=== PATIENT | male | born 1945 | race Caucasian/White ===

== ENCOUNTER 2017-02-16 09:10 | Emergency (ER) | payer MEDICARE, BC ==
--- NOTE | 2017-02-16 09:40 | ER Document Report ---
ED General - General Chief Complaint: General Weakness Stated Complaint: DIZZINESS Time Seen by Provider: 02/16/17 09:19 Mode of Arrival: Ambulatory Information source: Patient Notes: 71 yr old male who has had 6 weeks of syncopal episodes that has had extensive workup , they note he has a holter monitor currently , has had carotid workup, mri mra, tilt table test. Pt had a syncopal epsiode of 30 seconds today. pt denies any symptoms currently, was in a wheel chair when this happened. pt notes he feels fine and wants to go home. TRAVEL OUTSIDE OF THE [place] IN LAST 30 DAYS: No - HPI Onset: Just prior to arrival Onset/Duration: Sudden Quality of pain: No pain Severity: Mild Pain Level: Denies Associated symptoms: Weakness Exacerbated by: Denies Relieved by: Denies Similar symptoms previously: Yes Recently seen / treated by doctor: Yes - Related Data Allergies/Adverse Reactions: No Known Allergies Allergy (Unverified 01/01/13 13:56) Past Medical History - Social History Smoking Status: Never Smoker Cigarette use (# per day): No Chew tobacco use (# tins/day): No Smoking Education Provided: No Frequency of alcohol use: Occasional Drug Abuse: None Family History: Reviewed & Not Pertinent - Past Medical History Cardiac Medical History: Reports: Hx Hypertension - CONTROLLED Denies: Hx Coronary Artery Disease, Hx Heart Attack Pulmonary Medical History: Denies: Hx Asthma, Hx Bronchitis, Hx COPD, Hx Pneumonia Neurological Medical History: Denies: Hx Cerebrovascular Accident, Hx Seizures GI Medical History: Denies: Hx Hepatitis, Hx Hiatal Hernia, Hx Ulcer Musculoskeltal Medical History: Denies Hx Arthritis Psychiatric Medical History: Reports: Hx Depression Infectious Medical History: Denies: Hx Hepatitis Past Surgical History: Reports: Hx Abdominal Surgery - g-tube placement. Denies : Hx Open Heart Surgery, Hx Pacemaker - Immunizations Hx Diphtheria, Pertussis, Tetanus Vaccination: Yes Hx Pneumococcal Vaccination: 07/31/12 Review of Systems - Review of Systems Notes: REVIEW OF SYSTEMS: CONSTITUTIONAL : Denies fever, chills, or sweats. Denies recent illness. EENT: Denies eye, ear, throat, or mouth pain or symptoms. Denies nasal or sinus congestion or discharge. Denies throat, tongue, or mouth swelling or difficulty swallowing. CARDIOVASCULAR: Denies chest pain. Denies palpitations or racing or irregular heart beat. Denies ankle edema. RESPIRATORY: Denies cough, cold, or chest congestion. Denies shortness of breath, difficulty breathing, or wheezing. GASTROINTESTINAL: Denies abdominal pain or distention. Denies nausea, vomiting , or diarrhea. Denies blood in vomitus, stools, or per rectum. Denies black, tarry stools. Denies constipation. GENITOURINARY: Denies difficulty urinating, painful urination, burning, frequency, blood in urine, or discharge. MUSCULOSKELETAL: Denies back or neck pain or stiffness. Denies joint pain or swelling. SKIN: Denies rash, lesions or sores. HEMATOLOGIC : Denies easy bruising or bleeding. LYMPHATIC: Denies swollen, enlarged glands. NEUROLOGICAL: admits to dizziness and syncope PSYCHIATRIC: Denies anxiety or stress. Denies depression, suicidal ideation, or homicidal ideation. ALL OTHER SYSTEMS REVIEWED AND NEGATIVE. Dictation was performed using [employer] voice recognition software PHYSICAL EXAMINATION: GENERAL: Well-appearing, well-nourished and in no acute distress. HEAD: Atraumatic, normocephalic. EYES: Pupils equal round and reactive to light, extraocular movements intact, sclera anicteric, conjunctiva are normal. ENT: Nares patent, oropharynx clear without exudates. Moist mucous membranes. NECK: Normal range of motion, supple without lymphadenopathy LUNGS: Breath sounds clear to auscultation bilaterally and equal. No wheezes rales or rhonchi. HEART: Regular rate and rhythm without murmurs ABDOMEN: Soft, nontender, nondistended abdomen. No guarding, no rebound. No masses appreciated. Musculoskeletal: Normal range of motion, no pitting or edema. No cyanosis. NEUROLOGICAL: Cranial nerves grossly intact. Normal speech, normal gait. Normal sensory, motor exams PSYCH: Normal mood, normal affect. SKIN: Warm, Dry, normal turgor, no rashes or lesions noted. Physical Exam - Vital signs Vitals: BP 115/78 02/16/17 09:15 Course - Re-evaluation Re-evalutation: 02/16/17 09:36 patient and defer on any labs imaging or any intervention i offered to at least call their physician, they are happy with this plan 02/16/17 09:40 02/16/17 09:[address] Nguyen, he notes the patient did have a positive tilt table test, he stresses continuation of compression stockings hydration and otherwise discharge home with follow-up After performing a Medical Screening Examination, I estimate there is LOW risk for INTRACRANIAL HEMORRHAGE, ISCHEMIC CVA, MALIGNANT DYSRHYTHMIA, ACUTE CORONARY SYNDROME, MENINGITIS, PULMONARY EMBOLISM, or SEPSIS thus I consider the discharge disposition reasonable. I have reevaluated this patient multiple times and no significant life threatening changes are noted. The patient and I have discussed the diagnosis and risks, and we agree with discharging home with close follow-up with the understanding that symptoms and presentations can change. We also discussed returning to the Emergency Department immediately if new or worsening symptoms occur. We have discussed the symptoms which are most concerning (e.g., changing or worsening pain, weakness, vomiting, fever) that necessitate immediate return. - Vital Signs Vital signs: Temp Pulse Resp BP Pulse Ox 15 115/78 95 02/16/17 09:40 02/16/17 09:15 02/16/17 09:40 Discharge - Discharge Clinical Impression: Syncope and collapse Hypotension Qualifiers: Hypotension type: unspecified hypotension type Qualified Code(s): I95.9 - Hypotension, unspecified Condition: Stable Disposition: HOME, SELF-CARE Instructions: Syncopal Episode ([facility]) Additional Instructions: Follow up with your physician tomorrow for further care or return to the ED IMMEDIATELY if symptoms worsen or new concerns occur. If you cannot afford to follow up with your primary care physician a list of low cost clinics have been provided at the end of your discharge papers as well.
[2017-02-16 10:05] VITALS: BP 129/79
== END 2017-02-16 10:03 | disposition home or self-care (01) ==
LOC: ER 09:10
DX: I95.9 Hypotension, unspecified (principal); R55 Syncope and collapse; I10 Essential (primary) hypertension
CPT/HCPCS: 82962; 99284

== ENCOUNTER 2017-02-21 16:59 | Observation (INO) | payer MEDICARE, BC ==
[2017-02-21 17:17] LABS: ABSOLUTE BASOPHILS # (AUTO) 0.1 10^3/uL (0.0-0.2); ABSOLUTE EOSINOPHILS # (AUTO) 0.1 10^3/uL (0.0-0.6); ABSOLUTE LYMPHOCYTES (AUTO) 1.8 10^3/uL (0.5-4.7); ABSOLUTE NEUT (AUTO) 6.3 10^3/uL (1.7-8.2); BASOPHILS % (AUTO) 0.7 % (0-2); EOSINOPHILS % (AUTO) 0.9 % (0-6); HEMATOCRIT 41.5 % (37.9-51.0); HGB HCT DIFFERENCE 0.5; LYMPHOCYTES % (AUTO) 19.2 % (13-45); MEAN CORPUSCULAR HEMOGLOBIN 31.8 pg (27.0-33.4); MEAN CORPUSCULAR HGB CONC 33.6 g/dL (32.0-36.0); MEAN CORPUSCULAR VOLUME 95 fl (80-97); MONOCYTES % (AUTO) 10.8 % (3-13); RED BLOOD COUNT 4.38 10^6/uL (4.35-5.55); SEGMENTED NEUTROPHILS % (AUTO) 68.4 % (42-78); WHITE BLOOD COUNT 9.2 10^3/uL (4.0-10.5)
[2017-02-21 17:28] LABS: ALANINE AMINOTRANSFERASE 23 U/L (21-72); ALBUMIN 3.9 g/dL (3.5-5.0); ALKALINE PHOSPHATASE 94 U/L (38-126); ANION GAP 13 (5-19); ASPARTATE AMINO TRANSFERASE 20 U/L (17-59); BILIRUBIN,DIRECT 0.4 mg/dL (0.0-0.4); BILIRUBIN,TOTAL 0.6 mg/dL (0.2-1.3); BLOOD UREA NITROGEN 19 mg/dL (7-20); CALCIUM 9.4 mg/dL (8.4-10.2); CARBON DIOXIDE 24 mmol/L (22-30); CHLORIDE 101 mmol/L (98-107); CREATINE KINASE 48 U/L (55-170); CREATININE RESULT 1.11 mg/dL (0.52-1.25); GLUCOSE 78 mg/dL (75-110); SODIUM 137.9 mmol/L (137-145); TOTAL PROTEIN 6.8 g/dL (6.3-8.2)
[2017-02-21 17:40] LABS: CREATINE KINASE MB 1.05 ng/mL (<4.55)
[2017-02-21 17:41] LABS: TROPONIN I < 0.012 ng/mL
--- NOTE | 2017-02-21 17:44 | RADIOLOGY REPORT (SQ) ---
EXAM DESCRIPTION: CHEST SINGLE VIEW COMPLETED DATE/TIME: 02/21/2017 5:35 pm REASON FOR STUDY: Syncope, portable AP chest COMPARISON: 02/26/2014. EXAM PARAMETERS: NUMBER OF VIEWS: One view. TECHNIQUE: Single frontal radiographic view of the chest acquired. RADIATION DOSE: NA LIMITATIONS: None. FINDINGS: LUNGS AND PLEURA: Irregular density in the left lung base concerning for lung mass. No in filtrates. No pleural effusion or pneumothorax. MEDIASTINUM AND HILAR STRUCTURES: No masses. Contour normal. HEART AND VASCULAR STRUCTURES: Heart normal in size. Normal vasculature. BONES: No acute findings. HARDWARE: None in the chest. OTHER: No other significant finding. IMPRESSION: IRREGULAR DENSITY IN THE LEFT LUNG BASE CONCERNING FOR A LUNG MASS. OTHERWISE NO ACUTE FINDINGS. FOLLOW-UP CHEST CT SHOULD BE CONSIDERED. TECHNICAL DOCUMENTATION: JOB ID: [id number]
--- NOTE | 2017-02-21 18:10 | ER Document Report ---
ED Syncope and Near Syncope - General Chief Complaint: Syncope Stated Complaint: UNRESPONSIVE Time Seen by Provider: 02/21/17 17:24 Notes: This 71-year-old male has been having increasing episodes of passing out or nearly passing out over the last couple of months. He has been seeing a local truck body repairer, Dr. Nguyen, and, in fact, just finished these episodes the patient has are associated with low blood pressure and slow heart rate and either near syncope or syncope. He had been having about 1 a week over the last couple months but now he is having them more frequently. Today, EMS got a call that the patient had passed out. They found him sitting, extremely diaphoretic, and lethargic. His blood pressure was in the 50s systolic. They did a 12-lead EKG which showed a normal sinus rhythm. Patient denies any symptoms such as chest pain, shortness of breath, nausea or vomiting , abdominal pain. On the way here, EMS says that his blood pressure dropped down into the 60s and 70s 3 or 4 times, but spontaneously came back up. They only administered IV saline. TRAVEL OUTSIDE OF THE [place] IN LAST 30 DAYS: No - Related Data Allergies/Adverse Reactions: No Known Allergies Allergy (Unverified 01/01/13 13:56) Home Medications: Current Home Medications Alprazolam [Xanax 0.5 mg Tablet] 0.5 mg PO Q12HP PRN 02/21/17 [History] Benazepril HCl [Lotensin 20 mg Tablet] 20 mg PO DAILY 02/21/17 [History] Doxycycline Hyclate 20 mg PO Q12 02/21/17 [History] Gabapentin [Neurontin] 1,600 mg PO QHS 02/21/17 [History] Loratadine [Claritin] 10 mg PO DAILY 02/21/17 [History] Naproxen 500 mg PO BIDPCBS 02/21/17 [History] Pantoprazole Sodium [Protonix] 40 mg PO Q12 02/21/17 [History] Sertraline HCl [Zoloft] 100 mg PO DAILY 02/21/17 [History] Venlafaxine HCl [Effexor Xr] 150 mg PO DAILY 02/21/17 [History] Past Medical History - Social History Smoking Status: Former Smoker - Stopped about 12 years ago. Family History: Reviewed & Not Pertinent - Past Medical History Cardiac Medical History: Reports: Hx Hypertension - CONTROLLED Psychiatric Medical History: Reports: Hx Depression Past Surgical History: Reports: Hx Abdominal Surgery - g-tube placement - Immunizations Hx Diphtheria, Pertussis, Tetanus Vaccination: Yes Hx Pneumococcal Vaccination: 07/31/12 Review of Systems - Review of Systems Notes: REVIEW OF SYSTEMS: CONSTITUTIONAL : Denies fever. EENT: Denies eye, ear, nose or mouth or throat pain or other symptoms. CARDIOVASCULAR: Denies chest pain. RESPIRATORY: Denies cough, chest congestion, or shortness of breath. GASTROINTESTINAL: Denies abdominal pain or nausea, vomiting, or diarrhea. GENITOURINARY: Denies difficulty or painful urinating, urinary frequency, blood in urine. MUSCULOSKELETAL: Denies back or neck pain. Denies joint pain or swelling. SKIN: Denies rash or skin lesions. NEUROLOGICAL: Denies LOC, but nearly so, and somewhat confused at times when these episodes are occurring. Denies headache. Denies sensory loss or motor deficits. ALL OTHER SYSTEMS REVIEWED AND NEGATIVE. Physical Exam - Notes Notes: PHYSICAL EXAMINATION: GENERAL: Well-appearing, in no acute distress. Somewhat diaphoretic. HEAD: Atraumatic, normocephalic. EYES: Pupils equal round and reactive to light, extraocular movements intact. NECK: Normal range of motion, supple. LUNGS: Breath sounds clear and equal bilaterally. HEART: Regular rate and rhythm without murmurs. ABDOMEN: Soft, nontender. No guarding or rebound. BACK: No tenderness throughout entire back. EXTREMITIES: Normal range of motion without pain. NEUROLOGICAL: Normal speech. Gait not tested because of patient's vital signs and clinical presentation. Normal sensory, motor, and reflex exams. Awake, alert, and oriented x3. SKIN: Warm, dry, no rashes. Course - Re-evaluation Re-evalutation: 02/21/17 18:27 Shortly after his arrival, patient's heart rate went down into the mid 50s and his blood pressure dropped to 75. He was given a bolus of 250 mL of saline and put in a supine position and his blood pressure returned to normal and his heart rate increased into the 70s. Spoke with Dr. Solomon, 1 of our hospitalist, and he will admit the patient for observation to [facility]. - Laboratory Result Diagrams: 02/21/17 17:10 02/21/17 17:10 Laboratory results interpreted by me: 02/21/17 17:10 Creatine Kinase 48 L - Diagnostic Test Radiology results interpreted by me: 02/21/17 18:39 Chest x-ray shows a small mass in the left lower lung. I made the patient and his are aware of this finding and recommended they follow-up with their primary care physician to get a CT scan of this patient's chest as an outpatient at some point in the relatively near future. - EKG Interpretation by Me EKG shows normal: Sinus rhythm Rate: Normal Rhythm: NSR Additional EKG results interpreted by me: 02/21/17 18:40 Twelve-lead EKG is normal. Critical Care Note - Critical Care Note Total time excluding time spent on procedures (mins): 40 Discharge - Discharge Clinical Impression: Near syncope Hypotension Qualifiers: Hypotension type: unspecified hypotension type Qualified Code(s): I95.9 - Hypotension, unspecified Condition: Serious Disposition: ADMITTED OBSERVATION Admitting Provider: Hospitalist Unit Admitted: [facility]
[2017-02-21] MEDS ORDERED: ACETAMINOPHEN 325 MG TABLET PO PRN (18:44)
[2017-02-21] MEDS ORDERED: ONDANSETRON HCL INJ/PF 4 MG/2 ML SDV IV PRN (18:44)
--- NOTE | 2017-02-21 19:01 | PDOC H&P ---
History of Present Illness Admission Date/PCP: CLAUDIO FU MD Patient complains of: Syncope History of Present Illness: OLIMPIA [address] is a 71 year old male, with a history of recurrent syncope for the last 3-4 months where he already had multiple workups including carotid Doppler, EEG, tilt table testing, stress test, as well as event recorder. The patient completed recording yesterday and this was submitted to his hospice music therapist. Patient reportedly during the episodes will develop some neck discomfort and eventually some dizziness. No significant injury will be sustained. No reported seizure episode. No tongue biting or urinary incontinence. The patient had another episode today. She was brought to the hospital for evaluation. Reportedly the ambulance noted blood pressure in the 70s and the heart rate were slow in the 50s. The patient according to the family had a blood pressure of 59 systolic prior as well. He is on Norvasc and benazepril and he has not been taking the 5 mg of Norvasc for 2 weeks but still takes the benazepril. In the emergency room however no bradycardia nor hypotension was noted. Past Medical History Past Medical History: Medication reconciliation pending verification from the patient's pharmacist. Cardiac Medical History: Reports: Hypertension - CONTROLLED Denies: Coronary Artery Disease, Myocardial Infarction Pulmonary Medical History: Denies: Asthma, Bronchitis, Chronic Obstructive Pulmonary Disease (COPD), Pneumonia Neurological Medical History: Denies: Seizures GI Medical History: Reports: Other - Esophageal stricture Denies: Hepatitis, Hiatal Hernia Musculoskeltal Medical History: Denies: Arthritis Psychiatric Medical History: Reports: Depression Hematology: Denies: Anemia, Sickle Cell Disease Past Surgical History Past Surgical History: Reports: Other - Abdominal surgery Denies: Pacemaker Social History Information Source: Patient Smoking Status: Former Smoker - Stopped about 12 years ago. Frequency of Alcohol Use: Occasional Hx Recreational Drug Use: No Drugs: None Hx Prescription Drug Abuse: No Family History Family History: Hypertension Parental Family History Reviewed: Yes Children Family History Reviewed: Yes Sibling(s) Family History Reviewed.: Yes Medication/Allergy Home Medications: Alprazolam [Xanax 0.5 mg Tablet] 0.5 mg PO Q12HP PRN 02/21/17 Benazepril HCl [Lotensin 20 mg Tablet] 20 mg PO DAILY 02/21/17 Doxycycline Hyclate 20 mg PO Q12 02/21/17 Gabapentin [Neurontin] 1,600 mg PO QHS 02/21/17 Loratadine [Claritin] 10 mg PO DAILY 02/21/17 Naproxen 500 mg PO BIDPCBS 02/21/17 Pantoprazole Sodium [Protonix] 40 mg PO Q12 02/21/17 Sertraline HCl [Zoloft] 100 mg PO DAILY 02/21/17 Venlafaxine HCl [Effexor Xr] 150 mg PO DAILY 02/21/17 Allergies/Adverse Reactions: No Known Allergies Allergy (Unverified 01/01/13 13:56) Review of Systems Constitutional: ABSENT: chills, fever(s), headache(s), night sweats, weakness, weight gain, weight loss Eyes: ABSENT: visual disturbances Ears: ABSENT: hearing changes Nose, Mouth, and Throat: PRESENT: mouth pain - Chronically dry mouth, sore throat - Chronic secondary to dryness Cardiovascular: ABSENT: chest pain, dyspnea on exertion, edema, orthropnea, palpitations Respiratory: PRESENT: cough - Occasional. ABSENT: dyspnea, hemoptysis, sputum Gastrointestinal: PRESENT: dysphagia - Chronic problem esophageal stricture. ABSENT: abdominal pain, constipation, diarrhea, hematemesis, hematochezia, nausea, vomiting Genitourinary: ABSENT: dysuria, hematuria Musculoskeletal: ABSENT: joint swelling Integumentary: ABSENT: rash, wounds Neurological: ABSENT: abnormal gait, abnormal speech, confusion, dizziness, focal weakness, syncope Psychiatric: ABSENT: anxiety, depression, homidical ideation, suicidal ideation Endocrine: ABSENT: cold intolerance, heat intolerance, polydipsia, polyuria Hematologic/Lymphatic: ABSENT: easy bleeding, easy bruising Physical Exam General appearance: PRESENT: no acute distress, cooperative Head exam: PRESENT: atraumatic, normocephalic Eye exam: PRESENT: conjunctiva pink, EOMI, PERRLA. ABSENT: scleral icterus Ear exam: PRESENT: normal external ear exam Mouth exam: PRESENT: dry mucosa - Chronic, neck supple - Limited range of motion however due to prior radiation, tongue midline Throat exam: ABSENT: post pharyngeal erythema, tonsillar erythema Neck exam: ABSENT: carotid bruit, JVD, lymphadenopathy, thyromegaly Respiratory exam: PRESENT: clear to auscultation alana. ABSENT: rales, rhonchi, wheezes Cardiovascular exam: PRESENT: RRR. ABSENT: diastolic murmur, rubs, systolic murmur Pulses: PRESENT: normal dorsalis pedis pul Vascular exam: PRESENT: normal capillary refill GI/Abdominal exam: PRESENT: normal bowel sounds, soft. ABSENT: distended, guarding, mass, organolmegaly, rebound, tenderness Rectal exam: PRESENT: deferred Extremities exam: PRESENT: full ROM. ABSENT: calf tenderness, clubbing, pedal edema Neurological exam: PRESENT: alert, awake, oriented to person, oriented to place , oriented to time, oriented to situation Psychiatric exam: PRESENT: appropriate affect, normal mood. ABSENT: homicidal ideation, suicidal ideation Skin exam: PRESENT: dry, intact, warm. ABSENT: cyanosis, rash Results Laboratory Results: 02/21/17 17:10 02/21/17 17:10 02/21/17 02/21/17 17:10 17:10 WBC 9.2 RBC 4.38 Hgb 14.0 Hct 41.5 MCV 95 MCH 31.8 MCHC 33.6 RDW 13.0 Plt Count 263 Seg Neutrophils % 68.4 Lymphocytes % 19.2 Monocytes % 10.8 Eosinophils % 0.9 Basophils % 0.7 Absolute Neutrophils 6.3 Absolute Lymphocytes 1.8 Absolute Monocytes 1.0 Absolute Eosinophils 0.1 Absolute Basophils 0.1 Sodium 137.9 Potassium 4.0 Chloride 101 Carbon Dioxide 24 Anion Gap 13 BUN 19 Creatinine 1.11 Est GFR ( Amer) > 60 Est GFR (Non-Af Amer) > 60 Glucose 78 Calcium 9.4 Total Bilirubin 0.6 AST 20 ALT 23 Alkaline Phosphatase 94 Total Protein 6.8 Albumin 3.9 02/21/17 02/21/17 17:10 17:10 Creatine Kinase 48 L CK-MB (CK-2) 1.05 Troponin I < 0.012 Impressions: Chest X-Ray 02/21/17 17:24 IMPRESSION: IRREGULAR DENSITY IN THE LEFT LUNG BASE CONCERNING FOR A LUNG MASS. OTHERWISE NO ACUTE FINDINGS. FOLLOW-UP CHEST CT SHOULD BE CONSIDERED. Assessment & Plan - Diagnosis (1) Hypotension Qualifiers: Hypotension type: unspecified hypotension type Qualified Code(s): I95.9 - Hypotension, unspecified Is this a current diagnosis for this admission?: Yes (2) Syncope and collapse Is this a current diagnosis for this admission?: Yes (3) Bradycardia Is this a current diagnosis for this admission?: Yes (4) Essential hypertension Is this a current diagnosis for this admission?: Yes (5) Depression Qualifiers: Depression Type: unspecified Qualified Code(s): F32.9 - Major depressive disorder, single episode, unspecified Is this a current diagnosis for this admission?: Yes (6) History of laryngeal cancer Is this a current diagnosis for this admission?: Yes - Time Time Spent: 30 to 50 Minutes - Plan Summary Plan Summary: The patient will be admitted to observation. The patient already had multiple workups done and family reports it as being negative. Likely cause of syncope is hypotension I would therefore discontinue his antihypertensive medication and monitor blood pressure. I will hydrate the patient and if improved and stable in the morning patient can be discharged home. Patient will be on DVT prophylaxis with Lovenox. Further testing depends on initial evaluation as outlined above. I will add TSH.
[2017-02-21] MEDS ORDERED: ENOXAPARIN SODIUM INJ 40 MG/0.4 ML DISP.SYRIN SUBCUT ONE (20:00)
[2017-02-21] MEDS: NORMAL SALINE 1000 ML 1,000 ML IV PRN (21:24)
[2017-02-21] MEDS ORDERED: GABAPENTIN 400 MG CAPSULE PO SCH (22:00)
[2017-02-21] MEDS: ALPRAZOLAM 0.5 MG TABLET PO SCH (23:16)
[2017-02-21] MEDS: LANSOPRAZOLE 30 MG TAB.RAP.DR PO SCH (23:17)
[2017-02-22 00:08] LABS: APPEARANCE,URINE CLEAR; BILIRUBIN,URINE NEGATIVE (NEGATIVE); GLUCOSE, URINE NEGATIVE (NEGATIVE); KETONES,URINE TRACE mg/dL (NEGATIVE); LEUKOCYTE ESTERASE,URINE NEGATIVE (NEGATIVE); NITRITE,URINE NEGATIVE (NEGATIVE); PROTEIN,URINE NEGATIVE (NEGATIVE); URINE SPECIFIC GRAVITY 1.012; UROBILINOGEN,URINE NEGATIVE mg/dL (<2.0)
[2017-02-22] MEDS: NORMAL SALINE 1000 ML 1,000 ML IV PRN (05:22)
[2017-02-22] MEDS ORDERED: LANSOPRAZOLE 30 MG TAB.RAP.DR PO SCH (06:00)
[2017-02-22] MEDS ORDERED: GABAPENTIN 1600 MG PO SCH (08:00)
[2017-02-22] MEDS: ALPRAZOLAM 0.5 MG TABLET PO SCH (09:19)
[2017-02-22] MEDS: LANSOPRAZOLE 30 MG TAB.RAP.DR PO SCH (09:19)
[2017-02-22] MEDS ORDERED: BENAZEPRIL HCL 10 MG TABLET PO ONE (09:30)
[2017-02-22] MEDS ORDERED: ENOXAPARIN SODIUM INJ 40 MG/0.4 ML DISP.SYRIN SUBCUT SCH (10:00)
[2017-02-22] MEDS ORDERED: VENLAFAXINE HCL 75 MG CAP.SR.24H PO SCH (10:00)
[2017-02-22] MEDS ORDERED: LORATADINE 10 MG TABLET PO SCH (10:00)
[2017-02-22] MEDS ORDERED: DOCUSATE SODIUM 100 MG CAPSULE PO SCH (10:00)
[2017-02-22] MEDS ORDERED: SERTRALINE HCL 50 MG TABLET PO SCH (10:00)
--- NOTE | 2017-02-22 10:20 | RADIOLOGY REPORT (SQ) ---
EXAM DESCRIPTION: CT CHEST WITH COMPLETED DATE/TIME: 02/22/2017 10:05 am REASON FOR STUDY: abnormal chest x-ray. R05 COUGH COMPARISON: Chest x-ray dated 02/21/2017. PET-CT dated 09/14/2014. TECHNIQUE: CT scan of the chest performed using helical scanning technique with dynamic intravenous contrast injection. Images reviewed with lung, soft tissue and bone windows. Reconstructed coronal and sagittal MPR images reviewed. All images stored on PACS. All CT scanners at this facility use dose modulation, iterative reconstruction, and/or weight based d osing when appropriate to reduce radiation dose to as low as reasonably achievable (ALARA). [facility]: Dose Right [facility]: CareDose [facility]: Dose Right [facility]: Teradose 4D [facility]: KeepTrax CONTRAST TYPE AND DOSE: contrast/concentration: Isovue 370.00 mg/ml; Total Contrast Delivered: 81.1 ml; Total Saline Delivered: 56.0 ml RENAL FUNCTION: BUN 19 creatinine 1.11. RADIATION DOSE: Up-to-date CT equipment and radiation dose reduction techniques were employed. CTDIv ol: 11.0 mGy. DLP: 441 mGy-cm. . LIMITATIONS: None. FINDINGS: LUNGS AND PLEURA: There are innumerable small pulmonary nodules throughout both lungs, ofelia suring less than 1 cm. There is a spiculated mass in the superior left lower lobe measuring 2.6 cm. This abuts the major fissure. No pleural effusion or pleural thickening. No pneumothorax. HILAR AND MEDIASTINAL STRUCTURES: Ill-defined soft tissue in the upper mediastinum, superior to the a ortic arch. This deviates the trachea to the right. Margins are indistinct but overall transverse d imensions are roughly 2.5 x 5 cm. HEART AND VASCULAR STRUCTURES: No aneurysm or dissection. No central pulmonary emboli. No pericardi al effusion. HARDWARE: None in the chest. UPPER ABDOMEN: No significant findings. Limited exam. THYROID AND OTHER SOFT TISSUES: No masses. No adenopathy. BONES: No significant finding. Old rib fractures. OTHER: No other significant finding. IMPRESSION: 1. MULTIPLE SMALL SUBCENTIMETER PULMONARY NODULES THROUGHOUT BOTH LUNGS WITH A 2.6 CM SPICULATED MASS IN THE LEFT LOWER LOBE. GIVEN THE HISTORY OF VOCAL CORD CANCER, THESE COULD REPRESENT METASTASES AL THOUGH ANOTHER POSSIBILITY IS PRIMARY LUNG MALIGNANCY WITH METASTASIS. 2. ILL-DEFINED SOFT TISSUE MASS IN THE UPPER MEDIASTINUM, MOST LIKELY METASTATIC IN NATURE. TECHNICAL DOCUMENTATION: JOB ID: [id number] Quality ID # [id number]: Final reports with documentation of one or more dose reduction techniques (e.g., Au tomated exposure control, adjustment of the mA and/or kV according to patient size, use of iterative reconstruction technique) 2010 [employer]- All Rights Reserved
--- NOTE | 2017-02-22 14:52 | PDOC PROGRESS REPORT ---
Subjective Progress Note for:: 02/22/17 Subjective:: Patient and family reluctant to go home. No hypotension or bradycardia noted while in the [place]. Patient's blood pressure actually was elevated eventually. Intravenous fluid was discontinued. No chest pain, nausea or vomiting, chills or fever. Patient denies any dizziness. Physical Exam Vital Signs: Temp Pulse Resp BP Pulse Ox 98.0 F 82 20 169/85 H 100 02/22/17 11:11 02/22/17 11:11 02/22/17 11:11 02/22/17 11:11 02/22/17 11:11 Intake & Output 02/21/17 02/22/17 02/23/17 06:59 06:59 06:59 Intake Total 1129 Output Total 400 Balance 729 Weight 87.7 kg General appearance: PRESENT: no acute distress, cooperative Head exam: PRESENT: normocephalic Eye exam: PRESENT: EOMI Mouth exam: PRESENT: moist, neck supple Neck exam: ABSENT: JVD Respiratory exam: PRESENT: clear to auscultation alana Cardiovascular exam: PRESENT: RRR. ABSENT: gallop GI/Abdominal exam: PRESENT: soft. ABSENT: distended, tenderness Extremities exam: ABSENT: pedal edema Neurological exam: PRESENT: alert, awake, oriented to situation Skin exam: PRESENT: dry, warm. ABSENT: cyanosis Results Laboratory Results: 02/21/17 02/22/17 22:55 05:58 TSH 1.89 Urine Color YELLOW Urine Appearance CLEAR Urine pH 5.0 Ur Specific [place] 1.012 Urine Protein NEGATIVE Urine Glucose (UA) NEGATIVE Urine Ketones TRACE H Urine Blood NEGATIVE Urine Nitrite NEGATIVE Ur Leukocyte Esterase NEGATIVE Urine WBC (Auto) 2 Urine RBC (Auto) 1 Impressions: Chest X-Ray 02/21/17 17:24 IMPRESSION: IRREGULAR DENSITY IN THE LEFT LUNG BASE CONCERNING FOR A LUNG MASS. OTHERWISE NO ACUTE FINDINGS. FOLLOW-UP CHEST CT SHOULD BE CONSIDERED. Chest CT 02/22/17 00:00 IMPRESSION: 1. MULTIPLE SMALL SUBCENTIMETER PULMONARY NODULES THROUGHOUT BOTH LUNGS WITH A 2.6 CM SPICULATED MASS IN THE LEFT LOWER LOBE. GIVEN THE HISTORY OF VOCAL CORD CANCER, THESE COULD REPRESENT METASTASES ALTHOUGH ANOTHER POSSIBILITY IS PRIMARY LUNG MALIGNANCY WITH METASTASIS. 2. ILL-DEFINED SOFT TISSUE MASS IN THE UPPER MEDIASTINUM, MOST LIKELY METASTATIC IN NATURE. Assessment & Plan - Diagnosis (1) Hypotension Qualifiers: Hypotension type: unspecified hypotension type Qualified Code(s): I95.9 - Hypotension, unspecified Is this a current diagnosis for this admission?: Yes (2) Syncope and collapse Is this a current diagnosis for this admission?: Yes (3) Bradycardia Is this a current diagnosis for this admission?: Yes (4) Essential hypertension Is this a current diagnosis for this admission?: Yes (5) Depression Qualifiers: Depression Type: unspecified Qualified Code(s): F32.9 - Major depressive disorder, single episode, unspecified Is this a current diagnosis for this admission?: Yes (6) History of laryngeal cancer Is this a current diagnosis for this admission?: Yes - Time Time Spent with patient: 15-24 minutes - Plan Summary Plan Summary: We will discuss it is etl architect Dr. Nguyen regarding care plan in terms of the patient's recurrent syncope and results of event recorder.
--- NOTE | 2017-02-22 15:20 | Physician Advisory Note ---
Physician Advisor ProgressNote .: Pursuant to the plan for [facility], I have reviewed the medical record for this patient. Physician Advisor Statement: Please consider documentin. "Bilateral lung masses, suspect cancer" 2. likely cause of syncope - dehyd, 'lyte abnormalities, med SEs, generalized arteriosclerotic cerebrovascular dz, ... 3. Medical necessity - please make explicit the clinical reason(s) pt unable to safely go home 7/26 PM (if none are documented, payer will likely assume pt should have gone home 7/26) Thanks! CK
--- NOTE | 2017-02-22 16:22 | EKG REPORT ---
SEVERITY:- BORDERLINE ECG - SINUS RHYTHM PROBABLE LEFT ATRIAL ABNORMALITY : Confirmed by: Carolyn Farias MD 22-Feb-2017 16:21:40
--- NOTE | 2017-02-22 17:13 | PDOC DISCHARGE SUMMARY ---
General - Admit/Disc Date/PCP Admission Date/Primary Care Provider: 02/21/17 18:44 CLAUDIO FU MD Discharge Date: 02/22/17 - Discharge Diagnosis (1) Hypotension Is this a current diagnosis for this admission?: Yes (2) Syncope and collapse Is this a current diagnosis for this admission?: YesSummary: Likely vasovagal (3) Bradycardia Is this a current diagnosis for this admission?: Yes (4) Essential hypertension Is this a current diagnosis for this admission?: Yes (5) Depression Is this a current diagnosis for this admission?: Yes (6) History of laryngeal cancer Is this a current diagnosis for this admission?: Yes - Additional Information Discharge Diet: Cardiac Discharge Activity: Activity As Tolerated, Balance Activity w/Rest Home Medications: Alprazolam [Xanax 0.5 mg Tablet] 0.5 mg PO Q12HP PRN 02/21/17 Benazepril HCl [Lotensin 20 mg Tablet] 20 mg PO DAILY 02/21/17 Doxycycline Hyclate 20 mg PO Q12 02/21/17 Gabapentin [Neurontin] 1,600 mg PO QHS 02/21/17 Loratadine [Claritin] 10 mg PO DAILY 02/21/17 Naproxen 500 mg PO BIDPCBS 02/21/17 Pantoprazole Sodium [Protonix] 40 mg PO Q12 02/21/17 Sertraline HCl [Zoloft] 100 mg PO DAILY 02/21/17 Venlafaxine HCl [Effexor Xr] 150 mg PO DAILY 02/21/17 Additional Information: Where compression stockings, increase salt intake, stop alcoholic beverage drink History of Present Illness Patient complains of: Recheck recurrent syncope History of Present Illness: OLIMPIA [facility] is a 71 year old male, with a history of recurrent syncope for the last 3-4 months where he already had multiple workups including carotid Doppler, EEG, tilt table testing, stress test, as well as event recorder. The patient completed recording yesterday and this was submitted to his tmd teacher assistant. Patient reportedly during the episodes will develop some neck discomfort and eventually some dizziness. No significant injury will be sustained. No reported seizure episode. No tongue biting or urinary incontinence. The patient had another episode today. She was brought to the hospital for evaluation. Reportedly the ambulance noted blood pressure in the 70s and the heart rate were slow in the 50s. The patient according to the family had a blood pressure of 59 systolic prior as well. He is on Norvasc and benazepril and he has not been taking the 5 mg of Norvasc for 2 weeks but still takes the benazepril. In the emergency room however no bradycardia nor hypotension was noted. Hospital Course Hospital Course: the patient was admitted to [facility]. He was given intravenous fluids. Antihypertensive medications were held temporarily. His blood pressure normalized and the patient's heart rate normalized. His blood pressure the following morning started to increase and he was given 10 mg of benazepril which he takes as needed at home when his blood pressure goes up above 140 systolic. This was his instructions from his tmd teacher assistant and he wants to keep it that way. Subsequently his blood pressure improved. No syncopal episode or sensation was noted while in the [place]. No bradycardia was likewise noted on the monitor. His case was discussed with his tmd teacher assistant Dr. Nguyen who stated that he had an extensive workup in [place] and he has pending event recorder reading which was completed 2 days ago. He is still table test was positive and has vasovagal syncope. He has advised the patient to wear compression stockings, increase salt intake , and stop alcohol. He made the same recommendations upon discussion with him for the patient. He was cleared to be discharged and to be seen by him on June 01, 2017 at 3:45 in the afternoon. His course was noted for abnormal chest x-ray order a CT of the chest showed lung nodules and spiculated mass suspicious for malignancy mainly metastatic from prior primary site which is laryngeal cancer as reported. His case was then discussed with his oncologist Dr. Hanson who will see him on an outpatient. Patient and family was informed of the findings. The rest of the hospital stay was unremarkable. Physical Exam Vital Signs: Temp Pulse Resp BP Pulse Ox 98.0 F 89 20 169/85 H 100 02/22/17 11:11 02/22/17 14:00 02/22/17 11:11 02/22/17 11:11 02/22/17 16:40 Intake & Output 02/21/17 02/22/17 02/23/17 06:59 06:59 06:59 Intake Total 1129 Output Total 400 Balance 729 Weight 87.7 kg General appearance: PRESENT: no acute distress, cooperative Head exam: PRESENT: normocephalic Eye exam: PRESENT: EOMI Mouth exam: PRESENT: moist, neck supple Neck exam: ABSENT: JVD Respiratory exam: PRESENT: clear to auscultation alana Cardiovascular exam: PRESENT: RRR. ABSENT: gallop GI/Abdominal exam: PRESENT: soft. ABSENT: distended, tenderness Extremities exam: ABSENT: pedal edema Neurological exam: PRESENT: alert, awake, oriented to situation Skin exam: PRESENT: dry, warm. ABSENT: cyanosis Results Laboratory Results: 02/21/17 02/22/17 22:55 05:58 TSH 1.89 Urine Color YELLOW Urine Appearance CLEAR Urine pH 5.0 Ur Specific [place] 1.012 Urine Protein NEGATIVE Urine Glucose (UA) NEGATIVE Urine Ketones TRACE H Urine Blood NEGATIVE Urine Nitrite NEGATIVE Ur Leukocyte Esterase NEGATIVE Urine WBC (Auto) 2 Urine RBC (Auto) 1 Impressions: Chest X-Ray 02/21/17 17:24 IMPRESSION: IRREGULAR DENSITY IN THE LEFT LUNG BASE CONCERNING FOR A LUNG MASS. OTHERWISE NO ACUTE FINDINGS. FOLLOW-UP CHEST CT SHOULD BE CONSIDERED. Chest CT 02/22/17 00:00 IMPRESSION: 1. MULTIPLE SMALL SUBCENTIMETER PULMONARY NODULES THROUGHOUT BOTH LUNGS WITH A 2.6 CM SPICULATED MASS IN THE LEFT LOWER LOBE. GIVEN THE HISTORY OF VOCAL CORD CANCER, THESE COULD REPRESENT METASTASES ALTHOUGH ANOTHER POSSIBILITY IS PRIMARY LUNG MALIGNANCY WITH METASTASIS. 2. ILL-DEFINED SOFT TISSUE MASS IN THE UPPER MEDIASTINUM, MOST LIKELY METASTATIC IN NATURE. Qualifiers PATEINT BEING DISCHARGED WITH ANY OF THE FOLLOWING DIAGNOSIS?: No Plan Discharge Plan: Follow-up with primary care physician in 1 week. Follow-up with tmd teacher assistant Dr. Nguyen in 1 week. Time Spent: Less than 30 Minutes
[2017-02-22 17:43] VITALS: BP 136/67
== END 2017-02-22 18:02 | disposition home or self-care (01) ==
LOC: ER 16:59 → EH 18:44 → UNDOADMOB 18:52 → EH 18:52 → INTOOBSV 18:52 → 3W 21:40
DX: I95.9 Hypotension, unspecified (principal); R55 Syncope and collapse; R00.1 Bradycardia, unspecified; I10 Essential (primary) hypertension; F32.9 Major depressive disorder, single episode, unspecified; R91.8 Other nonspecific abnormal finding of lung field; K22.2 Esophageal obstruction; R68.2 Dry mouth, unspecified; K13.79 Other lesions of oral mucosa; Z85.21 Personal history of malignant neoplasm of larynx; Z79.899 Other long term (current) drug therapy; Z91.14 Patient's other noncompliance with medication regimen; Z87.891 Personal history of nicotine dependence; Z82.49 Family history of ischemic heart disease and other diseases of the circulatory system
CPT/HCPCS: 93005; 99291; 96372; 36415 ×2; 82553; 82550; 84443; 85025; 80053; 81001; 84484; 71010; 71260; 93010; G0378 ×3; A9270 ×10; J1650 ×2; J3490 ×2; J7030 ×2

== ENCOUNTER 2017-02-23 17:25 | Emergency (ER) | payer MEDICARE, BC ==
[2017-02-23] MEDS ORDERED: NORMAL SALINE 1000 ML 1,000 ML IV PRN (18:35)
--- NOTE | 2017-02-23 19:31 | ER Document Report ---
ED General - General Chief Complaint: Syncope Stated Complaint: POSSIBLE SYNCOPAL EPISODE Time Seen by Provider: 02/23/17 18:34 Notes: Patient is a 71-year-old male with past medical history of hypertension, peripheral neuropathy, and recurrent syncope who presents today after a syncopal episode. Patient did syncopized and trying to walk into a friend's house. He did not sustain any injuries during that fall. He has been extensively evaluated for these recurrent episodes of syncope by his railway track worker. He is scheduled to start on a medication such as Midodrine in the coming weeks to help prevent recurrent episodes of syncope. He apparently had a strongly positive tilt table test last week. At time of my assessment patient denies any ongoing symptoms. Denies any chest pain, shortness of breath , weakness or numbness. Nothing seems to provoke his symptoms or episodes. They do resolve spontaneously. TRAVEL OUTSIDE OF THE [place] IN LAST 30 DAYS: No - Related Data Allergies/Adverse Reactions: No Known Allergies Allergy (Unverified 01/01/13 13:56) Past Medical History - General Information source: Patient - Social History Smoking Status: Former Smoker Chew tobacco use (# tins/day): No Frequency of alcohol use: None Drug Abuse: None Lives with: Spouse/Significant other Family History: Reviewed & Not Pertinent - Past Medical History Cardiac Medical History: Reports: Hx Hypertension - CONTROLLED Denies: Hx Coronary Artery Disease, Hx Heart Attack Pulmonary Medical History: Denies: Hx Asthma, Hx Bronchitis, Hx COPD, Hx Pneumonia Neurological Medical History: Denies: Hx Cerebrovascular Accident, Hx Seizures GI Medical History: Denies: Hx Hepatitis, Hx Hiatal Hernia, Hx Ulcer Musculoskeltal Medical History: Denies Hx Arthritis Psychiatric Medical History: Reports: Hx Depression Infectious Medical History: Denies: Hx Hepatitis Past Surgical History: Reports: Hx Abdominal Surgery - g-tube placement, Other - Abdominal surgery. Denies: Hx Open Heart Surgery, Hx Pacemaker - Immunizations Hx Diphtheria, Pertussis, Tetanus Vaccination: Yes Hx Pneumococcal Vaccination: 07/31/12 Review of Systems - Review of Systems Notes: Constitutional: Negative for fever. HENT: Negative for sore throat. Eyes: Negative for visual changes. Cardiovascular: Negative for chest pain. Respiratory: Negative for shortness of breath. Gastrointestinal: Negative for abdominal pain, vomiting or diarrhea. Genitourinary: Negative for dysuria. Musculoskeletal: Negative for back pain. Skin: Negative for rash. Neurological: Negative for headaches, weakness or numbness. 10 point ROS negative except as marked above and in HPI. Physical Exam - Vital signs Vitals: Temp Resp BP 97.8 F 16 96/62 L 02/23/17 17:32 02/23/17 17:32 02/23/17 17:32 Interpretation: Hypotensive Notes: PHYSICAL EXAMINATION: GENERAL: Well-appearing, well-nourished and in no acute distress. HEAD: Atraumatic, normocephalic. EYES: Pupils equal round and reactive to light, extraocular movements intact, sclera anicteric, conjunctiva are normal. ENT: nares patent, oropharynx clear without exudates. Moist mucous membranes. NECK: Normal range of motion, supple without lymphadenopathy LUNGS: Breath sounds clear to auscultation bilaterally and equal. No wheezes rales or rhonchi. HEART: Regular rate and rhythm without murmurs ABDOMEN: Soft, nontender, normoactive bowel sounds. No guarding, no rebound. No masses appreciated. EXTREMITIES: Normal range of motion, no pitting or edema. No cyanosis. NEUROLOGICAL: No focal neurological deficits. Moves all extremities spontaneously and on command. PSYCH: Normal mood, normal affect. SKIN: Warm, Dry, normal turgor, no rashes or lesions noted. Course - Re-evaluation Re-evalutation: 02/23/17 19:28 Patient presents with a recurrent episode of syncope. He has been having near daily syncopal episodes for the past several weeks and is actively following with cardiology regarding his concerns. He had a strongly positive tilt table test and I spoke with his railway track worker Dr. Nguyen today who reports that he is planning on turning the patient on Mididrin or similar agent due to the positive tilt table test and has requested the patient follow-up in the office as scheduled. At time of my assessment patient denies any complaints or concerns. He did not sustain any injuries during today's episode of syncope. Physical examination is otherwise unremarkable. Lab and EKG here are reassuring. Patient is ready had an extensive workup for today's presentation including an echocardiogram, carotid Dopplers, MRI of the head and neck, a Holter monitor for a week, and a tilt table test. These have not revealed any malignant cause of the patient's presentation. At this time will discharge with return precautions and follow-up recommendations. Verbal discharge instructions given a the bedside and opportunity for questions given. Medication warnings reviewed. Patient is in agreement with this plan and has verbalized understanding of return precautions and the need for primary care follow-up in the next 24-72 hours. - Vital Signs Vital signs: Temp Pulse Resp BP Pulse Ox 97.8 F 80 16 173/109 H 96 02/23/17 17:32 02/23/17 18:31 02/23/17 20:01 02/23/17 20:00 02/23/17 20:01 - Laboratory Result Diagrams: 02/23/17 17:50 02/23/17 17:50 Laboratory results interpreted by me: 02/23/17 02/23/17 17:50 17:50 RBC 4.21 L Creatine Kinase 32 L - EKG Interpretation by Me Additional EKG results interpreted by me: 02/23/17 19:30 Normal sinus rhythm. Rate 80. No ST elevations or depressions. QTC is 480. Discharge - Discharge Clinical Impression: Syncope and collapse Condition: Good Disposition: HOME, SELF-CARE Additional Instructions: You were seen today after an episode of passing out. Your EKG here is normal. At this time, we do not feel that your episode of passing out was from any life- threatening cause. As we discussed, please avoid any activity that would be dangerous if you were to have a recurrent episode of syncope. Please follow-up with your railway track worker as scheduled. Referrals: CLAUDIO FU MD [Primary Care Provider] - Follow up as needed
[2017-02-23 19:39] LABS: ABSOLUTE BASOPHILS # (AUTO) 0.1 10^3/uL (0.0-0.2); ABSOLUTE EOSINOPHILS # (AUTO) 0.1 10^3/uL (0.0-0.6); ABSOLUTE MONOCYTES (AUTO) 0.7 10^3/uL (0.1-1.4); ABSOLUTE NEUT (AUTO) 5.5 10^3/uL (1.7-8.2); BASOPHILS % (AUTO) 0.7 % (0-2); EOSINOPHILS % (AUTO) 1.6 % (0-6); HEMATOCRIT 39.5 % (37.9-51.0); HEMOGLOBIN 13.5 g/dL (13.5-17.0); LYMPHOCYTES % (AUTO) 13.9 % (13-45); MEAN CORPUSCULAR HGB CONC 34.1 g/dL (32.0-36.0); MEAN CORPUSCULAR VOLUME 94 fl (80-97); RED BLOOD COUNT 4.21 10^6/uL (4.35-5.55); RED CELL DISTRIBUTION WIDTH 13.4 % (11.5-14.0); SEGMENTED NEUTROPHILS % (AUTO) 73.8 % (42-78); WHITE BLOOD COUNT 7.4 10^3/uL (4.0-10.5)
[2017-02-23 19:45] LABS: ALANINE AMINOTRANSFERASE 29 U/L (21-72); ALBUMIN 3.7 g/dL (3.5-5.0); ALKALINE PHOSPHATASE 92 U/L (38-126); ANION GAP 12 (5-19); ASPARTATE AMINO TRANSFERASE 19 U/L (17-59); BILIRUBIN,DIRECT 0.4 mg/dL (0.0-0.4); BILIRUBIN,TOTAL 0.5 mg/dL (0.2-1.3); BLOOD UREA NITROGEN 16 mg/dL (7-20); CALCIUM 9.1 mg/dL (8.4-10.2); CARBON DIOXIDE 27 mmol/L (22-30); CHLORIDE 99 mmol/L (98-107); CREATINE KINASE 32 U/L (55-170); CREATININE RESULT 0.99 mg/dL (0.52-1.25); GLUCOSE 87 mg/dL (75-110); POTASSIUM 3.8 mmol/L (3.6-5.0); SODIUM 137.9 mmol/L (137-145); TOTAL PROTEIN 6.7 g/dL (6.3-8.2)
[2017-02-23 19:57] LABS: CREATINE KINASE MB 0.78 ng/mL (<4.55)
[2017-02-23 19:58] LABS: TROPONIN I < 0.012 ng/mL
[2017-02-23 20:34] VITALS: BP 173/109
--- NOTE | 2017-02-24 12:15 | EKG REPORT ---
SEVERITY:- BORDERLINE ECG - SINUS RHYTHM BORDERLINE PROLONGED QT INTERVAL : Confirmed by: Carolyn Farias MD 24-Feb-2017 12:14:29
== END 2017-02-23 20:37 | disposition home or self-care (01) ==
LOC: ER 17:25
DX: R55 Syncope and collapse (principal); I10 Essential (primary) hypertension; Z87.891 Personal history of nicotine dependence
CPT/HCPCS: 99284; 96360; 36415; 82553; 82550; 85025; 80053; 84484; 93005; 93010; J7030

== ENCOUNTER → 2017-03-19 | Outpatient (CLI) | payer MEDICARE, BC ==
--- NOTE | 2017-03-20 10:27 | RADIOLOGY REPORT (SQ) ---
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 TECHNIQUE: Blood glucose level was verified. Above dose of FDG was injected intravenously. 2-D seg mented attenuation correction images were obtained from the base of the skull to the midthighs. Nonc ontrast CT images were obtained for attenuation correction and fusion with emission images. CT image s were performed without oral or intravenous contrast and are not sensitive for parenchymal lesions. A series of overlapping emission PET images were obtained. Images reviewed and manipulated at [facility] work station by the radiologist. Images stored on PACS. LIMITATIONS: None. FINDINGS: HEAD AND NECK: No left vocal cord uptake worrisome for tumor. However, a subcentimeter hy permetabolic nodule is present along the rightward paralaryngeal soft tissues between the larynx and right internal jugular vein on image 45 with SUV 3.7. Also on the right side, a 1 x 0.8 cm nodule is present along the posterior aspect of the right mylohy oid muscle on axial image 48 with SUV 3.9. There is abnormal soft tissue in the anterior mediastinum at the thoracic inlet, worrisome for soft t issue local recurrence. Soft tissue measures 3.2 x 2.9 cm in size on axial image 60, with SUV of 12. 5. CHEST: There is abnormal mediastinal lymphadenopathy as follows: 6 x 4 mm right paratracheal lymph node axial image 73, SUV 2.6 1 x 0.5 cm node left prevascular space axial image 76, SUV 5 There are multiple pulmonary nodules which are hypermetabolic as follows: 3.3 x 2.2 cm left lower lobe adjacent to the major fissure, now cavitary, best shown on image 105 wit h SUV of 12.5 Posterior left upper lobe 1.2 x 1.2 cm nodule axial image 78, SUV 5.4 (was 1 x 1 cm in size on 017) There are multiple small pulmonary nodules throughout the bilateral lung apices and superior segment lower lobes new compared to 09/14/2014, similar compared to CT chest 02/22/2017. SUV is difficult to m easure because of small size. ABDOMEN AND PELVIS: No areas of abnormal metabolic activity in the abdomen or pelvis. Expected physi ologic activity is present in the genitourinary system and bowel. PROXIMAL LOWER EXTREMITIES: No areas of abnormal metabolic activity in the soft tissues of the lower extremities. BONES: No abnormal metabolic activity in the visualized skeleton. 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 TECHNICAL DOCUMENTATION: JOB ID: [id number] All Rights Reserved
== END ==
LOC: RAD 18:46
PROVIDERS: ATTEND Internal Medicine
DX: C32.0 Malignant neoplasm of glottis (principal)
CPT/HCPCS: 78815; A9552

== ENCOUNTER 2017-03-20 08:58 | Day surgery (SDC) | payer MEDICARE, BC ==
[2017-03-20 09:45] LABS: HEMATOCRIT 44.2 % (37.9-51.0); HEMOGLOBIN 14.9 g/dL (13.5-17.0); HGB HCT DIFFERENCE 0.5; MEAN CORPUSCULAR HEMOGLOBIN 31.1 pg (27.0-33.4); MEAN CORPUSCULAR HGB CONC 33.6 g/dL (32.0-36.0); MEAN CORPUSCULAR VOLUME 93 fl (80-97); RED BLOOD COUNT 4.77 10^6/uL (4.35-5.55); RED CELL DISTRIBUTION WIDTH 12.7 % (11.5-14.0); WHITE BLOOD COUNT 6.8 10^3/uL (4.0-10.5)
[2017-03-20 09:52] LABS: BLOOD UREA NITROGEN 17 mg/dL (7-20); CREATININE RESULT 0.99 mg/dL (0.52-1.25)
[2017-03-20 09:58] LABS: PROTHROMBIN TIME 13.3 SEC (11.4-15.4)
[2017-03-20 09:59] LABS: PARTIAL THROMBOPLASTIN TIME 33.3 SEC (23.5-35.8)
[2017-03-20] MEDS ORDERED: FENTANYL CITRATE INJ/PF 100 MCG/2 ML AMPUL ONE (11:20)
[2017-03-20] MEDS ORDERED: MIDAZOLAM 2 MG/2 ML INJ ONE (11:20)
--- NOTE | 2017-03-20 13:00 | RADIOLOGY REPORT (SQ) ---
EXAM DESCRIPTION: CHEST SINGLE VIEW COMPLETED DATE/TIME: 03/20/2017 12:24 pm REASON FOR STUDY: POST LEFT LUNG BIOPSY COMPARISON: Chest CT scan dated January 2017 EXAM PARAMETERS: NUMBER OF VIEWS: One view. TECHNIQUE: Single frontal radiographic view of the chest acquired. RADIATION DOSE: NA LIMITATIONS: None. FINDINGS: LUNGS AND PLEURA: The previously described mass in the left lower lobe is again identified . The previously described small pulmonary nodules are not definitely identified on the basis of the chest x-ray. No consolidations or pleural effusions are identified. MEDIASTINUM AND HILAR STRUCTURES: There is some widening of the superior mediastinum presumably relat ed to the mass identified on the CT scan. HEART AND VASCULAR STRUCTURES: Heart normal in size. Normal vasculature. BONES: No acute findings. HARDWARE: None in the chest. OTHER: No other significant finding. IMPRESSION: The previously described mass in the left lower lobe is again identified. There is some widening of the superior mediastinum presumably related to the mass identified on the CT scan. Othe r findings as noted above. TECHNICAL DOCUMENTATION: JOB ID: [id number]
--- NOTE | 2017-03-20 13:35 | RADIOLOGY REPORT (SQ) ---
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 CT Fluoroscopy Time: 3.[address] fluoro time All CT scanners at this facility use dose modulation, iterative reconstruction, and/or weight based d osing when appropriate to reduce radiation dose to as low as reasonably achievable (ALARA). [facility]: Dose Right [facility]: CareDose [facility]: Dose Right [facility]: Teradose 4D [facility]: [employer] RADIATION DOSE: 48mGy. FINDINGS: The procedure was discussed with the patient and the patient agreed to the procedure. Prio r to the procedure, a time out was performed to verify the patient's identity and planned procedure. IV sedation was administered and physician direction by the registered nurse using 1 milligrams of Ve rsed and 50 micrograms of fentanyl. Physiologic monitoring was provided before, during, and after sed ation. The total sedation time was 30 minutes. Documentation face to face time, the performing proceduralist, spent monitoring the patient: [address] scanning was performed to localize the percutaneous site for the biopsy approach. After sterile skin prep and local lidocaine for skin and deep tissue anesthesia, a coaxial biopsy nee dle was used to obtain multiple cores of tissue. The biopsy tract was embolized with a [employer] clos ure device The biopsy tissue was submitted to the lab in formalin. There were no immediate complicati ons. Pathology is pending at the time of dictation. IMPRESSION: CT GUIDED BIOPSY OF THE LEFT LOWER LOBE MASS PERFORMED WITHOUT IMMEDIATE COMPLICATION. PATHOLOGY PENDING. COMMENT: Quality ID [id number]: Final reports for procedures using fluoroscopy that document radiation exp osure indices, or exposure time and number of fluorographic images (if radiation exposure indices are not available) Patient medication list reviewed: Yes- Quality ID# [id number]:Eligible professional attests to documenting i n the medical record they obtained, updated, or reviewed the patient's current medications.. TECHNICAL DOCUMENTATION: JOB ID: [id number] Quality ID# [id number]: Final reports with documentation of one or more dose reduction techniques (e.g., Aut omated exposure control, adjustment of the mA and/or kV according to patient size, use of iterative r econstruction technique) 2010 [employer]- All Rights Reserved
--- NOTE | 2017-03-20 13:35 | RADIOLOGY REPORT (SQ) ---
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 CT Fluoroscopy Time: 3.[address] fluoro time All CT scanners at this facility use dose modulation, iterative reconstruction, and/or weight based d osing when appropriate to reduce radiation dose to as low as reasonably achievable (ALARA). [facility]: Dose Right [facility]: CareDose [facility]: Dose Right [facility]: Teradose 4D [facility]: [employer] RADIATION DOSE: 48mGy. FINDINGS: The procedure was discussed with the patient and the patient agreed to the procedure. Prio r to the procedure, a time out was performed to verify the patient's identity and planned procedure. IV sedation was administered and physician direction by the registered nurse using 1 milligrams of Ve rsed and 50 micrograms of fentanyl. Physiologic monitoring was provided before, during, and after sed ation. The total sedation time was 30 minutes. Documentation face to face time, the performing proceduralist, spent monitoring the patient: [address] scanning was performed to localize the percutaneous site for the biopsy approach. After sterile skin prep and local lidocaine for skin and deep tissue anesthesia, a coaxial biopsy nee dle was used to obtain multiple cores of tissue. The biopsy tract was embolized with a [employer] clos ure device The biopsy tissue was submitted to the lab in formalin. There were no immediate complicati ons. Pathology is pending at the time of dictation. IMPRESSION: CT GUIDED BIOPSY OF THE LEFT LOWER LOBE MASS PERFORMED WITHOUT IMMEDIATE COMPLICATION. PATHOLOGY PENDING. COMMENT: Quality ID 145: Final reports for procedures using fluoroscopy that document radiation exp osure indices, or exposure time and number of fluorographic images (if radiation exposure indices are not available) Patient medication list reviewed: Yes- Quality ID# [id number]:Eligible professional attests to documenting i n the medical record they obtained, updated, or reviewed the patient's current medications.. TECHNICAL DOCUMENTATION: JOB ID: [id number] Quality ID# [id number]: Final reports with documentation of one or more dose reduction techniques (e.g., Aut omated exposure control, adjustment of the mA and/or kV according to patient size, use of iterative r econstruction technique) 2010 [employer]- All Rights Reserved
[2017-03-20 15:12] VITALS: BP 124/80
--- NOTE | 2017-03-20 16:36 | RADIOLOGY REPORT (SQ) ---
EXAM DESCRIPTION: CHEST SINGLE VIEW COMPLETED DATE/TIME: 03/20/2017 2:39 pm REASON FOR STUDY: POST LEFT LUNG BIOPSY--- 2 HR COMPARISON: PET-CT 03/19/2017 Lung biopsy 03/20/2017 AP chest film 03/20/2017 1220 hours EXAM PARAMETERS: NUMBER OF VIEWS: One view. TECHNIQUE: Single frontal radiographic view of the chest acquired. RADIATION DOSE: NA LIMITATIONS: None. FINDINGS: LUNGS AND PLEURA: 2 hours post left lower lobe nodule biopsy. No pneumothorax. No pleur al effusion. No acute infiltrates. MEDIASTINUM AND HILAR STRUCTURES: No masses. Contour normal. HEART AND VASCULAR STRUCTURES: Heart normal in size. Normal vasculature. BONES: No acute findings. HARDWARE: None in the chest. OTHER: No other significant finding. IMPRESSION: No pneumothorax 2 hours post left lower lobe CT-guided lung nodule biopsy TECHNICAL DOCUMENTATION: JOB ID: [id number]
== END 2017-03-20 15:10 | disposition home or self-care (01) ==
LOC: RAD 08:58
PROVIDERS: ATTEND Internal Medicine
PROC: 0BBJ3ZX Excision of Left Lower Lung Lobe, Percutaneous Approach, Diagnostic (ICD-10-PCS; principal; 2017-03-20)
DX: C34.32 Malignant neoplasm of lower lobe, left bronchus or lung (principal); C32.0 Malignant neoplasm of glottis; I10 Essential (primary) hypertension; Z79.01 Long term (current) use of anticoagulants
CPT/HCPCS: 36415; 84520; 82565; 85027; 85610; 85730; 88342 ×2; 88341 ×2; 88305 ×2; 71010; 77012; 32405; J2250; J3010

== ENCOUNTER → 2017-03-23 | Outpatient (CLI) | payer MEDICARE, BC ==
--- NOTE | 2017-03-23 15:11 | RADIOLOGY REPORT (SQ) ---
EXAM DESCRIPTION: BARIUM SWALLOW PHARYNX ONLY COMPLETED DATE/TIME: 03/23/2017 10:21 am REASON FOR STUDY: DYSPHAGIA (R13.12) R13.12 DYSPHAGIA, OROPHARYNGEAL PHASE COMPARISON: PET-CT 03/19/2017 TECHNIQUE: Under fluoroscopic guidance, patient ingested effervescent granules followed by thick and thin barium. Fluoroscopic spot images and routine radiographic images acquired and stored on PACS. 12 MM BARIUM TABLET GIVEN: Yes The barium tablet paused in the upper esophagus, just above the clavicular heads for about 3 minutes before dropping through to the remainder of the esophagus and stomach. The area of hang up of the ba rium tablet is a at about the same level as the amorphous left paratracheal soft tissue at the thorac ic inlet seen on PET-CT 03/19/2017. LIMITATIONS: None. FLUOROSCOPY TIME: FLUORO TIME: 1.8 minutes 19 series of images saved to PACS. FINDINGS: NEUROMUSCULAR COORDINATION OF SWALLOW: Patient swallowed thin liquid barium. There was in termittent laryngeal penetration and subglottic aspiration throughout the study. ESOPHAGEAL MOTILITY: Normal peristalsis. No esophageal spasm. There is mild leftward deviation of th e upper esophagus at the level of thoracic inlet. This is where the barium tablet paused. Patient h ad abnormal hypermetabolic soft tissue on PET-CT in this area at the level of the thoracic inlet to t he left of midline. ESOPHAGEAL MUCOSA: Normal mucosa without masses or ulceration. GASTRO-ESOPHAGEAL JUNCTION: No hiatal hernia or reflux. NON-GI TRACT STRUCTURES: Multilevel cervical degenerative disc changes OTHER: Limited views of the stomach unremarkable. IMPRESSION: Intermittent subglottic aspiration 12 mm barium tablet paused in the upper esophagus at the level of the thoracic inlet. Please above d iscussion. Remainder of the esophagus GE junction, and limited views of the stomach are unremarkable. COMMENT: Quality ID 145: Final reports for procedures using fluoroscopy that document radiation exp osure indices, or exposure time and number of fluorographic images (if radiation exposure indices are not available) TECHNICAL DOCUMENTATION: JOB ID: [id number] [employer]- All Rights Reserved
== END ==
LOC: RAD 09:19
PROVIDERS: ATTEND Internal Medicine Gastroenterology
DX: R13.12 Dysphagia, oropharyngeal phase (principal)
CPT/HCPCS: 74210

== ENCOUNTER 2017-03-31 08:24 | Day surgery (SDC) | payer MEDICARE, BC ==
[~2017-03-31 08:24] MED LIST: ACETAMINOPHEN 325 MG TABLET PO PRN; CEFAZOLIN 1 GM/D5W RTU 1 GM/50 ML RTUPB IV PRN; LACTATED RINGERS 1000 ML IV PRN; LIDOCAINE 0.5% INJ-PF (5 MG/ML) 50 ML SDV SUBCUT PRN
[2017-03-31] MEDS ORDERED: LIDOCAINE 1% INJ-PF (10 MG/ML) 30 ML SDV ONE (08:41)
[2017-03-31] MEDS ORDERED: MIDAZOLAM 2 MG/2 ML INJ ONE (09:56)
[2017-03-31] MEDS ORDERED: PROPOFOL INJ 200 MG/20 ML VIAL IV ONE (09:56)
[2017-03-31] MEDS ORDERED: LIDOCAINE 2% INJ-PF (20 MG/ML) 10 ML AMPUL ONE (09:56)
[2017-03-31] MEDS ORDERED: FENTANYL CITRATE INJ/PF 100 MCG/2 ML AMPUL ONE (09:56)
[2017-03-31] MEDS ORDERED: CEFAZOLIN INJ 1 GM VIAL ONE (10:12)
[2017-03-31] MEDS ORDERED: OXYCODONE-ACETAMINOPHEN 5-325 MG TABLET PO PRN (10:31)
[2017-03-31] MEDS ORDERED: PROMETHAZINE HCL INJ 25 MG/1 ML VIAL IV PRN (10:31)
[2017-03-31] MEDS ORDERED: FENTANYL CITRATE INJ/PF 100 MCG/2 ML AMPUL IV PRN ×3 (10:31)
[2017-03-31] MEDS ORDERED: MEPERIDINE HCL/PF INJ 25 MG/1 ML DISP.SYRIN IV PRN (10:31)
[2017-03-31] MEDS ORDERED: DIPHENHYDRAMINE HCL 50 MG/ML VIAL IV PRN (10:31)
[2017-03-31] MEDS ORDERED: RINGERS SOLUTION,LACTATED 1,000 ML IV PRN (10:57)
--- NOTE | 2017-03-31 10:57 | PDOC DISCHARGE SUMMARY ---
Discharge Summary (SDC) - Discharge Final Diagnosis: Metastatic Squamous carcinoma Date of Surgery: 03/31/17 Discharge Date: 03/31/17 Condition: Good Treatment or Instructions: [facility] [address] [place] [id number] Discharge Instructions: Neck Surgery 1. General Information: a. Do not drive a car or operate machinery for 1-2 weeks or as long as taking narcotics for pain. b. Do not consume alcohol, tranquilizers, sleeping medications or any non- prescribed medications for 24 hours unless approved by your doctor or as long as taking pain medication. c. Do not make important decisions or sign any important papers for the first 24 hours after surgery. d. When discharged home the same day of surgery have a responsible person with you for the first night. 2. Activity Restrictions: 2 weeks. a. Avoid heavy lifting > 10 lbs, straining, sports, mowing lawn, shoveling snow, vacuum cleaning and bending over a lot. Limit bending to taking a shower and getting dressed. Sleep with head elevated (2 pillows). b. Walking is important to avoid blood clots in the legs and deep breathing can prevent pneumonia. c. It is fine to go up and down steps, ride in a car, and use a stationary bike with low resistance. 3. Treatment: a. The dressing can be removed the day after surgery and to shower then daily is fine, but you should not bathe in the tub or go swimming for 2 weeks. The paper strips (steri-strips) on the skin will fall off and can get wet with a shower, just pat them dry. The sutures dissolve and the strips will be removed in the office on your follow up visit if they have not fallen off by then. May shower 24 hours after surgery; if your incision was glued you may wash your neck and expect glue to fall off in about 2 weeks. b. Do not use oils, powders or lotion on your incision until after the first postoperative visit. Then you may begin to apply daily to the incision a cream of your choice (Vitamin E, cocoa butter, scar creams) to help soften the scar. c. If you are fair skinned it would be griffin to use sunscreen on the scar for the first 6 months or keep it covered to avoid tanning pigment deposits being trapped in the scar creating a dark line instead of a pink scar. 4. Medications: a. You may take narcotic prescription tablets for pain if needed, one or two every 4 hours b. Stop the narcotic when able since you cannot take and drive and they may cause constipation. You may switch to plain Tylenol, Advil or Aleve as you transition from the narcotic. Many adults find good pain relief with Ibuprofen 600-800 mg three times a day with meals to work well to avoid narcotic use. High doses of Ibuprofen should only be used for short courses since it can cause indigestion, ulcer bleeding in the stomach and harm kidney function. c. You should resume all normal medications unless a change is specified by your doctors. d. a. If going home same day of surgery you should begin with clear liquids and if do well then advance to a normal diet with foods low in fat and protein. Small portion sizes may be griffin the first night to lessen risk of vomiting. b. When discharged after a hospital stay you may resume a normal diet. 6. Notify Physician If: a. Worsening of pain or swelling in neck, persistent bleeding at the operative site, nausea and vomiting, fever above 101, unable to urinate and bladder pressure after 8-12 hours, increased redness, drainage, or foul smelling discharge from the incision. b. If you have difficulty breathing or chest pain, call an ambulance and/or go to the Emergency Room. 7. Follow Up Care: a. Schedule a follow up appointment with your doctor for 2 weeks. In the event of any postoperative problems or questions or you may call the office during business hours or the On-Call physician evenings and weekends at [facility]. [facility] 8. I understand the instructions for my postoperative care as described above and a copy has been given to me. Patient/Significant Other Witness Date Referrals: CLAUDIO FU MD [Primary Care Provider] - Discharge Diet: As Tolerated Discharge Activity: Activity As Tolerated Home Care Assistance: None Needed Report the Following to Your Physician Immediately: Shortness of Breath, Increase in Pain, Fever over 101 Degrees
--- NOTE | 2017-03-31 11:05 | Operative Report ---
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 Focused ultrasound of the neck. 2. Left subclavian single- chamber Iejobs-a-Kyau catheter placement. 3. Interpretation of intraoperative fluoroscopy SURGEON: DUSTIN WARD ANESTHESIA: LMAC TISSUE REMOVED OR ALTERED: None COMPLICATIONS: None ESTIMATED BLOOD LOSS: Scant INTRAOPERATIVE FINDINGS: See below PROCEDURE: Patient was seen in the preop holding area where the left neck was marked. Patient taken the operating room where LMAC anesthesia was induced. Arms were tucked, both sides of the neck and chest were prepped and draped in sterile fashion. Surgical plan and surgical timeout were conducted. The left neck was scanned with a variable frequency linear transducer. The left internal jugular vein was diminutive. Therefore we chose to place the catheter in the left subclavian vein Skin was anesthetized with 1% lidocaine plain in the subclavicular area at the site of the previous port scar. Knife wound was made with 11 blade, patient placed in Trendelenburg, and using the needle and wire, left subclavian vein was accessed successfully. The previous scar was opened with a #15 blade, and a new pocket developed in the subclavian position large enough to accommodate a single chamber Infuse-a- Port catheter. The catheter was then trimmed to appropriate length, attached to the port with the plastic ring and the port tucked into the subclavian pocket. Under fluoroscopic guidance, dilator introducer sheath was threaded over the left subclavian wire, dilator wire removed, single lumen catheter threaded into the strip away sheath strip away sheath removed and catheter left in good position. There was excellent aspiration and flush through the catheter. Fluoroscopically the tip of the catheter is in the superior vena cava and no evidence of kinking at any site along its path. Patient tolerated this portion procedure well. Wound closed with 3-0 Vicryl benzoin Steri-Strips and gentle pressure applied. The patient tolerated the procedure well, and was taken to the recovery room in stable condition. Chest x-ray pending at time of dictation.
--- NOTE | 2017-03-31 11:46 | RADIOLOGY REPORT (SQ) ---
EXAM DESCRIPTION: CHEST SINGLE VIEW COMPLETED DATE/TIME: 03/31/2017 11:15 am REASON FOR STUDY: s/p port COMPARISON: PET-CT 03/19/2017 Chest x-ray 03/20/2017 EXAM PARAMETERS: NUMBER OF VIEWS: One view. TECHNIQUE: Single frontal radiographic view of the chest acquired. RADIATION DOSE: NA LIMITATIONS: None. FINDINGS: LUNGS AND PLEURA: Lungs are hyperinflated and hyperlucent from obstructive disease. Unchanged previously biopsied left lower lobe mass. Lungs are otherwise hyperinflated and hyperlucent. No acute infiltrates. No pleural effusion. No p neumothorax. MEDIASTINUM AND HILAR STRUCTURES: No masses. Contour normal. HEART AND VASCULAR STRUCTURES: Heart normal in size. Normal vasculature. BONES: No acute findings. HARDWARE: Left-sided subclavian permanent central line tip superior vena cava. OTHER: No other significant finding. IMPRESSION: No pneumothorax post left-sided permanent central line placement, line tip in the superi or vena cava TECHNICAL DOCUMENTATION: JOB ID: [id number]
--- NOTE | 2017-03-31 11:47 | RADIOLOGY REPORT (SQ) ---
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 TECHNIQUE: Intra-operative images acquired during surgical procedure to evaluate progress. NUMBER OF IMAGES: Cine fluoroscopic images. LIMITATIONS: None. FINDINGS: Intra procedural imaging and fluoro during left-sided permanent central line placement in the OR IMPRESSION: Intra procedural imaging and fluoro COMMENT: Quality ID 145: Final reports for procedures using fluoroscopy that document radiation exp osure indices, or exposure time and number of fluorographic images (if radiation exposure indices are not available) Please consult full operative report of the attending physician for description of the procedure. TECHNICAL DOCUMENTATION: JOB ID: [id number] [employer]- All Rights Reserved
[2017-03-31 12:50] VITALS: BP 138/92
== END 2017-03-31 12:40 | disposition home or self-care (01) ==
LOC: OROUT 08:24
PROVIDERS: ATTEND Surgery
PROC: 05H633Z Insertion of Infusion Device into Left Subclavian Vein, Percutaneous Approach (ICD-10-PCS; principal; 2017-03-31 10:30)
DX: C34.90 Malignant neoplasm of unspecified part of unspecified bronchus or lung (principal); C32.9 Malignant neoplasm of larynx, unspecified; I10 Essential (primary) hypertension; F32.9 Major depressive disorder, single episode, unspecified; Z87.891 Personal history of nicotine dependence; Z79.899 Other long term (current) drug therapy; Z79.1 Long term (current) use of non-steroidal anti-inflammatories (NSAID)
CPT/HCPCS: 36561; 71010; 77001; C1752; C1788; J2250; J0690; J3490 ×2; J2704; J1642; 532; J3010

== ENCOUNTER 2017-05-23 14:33 | Outpatient (CLI) | payer MEDICARE, BC ==
[2017-05-23] MEDS ORDERED: NORMAL SALINE 1000 ML 1,000 ML IV PRN (15:11)
[2017-05-23 15:24] VITALS: BP 141/81
== END 2017-05-23 16:23 | disposition home or self-care (01) ==
LOC: II 14:33 → 5TH 14:50 → II 16:23
PROVIDERS: ATTEND Internal Medicine
PROC: 3E0437Z Introduction of Electrolytic and Water Balance Substance into Central Vein, Percutaneous Approach (ICD-10-PCS; principal; 2017-05-23)
DX: E86.0 Dehydration (principal); C32.0 Malignant neoplasm of glottis
CPT/HCPCS: 96360; 96375

== ENCOUNTER 2017-05-31 10:06 | Outpatient (CLI) | payer MEDICARE, BC ==
[2017-05-31] MEDS ORDERED: NORMAL SALINE 1000 ML 1,000 ML IV PRN (10:27)
[2017-05-31 10:29] VITALS: BP 138/77
[2017-06-06] MEDS ORDERED: NORMAL SALINE 1000 ML 1,000 ML IV PRN (10:42)
== END 2017-05-31 12:11 | disposition home or self-care (01) ==
LOC: II 10:06 → 5TH 10:11 → II 12:11
PROVIDERS: ATTEND Internal Medicine
PROC: 3E0437Z Introduction of Electrolytic and Water Balance Substance into Central Vein, Percutaneous Approach (ICD-10-PCS; principal; 2017-05-31)
DX: E86.0 Dehydration (principal); C32.0 Malignant neoplasm of glottis
CPT/HCPCS: 96360; 96375

== ENCOUNTER 2017-06-14 11:07 | Outpatient (CLI) | payer MEDICARE, BC ==
[2017-06-14] MEDS ORDERED: NORMAL SALINE 1000 ML 1,000 ML IV PRN (11:32)
[2017-06-14 12:31] VITALS: BP 103/72
== END 2017-06-14 12:55 | disposition home or self-care (01) ==
LOC: II 11:07
PROVIDERS: ATTEND Internal Medicine
PROC: 3E0437Z Introduction of Electrolytic and Water Balance Substance into Central Vein, Percutaneous Approach (ICD-10-PCS; principal; 2017-06-14)
DX: E86.0 Dehydration (principal); C32.0 Malignant neoplasm of glottis
CPT/HCPCS: 96360; 96375

== ENCOUNTER 2017-06-20 11:14 | Outpatient (CLI) | payer MEDICARE, BC ==
[~2017-06-20 11:14] MED LIST changes: -ACETAMINOPHEN 325 MG TABLET PO PRN; -CEFAZOLIN 1 GM/D5W RTU 1 GM/50 ML RTUPB IV PRN; -LACTATED RINGERS 1000 ML IV PRN; -LIDOCAINE 0.5% INJ-PF (5 MG/ML) 50 ML SDV SUBCUT PRN; +NORMAL SALINE 1000 ML 1,000 ML IV PRN
[2017-06-20] MEDS ORDERED: NORMAL SALINE 1000 ML 1,000 ML IV PRN (12:05)
[2017-06-20 12:23] VITALS: BP 126/91
== END 2017-06-20 13:02 | disposition home or self-care (01) ==
LOC: II 11:14 → 5TH 11:15 → II 13:02
PROVIDERS: ATTEND Internal Medicine
PROC: 3E0437Z Introduction of Electrolytic and Water Balance Substance into Central Vein, Percutaneous Approach (ICD-10-PCS; principal; 2017-06-20)
DX: E86.0 Dehydration (principal); C32.0 Malignant neoplasm of glottis
CPT/HCPCS: 96360; 96523

== ENCOUNTER → 2017-06-28 | Outpatient (CLI) | payer MEDICARE, BC ==
--- NOTE | 2017-06-28 13:48 | RADIOLOGY REPORT (SQ) ---
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 Reconstructed coronal and sagittal MPR images reviewed. All images stored on PACS. All CT scanners at this facility use dose modulation, iterative reconstruction, and/or weight based d osing when appropriate to reduce radiation dose to as low as reasonably achievable (ALARA). [facility]: Dose Right [facility]: CareDose [facility]: Dose Right [facility]: Teradose 4D [facility]: [employer] CONTRAST TYPE AND DOSE: 85 mL Isovue 370- low osmolar. RENAL FUNCTION: Creatinine 0.7 RADIATION DOSE: 15 mGy . LIMITATIONS: None. FINDINGS: SKULL BASE: Intact. MAJOR SALIVARY GLANDS: No solid or cystic masses. No inflammatory changes. LYMPHADENOPATHY: No adenopathy. MUCOSAL MASSES OR ASYMMETRY: No mucosal masses or asymmetry. LARYNX/CORDS: No definite recurrent laryngeal mass. VASCULAR STRUCTURES: The major vessels are patent. Heavy atherosclerotic carotid bifurcation calcifi cation with about 50% diameter narrowing proximal left ICA. LUNG APICES: Clear. BONES: Intact. THYROID: Normal size. No masses. PARANASAL SINUSES: Clear. OTHER: The thoracic inlet 3 x 3 cm mass along the left lateral aspect of the trachea seen on PET-CT is unchanged. 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
--- NOTE | 2017-06-28 14:43 | RADIOLOGY REPORT (SQ) ---
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 Images reviewed with lung, soft tissue and bone windows. Reconstructed coronal and sagittal MPR images reviewed. All images stored on PACS. All CT scanners at this facility use dose modulation, iterative reconstruction, and/or weight based d osing when appropriate to reduce radiation dose to as low as reasonably achievable (ALARA). [facility]: Dose Right [facility]: CareDose [facility]: Dose Right [facility]: Teradose 4D [facility]: [employer] CONTRAST TYPE AND DOSE: 85 cc Isovue 370- low osmolar. RENAL FUNCTION: Creatinine 0.7 BUN 7 RADIATION DOSE: . LIMITATIONS: None. FINDINGS: LUNGS AND PLEURA: A densely calcified granuloma is present in the right costophrenic angle . There is residual scarring in the anterior aspect of the left lower lobe. The mass present on Jan is no longer present. Other smaller pulmonary nodules are no longer seen. HILAR AND MEDIASTINAL STRUCTURES: Once again there is seen is an ill-defined mass in the upper medias tinum on the left that deviates the trachea to the right. This measures about 18 x 33 mm on image 12 . The margins are indistinct. HEART AND VASCULAR STRUCTURES: No aneurysm or dissection. No central pulmonary emboli. No pericardi al effusion. HARDWARE: An injection port is present on the left. UPPER ABDOMEN: See separate report of the CT of the abdomen. THYROID AND OTHER SOFT TISSUES: No masses. No adenopathy. BONES: Degenerative disc changes and spondylosis is seen in the lower lumbar spine. No osseous lesio ns are seen. OTHER: No other significant finding. IMPRESSION: The appearances chest is improved. Pulmonary nodules are no longer seen. Ill-defined l eft upper mediastinal mass is once again noted. This likely represents metastatic disease. TECHNICAL DOCUMENTATION: JOB ID: [id number] Quality ID # [id number]: Final reports with documentation of one or more dose reduction techniques (e.g., Au tomated exposure control, adjustment of the mA and/or kV according to patient size, use of iterative reconstruction technique) 2010 [employer]- All Rights Reserved
--- NOTE | 2017-06-28 14:52 | RADIOLOGY REPORT (SQ) ---
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 TECHNIQUE: CT scan of the abdomen and pelvis performed using helical scanning technique with dynamic intravenous contrast injection. No oral contrast. Images reviewed with lung, soft tissue, and bone windows. Reconstructed coronal and sagittal MPR images reviewed. Delayed images for evaluation of the urinary system also acquired. All images stored on PACS. All CT scanners at this facility use dose modulation, iterative reconstruction, and/or weight based d osing when appropriate to reduce radiation dose to as low as reasonably achievable (ALARA). [facility]: Dose Right [facility]: CareDose [facility]: Dose Right [facility]: Teradose 4D [facility]: [employer] CONTRAST TYPE AND DOSE: contrast/concentration: Isovue 370.00 mg/ml; Total Contrast Delivered: 85.0 ml; Total Saline Delivered: 69.0 ml RENAL FUNCTION: Creatinine 0.7 BUN 7 RADIATION DOSE: . LIMITATIONS: None. FINDINGS: LOWER CHEST: No significant findings. No nodules or infiltrates. LIVER: Normal size. No masses. No dilated ducts. SPLEEN: Normal size. No focal lesions. PANCREAS: No masses. No significant calcifications. No adjacent inflammation or peripancreatic fluid collections. Pancreatic duct not dilated. GALLBLADDER: No identified stones by CT criteria. No inflammatory changes to suggest cholecystitis. ADRENAL GLANDS: No significant masses or asymmetry. RIGHT KIDNEY AND URETER: No solid masses. No significant calcifications. No hydronephrosis or hyd roureter. LEFT KIDNEY AND URETER: No solid masses. No significant calcifications. No hydronephrosis or hydr oureter. AORTA AND VESSELS: No aneurysm. Atherosclerosis. RETROPERITONEUM: No retroperitoneal adenopathy, hemorrhage or masses. BOWEL AND PERITONEAL CAVITY: No masses or inflammatory changes. No free fluid or peritoneal masses. APPENDIX: Normal. PELVIS: No mass. No free fluid. Normal bladder. ABDOMINAL WALL: No masses. No hernias. BONES: Lower lumbar degenerative changes. No definite osseous metastases are seen, although some of the vertebrae have a slightly heterogeneous appearance. OTHER: No other significant finding. IMPRESSION: No evidence of metastases in the abdomen or pelvis. There is a heterogeneous appearance of some of the vertebrae. Consider bone scan for further evaluation if clinically indicated. TECHNICAL DOCUMENTATION: JOB ID: [id number] Quality ID # [id number]: Final reports with documentation of one or more dose reduction techniques (e.g., Au tomated exposure control, adjustment of the mA and/or kV according to patient size, use of iterative reconstruction technique) 2010 [employer]- All Rights Reserved
== END ==
LOC: RAD 10:09
PROVIDERS: ATTEND Internal Medicine
DX: C32.0 Malignant neoplasm of glottis (principal); R10.9 Unspecified abdominal pain
CPT/HCPCS: 70491; 71260; 74177

== ENCOUNTER 2017-06-29 14:01 | Outpatient (CLI) | payer MEDICARE, BC ==
[2017-06-29] MEDS ORDERED: NORMAL SALINE 1000 ML 1,000 ML IV PRN (14:03)
[2017-06-29 14:48] VITALS: BP 154/87
== END 2017-06-29 16:02 | disposition home or self-care (01) ==
LOC: II 14:01
PROVIDERS: ATTEND Internal Medicine
PROC: 3E0437Z Introduction of Electrolytic and Water Balance Substance into Central Vein, Percutaneous Approach (ICD-10-PCS; principal; 2017-06-29)
DX: E86.0 Dehydration (principal); C32.0 Malignant neoplasm of glottis
CPT/HCPCS: 96360; 96523

== ENCOUNTER 2017-07-06 11:53 | Outpatient (CLI) | payer MEDICARE, BC ==
[2017-07-06] MEDS ORDERED: NORMAL SALINE 1000 ML 1,000 ML IV PRN (12:30)
== END 2017-07-06 13:45 | disposition home or self-care (01) ==
LOC: II 11:53 → 5TH 11:58 → II 13:45
PROVIDERS: ATTEND Internal Medicine
PROC: 3E0437Z Introduction of Electrolytic and Water Balance Substance into Central Vein, Percutaneous Approach (ICD-10-PCS; principal; 2017-07-06)
DX: E86.0 Dehydration (principal); C32.0 Malignant neoplasm of glottis
CPT/HCPCS: 96360; 96523

== ENCOUNTER 2017-07-13 10:55 | Outpatient (CLI) | payer MEDICARE, BC ==
[2017-07-13 11:19] VITALS: BP 126/74
== END 2017-07-13 12:31 | disposition home or self-care (01) ==
LOC: II 10:55
PROVIDERS: ATTEND Internal Medicine
PROC: 3E0437Z Introduction of Electrolytic and Water Balance Substance into Central Vein, Percutaneous Approach (ICD-10-PCS; principal; 2017-07-13)
DX: E86.0 Dehydration (principal)
CPT/HCPCS: 96360

== ENCOUNTER 2017-07-20 10:56 | Outpatient (CLI) | payer MEDICARE, BC ==
[2017-07-20] MEDS ORDERED: NORMAL SALINE 1000 ML 1,000 ML IV PRN (11:40)
[2017-07-20 11:41] VITALS: BP 145/83
== END 2017-07-20 12:10 | disposition home or self-care (01) ==
LOC: II 10:56 → 5TH 10:57 → II 12:10
PROVIDERS: ATTEND Internal Medicine Hematology & Oncology
PROC: 3E0337Z Introduction of Electrolytic and Water Balance Substance into Peripheral Vein, Percutaneous Approach (ICD-10-PCS; principal; 2017-07-20)
DX: E86.0 Dehydration (principal); C32.0 Malignant neoplasm of glottis; D50.8 Other iron deficiency anemias; K51.018 Ulcerative (chronic) pancolitis with other complication
CPT/HCPCS: 96360; 96523

== ENCOUNTER 2017-07-28 13:01 | Outpatient (CLI) | payer MEDICARE, BC ==
[2017-07-28 14:26] VITALS: BP 131/56
== END 2017-07-28 14:45 | disposition home or self-care (01) ==
LOC: II 13:01 → 5TH 13:02 → II 14:45
PROVIDERS: ATTEND Internal Medicine
DX: C32.0 Malignant neoplasm of glottis (principal); E86.0 Dehydration
CPT/HCPCS: 96360; 96375

== ENCOUNTER 2017-08-02 10:02 | Outpatient (CLI) | payer MEDICARE, BC ==
[~2017-08-02 10:02] MED LIST changes: +ACETAMINOPHEN 325 MG TABLET PO PRN; +CARBOPLATIN 250 MG in NORMAL SALINE 250 ML IV PRN; +CETUXIMAB IV PRN; +CONTAINER EMPTY IV PRN; +DEXAMETHASONE 4 MG TABLET PO PRN; +DIPHENHYDRAMINE HCL 50 MG/ML VIAL IV PRN; +FAMOTIDINE INJ/PF 20 MG/2 ML SDV IV PRN; +FOSAPREPITANT DIMEGLUMINE 150 MG in NORMAL SALINE 150 ML IV PRN; -NORMAL SALINE 1000 ML 1,000 ML IV PRN; +NORMAL SALINE 250 ML IV PRN; +NORMAL SALINE IV PRN; +ONDANSETRON HCL/PF 16 MG in NORMAL SALINE 50 ML IV PRN; +PACLITAXEL SEMI SYNTHETIC IV PRN
[2017-08-02 10:33] VITALS: BP 140/70
== END 2017-08-02 16:31 | disposition home or self-care (01) ==
LOC: 5TH 10:02 → II 10:02
PROVIDERS: ATTEND Internal Medicine
PROC: 3E0330M Introduction of Antineoplastic, Monoclonal Antibody, into Peripheral Vein, Percutaneous Approach (ICD-10-PCS; principal; 2017-08-02)
PROC: 3E033GC Introduction of Other Therapeutic Substance into Peripheral Vein, Percutaneous Approach (ICD-10-PCS; 2017-08-02)
PROC: 3E03305 Introduction of Other Antineoplastic into Peripheral Vein, Percutaneous Approach (ICD-10-PCS; 2017-08-02)
DX: Z51.11 Encounter for antineoplastic chemotherapy (principal); C32.0 Malignant neoplasm of glottis
CPT/HCPCS: 96413; 96415; 96367; 96375; A9270 ×3; J1200; J9045; J2405; J7050; J9267; S0028; J1453; J9055; 96417; J3490

== ENCOUNTER 2017-08-10 09:09 | Outpatient (CLI) | payer MEDICARE, BC ==
[~2017-08-10 09:09] MED LIST changes: -DEXAMETHASONE 4 MG TABLET PO PRN; -FAMOTIDINE INJ/PF 20 MG/2 ML SDV IV PRN; +FAMOTIDINE/PF 20 MG in NORMAL SALINE 50 ML IV PRN; +NORMAL SALINE 1000 ML 1,000 ML IV PRN; -ONDANSETRON HCL/PF 16 MG in NORMAL SALINE 50 ML IV PRN; +ONDANSETRON HCL/PF 16 MG, DEXAMETHASONE SOD PHOSPHATE 10 MG in NORMAL SALINE 50 ML IV PRN
[2017-08-10 09:38] VITALS: BP 107/87
[2017-08-10 09:38] LABS: ABSOLUTE EOSINOPHILS # (AUTO) 0.1 10^3/uL (0.0-0.6); ABSOLUTE LYMPHOCYTES (AUTO) 0.9 10^3/uL (0.5-4.7); ABSOLUTE MONOCYTES (AUTO) 0.4 10^3/uL (0.1-1.4); ABSOLUTE NEUT (AUTO) 2.7 10^3/uL (1.7-8.2); BASOPHILS % (AUTO) 0.8 % (0-2); EOSINOPHILS % (AUTO) 1.6 % (0-6); HEMATOCRIT 33.1 % (37.9-51.0); HEMOGLOBIN 11.3 g/dL (13.5-17.0); LYMPHOCYTES % (AUTO) 20.8 % (13-45); MEAN CORPUSCULAR HEMOGLOBIN 32.2 pg (27.0-33.4); MEAN CORPUSCULAR VOLUME 94 fl (80-97); MONOCYTES % (AUTO) 10.3 % (3-13); PLATELET COUNT 186 10^3/uL (150-450); RED CELL DISTRIBUTION WIDTH 15.8 % (11.5-14.0); SEGMENTED NEUTROPHILS % (AUTO) 66.5 % (42-78); TOTAL CELLS COUNTED % (AUTO) 100 %; WHITE BLOOD COUNT 4.1 10^3/uL (4.0-10.5)
[2017-08-10 10:04] LABS: ALANINE AMINOTRANSFERASE 17 U/L (21-72); ALBUMIN 3.7 g/dL (3.5-5.0); ALKALINE PHOSPHATASE 121 U/L (38-126); ANION GAP 13 (5-19); ASPARTATE AMINO TRANSFERASE 21 U/L (17-59); BILIRUBIN,DIRECT 0.3 mg/dL (0.0-0.4); BILIRUBIN,TOTAL 0.3 mg/dL (0.2-1.3); BLOOD UREA NITROGEN 9 mg/dL (7-20); CALCIUM 9.7 mg/dL (8.4-10.2); CARBON DIOXIDE 29 mmol/L (22-30); CHLORIDE 101 mmol/L (98-107); GLUCOSE 96 mg/dL (75-110); POTASSIUM 3.8 mmol/L (3.6-5.0); SODIUM 142.8 mmol/L (137-145); TOTAL PROTEIN 6.4 g/dL (6.3-8.2)
== END 2017-08-10 16:15 | disposition home or self-care (01) ==
LOC: II 09:09 → 5TH 09:12 → II 16:15
PROVIDERS: ATTEND Internal Medicine
PROC: 3E0430M Introduction of Antineoplastic, Monoclonal Antibody, into Central Vein, Percutaneous Approach (ICD-10-PCS; principal; 2017-08-10)
PROC: 3E04305 Introduction of Other Antineoplastic into Central Vein, Percutaneous Approach (ICD-10-PCS; 2017-08-10)
PROC: 3E043GC Introduction of Other Therapeutic Substance into Central Vein, Percutaneous Approach (ICD-10-PCS; 2017-08-10)
DX: Z51.11 Encounter for antineoplastic chemotherapy (principal); C20 Malignant neoplasm of rectum; E86.0 Dehydration
CPT/HCPCS: 36415; 85025; 80053; 96413; 96367; 96375; 96361; 96417; A9270 ×2; J1200; J9045; J2405; J7050; J9267; S0028; J1100; J1453; J9055; 96360; 96365; 96374; 96415; 96523; J3490

== ENCOUNTER 2017-08-17 09:39 | Outpatient (CLI) | payer MEDICARE, BC ==
[~2017-08-17 09:39] MED LIST changes: +FAMOTIDINE IV PRN; -FAMOTIDINE/PF 20 MG in NORMAL SALINE 50 ML IV PRN
[2017-08-17 10:11] LABS: ABSOLUTE LYMPHOCYTES (AUTO) 0.6 10^3/uL (0.5-4.7); ABSOLUTE MONOCYTES (AUTO) 0.5 10^3/uL (0.1-1.4); ABSOLUTE NEUT (AUTO) 7.1 10^3/uL (1.7-8.2); BASOPHILS % (AUTO) 0.3 % (0-2); EOSINOPHILS % (AUTO) 0.3 % (0-6); HEMOGLOBIN 10.9 g/dL (13.5-17.0); LYMPHOCYTES % (AUTO) 7.9 % (13-45); MEAN CORPUSCULAR HEMOGLOBIN 31.5 pg (27.0-33.4); MEAN CORPUSCULAR VOLUME 96 fl (80-97); MONOCYTES % (AUTO) 5.5 % (3-13); PLATELET COUNT 193 10^3/uL (150-450); RED BLOOD COUNT 3.45 10^6/uL (4.35-5.55); RED CELL DISTRIBUTION WIDTH 16.7 % (11.5-14.0); TOTAL CELLS COUNTED % (AUTO) 100 %; WHITE BLOOD COUNT 8.2 10^3/uL (4.0-10.5)
[2017-08-17 10:26] LABS: ALANINE AMINOTRANSFERASE 21 U/L (21-72); ALBUMIN 3.6 g/dL (3.5-5.0); ALKALINE PHOSPHATASE 93 U/L (38-126); ANION GAP 9 (5-19); ASPARTATE AMINO TRANSFERASE 19 U/L (17-59); BILIRUBIN,DIRECT 0.3 mg/dL (0.0-0.4); BILIRUBIN,TOTAL 0.4 mg/dL (0.2-1.3); BLOOD UREA NITROGEN 9 mg/dL (7-20); CALCIUM 9.4 mg/dL (8.4-10.2); CARBON DIOXIDE 32 mmol/L (22-30); CHLORIDE 100 mmol/L (98-107); GLUCOSE 127 mg/dL (75-110); POTASSIUM 3.4 mmol/L (3.6-5.0); SODIUM 140.7 mmol/L (137-145); TOTAL PROTEIN 6.3 g/dL (6.3-8.2)
[2017-08-17 14:22] VITALS: BP 118/61
== END 2017-08-17 16:00 | disposition home or self-care (01) ==
LOC: II 09:39 → 5TH 09:41 → II 16:00
PROVIDERS: ATTEND Internal Medicine
PROC: 3E0430M Introduction of Antineoplastic, Monoclonal Antibody, into Central Vein, Percutaneous Approach (ICD-10-PCS; principal; 2017-08-17)
PROC: 3E04305 Introduction of Other Antineoplastic into Central Vein, Percutaneous Approach (ICD-10-PCS; 2017-08-17)
PROC: 3E043GC Introduction of Other Therapeutic Substance into Central Vein, Percutaneous Approach (ICD-10-PCS; 2017-08-17)
DX: Z51.11 Encounter for antineoplastic chemotherapy (principal); C32.0 Malignant neoplasm of glottis; E86.0 Dehydration
CPT/HCPCS: 36415; 85025; 80053; 96413; 96367; 96375; 96361; 96417; A9270 ×2; J1200; J9045; J2405; J7050; J9267; S0028; J1100; J1453; J9055; 96360; 96365; 96366; 96374; 96415; J3490

== ENCOUNTER 2017-08-24 12:18 | Outpatient (CLI) | payer MEDICARE, BC ==
[~2017-08-24 12:18] MED LIST changes: -ACETAMINOPHEN 325 MG TABLET PO PRN; +ACETAMINOPHEN SOLN 325 MG/10.15 ML UDCUP PO PRN; +ACETAMINOPHEN SUSP 160 MG/5 ML ORAL SYRING PO PRN; -CARBOPLATIN 250 MG in NORMAL SALINE 250 ML IV PRN; -FAMOTIDINE IV PRN; -FOSAPREPITANT DIMEGLUMINE 150 MG in NORMAL SALINE 150 ML IV PRN; -NORMAL SALINE 250 ML IV PRN; -NORMAL SALINE IV PRN; -ONDANSETRON HCL/PF 16 MG, DEXAMETHASONE SOD PHOSPHATE 10 MG in NORMAL SALINE 50 ML IV PRN; -PACLITAXEL SEMI SYNTHETIC IV PRN
[2017-08-24 12:51] VITALS: BP 107/70
[2017-08-24 13:04] LABS: ABSOLUTE LYMPHOCYTES (AUTO) 0.7 10^3/uL (0.5-4.7); ABSOLUTE MONOCYTES (AUTO) 0.4 10^3/uL (0.1-1.4); ABSOLUTE NEUT (AUTO) 4.4 10^3/uL (1.7-8.2); BASOPHILS % (AUTO) 0.3 % (0-2); EOSINOPHILS % (AUTO) 0.2 % (0-6); HEMATOCRIT 32.6 % (37.9-51.0); HEMOGLOBIN 11.2 g/dL (13.5-17.0); LYMPHOCYTES % (AUTO) 12.7 % (13-45); MEAN CORPUSCULAR HEMOGLOBIN 32.3 pg (27.0-33.4); MEAN CORPUSCULAR HGB CONC 34.3 g/dL (32.0-36.0); MEAN CORPUSCULAR VOLUME 94 fl (80-97); MONOCYTES % (AUTO) 6.8 % (3-13); PLATELET COUNT 201 10^3/uL (150-450); RED BLOOD COUNT 3.46 10^6/uL (4.35-5.55); RED CELL DISTRIBUTION WIDTH 16.9 % (11.5-14.0); TOTAL CELLS COUNTED % (AUTO) 100 %; WHITE BLOOD COUNT 5.5 10^3/uL (4.0-10.5)
[2017-08-24 13:18] LABS: ALANINE AMINOTRANSFERASE 25 U/L (21-72); ALBUMIN 3.7 g/dL (3.5-5.0); ALKALINE PHOSPHATASE 106 U/L (38-126); ANION GAP 10 (5-19); ASPARTATE AMINO TRANSFERASE 19 U/L (17-59); BILIRUBIN,DIRECT 0.3 mg/dL (0.0-0.4); BILIRUBIN,TOTAL 0.6 mg/dL (0.2-1.3); BLOOD UREA NITROGEN 8 mg/dL (7-20); CALCIUM 9.3 mg/dL (8.4-10.2); CARBON DIOXIDE 30 mmol/L (22-30); CHLORIDE 100 mmol/L (98-107); GLUCOSE 120 mg/dL (75-110); POTASSIUM 3.3 mmol/L (3.6-5.0); SODIUM 139.7 mmol/L (137-145); TOTAL PROTEIN 6.4 g/dL (6.3-8.2)
== END 2017-08-24 16:07 | disposition home or self-care (01) ==
LOC: II 12:18 → 5TH 12:20 → II 16:07
PROVIDERS: ATTEND Internal Medicine
PROC: 3E0430M Introduction of Antineoplastic, Monoclonal Antibody, into Central Vein, Percutaneous Approach (ICD-10-PCS; principal; 2017-08-24)
PROC: 3E043GC Introduction of Other Therapeutic Substance into Central Vein, Percutaneous Approach (ICD-10-PCS; 2017-08-24)
PROC: 3E0437Z Introduction of Electrolytic and Water Balance Substance into Central Vein, Percutaneous Approach (ICD-10-PCS; 2017-08-24)
DX: Z51.11 Encounter for antineoplastic chemotherapy (principal); C32.0 Malignant neoplasm of glottis; E86.0 Dehydration
CPT/HCPCS: 36415; 85025; 80053; 96413; 96375; 96360; J1200; A9270; J3490; J9055; 96361

== ENCOUNTER 2017-08-31 10:12 | Outpatient (CLI) | payer MEDICARE, BC ==
[~2017-08-31 10:12] MED LIST changes: -ACETAMINOPHEN SOLN 325 MG/10.15 ML UDCUP PO PRN; -ACETAMINOPHEN SUSP 160 MG/5 ML ORAL SYRING PO PRN; +CARBOPLATIN IV PRN; -DIPHENHYDRAMINE HCL 50 MG/ML VIAL IV PRN; +FAMOTIDINE/PF 20 MG in NORMAL SALINE 50 ML IV PRN; +FOSAPREPITANT DIMEGLUMINE 150 MG in NORMAL SALINE 150 ML IV PRN; +NORMAL SALINE IV PRN; +ONDANSETRON HCL/PF 16 MG, DEXAMETHASONE SOD PHOSPHATE 10 MG in NORMAL SALINE 50 ML IV PRN; +PACLITAXEL SEMI SYNTHETIC IV PRN
[2017-08-31 10:33] VITALS: BP 161/103
[2017-08-31] MEDS: ACETAMINOPHEN 325 MG TABLET PO PRN ×2 (11:08→11:17)
[2017-08-31] MEDS: DIPHENHYDRAMINE HCL 50 MG/ML VIAL IV PRN ×2 (11:09→11:17)
== END 2017-08-31 17:26 | disposition home or self-care (01) ==
LOC: II 10:12 → 5TH 10:47 → II 17:26
PROVIDERS: ATTEND Internal Medicine
PROC: 3E0430M Introduction of Antineoplastic, Monoclonal Antibody, into Central Vein, Percutaneous Approach (ICD-10-PCS; principal; 2017-08-31)
PROC: 3E04305 Introduction of Other Antineoplastic into Central Vein, Percutaneous Approach (ICD-10-PCS; 2017-08-31)
PROC: 3E043GC Introduction of Other Therapeutic Substance into Central Vein, Percutaneous Approach (ICD-10-PCS; 2017-08-31)
DX: C32.0 Malignant neoplasm of glottis (principal); E86.0 Dehydration; Z79.899 Other long term (current) drug therapy
CPT/HCPCS: 96413; 96367; 96375; 96361; 96417; A9270 ×2; J1200; J9045; J2405; J7050; J9267; S0028; J1100; J1453; J9055 ×2; 96360; 96415; J3490

== ENCOUNTER 2017-09-07 09:16 | Outpatient (CLI) | payer MEDICARE, BC ==
[~2017-09-07 09:16] MED LIST changes: +ACETAMINOPHEN 325 MG TABLET PO PRN; +CARBOPLATIN 250 MG in NORMAL SALINE 250 ML IV PRN; -CARBOPLATIN IV PRN; +DIPHENHYDRAMINE HCL 50 MG/ML VIAL IV PRN; -NORMAL SALINE 1000 ML 1,000 ML IV PRN; +NORMAL SALINE 250 ML IV PRN; -NORMAL SALINE IV PRN; -PACLITAXEL SEMI SYNTHETIC IV PRN
[2017-09-07] MEDS ORDERED: NORMAL SALINE 1000 ML 1,000 ML IV PRN (09:39)
[2017-09-07 09:53] LABS: ABSOLUTE LYMPHOCYTES (AUTO) 0.9 10^3/uL (0.5-4.7); ABSOLUTE MONOCYTES (AUTO) 0.5 10^3/uL (0.1-1.4); ABSOLUTE NEUT (AUTO) 2.7 10^3/uL (1.7-8.2); BASOPHILS % (AUTO) 0.8 % (0-2); EOSINOPHILS % (AUTO) 0.1 % (0-6); HEMOGLOBIN 11.3 g/dL (13.5-17.0); LYMPHOCYTES % (AUTO) 21.3 % (13-45); MEAN CORPUSCULAR HEMOGLOBIN 31.3 pg (27.0-33.4); MEAN CORPUSCULAR HGB CONC 33.1 g/dL (32.0-36.0); MEAN CORPUSCULAR VOLUME 94 fl (80-97); MONOCYTES % (AUTO) 11.8 % (3-13); PLATELET COUNT 269 10^3/uL (150-450); RED CELL DISTRIBUTION WIDTH 17.1 % (11.5-14.0); TOTAL CELLS COUNTED % (AUTO) 100 %
[2017-09-07 11:00] VITALS: BP 101/59
[2017-09-07] MEDS: MAGNESIUM SULFATE 1 GM/D5W 100 ML IV SCH ×2 (11:38→12:41)
[2017-09-07] MEDS: NORMAL SALINE IV PRN ×2 (14:23→15:12)
[2017-09-07] MEDS: PACLITAXEL SEMI SYNTHETIC IV PRN ×2 (14:23→15:12)
== END 2017-09-07 17:24 | disposition home or self-care (01) ==
LOC: II 09:16 → 5TH 09:22 → II 17:24
PROVIDERS: ATTEND Internal Medicine
PROC: 3E0430M Introduction of Antineoplastic, Monoclonal Antibody, into Central Vein, Percutaneous Approach (ICD-10-PCS; principal; 2017-09-07)
PROC: 3E043GC Introduction of Other Therapeutic Substance into Central Vein, Percutaneous Approach (ICD-10-PCS; 2017-09-07)
DX: Z51.11 Encounter for antineoplastic chemotherapy (principal); C20 Malignant neoplasm of rectum; E86.0 Dehydration
CPT/HCPCS: 36415; 83735; 85025; 96413; 96415; 96365; 96366; 96367; 96374; 96375; 96360; 96361; 96417; A9270 ×2; J1200; J3475; J9045; J2405; J7050; J9267; S0028; J1100; J1453; J9055 ×2; J3490

== ENCOUNTER 2017-09-12 14:01 | Outpatient (CLI) | payer MEDICARE, BC ==
[2017-09-12] MEDS ORDERED: NORMAL SALINE 1000 ML 1,000 ML IV PRN (14:23)
[2017-09-12 15:44] VITALS: BP 142/96
== END 2017-09-12 15:50 | disposition home or self-care (01) ==
LOC: II 14:01 → 5TH 14:10 → II 15:50
PROVIDERS: ATTEND Internal Medicine
PROC: 3E0437Z Introduction of Electrolytic and Water Balance Substance into Central Vein, Percutaneous Approach (ICD-10-PCS; principal; 2017-09-12)
DX: E86.0 Dehydration (principal); C32.0 Malignant neoplasm of glottis
CPT/HCPCS: 96360; 96374

== ENCOUNTER 2017-09-14 10:04 | Outpatient (CLI) | payer MEDICARE, BC ==
[2017-09-14 10:33] VITALS: BP 144/90
[2017-09-14] MEDS ORDERED: NORMAL SALINE 1000 ML 1,000 ML IV PRN (10:42)
== END 2017-09-14 12:53 | disposition home or self-care (01) ==
LOC: II 10:04 → 5TH 10:08 → II 12:53
PROVIDERS: ATTEND Internal Medicine
PROC: 3E0337Z Introduction of Electrolytic and Water Balance Substance into Peripheral Vein, Percutaneous Approach (ICD-10-PCS; principal; 2017-09-14)
DX: E86.0 Dehydration (principal); C32.0 Malignant neoplasm of glottis
CPT/HCPCS: 96360; 96361

== ENCOUNTER 2017-09-15 12:13 | Outpatient (CLI) | payer MEDICARE, BC ==
[2017-09-15 12:47] VITALS: BP 120/82
[2017-09-15] MEDS ORDERED: NORMAL SALINE 1000 ML 1,000 ML IV PRN (13:30)
== END 2017-09-15 13:50 | disposition home or self-care (01) ==
LOC: II 12:13 → 5TH 12:49 → II 13:50
PROVIDERS: ATTEND Internal Medicine
PROC: 3E0437Z Introduction of Electrolytic and Water Balance Substance into Central Vein, Percutaneous Approach (ICD-10-PCS; principal; 2017-09-15)
DX: E86.0 Dehydration (principal); C32.0 Malignant neoplasm of glottis
CPT/HCPCS: 96365; 96374; J1642; 96360

== ENCOUNTER → 2017-09-17 | Outpatient (CLI) | payer MEDICARE, BC ==
--- NOTE | 2017-09-18 07:56 | RADIOLOGY REPORT (SQ) ---
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 TECHNIQUE: Blood glucose level was verified. Above dose of FDG was injected intravenously. 2-D seg mented attenuation correction images were obtained from the base of the skull to the midthighs. Nonc ontrast CT images were obtained for attenuation correction and fusion with emission images. CT image s were performed without oral or intravenous contrast and are not sensitive for parenchymal lesions. A series of overlapping emission PET images were obtained. Images reviewed and manipulated at [facility] work station by the radiologist. Images stored on PACS. LIMITATIONS: None. FINDINGS: HEAD AND NECK: Since the prior PET-CT 03/19/2017, patient has developed diffuse increased u ptake throughout the posterior wall of the hypopharynx and upper esophagus, just above the thoracic i nlet. This is new compared to prior exams, no definite corresponding soft tissue mass by CT. This a melissa has SUV 7.4. A 7 mm lymph node is present between the larynx and right internal jugular vein on image 51, with SUV of 3.3 (was stable in size with SUV 3.7 PET-CT 03/19/2017). All an 8 mm right paratracheal lymph node is present on axial image 59 with SUV 2.3 (was 6 mm in size with SUV 2.6 on 03/19/2017. CHEST: Enlargement of the soft tissue nodule at the leftward thoracic inlet as compared to prior stud ies. Currently this measures 4 x 3 cm in size with SUV 13.3 (was 3.2 x 3 cm on 03/19/2017, SUV 12.5, was 3 x [address] soft tissue neck 06/28/2017). There is a new 1.5 x 1.5 cm left prevascular lymph node ventral to the left central line on axial lety ge 66 with SUV of 8.0. In the left lower lobe adjacent to the major fissure, a cavitary lesion is present with a 7 mm mural nodule with SUV 2.6 (was a 3.3 x 2.2 cm solid mass with SUV 12.5 on PET-CT 03/19/2017, was a thin wall ed cystic cavity without mural nodule on 06/28/2017). There is minimal patchy airspace disease at both lower lobes as well as the right posterior upper lob e. These are new compared to prior exams and could reflect changes of aspiration pneumonia. Patient has a left-sided vocal cord paralysis. ABDOMEN AND PELVIS: No areas of abnormal metabolic activity in the abdomen or pelvis. Expected physi ologic activity is present in the genitourinary system and bowel. PROXIMAL LOWER EXTREMITIES: No areas of abnormal metabolic activity in the soft tissues of the lower extremities. BONES: A new right 7th rib lytic lesion is present with SUV 8.5. A new lytic area in the anterior T7 vertebral body is present with SUV of [address] FINDINGS: Left-sided permanent central line tip superior vena cava. Left vocal cord pa ralysis. Very heavily calcified coronary arteries and carotid bifurcations OTHER: Liver background activity 2.1 SUV. Blood pool background activity 1.5 SUV. IMPRESSION: Progression of disease as above TECHNICAL DOCUMENTATION: JOB ID: [id number] [employer]- All Rights Reserved
== END ==
LOC: RAD 14:32
PROVIDERS: ATTEND Internal Medicine
DX: C32.0 Malignant neoplasm of glottis (principal)
CPT/HCPCS: 78815; A9552

== ENCOUNTER 2017-09-18 09:45 | Day surgery (SDC) | payer MEDICARE, BC ==
[~2017-09-18 09:45] MED LIST changes: -ACETAMINOPHEN 325 MG TABLET PO PRN; -CARBOPLATIN 250 MG in NORMAL SALINE 250 ML IV PRN; -CETUXIMAB IV PRN; -CONTAINER EMPTY IV PRN; +DEXTROSE 5%-LACTATED RINGERS 1,000 ML IV PRN; -DIPHENHYDRAMINE HCL 50 MG/ML VIAL IV PRN; -FAMOTIDINE/PF 20 MG in NORMAL SALINE 50 ML IV PRN; -FOSAPREPITANT DIMEGLUMINE 150 MG in NORMAL SALINE 150 ML IV PRN; -NORMAL SALINE 250 ML IV PRN; -ONDANSETRON HCL/PF 16 MG, DEXAMETHASONE SOD PHOSPHATE 10 MG in NORMAL SALINE 50 ML IV PRN
[2017-09-18] MEDS ORDERED: KETAMINE HCL INJ 500 MG/10 ML VIAL ONE (11:10)
[2017-09-18] MEDS ORDERED: PROPOFOL INJ 200 MG/20 ML VIAL IV ONE (11:10)
--- NOTE | 2017-09-18 14:20 | PDOC DISCHARGE SUMMARY ---
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 Date of Surgery: 09/18/17 Discharge Date: 09/18/17 Condition: Fair Forms: ASU Anesthesia D/C Instruction, Discharge POC-Surgical Service Referrals: TASHA BAILEY MD [ACTIVE STAFF] - 09/19/17 11:15 am ABBI PACHECO DO [ASSOCIATE] - 09/19/17 2:45 pm Respiratory Treatments at Home: Deep Breathing/Coughing Discharge Activity: Activity As Tolerated, Slowly Increase Activity Home Care Assistance: Provided by Family Activities Provided by Home Health Agency: ADL's Report the Following to Your Physician Immediately: Shortness of Breath, Nausea , Vomiting, Increase in Pain, Fever over 101 Degrees, Unusual Bleeding, Redness , Swelling, Warmth, Increased Soreness, IV Site Infection Signs
--- NOTE | 2017-09-18 14:27 | Operative Report ---
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 Of note the patient had inspiratory and expiratory stridor and very noisy hoarse respirations; he also had excessive oral secretions. Surgical plan surgical timeout conducted We inserted a oral mouthpiece. The patient had good saturations and good hemodynamic parameters. The flexible adult upper endoscope was used to instrument the oropharynx and a good look at the hypopharynx was achieved. The epiglottis, laryngeal vestibule, and surrounding soft tissues were all very edematous, and chronically inflamed. The anatomic detail of the larynx including the arytenoid folds local cords etc. were all very obscured by the chronic edema and parotic response likely from previous radiation therapy. The patient's vocal cord movement was impaired, and the caliber of the upper trachea reduced. We did not instrument the larynx. With regards to the hypopharynx posteriorly, I was not able to get the esophagus to open and I was unable insinuate the upper endoscope through the upper esophageal sphincter. Tumor appeared to be dating from the left side but because of the inability to the beyond the immediate tissues, without forcing the instrument, I was not able to delineate further anatomy beyond the immediate hypopharynx. Therefore it was felt the procedure should be aborted. Of note this was discussed with the anesthesiologist as well as multiple residents. Because of the compromised airway, likely chronic, did not feel it would be appropriate to perform an open G-tube under LMAC anesthesia without discussion with the patient and family about the possibility of the patient requiring an operative tracheostomy. Therefore we brought the patient out of the operating room having performed only limited upper endoscopy as described above. Patient tolerated procedure well. Follow-up: I did speak with Dr. BAILEY, the patient's oncologist, as well as Dr. Madsen, ENT surgeon. Dr. Sherman agreed to see the patient in consultation tomorrow, September 19. Further endoscopic evaluation, possible biopsies, and thorough discussion of treatment options will ensue. I discussed the above with the patient and the majority of the above earlier this afternoon with the patient's .
[2017-09-18 14:44] VITALS: BP 129/85
== END 2017-09-18 14:50 | disposition home or self-care (01) ==
LOC: OROUT 09:45
PROVIDERS: ATTEND Surgery
PROC: 0DH63UZ Insertion of Feeding Device into Stomach, Percutaneous Approach (ICD-10-PCS; principal; 2017-09-18 11:30)
DX: C32.9 Malignant neoplasm of larynx, unspecified (principal); F32.9 Major depressive disorder, single episode, unspecified; I10 Essential (primary) hypertension; C34.90 Malignant neoplasm of unspecified part of unspecified bronchus or lung; Z87.891 Personal history of nicotine dependence; Z95.828 Presence of other vascular implants and grafts; Z79.899 Other long term (current) drug therapy; Z79.1 Long term (current) use of non-steroidal anti-inflammatories (NSAID)
CPT/HCPCS: 43246; J3490; J2704; 731

== ENCOUNTER 2017-09-22 05:30 | Inpatient (IN) | payer MEDICARE, BC ==
[2017-09-22] MEDS ORDERED: CEFAZOLIN 1 GM/D5W RTU 1 GM/50 ML RTUPB IV ONE (05:33)
[2017-09-22] MEDS ORDERED: LIDOCAINE 0.5% INJ-PF (5 MG/ML) 50 ML SDV ONE (06:30)
[2017-09-22] MEDS ORDERED: LIDOCAINE 1%/EPINEPHRINE INJ 20 ML VIAL ONE (06:30)
[2017-09-22] MEDS ORDERED: BUPIVACAINE HCL 0.25 % INJ/PF (2.5 MG/1 ML) 30 ML VIAL ONE (06:30)
[2017-09-22] MEDS ORDERED: KETAMINE HCL INJ 500 MG/10 ML VIAL ONE (07:00)
[2017-09-22] MEDS ORDERED: LIDOCAINE 2% INJ-PF (20 MG/ML) 10 ML AMPUL ONE (07:00)
[2017-09-22] MEDS ORDERED: FENTANYL CITRATE INJ/PF 100 MCG/2 ML AMPUL ONE (07:00)
[2017-09-22] MEDS ORDERED: PROPOFOL INJ 200 MG/20 ML VIAL IV ONE (07:01)
[2017-09-22] MEDS ORDERED: DEXAMETHASONE SOD PHOSPHATE INJ 4 MG/1 ML VIAL ONE (07:01)
[2017-09-22] MEDS ORDERED: ONDANSETRON HCL INJ/PF 4 MG/2 ML SDV ONE (07:01)
[2017-09-22] MEDS ORDERED: MIDAZOLAM 2 MG/2 ML INJ ONE (07:01)
[2017-09-22] MEDS ORDERED: BUPIVACAINE HCL 0.5%-EPI 1:200000 INJ/PF 30 ML VIAL ONE (07:29)
[2017-09-22] MEDS ORDERED: DEXMEDETOMIDINE INJ 80 MCG/20 ML VIAL IV ONE (07:54)
[2017-09-22] MEDS ORDERED: LIDOCAINE 4% TOPICAL SOLN 50 ML ONE (08:03)
--- NOTE | 2017-09-22 08:04 | EKG REPORT ---
SEVERITY:- ABNORMAL ECG - SINUS TACHYCARDIA WITH PACS. CONSIDER ANTEROSEPTAL INFARCT BORDERLINE PROLONGED QT INTERVAL : Confirmed by: Dionisio Avila MD 22-Sep-2017 08:03:17
[2017-09-22] MEDS ORDERED: PROMETHAZINE HCL INJ 25 MG/1 ML VIAL IV PRN (08:40)
[2017-09-22] MEDS ORDERED: ONDANSETRON HCL INJ/PF 4 MG/2 ML SDV IV PRN ×2 (08:40→18:18)
[2017-09-22] MEDS ORDERED: DIPHENHYDRAMINE HCL 50 MG/ML VIAL IV PRN (08:40)
[2017-09-22] MEDS ORDERED: FENTANYL CITRATE INJ/PF 100 MCG/2 ML AMPUL IV PRN ×3 (08:40)
[2017-09-22] MEDS ORDERED: EPHEDRINE SULFATE INJ 50 MG/1 ML AMPULE ONE (11:02)
--- NOTE | 2017-09-22 12:03 | Operative Report ---
Operative Report DATE OF SURGERY: 09/22/17 PREOPERATIVE DIAGNOSIS: 1. Metastatic laryngeal carcinoma. 2. Obstructing airway with aspiration. 3. Dysphagia with obstructed upper esophagus POSTOPERATIVE DIAGNOSIS: Same OPERATION: Open, operative gastrostomy using 24 Kosovan Malecot tube SURGEON: DUSTIN WARD ANESTHESIA: GA TISSUE REMOVED OR ALTERED: None COMPLICATIONS: None ESTIMATED BLOOD LOSS: Scant INTRAOPERATIVE FINDINGS: See below PROCEDURE: The patient had been previously taken to the operating room by Dr. Severino where he underwent operative tracheostomy, including flexible laryngoscopy. Portion of the operation was dictated by the ENT surgeon, Dr. Severino. The abdomen was exposed, prepped and draped in a sterile fashion. A second timeout conducted. Skin was anesthetized with quarter percent Marcaine. Approximately 8 cm long midline incision was made midway between the fourth process and the umbilicus. Subcutaneous tissue and midline fascia opened with electrocautery. Visualization of the peritoneal cavity revealed no obvious pathology although this was not a formal exploratory laparotomy. The body of the stomach was brought into the working area of the open incision. We proceeded to perform a standard operative gastrostomy. 2 concentric pursestrings using 3-0 PDS were placed in the mid body of the stomach. Electrocautery was used to open the anterior abdominal wall and enter the lumen of the stomach. A 24 Kosovan Malecot tube was trimmed of the ears and the tube was inserted into the lumen of the stomach. The concentric pursestrings were secured successfully creating a limited invagination of the G-tube into the repair stomach wall. We now made a hole in the left upper quadrant with knife blade, passed the open-ended the G-tube through the intra-abdominal wall. Using 3, 3-0 PDS sutures, the gastrostomy was brought up to the anterior abdominal wall pexing the peritoneum to the process of the stomach. A 2-0 Prolene suture was used to secure the G-tube to the skin above and below the exit site of the tube. There was no bleeding. We did aspirate and flush G-tube and was felt to be in satisfactory position. There was no kinking of the stomach and we are satisfied with the approximation of the body of the stomach to the intra- abdominal wall. We felt the operation was complete. Sponge and needle counts are correct. Midline fascia closed with 2 #1 PDS sutures and skin approximated with luis. Appropriate dressings and appliance is applied. Patient tolerated the procedure well, taken to passive care unit, on the ventilator with tracheostomy tube successfully in place.
[2017-09-22] MEDS: MORPHINE SULFATE 10 MG/ML INJ IV PRN ×2 (12:26→16:58)
[2017-09-22] MEDS ORDERED: MORPHINE SULFATE 10 MG/ML INJ IV PRN (12:30)
[2017-09-22] MEDS ORDERED: DEXTROSE 40% GEL 15 GM TUBE PO PRN ×2 (13:01)
[2017-09-22] MEDS ORDERED: DEXTROSE 50%-WATER 25 GM/50 ML DISP.SYRIN IV PRN ×2 (13:01)
[2017-09-22] MEDS ORDERED: GLUCAGON,HUMAN RECOMB 1 MG INJ SUBCUT PRN (13:01)
[2017-09-22] MEDS ORDERED: INFLUENZA ADLT QUAD (36MOS+) 2017-18 VAC 0.5 ML SYR IM PRN (13:41)
--- NOTE | 2017-09-22 13:47 | RADIOLOGY REPORT (SQ) ---
EXAM DESCRIPTION: CHEST SINGLE VIEW COMPLETED DATE/TIME: 09/22/2017 1:33 pm REASON FOR STUDY: [place]. [place] [facility] [place]: CT chest 06/28/2017 PET-CT 09/17/2017 EXAM PARAMETERS: NUMBER OF VIEWS: One view. TECHNIQUE: Single frontal radiographic view of the chest acquired. RADIATION DOSE: NA LIMITATIONS: None. FINDINGS: LUNGS AND PLEURA: No opacities, masses or pneumothorax. No pleural effusion. MEDIASTINUM AND HILAR STRUCTURES: No masses. Contour normal. HEART AND VASCULAR STRUCTURES: Heart normal in size. Normal vasculature. BONES: No acute findings. HARDWARE: Patient is post tracheostomy tube placement with the tip in the mid trachea. Minimal right supraclavicular air. No pneumothorax. Patient has a left-sided permanent central line with the tip in the superior vena cava. OTHER: There is postoperative subdiaphragmatic free air related to gastrostomy tube placement. IMPRESSION: No pneumothorax post tracheostomy tube placement. Tracheostomy tip is in the mid trache a. No acute infiltrates. Subdiaphragmatic free air from gastrostomy tube which was just placed. Results called to Dr. Almendarez TECHNICAL DOCUMENTATION: JOB ID: [id number] [employer]- All Rights Reserved Reading location - IP/workstation name: [email or web address]
--- NOTE | 2017-09-22 13:49 | RADIOLOGY REPORT (SQ) ---
EXAM DESCRIPTION: INJECT EXISTING/TUBE PLACEMENT; KUB/ABDOMEN (SINGLE VIEW) COMPLETED DATE/TIME: 09/22/2017 1:35 pm; 09/22/2017 1:34 pm REASON FOR STUDY: CONFIRM PLACEMENT AND EMPTYING OF G-TUBE; confirm placement and emptying T17.908A UNSP FB IN RESP TRACT, PART UNSP CAUSING OTH INJURY COMPARISON: AP chest 09/22/2017 FLUOROSCOPY TIME: No fluoro was used 2 portable KUB images saved to PACS. TECHNIQUE: Injection of contrast through existing catheter. 2 portable KUB images saved to PACS dem onstrating final catheter position. LIMITATIONS: None. FINDINGS: The patient's recently placed gastrostomy tube was injected with 50 mL of Isovue-300. Tub e tip is in the antrum of the stomach. There is pooling of contrast in the stomach fundus and 2nd po rtion of the duodenum. There are paraumbilical midline anterior abdominal wall luis. There is a small amount of postoper ative free intraperitoneal air. Results discussed with Dr. Almendarez IMPRESSION: THE GASTROSTOMY TUBE APPEARS TO BE IN SATISFACTORY POSITION. COMMENT: Quality ID 145: Final reports for procedures using fluoroscopy that document radiation exp osure indices, or exposure time and number of fluorographic images (if radiation exposure indices are not available) TECHNICAL DOCUMENTATION: JOB ID: [id number] [employer]- All Rights Reserved Reading location - IP/workstation name: [email or web address]
--- NOTE | 2017-09-22 13:49 | RADIOLOGY REPORT (SQ) ---
EXAM DESCRIPTION: INJECT EXISTING/TUBE PLACEMENT; KUB/ABDOMEN (SINGLE VIEW) COMPLETED DATE/TIME: 09/22/2017 1:35 pm; 09/22/2017 1:34 pm REASON FOR STUDY: CONFIRM PLACEMENT AND EMPTYING OF G-TUBE; confirm placement and emptying T17.908A UNSP FB IN RESP TRACT, PART UNSP CAUSING OTH INJURY COMPARISON: AP chest 09/22/2017 FLUOROSCOPY TIME: No fluoro was used 2 portable KUB images saved to PACS. TECHNIQUE: Injection of contrast through existing catheter. 2 portable KUB images saved to PACS dem onstrating final catheter position. LIMITATIONS: None. FINDINGS: The patient's recently placed gastrostomy tube was injected with 50 mL of Isovue-300. Tub e tip is in the antrum of the stomach. There is pooling of contrast in the stomach fundus and 2nd po rtion of the duodenum. There are paraumbilical midline anterior abdominal wall luis. There is a small amount of postoper ative free intraperitoneal air. Results discussed with Dr. Almendarez IMPRESSION: THE GASTROSTOMY TUBE APPEARS TO BE IN SATISFACTORY POSITION. COMMENT: Quality ID 145: Final reports for procedures using fluoroscopy that document radiation exp osure indices, or exposure time and number of fluorographic images (if radiation exposure indices are not available) TECHNICAL DOCUMENTATION: JOB ID: [id number] [employer]- All Rights Reserved Reading location - IP/workstation name: [email or web address]
[2017-09-22] MEDS ORDERED: GLYCOPYRROLATE INJ 0.4 MG/2 ML VIAL ONE (14:07)
[2017-09-22] MEDS: RINGERS SOLUTION,LACTATED 1,000 ML IV PRN (17:01)
[2017-09-22] MEDS ORDERED: HYDRALAZINE HCL INJ/PF 20 MG/1 ML SDV IV PRN (18:26)
[2017-09-22] MEDS: ACETAMINOPHEN 100 ML IV SCH (18:43)
[2017-09-22] MEDS: KETOROLAC TROMETHAMINE INJ/PF 30 MG/1 ML SDV IV SCH ×2 (18:44→23:01)
--- NOTE | 2017-09-22 18:44 | PDOC CONSULTATION ---
Consultation Consult Date: 09/22/17 Attending physician:: ABBI PACHECO Consult reason:: Medical management of high blood pressure History of Present Illness Admission Date/PCP: CLAUDIO FU MD Patient complains of: Newly trached History of Present Illness: OLIMPIA ST is a 71 year old male presents for trach by ENT due to head and neck cancer. Patient also had a PEG tube placed for nutrition. Patient communicated with me via written communication. Patient states he only has pain in his abdomen where PEG was placed. Patient denied difficulty breathing, nausea, or vomiting. Past Medical History Cardiac Medical History: Denies: Coronary Artery Disease, Myocardial Infarction, Hypertension Pulmonary Medical History: Denies: Asthma, Bronchitis, Chronic Obstructive Pulmonary Disease (COPD), Pneumonia Neurological Medical History: Denies: Seizures GI Medical History: Denies: Hepatitis, Hiatal Hernia Musculoskeltal Medical History: Denies: Arthritis Psychiatric Medical History: Reports: Depression Hematology: Denies: Anemia, Sickle Cell Disease Past Surgical History Past Surgical History: Reports: Other - Abdominal surgery Denies: Pacemaker Social History Smoking Status: Former Smoker Frequency of Alcohol Use: Occasional Hx Recreational Drug Use: No Drugs: None Hx Prescription Drug Abuse: Yes - Advance Directive Resuscitation Status: Full Code Family History Family History: Reviewed & Not Pertinent Parental Family History Reviewed: Yes Children Family History Reviewed: Yes Sibling(s) Family History Reviewed.: Yes Medication/Allergy Home Medications: Alprazolam [Xanax 0.5 mg Tablet] 0.5 mg PO Q12HP PRN 02/21/17 Gabapentin [Neurontin] 1,600 mg PO QHS 02/21/17 Pantoprazole Sodium [Protonix] 40 mg PO Q12 02/21/17 Sertraline HCl [Zoloft] 150 mg PO DAILY 02/21/17 Venlafaxine HCl [Effexor Xr] 150 mg PO DAILY 02/21/17 Acetaminophen [Tylenol Extra Strength 500 mg Tablet] 1 - 2 tab PO Q8 PRN Benzonatate 200 mg PO Q6 PRN 03/30/17 Diphenhydramine HCl 25 mg PO DAILY PRN 03/30/17 Docusate Sodium 100 mg PO DAILY PRN 03/30/17 Amoxicillin 250 mg PO ASDIR PRN 09/18/17 Polyethylene Glycol 3350 [Miralax] 119 gm PO ASDIR PRN 09/18/17 Promethazine HCl [Phenergan 25 mg Tablet] 25 mg PO ASDIR PRN 09/18/17 Ondansetron HCl [Zofran 8 mg Tablet] PO DAILY PRN 09/21/17 Allergies/Adverse Reactions: No Known Allergies Allergy (Verified 09/21/17 15:41) Review of Systems ROS unobtainable: Other - Written communication Constitutional: PRESENT: weakness Eyes: ABSENT: visual disturbances Ears: ABSENT: hearing changes Cardiovascular: ABSENT: chest pain, dyspnea on exertion, edema, orthropnea, palpitations Gastrointestinal: PRESENT: abdominal pain Genitourinary: ABSENT: dysuria, hematuria Musculoskeletal: ABSENT: joint swelling Integumentary: ABSENT: rash, wounds Physical Exam Vital Signs: Temp Pulse Resp BP Pulse Ox 97.1 F 71 16 163/90 H 97 09/22/17 06:19 09/22/17 12:04 09/22/17 18:00 09/22/17 17:50 09/22/17 18:00 Pulse Oximeter Continuous Start: 09/22/17 11: 07 Freq: RTQ4 Status: Complete Document 09/22/17 12:00 [facility] (Rec: 09/22/17 12:06 LDA [email or web address]) Pulse Oximetry Assessment Oxygen Saturation (92-100) 99 Oxygen Flow Rate (L/min) 8 Oxygen Delivery Method Trach Collar Fraction of Inspired Oxygen (FIO2) 30 Equipment Usage Equipment Standby Continuous SpO2 Machine # [id number]. on monitor Intake & Output 09/21/17 09/22/17 09/23/17 06:59 06:59 06:59 Intake Total 0 60 Output Total 260 Balance 0 -200 Weight 70.31 kg 67.2 kg General appearance: PRESENT: no acute distress, thin, other - Trach in place Head exam: PRESENT: atraumatic, normocephalic Eye exam: PRESENT: conjunctiva pink, EOMI. ABSENT: scleral icterus Ear exam: PRESENT: normal external ear exam Mouth exam: PRESENT: moist, tongue midline Neck exam: PRESENT: tracheostomy. ABSENT: carotid bruit, JVD, lymphadenopathy, thyromegaly Respiratory exam: PRESENT: clear to auscultation alana. ABSENT: rales, rhonchi, wheezes Cardiovascular exam: PRESENT: RRR. ABSENT: diastolic murmur, rubs, systolic murmur Pulses: PRESENT: normal dorsalis pedis pul Vascular exam: PRESENT: normal capillary refill GI/Abdominal exam: PRESENT: tenderness, other - dressing in place Rectal exam: PRESENT: deferred Extremities exam: PRESENT: full ROM. ABSENT: calf tenderness, clubbing, pedal edema Musculoskeletal exam: PRESENT: full ROM Neurological exam: PRESENT: alert, awake, oriented to person, oriented to place , oriented to time, oriented to situation, CN II-XII grossly intact. ABSENT: motor sensory deficit Psychiatric exam: PRESENT: appropriate affect, normal mood Skin exam: PRESENT: dry, intact, warm. ABSENT: cyanosis, rash Results Impressions: Chest X-Ray 09/22/17 00:00 IMPRESSION: No pneumothorax post tracheostomy tube placement. Tracheostomy tip is in the mid trachea. No acute infiltrates. Subdiaphragmatic free air from gastrostomy tube which was just placed. Results called to Dr. Almendarez Tube Placement 09/22/17 00:00 IMPRESSION: THE GASTROSTOMY TUBE APPEARS TO BE IN SATISFACTORY POSITION. KUB X-Ray 09/22/17 12:30 IMPRESSION: THE GASTROSTOMY TUBE APPEARS TO BE IN SATISFACTORY POSITION. Assessment & Plan - Diagnosis (1) Moderate protein-calorie malnutrition Is this a current diagnosis for this admission?: Yes Plan: We will check phosphorus and magnesium due to patient's malnutrition. Patient had PEG placed today. (2) Depression Qualifiers: Is this a current diagnosis for this admission?: Yes Plan: We will need to restart patient's depression medication once approval has been given for use of PEG (3) Essential hypertension Is this a current diagnosis for this admission?: Yes Plan: We will write for hydralazine 5 mg IV every 4 hours as needed for SBP greater than 160 mm per mercury (4) History of laryngeal cancer Is this a current diagnosis for this admission?: Yes Plan: Status post trach :per oncology. Will consult Oncology (5) PEG (percutaneous endoscopic gastrostomy) status Is this a current diagnosis for this admission?: Yes Plan: Patient has PEG in place (6) Trach Is this a current diagnosis for this admission?: Yes Plan: Due to head and neck CA: Dr. Carrillo has been consulted to follow patient. - Time Time Spent: 30 to 50 Minutes
[2017-09-23] MEDS: KETOROLAC TROMETHAMINE INJ/PF 30 MG/1 ML SDV IV SCH ×6 (03:06→22:29)
[2017-09-23] MEDS: ACETAMINOPHEN 100 ML IV SCH ×2 (03:07→10:39)
[2017-09-23 04:25] LABS: ABSOLUTE LYMPHOCYTES (AUTO) 1.2 10^3/uL (0.5-4.7); ABSOLUTE MONOCYTES (AUTO) 0.7 10^3/uL (0.1-1.4); ABSOLUTE NEUT (AUTO) 8.2 10^3/uL (1.7-8.2); BASOPHILS % (AUTO) 0.3 % (0-2); EOSINOPHILS % (AUTO) 0.1 % (0-6); HEMATOCRIT 30.3 % (37.9-51.0); HEMOGLOBIN 10.1 g/dL (13.5-17.0); LYMPHOCYTES % (AUTO) 11.4 % (13-45); MEAN CORPUSCULAR HEMOGLOBIN 30.5 pg (27.0-33.4); MEAN CORPUSCULAR HGB CONC 33.2 g/dL (32.0-36.0); MEAN CORPUSCULAR VOLUME 92 fl (80-97); MONOCYTES % (AUTO) 6.7 % (3-13); PLATELET COUNT 237 10^3/uL (150-450); RED BLOOD COUNT 3.31 10^6/uL (4.35-5.55); RED CELL DISTRIBUTION WIDTH 17.1 % (11.5-14.0); SEGMENTED NEUTROPHILS % (AUTO) 81.5 % (42-78); TOTAL CELLS COUNTED % (AUTO) 100 %; WHITE BLOOD COUNT 10.1 10^3/uL (4.0-10.5)
[2017-09-23 04:37] LABS: ALANINE AMINOTRANSFERASE 23 U/L (21-72); ALBUMIN 2.7 g/dL (3.5-5.0); ALKALINE PHOSPHATASE 95 U/L (38-126); ANION GAP 9 (5-19); ASPARTATE AMINO TRANSFERASE 19 U/L (17-59); BILIRUBIN,DIRECT 0.4 mg/dL (0.0-0.4); BILIRUBIN,TOTAL 0.4 mg/dL (0.2-1.3); BLOOD UREA NITROGEN 10 mg/dL (7-20); CARBON DIOXIDE 29 mmol/L (22-30); CHLORIDE 102 mmol/L (98-107); GLUCOSE 89 mg/dL (75-110); PHOSPHORUS 3.2 mg/dL (2.5-4.5); SODIUM 139.9 mmol/L (137-145); TOTAL PROTEIN 5.8 g/dL (6.3-8.2)
[2017-09-23 04:55] LABS: POTASSIUM 2.9 mmol/L (3.6-5.0)
[2017-09-23] MEDS ORDERED: POTASSI CL 20 MEQ/50 ML RIDER 20 MEQ/50 ML RTUPB IV SCH (08:11)
[2017-09-23] MEDS ORDERED: MAGNESIUM SULFATE/D5W 1 GM/100 ML RTUPB IV SCH (08:15)
[2017-09-23] MEDS: MAGNESIUM SULFATE 1 GM/D5W 100 ML IV SCH ×2 (08:17→10:40)
[2017-09-23] MEDS: POTASSIUM CHLORIDE 20 MEQ/50 ML RTU IV SCH ×4 (08:19→15:32)
--- NOTE | 2017-09-23 09:40 | PDOC PROGRESS REPORT ---
Subjective Progress Note for:: 09/23/17 Subjective:: No new issues. Reason For Visit: METASTATIC DZ WITH CHRONIC WORSENING LARYNGEAL/ Physical Exam Vital Signs: Temp Pulse Resp BP Pulse Ox 97.7 F 76 9 L 149/90 H 100 09/23/17 08:30 09/23/17 08:00 09/23/17 06:21 09/23/17 06:21 09/23/17 06:21 Pulse Oximeter Continuous Start: 09/22/17 11: 07 Freq: RTQ4 Status: Complete Document 09/22/17 12:00 L[facility] (Rec: 09/22/17 12:06 LDA [email or web address]) Pulse Oximetry Assessment Oxygen Saturation (92-100) 99 Oxygen Flow Rate (L/min) 8 Oxygen Delivery Method Trach Collar Fraction of Inspired Oxygen (FIO2) 30 Equipment Usage Equipment Standby Continuous SpO2 Machine # xx-pt. on monitor Intake & Output 09/22/17 09/23/17 09/24/17 06:59 06:59 06:59 Intake Total 0 60 Output Total 1090 250 Balance 0 -1030 -250 Weight 70.31 kg 67.2 kg General appearance: PRESENT: no acute distress, thin, other - trach in place Head exam: PRESENT: atraumatic, normocephalic Eye exam: PRESENT: conjunctiva pink, EOMI. ABSENT: scleral icterus Ear exam: PRESENT: normal external ear exam Mouth exam: PRESENT: moist, tongue midline Neck exam: PRESENT: tracheostomy Respiratory exam: PRESENT: clear to auscultation alana. ABSENT: rales, rhonchi, wheezes Cardiovascular exam: PRESENT: RRR. ABSENT: diastolic murmur, rubs, systolic murmur Pulses: PRESENT: normal dorsalis pedis pul Vascular exam: PRESENT: normal capillary refill GI/Abdominal exam: PRESENT: normal bowel sounds, soft, other - PEG. ABSENT: distended, guarding, mass, organolmegaly, rebound, tenderness Rectal exam: PRESENT: deferred Extremities exam: PRESENT: full ROM. ABSENT: calf tenderness, clubbing, pedal edema Musculoskeletal exam: PRESENT: full ROM Neurological exam: PRESENT: alert, awake, oriented to person, oriented to place , oriented to time, oriented to situation, CN II-XII grossly intact. ABSENT: motor sensory deficit Psychiatric exam: PRESENT: appropriate affect, normal mood. ABSENT: homicidal ideation, suicidal ideation Skin exam: PRESENT: dry, intact, warm. ABSENT: cyanosis, rash Results Laboratory Results: 09/23/17 03:55 09/23/17 03:55 09/23/17 09/23/17 03:55 03:55 WBC 10.1 RBC 3.31 L Hgb 10.1 L Hct 30.3 L MCV 92 MCH 30.5 MCHC 33.2 RDW 17.1 H Plt Count 237 Seg Neutrophils % 81.5 H Lymphocytes % 11.4 L Monocytes % 6.7 Eosinophils % 0.1 Basophils % 0.3 Absolute Neutrophils 8.2 Absolute Lymphocytes 1.2 Absolute Monocytes 0.7 Absolute Eosinophils 0.0 Absolute Basophils 0.0 Sodium 139.9 Potassium 2.9 L* Chloride 102 Carbon Dioxide 29 Anion Gap 9 BUN 10 Creatinine 0.53 Est GFR ( Amer) > 60 Est GFR (Non-Af Amer) > 60 Glucose 89 Calcium 9.0 Phosphorus 3.2 Magnesium 1.2 L* Total Bilirubin 0.4 AST 19 ALT 23 Alkaline Phosphatase 95 Total Protein 5.8 L Albumin 2.7 L Impressions: Chest X-Ray 09/22/17 00:00 IMPRESSION: No pneumothorax post tracheostomy tube placement. Tracheostomy tip is in the mid trachea. No acute infiltrates. Subdiaphragmatic free air from gastrostomy tube which was just placed. Results called to Dr. Almendarez Tube Placement 09/22/17 00:00 IMPRESSION: THE GASTROSTOMY TUBE APPEARS TO BE IN SATISFACTORY POSITION. KUB X-Ray 09/22/17 12:30 IMPRESSION: THE GASTROSTOMY TUBE APPEARS TO BE IN SATISFACTORY POSITION. Assessment & Plan - Diagnosis (1) Moderate protein-calorie malnutrition Is this a current diagnosis for this admission?: Yes Plan: Will place on tubefeeds. (2) Depression Qualifiers: Is this a current diagnosis for this admission?: Yes Plan: Will restart home medication. (3) Essential hypertension Is this a current diagnosis for this admission?: Yes Plan: Will place pt on norvasc. (4) History of laryngeal cancer Is this a current diagnosis for this admission?: Yes Plan: Status post trach :per oncology. Will consult Oncology (5) PEG (percutaneous endoscopic gastrostomy) status Is this a current diagnosis for this admission?: Yes Plan: Patient has PEG in place (6) Trach Is this a current diagnosis for this admission?: Yes Plan: Due to head and neck CA: Dr. Carrillo has been consulted to follow patient. (7) Hypokalemia Is this a current diagnosis for this admission?: Yes Plan: Pt given Potassium replacement. (8) Hypomagnesemia Is this a current diagnosis for this admission?: Yes Plan: Will give magnesium replacement. (9) DVT prophylaxis Is this a current diagnosis for this admission?: Yes Plan: SCDs - Time Time Spent with patient: 25-34 minutes
[2017-09-23] MEDS ORDERED: MAGNESIUM SULFATE/D5W 1 GM/100 ML RTUPB IV ONE (10:00)
[2017-09-23] MEDS ORDERED: AMLODIPINE BESYLATE 10 MG TABLET PO SCH (10:00)
[2017-09-23] MEDS: RINGERS SOLUTION,LACTATED 1,000 ML IV PRN (10:40)
[2017-09-23] MEDS ORDERED: SERTRALINE HCL 50 MG TABLET PO ONE (11:00)
[2017-09-23] MEDS ORDERED: AMLODIPINE BESYLATE 10 MG TABLET PO ONE (11:00)
[2017-09-23] MEDS ORDERED: VENLAFAXINE HCL 75 MG CAP.SR.24H PO ONE (11:00)
--- NOTE | 2017-09-23 11:01 | PDOC PROGRESS REPORT ---
Subjective Progress Note for:: 09/23/17 Reason For Visit: METASTATIC DZ WITH CHRONIC WORSENING LARYNGEAL/ Patient is postoperative day 1 status post gastrostomy tube placement by Dr. Almendarez, and operative tracheostomy by Dr. Madsen. Patient is doing well in the intensive care unit, breathing through his trach without difficulty. Tube feeds have not been initiated yet. Physical Exam Vital Signs: Temp Pulse Resp BP Pulse Ox 97.7 F 76 9 L 149/90 H 100 09/23/17 08:30 09/23/17 08:00 09/23/17 06:21 09/23/17 06:21 09/23/17 06:21 Pulse Oximeter Continuous Start: 09/22/17 11: 07 Freq: RTQ4 Status: Complete Document 09/22/17 12:00 LDA (Rec: 09/22/17 12:06 LDA [email or web address]) Pulse Oximetry Assessment Oxygen Saturation (92-100) 99 Oxygen Flow Rate (L/min) 8 Oxygen Delivery Method Trach Collar Fraction of Inspired Oxygen (FIO2) 30 Equipment Usage Equipment Standby Continuous SpO2 Machine # xx-pt. on monitor Intake & Output 09/22/17 09/23/17 09/24/17 06:59 06:59 06:59 Intake Total 0 60 Output Total 1090 250 Balance 0 -1030 -250 Weight 70.31 kg 67.2 kg General appearance: PRESENT: no acute distress Neck exam: PRESENT: tracheostomy - In place, no significant bleeding. No subcu air. Trach secured, other GI/Abdominal exam: PRESENT: other - G-tube midline incision intact my: No abdominal tenderness: No distention Results Laboratory Results: 09/23/17 03:55 09/23/17 03:55 09/23/17 09/23/17 03:55 03:55 WBC 10.1 RBC 3.31 L Hgb 10.1 L Hct 30.3 L MCV 92 MCH 30.5 MCHC 33.2 RDW 17.1 H Plt Count 237 Seg Neutrophils % 81.5 H Lymphocytes % 11.4 L Monocytes % 6.7 Eosinophils % 0.1 Basophils % 0.3 Absolute Neutrophils 8.2 Absolute Lymphocytes 1.2 Absolute Monocytes 0.7 Absolute Eosinophils 0.0 Absolute Basophils 0.0 Sodium 139.9 Potassium 2.9 L* Chloride 102 Carbon Dioxide 29 Anion Gap 9 BUN 10 Creatinine 0.53 Est GFR ( Amer) > 60 Est GFR (Non-Af Amer) > 60 Glucose 89 Calcium 9.0 Phosphorus 3.2 Magnesium 1.2 L* Total Bilirubin 0.4 AST 19 ALT 23 Alkaline Phosphatase 95 Total Protein 5.8 L Albumin 2.7 L Impressions: Chest X-Ray 09/22/17 00:00 IMPRESSION: No pneumothorax post tracheostomy tube placement. Tracheostomy tip is in the mid trachea. No acute infiltrates. Subdiaphragmatic free air from gastrostomy tube which was just placed. Results called to Dr. Almendarez Tube Placement 09/22/17 00:00 IMPRESSION: THE GASTROSTOMY TUBE APPEARS TO BE IN SATISFACTORY POSITION. KUB X-Ray 09/22/17 12:30 IMPRESSION: THE GASTROSTOMY TUBE APPEARS TO BE IN SATISFACTORY POSITION. Assessment & Plan - Diagnosis (1) Cancer of larynx Plan: With esophageal occlusion, chronic aspiration now 1 day status post operative G- tube Dr. Almendarez, doing well [place]: Post tube insertion contrast study shows good gastric emptying. Recommendations: 1. We will start tube feedings at 10 cc an hour; reviewed treatment plan with nursing staff 2. Patient may be transferred to the floor if okay with Dr. Madsen
--- NOTE | 2017-09-23 11:21 | PDOC CONSULTATION ---
Consultation Consult Date: 09/23/17 Consult reason:: Hematology/Oncology consultation was requested for patient with head and neck cancer. 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 Most recently, he has been undergoing chemotherapy with agdaagux, taxol, erbitux. His most recent dose was 08/31/2017 for cycle #6. He presented for trach by ENT due to head and neck cancer and progressive difficulty protecting his airway. Patient also had a PEG tube placed for nutrition. This morning, he is sitting up in the ICU. He asks when he will be able to eat and talk. He denies pain. He denies hunger. He feels like his breathing is constricted, but otherwise, is doing OK. He communicates with written notes. Past Medical History Cardiac Medical History: Denies: Coronary Artery Disease, Myocardial Infarction, Hypertension Pulmonary Medical History: Denies: Asthma, Bronchitis, Chronic Obstructive Pulmonary Disease (COPD), Pneumonia Neurological Medical History: Denies: Seizures GI Medical History: Denies: Hepatitis, Hiatal Hernia Musculoskeltal Medical History: Denies: Arthritis Psychiatric Medical History: Reports: Depression Hematology: Denies: Anemia, Sickle Cell Disease Past Surgical History Past Surgical History: Reports: Other - Abdominal surgery Denies: Pacemaker Social History Smoking Status: Former Smoker Frequency of Alcohol Use: Occasional Hx Recreational Drug Use: No Drugs: None Hx Prescription Drug Abuse: Yes - Advance Directive Resuscitation Status: Full Code Family History Family History: Reviewed & Not Pertinent Parental Family History Reviewed: No Children Family History Reviewed: No Sibling(s) Family History Reviewed.: No Medication/Allergy Home Medications: Alprazolam [Xanax 0.5 mg Tablet] 0.5 mg PO Q12HP PRN 02/21/17 Gabapentin [Neurontin] 1,600 mg PO QHS 02/21/17 Pantoprazole Sodium [Protonix] 40 mg PO Q12 02/21/17 Sertraline HCl [Zoloft] 150 mg PO DAILY 02/21/17 Venlafaxine HCl [Effexor Xr] 150 mg PO DAILY 02/21/17 Acetaminophen [Tylenol Extra Strength 500 mg Tablet] 1 - 2 tab PO Q8 PRN 08/31/ 17 Benzonatate 200 mg PO Q6 PRN 03/30/17 Diphenhydramine HCl 25 mg PO DAILY PRN 03/30/17 Docusate Sodium 100 mg PO DAILY PRN 03/30/17 Amoxicillin 250 mg PO ASDIR PRN 09/18/17 Polyethylene Glycol 3350 [Miralax] 119 gm PO ASDIR PRN 09/18/17 Promethazine HCl [Phenergan 25 mg Tablet] 25 mg PO ASDIR PRN 09/18/17 Ondansetron HCl [Zofran 8 mg Tablet] PO DAILY PRN 09/21/17 Allergies/Adverse Reactions: No Known Allergies Allergy (Verified 09/21/17 15:41) Review of Systems Constitutional: PRESENT: headache(s) Eyes: ABSENT: visual disturbances Ears: ABSENT: hearing changes Nose, Mouth, and Throat: PRESENT: as per HPI Cardiovascular: ABSENT: chest pain Respiratory: PRESENT: cough, dyspnea Gastrointestinal: ABSENT: nausea Genitourinary: ABSENT: dysuria Integumentary: PRESENT: rash - from erbitux Neurological: ABSENT: confusion, memory loss Psychiatric: ABSENT: anxiety, depression Physical Exam Vital Signs: Temp Pulse Resp BP Pulse Ox 97.5 F 76 9 L 149/90 H 100 09/23/17 11:05 09/23/17 08:00 09/23/17 06:21 09/23/17 06:21 09/23/17 06:21 Pulse Oximeter Continuous Start: 09/22/17 11: 07 Freq: RTQ4 Status: Complete Document 09/22/17 12:00 [facility] (Rec: 09/22/17 12:06 [facility] [email or web address]) Pulse Oximetry Assessment Oxygen Saturation (92-100) 99 Oxygen Flow Rate (L/min) 8 Oxygen Delivery Method Trach Collar Fraction of Inspired Oxygen (FIO2) 30 Equipment Usage Equipment Standby Continuous SpO2 Machine # xx-pt. on monitor Intake & Output 09/22/17 09/23/17 09/24/17 06:59 06:59 06:59 Intake Total 0 60 Output Total 1090 250 Balance 0 -1030 -250 Weight 70.31 kg 67.2 kg General appearance: PRESENT: no acute distress, thin Exam: 71 year old male. No acute distress. Head exam: PRESENT: normocephalic Eye exam: PRESENT: PERRLA Ear exam: PRESENT: normal external ear exam Mouth exam: PRESENT: tongue midline Neck exam: PRESENT: tracheostomy - with serosanguenous fliud dripping. Respiratory exam: PRESENT: clear to auscultation alana, unlabored Cardiovascular exam: PRESENT: RRR. ABSENT: systolic murmur GI/Abdominal exam: PRESENT: normal bowel sounds, soft. ABSENT: tenderness Extremities exam: ABSENT: pedal edema Musculoskeletal exam: PRESENT: normal inspection Neurological exam: PRESENT: alert, awake Psychiatric exam: PRESENT: appropriate affect Skin exam: PRESENT: normal color, rash - Acneoform rash over face consistent with erbitux rash. Results Laboratory Results: 09/23/17 03:55 09/23/17 03:55 09/23/17 09/23/17 03:55 03:55 WBC 10.1 RBC 3.31 L Hgb 10.1 L Hct 30.3 L MCV 92 MCH 30.5 MCHC 33.2 RDW 17.1 H Plt Count 237 Seg Neutrophils % 81.5 H Lymphocytes % 11.4 L Monocytes % 6.7 Eosinophils % 0.1 Basophils % 0.3 Absolute Neutrophils 8.2 Absolute Lymphocytes 1.2 Absolute Monocytes 0.7 Absolute Eosinophils 0.0 Absolute Basophils 0.0 Sodium 139.9 Potassium 2.9 L* Chloride 102 Carbon Dioxide 29 Anion Gap 9 BUN 10 Creatinine 0.53 Est GFR ( Amer) > 60 Est GFR (Non-Af Amer) > 60 Glucose 89 Calcium 9.0 Phosphorus 3.2 Magnesium 1.2 L* Total Bilirubin 0.4 AST 19 ALT 23 Alkaline Phosphatase 95 Total Protein 5.8 L Albumin 2.7 L Impressions: Chest X-Ray 09/22/17 00:00 IMPRESSION: No pneumothorax post tracheostomy tube placement. Tracheostomy tip is in the mid trachea. No acute infiltrates. Subdiaphragmatic free air from gastrostomy tube which was just placed. Results called to Dr. Almendarez Tube Placement 09/22/17 00:00 IMPRESSION: THE GASTROSTOMY TUBE APPEARS TO BE IN SATISFACTORY POSITION. KUB X-Ray 09/22/17 12:30 IMPRESSION: THE GASTROSTOMY TUBE APPEARS TO BE IN SATISFACTORY POSITION. Assessment & Plan - Diagnosis (1) Cancer of larynx Plan: I discussed his recent scans and a copy of the report was given to him. I have explained that it does appear that there has been progression of the disease. However, I will let Dr. Hanson discuss further plans for treatment with the patient when he returns on Monday (2 days from now). All chemo is currently on hold. (2) Trach Is this a current diagnosis for this admission?: Yes Plan: I answered his questions to the best of my ability. However, I am unsure how long before surgeons will allow him to try to eat or talk. He understands that it will be at least several weeks. (3) Moderate protein-calorie malnutrition Is this a current diagnosis for this admission?: Yes Plan: PEG tube looks good. He is starting tube feedings now. - Plan Summary Plan Summary: Thank you for this consult. I will continue to follow him over the weekend and Dr. Hanson will return on Monday. Please call me if needed.
--- NOTE | 2017-09-23 11:38 | PDOC CONSULTATION ---
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 Most recently, he has been undergoing chemotherapy with [place], taxol, erbitux. His most recent dose was 08/31/2017 for cycle #6. He presented for trach by ENT due to head and neck cancer and progressive difficulty protecting his airway. Patient also had a PEG tube placed for nutrition. This morning, he is sitting up in the ICU.Smoked a pack a day for 40 years business smoked in the last 2 years he denies shortness of breath and apparently has some dyspnea on exertion communications the liver are limited due to the fact of his tracheostomy and usually he shakes his head yes and no arise from the tablet. Past Medical History Cardiac Medical History: Denies: Coronary Artery Disease, Myocardial Infarction, Hypertension Pulmonary Medical History: Denies: Asthma, Bronchitis, Chronic Obstructive Pulmonary Disease (COPD), Pneumonia Neurological Medical History: Denies: Seizures GI Medical History: Denies: Hepatitis, Hiatal Hernia Musculoskeltal Medical History: Denies: Arthritis Psychiatric Medical History: Reports: Depression Hematology: Denies: Anemia, Sickle Cell Disease Past Surgical History Past Surgical History: Reports: Other - Abdominal surgery Denies: Pacemaker Social History Information Source: Patient, [facility] Records Smoking Status: Former Smoker Cigarettes Packs Per Day: 1 Number of Years Smokin Passive smoke exposure as: Adult Frequency of Alcohol Use: Occasional Hx Recreational Drug Use: No Drugs: None Hx Prescription Drug Abuse: Yes - Advance Directive Resuscitation Status: Full Code Family History Parental Family History Reviewed: No Children Family History Reviewed: No Sibling(s) Family History Reviewed.: No Medication/Allergy Home Medications: Alprazolam [Xanax 0.5 mg Tablet] 0.5 mg PO Q12HP PRN 02/21/17 Gabapentin [Neurontin] 1,600 mg PO QHS 02/21/17 Pantoprazole Sodium [Protonix] 40 mg PO Q12 02/21/17 Sertraline HCl [Zoloft] 150 mg PO DAILY 02/21/17 Venlafaxine HCl [Effexor Xr] 150 mg PO DAILY 02/21/17 Acetaminophen [Tylenol Extra Strength 500 mg Tablet] 1 - 2 tab PO Q8 PRN Benzonatate 200 mg PO Q6 PRN 03/30/17 Diphenhydramine HCl 25 mg PO DAILY PRN 03/30/17 Docusate Sodium 100 mg PO DAILY PRN 03/30/17 Amoxicillin 250 mg PO ASDIR PRN 09/18/17 Polyethylene Glycol 3350 [Miralax] 119 gm PO ASDIR PRN 09/18/17 Promethazine HCl [Phenergan 25 mg Tablet] 25 mg PO ASDIR PRN 09/18/17 Ondansetron HCl [Zofran 8 mg Tablet] PO DAILY PRN 09/21/17 Allergies/Adverse Reactions: No Known Allergies Allergy (Verified 09/21/17 15:41) Review of Systems ROS unobtainable: Other - Recent tracheostomy unable to speak(Communication Ability limited at this time) Physical Exam Vital Signs: Temp Pulse Resp BP Pulse Ox 97.7 F 76 9 L 149/90 H 100 09/23/17 08:30 09/23/17 08:00 09/23/17 06:21 09/23/17 06:21 09/23/17 06:21 Pulse Oximeter Continuous Start: 09/22/17 11: 07 Freq: RTQ4 Status: Complete Document 09/22/17 12:00 [facility] (Rec: 09/22/17 12:06 LDA [email or web address]) Pulse Oximetry Assessment Oxygen Saturation (92-100) 99 Oxygen Flow Rate (L/min) 8 Oxygen Delivery Method Trach Collar Fraction of Inspired Oxygen (FIO2) 30 Equipment Usage Equipment Standby Continuous SpO2 Machine # xx-pt. on monitor Intake & Output 09/22/17 09/23/17 09/24/17 06:59 06:59 06:59 Intake Total 0 60 Output Total 1090 250 Balance 0 -1030 -250 Weight 70.31 kg 67.2 kg General appearance: PRESENT: no acute distress, cooperative, disheveled, thin, other - Cachectic appearing. ABSENT: mild distress, morbidly obese, obese, severe distress Head exam: PRESENT: atraumatic, normocephalic Eye exam: PRESENT: conjunctiva pale, EOMI. ABSENT: nystagmus, periorbital swelling, scleral icterus Mouth exam: PRESENT: dry mucosa, neck supple, tongue midline Neck exam: PRESENT: tracheostomy. ABSENT: carotid bruit, JVD, lymphadenopathy, thyromegaly, tracheal deviation Respiratory exam: PRESENT: decreased breath sounds, prolonged expiratory phas, rhonchi, symmetrical, unlabored. ABSENT: rales, retraction, stridor, tachypnea , wheezes Cardiovascular exam: PRESENT: RRR, +S1, +S2 Pulses: PRESENT: normal radial pulses GI/Abdominal exam: PRESENT: diminished bowel sounds, soft Gentrourinary exam: PRESENT: indwelling catheter Extremities exam: ABSENT: calf tenderness, clubbing Musculoskeletal exam: ABSENT: deformity, dislocation Neurological exam: PRESENT: awake Skin exam: PRESENT: dry, warm Results Laboratory Results: 09/23/17 03:55 09/23/17 03:55 09/23/17 09/23/17 03:55 03:55 WBC 10.1 RBC 3.31 L Hgb 10.1 L Hct 30.3 L MCV 92 MCH 30.5 MCHC 33.2 RDW 17.1 H Plt Count 237 Seg Neutrophils % 81.5 H Lymphocytes % 11.4 L Monocytes % 6.7 Eosinophils % 0.1 Basophils % 0.3 Absolute Neutrophils 8.2 Absolute Lymphocytes 1.2 Absolute Monocytes 0.7 Absolute Eosinophils 0.0 Absolute Basophils 0.0 Sodium 139.9 Potassium 2.9 L* Chloride 102 Carbon Dioxide 29 Anion Gap 9 BUN 10 Creatinine 0.53 Est GFR ( Amer) > 60 Est GFR (Non-Af Amer) > 60 Glucose 89 Calcium 9.0 Phosphorus 3.2 Magnesium 1.2 L* Total Bilirubin 0.4 AST 19 ALT 23 Alkaline Phosphatase 95 Total Protein 5.8 L Albumin 2.7 L Impressions: Chest X-Ray 09/22/17 00:00 IMPRESSION: No pneumothorax post tracheostomy tube placement. Tracheostomy tip is in the mid trachea. No acute infiltrates. Subdiaphragmatic free air from gastrostomy tube which was just placed. Results called to Dr. Almendarez Tube Placement 09/22/17 00:00 IMPRESSION: THE GASTROSTOMY TUBE APPEARS TO BE IN SATISFACTORY POSITION. KUB X-Ray 09/22/17 12:30 IMPRESSION: THE GASTROSTOMY TUBE APPEARS TO BE IN SATISFACTORY POSITION. Assessment & Plan - Diagnosis (1) Moderate protein-calorie malnutrition Is this a current diagnosis for this admission?: Yes Plan: Per surgery we will initiate tube feedings ELIDA (2) Trach Is this a current diagnosis for this admission?: Yes Plan: Patient quite comfortable exercise extraordinary caution as this is definitely the best and quite possibly the only airway possible (3) Cancer of larynx Is this a current diagnosis for this admission?: Yes Plan: As per oncology [facility] (4) Essential hypertension Is this a current diagnosis for this admission?: Yes Plan: Stable at this time (5) PEG (percutaneous endoscopic gastrostomy) status Is this a current diagnosis for this admission?: Yes Plan: As per surgery - Time Total Critical Time (Minutes): 50
[2017-09-23 19:36] LABS: ANION GAP 7 (5-19); BLOOD UREA NITROGEN 8 mg/dL (7-20); CARBON DIOXIDE 32 mmol/L (22-30); CHLORIDE 103 mmol/L (98-107); GLUCOSE 112 mg/dL (75-110); POTASSIUM 3.7 mmol/L (3.6-5.0); SODIUM 141.6 mmol/L (137-145)
[2017-09-24] MEDS: KETOROLAC TROMETHAMINE INJ/PF 30 MG/1 ML SDV IV SCH ×6 (03:02→23:42)
[2017-09-24 05:02] LABS: ABSOLUTE LYMPHOCYTES (AUTO) 0.8 10^3/uL (0.5-4.7); ABSOLUTE MONOCYTES (AUTO) 0.7 10^3/uL (0.1-1.4); ABSOLUTE NEUT (AUTO) 11.7 10^3/uL (1.7-8.2); BASOPHILS % (AUTO) 0.2 % (0-2); EOSINOPHILS % (AUTO) 0.1 % (0-6); HEMATOCRIT 29.8 % (37.9-51.0); HEMOGLOBIN 9.9 g/dL (13.5-17.0); LYMPHOCYTES % (AUTO) 5.9 % (13-45); MEAN CORPUSCULAR HEMOGLOBIN 30.2 pg (27.0-33.4); MEAN CORPUSCULAR HGB CONC 33.1 g/dL (32.0-36.0); MEAN CORPUSCULAR VOLUME 91 fl (80-97); MONOCYTES % (AUTO) 5.3 % (3-13); PLATELET COUNT 248 10^3/uL (150-450); RED BLOOD COUNT 3.26 10^6/uL (4.35-5.55); RED CELL DISTRIBUTION WIDTH 17.6 % (11.5-14.0); SEGMENTED NEUTROPHILS % (AUTO) 88.5 % (42-78); TOTAL CELLS COUNTED % (AUTO) 100 %; WHITE BLOOD COUNT 13.3 10^3/uL (4.0-10.5)
[2017-09-24 05:38] LABS: ALANINE AMINOTRANSFERASE 17 U/L (21-72); ALBUMIN 2.7 g/dL (3.5-5.0); ALKALINE PHOSPHATASE 113 U/L (38-126); ANION GAP 9 (5-19); ASPARTATE AMINO TRANSFERASE 22 U/L (17-59); BILIRUBIN,DIRECT 0.1 mg/dL (0.0-0.4); BILIRUBIN,TOTAL 0.3 mg/dL (0.2-1.3); BLOOD UREA NITROGEN 8 mg/dL (7-20); CARBON DIOXIDE 32 mmol/L (22-30); CHLORIDE 103 mmol/L (98-107); GLUCOSE 120 mg/dL (75-110); PHOSPHORUS 2.3 mg/dL (2.5-4.5); POTASSIUM 3.1 mmol/L (3.6-5.0); SODIUM 143.6 mmol/L (137-145); TOTAL PROTEIN 5.6 g/dL (6.3-8.2)
[2017-09-24] MEDS ORDERED: POTASSIUM CHLORIDE 20 MEQ/15 ML UDCUP PEG ONE (07:23)
[2017-09-24] MEDS ORDERED: POTASSI CL 20 MEQ/50 ML RIDER 20 MEQ/50 ML RTUPB IV SCH (07:24)
[2017-09-24] MEDS: MAGNESIUM SULFATE/D5W 1 GM/100 ML RTUPB IV SCH ×2 (08:09→09:17)
--- NOTE | 2017-09-24 09:49 | PDOC PROGRESS REPORT ---
Subjective Progress Note for:: 09/24/17 Reason For Visit: METASTATIC DZ WITH CHRONIC WORSENING LARYNGEAL/ Patient still in the ICU, tolerating tube feeds, feels better, no respiratory complications Physical Exam Vital Signs: Temp Pulse Resp BP Pulse Ox 98.2 F 86 22 H 174/98 H 92 09/24/17 08:00 09/24/17 08:00 09/24/17 06:00 09/24/17 05:21 09/24/17 06:00 Pulse Oximeter Continuous Start: 09/22/17 11: 07 Freq: RTQ4 Status: Complete Document 09/22/17 12:00 [facility] (Rec: 09/22/17 12:06 [facility] [email or web address]) Pulse Oximetry Assessment Oxygen Saturation (92-100) 99 Oxygen Flow Rate (L/min) 8 Oxygen Delivery Method Trach Collar Fraction of Inspired Oxygen (FIO2) 30 Equipment Usage Equipment Standby Continuous SpO2 Machine # xx-pt. on monitor Intake & Output 09/23/17 09/24/17 09/25/17 06:59 06:59 06:59 Intake Total 60 4254 Output Total 1090 2850 650 Balance -1030 1404 -650 Weight 67.2 kg 68 kg General appearance: PRESENT: no acute distress GI/Abdominal exam: PRESENT: other - Soft, nontender no peritoneal signs; G-tube functioning satisfactorily. Results Laboratory Results: 09/24/17 04:45 09/24/17 04:45 09/23/17 09/24/17 09/24/17 19:00 04:45 04:45 WBC 13.3 H RBC 3.26 L Hgb 9.9 L Hct 29.8 L MCV 91 MCH 30.2 MCHC 33.1 RDW 17.6 H Plt Count 248 Seg Neutrophils % 88.5 H Lymphocytes % 5.9 L Monocytes % 5.3 Eosinophils % 0.1 Basophils % 0.2 Absolute Neutrophils 11.7 H Absolute Lymphocytes 0.8 Absolute Monocytes 0.7 Absolute Eosinophils 0.0 Absolute Basophils 0.0 Sodium 141.6 143.6 Potassium 3.7 3.1 L Chloride 103 103 Carbon Dioxide 32 H 32 H Anion Gap 7 9 BUN 8 8 Creatinine 0.55 0.54 Est GFR ( Amer) > 60 > 60 Est GFR (Non-Af Amer) > 60 > 60 Glucose 112 H 120 H Calcium 9.0 9.0 Phosphorus 2.3 L Magnesium 1.9 1.7 Total Bilirubin 0.3 AST 22 ALT 17 L Alkaline Phosphatase 113 Total Protein 5.6 L Albumin 2.7 L Impressions: Chest X-Ray 09/22/17 00:00 IMPRESSION: No pneumothorax post tracheostomy tube placement. Tracheostomy tip is in the mid trachea. No acute infiltrates. Subdiaphragmatic free air from gastrostomy tube which was just placed. Results called to Dr. Almendarez Tube Placement 09/22/17 00:00 IMPRESSION: THE GASTROSTOMY TUBE APPEARS TO BE IN SATISFACTORY POSITION. KUB X-Ray 09/22/17 12:30 IMPRESSION: THE GASTROSTOMY TUBE APPEARS TO BE IN SATISFACTORY POSITION. Assessment & Plan - Diagnosis (1) Cancer of larynx Is this a current diagnosis for this admission?: Yes Plan: Patient is postoperative day 2 open gastrostomy tube placement, no complications , tolerating well. Medications: 1. May advance tube feeds as tolerated untilled maintenance metabolic needs are met. 2. Patient may be transferred out of the ICU 3. She may follow-up with [facility] in approximately 1 week after discharge from the hospital.
[2017-09-24] MEDS ORDERED: SERTRALINE HCL 50 MG TABLET PO SCH (10:00)
--- NOTE | 2017-09-24 10:10 | PDOC PROGRESS REPORT ---
Subjective Progress Note for:: 09/24/17 Subjective:: Pt gestures that he is not having any pain. Spoke to Nursing who states that pt is doing well. Reason For Visit: METASTATIC DZ WITH CHRONIC WORSENING LARYNGEAL/ Physical Exam Vital Signs: Temp Pulse Resp BP Pulse Ox 98.2 F 86 22 H 174/98 H 92 09/24/17 08:00 09/24/17 08:00 09/24/17 06:00 09/24/17 05:21 09/24/17 06:00 Pulse Oximeter Continuous Start: 09/22/17 11: 07 Freq: RTQ4 Status: Complete Document 09/22/17 12:00 LDA (Rec: 09/22/17 12:06 [email or web address] [email or web address]) Pulse Oximetry Assessment Oxygen Saturation (92-100) 99 Oxygen Flow Rate (L/min) 8 Oxygen Delivery Method Trach Collar Fraction of Inspired Oxygen (FIO2) 30 Equipment Usage Equipment Standby Continuous SpO2 Machine # xx-pt. on monitor Intake & Output 09/23/17 09/24/17 09/25/17 06:59 06:59 06:59 Intake Total 60 4254 Output Total 1090 2850 650 Balance -1030 1404 -650 Weight 67.2 kg 68 kg General appearance: PRESENT: no acute distress, thin, other - trach in place Head exam: PRESENT: atraumatic, normocephalic Eye exam: PRESENT: conjunctiva pink, EOMI Ear exam: PRESENT: normal external ear exam Mouth exam: PRESENT: moist, tongue midline, other - trach in place Neck exam: PRESENT: tracheostomy. ABSENT: carotid bruit, JVD, lymphadenopathy, thyromegaly Respiratory exam: PRESENT: clear to auscultation alana. ABSENT: rales, rhonchi, wheezes Cardiovascular exam: PRESENT: RRR. ABSENT: diastolic murmur, rubs, systolic murmur Pulses: PRESENT: normal dorsalis pedis pul Vascular exam: PRESENT: normal capillary refill GI/Abdominal exam: PRESENT: normal bowel sounds, soft. ABSENT: distended, guarding, mass, organolmegaly, rebound, tenderness Rectal exam: PRESENT: deferred Extremities exam: PRESENT: full ROM. ABSENT: calf tenderness, clubbing, pedal edema Musculoskeletal exam: PRESENT: full ROM Neurological exam: PRESENT: alert, awake, oriented to person, oriented to place , oriented to time, oriented to situation, CN II-XII grossly intact, other. ABSENT: motor sensory deficit Psychiatric exam: PRESENT: appropriate affect, normal mood. ABSENT: homicidal ideation, suicidal ideation Skin exam: PRESENT: dry, intact, warm. ABSENT: cyanosis, rash Results Laboratory Results: 09/24/17 04:45 09/24/17 04:45 09/23/17 09/24/17 09/24/17 19:00 04:45 04:45 WBC 13.3 H RBC 3.26 L Hgb 9.9 L Hct 29.8 L MCV 91 MCH 30.2 MCHC 33.1 RDW 17.6 H Plt Count 248 Seg Neutrophils % 88.5 H Lymphocytes % 5.9 L Monocytes % 5.3 Eosinophils % 0.1 Basophils % 0.2 Absolute Neutrophils 11.7 H Absolute Lymphocytes 0.8 Absolute Monocytes 0.7 Absolute Eosinophils 0.0 Absolute Basophils 0.0 Sodium 141.6 143.6 Potassium 3.7 3.1 L Chloride 103 103 Carbon Dioxide 32 H 32 H Anion Gap 7 9 BUN 8 8 Creatinine 0.55 0.54 Est GFR ( Amer) > 60 > 60 Est GFR (Non-Af Amer) > 60 > 60 Glucose 112 H 120 H Calcium 9.0 9.0 Phosphorus 2.3 L Magnesium 1.9 1.7 Total Bilirubin 0.3 AST 22 ALT 17 L Alkaline Phosphatase 113 Total Protein 5.6 L Albumin 2.7 L Impressions: Chest X-Ray 09/22/17 00:00 IMPRESSION: No pneumothorax post tracheostomy tube placement. Tracheostomy tip is in the mid trachea. No acute infiltrates. Subdiaphragmatic free air from gastrostomy tube which was just placed. Results called to Dr. Almendarez Tube Placement 09/22/17 00:00 IMPRESSION: THE GASTROSTOMY TUBE APPEARS TO BE IN SATISFACTORY POSITION. KUB X-Ray 09/22/17 12:30 IMPRESSION: THE GASTROSTOMY TUBE APPEARS TO BE IN SATISFACTORY POSITION. Assessment & Plan - Diagnosis (1) Essential hypertension Is this a current diagnosis for this admission?: Yes Plan: We will place patient on lisinopril and metoprolol. Will continue Norvasc. Patient has hydralazine written for as needed if SBP is greater than 160. Will monitor blood pressure in a.m. (2) Hypomagnesemia Is this a current diagnosis for this admission?: Yes Plan: We will give additional magnesium replacement. Will check mag in a.m. (3) Moderate protein-calorie malnutrition Is this a current diagnosis for this admission?: Yes Plan: Pt started on tube feeds yesterday. Patient appears to be tolerating feeding regimen (4) Depression Qualifiers: Is this a current diagnosis for this admission?: Yes Plan: We will continue home medications. (5) History of laryngeal cancer Is this a current diagnosis for this admission?: Yes Plan: Status post trach :per oncology. (6) PEG (percutaneous endoscopic gastrostomy) status Is this a current diagnosis for this admission?: Yes Plan: Patient has PEG in place (7) Trach Is this a current diagnosis for this admission?: Yes Plan: Due to head and neck CA: Dr. Carrillo has been consulted to follow patient. (8) Hypokalemia Is this a current diagnosis for this admission?: Yes Plan: Given additional potassium replacement. (9) Hypophosphatemia Is this a current diagnosis for this admission?: Yes Plan: Patient order for K-Phos. Will check phosp in a.m. (10) DVT prophylaxis Is this a current diagnosis for this admission?: Yes Plan: SCDs - Time Time Spent with patient: 25-34 minutes - Okay with transfer from ICU to telemetry floor
[2017-09-24] MEDS: METOPROLOL TARTRATE 25 MG TABLET PO SCH ×2 (10:34→23:41)
[2017-09-24] MEDS: AMLODIPINE BESYLATE 10 MG TABLET PO SCH (10:35)
[2017-09-24] MEDS: LISINOPRIL 10 MG TABLET PO SCH (10:35)
[2017-09-24] MEDS: VENLAFAXINE HCL 75 MG CAP.SR.24H PO SCH (10:36)
[2017-09-24] MEDS: PHOSPHORUS #1 250 MG TABLET PO SCH ×2 (10:36→18:04)
[2017-09-24] MEDS: SERTRALINE HCL 50 MG TABLET PO SCH (10:36)
--- NOTE | 2017-09-24 11:55 | PDOC DISCHARGE SUMMARY ---
Discharge Summary (SDC) - Discharge Final Diagnosis: 1) Head and Neck mass: Left shemar-tracheal/thoracic inlet/left mediastinum, r/o cancer, 2) Chronic dysfunctional larynx, 3) Chronic aspiration, 4) Chronic dysphagia, 5) Weight loss/malnutrition Date of Surgery: 09/22/17 - Tracheostomy and Feeding Tube Discharge Date: 09/26/17 Condition: Stable Forms: Discharge POC-Adult Treatment or Instructions: See discharge plan Referrals: [facility] [Outside] [facility] [Outside] CLAUDIO FU MD [Primary Care Provider] - TASHA HANSON MD [ACTIVE STAFF] - 10/03/17 11:00 am (Dr. Hanson [phone] MondayOctober 03 at 11am) ABBI PACHECO DO [ASSOCIATE] - 10/03/17 4:00 pm (Dr. Pacheco [phone] Appointmant at 4pm) Discharge Diet: Tube Feeding (Comments) - Defer to Gen Surg, Dr. Almendarez Respiratory Treatments at Home: Deep Breathing/Coughing Discharge Activity: Activity As Tolerated Home Care Assistance: Home Health - Extensive d/w discharge planning for need of Custodial/home health Activities Provided by Home Health Agency: Custodial - Trach care and feeding tube care and tube feeds Adaptive Devices on Discharge: Wheelchair, Rolling Walker - Request PT/ Discharge planning to assess the need of. Report the Following to Your Physician Immediately: Shortness of Breath, Increase in Pain, Fever over 101 Degrees, Unusual Bleeding, Swelling, Drainage- Foul Smelling, Wheezing, Seizure, IV Site Infection Signs
--- NOTE | 2017-09-24 12:17 | PDOC PROGRESS REPORT ---
Subjective Progress Note for:: 09/24/17 Subjective:: POD2 s/p Trach and feeding tube. The pt. continues to do well overall. Tube feeding have been initiated and cont. without difficulty. Trach care and teaching is cont. appropriately with no concerns. Rec. and plan is for transfer from the ICU to a telemetry unit. Reason For Visit: METASTATIC DZ WITH CHRONIC LARYNGEAL DYSFUNCTION AND CHRONIC DYSPHAGIA Physical Exam Vital Signs: Temp Pulse Resp BP Pulse Ox 98.2 F 86 10 L 142/83 H 99 09/24/17 08:00 09/24/17 08:00 09/24/17 10:34 09/24/17 10:34 09/24/17 10:34 Pulse Oximeter Continuous Start: 09/22/17 11: 07 Freq: RTQ4 Status: Complete Document 09/22/17 12:00 LDA (Rec: 09/22/17 12:06 LDA [email or web address]) Pulse Oximetry Assessment Oxygen Saturation (92-100) 99 Oxygen Flow Rate (L/min) 8 Oxygen Delivery Method Trach Collar Fraction of Inspired Oxygen (FIO2) 30 Equipment Usage Equipment Standby Continuous SpO2 Machine # xx-pt. on monitor Intake & Output 09/23/17 09/24/17 09/25/17 06:59 06:59 06:59 Intake Total 60 4254 Output Total 1090 2850 650 Balance -1030 1404 -650 Weight 67.2 kg 68 kg General appearance: PRESENT: no acute distress, cooperative, thin Mouth exam: PRESENT: moist Neck exam: PRESENT: tracheal deviation, tracheostomy - Shiley #6 DCT stable with very mild SS secretions noted. Trach teaching and care provided with nursing bedside. Pt. with reasonable cough effort to clear secretions and cuff pressure released and the pt. was able to voice which was understandable and without distress. The cuff pressure was returned and RT will cont. to provide daily trach care and teaching. Respiratory exam: PRESENT: other - Reasonable cough effort Results Laboratory Results: 09/24/17 04:45 09/24/17 04:45 09/23/17 09/24/17 09/24/17 19:00 04:45 04:45 WBC 13.3 H RBC 3.26 L Hgb 9.9 L Hct 29.8 L MCV 91 MCH 30.2 MCHC 33.1 RDW 17.6 H Plt Count 248 Seg Neutrophils % 88.5 H Lymphocytes % 5.9 L Monocytes % 5.3 Eosinophils % 0.1 Basophils % 0.2 Absolute Neutrophils 11.7 H Absolute Lymphocytes 0.8 Absolute Monocytes 0.7 Absolute Eosinophils 0.0 Absolute Basophils 0.0 Sodium 141.6 143.6 Potassium 3.7 3.1 L Chloride 103 103 Carbon Dioxide 32 H 32 H Anion Gap 7 9 BUN 8 8 Creatinine 0.55 0.54 Est GFR ( Amer) > 60 > 60 Est GFR (Non-Af Amer) > 60 > 60 Glucose 112 H 120 H Calcium 9.0 9.0 Phosphorus 2.3 L Magnesium 1.9 1.7 Total Bilirubin 0.3 AST 22 ALT 17 L Alkaline Phosphatase 113 Total Protein 5.6 L Albumin 2.7 L Impressions: Chest X-Ray 09/22/17 00:00 IMPRESSION: No pneumothorax post tracheostomy tube placement. Tracheostomy tip is in the mid trachea. No acute infiltrates. Subdiaphragmatic free air from gastrostomy tube which was just placed. Results called to Dr. Almendarez Tube Placement 09/22/17 00:00 IMPRESSION: THE GASTROSTOMY TUBE APPEARS TO BE IN SATISFACTORY POSITION. KUB X-Ray 09/22/17 12:30 IMPRESSION: THE GASTROSTOMY TUBE APPEARS TO BE IN SATISFACTORY POSITION. Assessment & Plan - Diagnosis (1) Trach Is this a current diagnosis for this admission?: Yes Plan: Pt. will be transferred from the ICU today to a telemetry unit per rec. from hospitalist staff and current care will be continued. Discharge planning to assist with transition to home this week, DME, and home medical assistance. (2) Laryngeal disease Is this a current diagnosis for this admission?: Yes Plan: Pt. will f/u with [facility] Oncology, ENT, and General Surgery this week after discharge which the pt. and his are aware of with appt. dates/times being provided. - Time Time Spent with patient: 15-24 minutes Anticipated discharge: Home Within: within 48 hours - Inpatient Certification Medical Necessity: Risk of Complication if Not Cared For in Hospital - Plan Summary Plan Summary: Please see above
[2017-09-24] MEDS: RINGERS SOLUTION,LACTATED 1,000 ML IV PRN (14:08)
--- NOTE | 2017-09-24 14:47 | PDOC PROGRESS REPORT ---
Subjective Progress Note for:: 09/24/17 Subjective:: doing well w/o complaints Reason For Visit: METASTATIC DZ WITH CHRONIC WORSENING LARYNGEAL/ Physical Exam Vital Signs: Temp Pulse Resp BP Pulse Ox 97.9 F 88 22 H 174/98 H 92 09/23/17 23:39 09/23/17 19:44 09/24/17 06:00 09/24/17 05:21 09/24/17 06:00 Pulse Oximeter Continuous Start: 09/22/17 11: 07 Freq: RTQ4 Status: Complete Document 09/22/17 12:00 LDA (Rec: 09/22/17 12:06 LDA [email or web address]) Pulse Oximetry Assessment Oxygen Saturation (92-100) 99 Oxygen Flow Rate (L/min) 8 Oxygen Delivery Method Trach Collar Fraction of Inspired Oxygen (FIO2) 30 Equipment Usage Equipment Standby Continuous SpO2 Machine # xx-pt. on monitor Intake & Output 09/23/17 09/24/17 09/25/17 06:59 06:59 06:59 Intake Total 60 4254 Output Total 1090 2850 Balance -1030 1404 Weight 67.2 kg 68 kg General appearance: PRESENT: no acute distress, cooperative, disheveled, thin, well-developed Head exam: PRESENT: atraumatic, normocephalic Eye exam: PRESENT: conjunctiva pale, EOMI. ABSENT: nystagmus, periorbital swelling, scleral icterus Mouth exam: PRESENT: dry mucosa, neck supple, tongue midline Neck exam: PRESENT: tracheostomy. ABSENT: carotid bruit, JVD, lymphadenopathy, thyromegaly, tracheal deviation Respiratory exam: PRESENT: decreased breath sounds, prolonged expiratory phas, rhonchi, symmetrical, unlabored. ABSENT: retraction, stridor, tachypnea Cardiovascular exam: PRESENT: RRR, +S1, +S2. ABSENT: tachycardia Pulses: PRESENT: normal radial pulses GI/Abdominal exam: PRESENT: diminished bowel sounds, soft Extremities exam: ABSENT: calf tenderness, clubbing, joint swelling, pedal edema Musculoskeletal exam: ABSENT: deformity, dislocation, full ROM Neurological exam: PRESENT: alert, altered Psychiatric exam: PRESENT: normal mood Skin exam: PRESENT: dry, warm Results Laboratory Results: 09/24/17 04:45 09/24/17 04:45 09/23/17 09/24/17 09/24/17 19:00 04:45 04:45 WBC 13.3 H RBC 3.26 L Hgb 9.9 L Hct 29.8 L MCV 91 MCH 30.2 MCHC 33.1 RDW 17.6 H Plt Count 248 Seg Neutrophils % 88.5 H Lymphocytes % 5.9 L Monocytes % 5.3 Eosinophils % 0.1 Basophils % 0.2 Absolute Neutrophils 11.7 H Absolute Lymphocytes 0.8 Absolute Monocytes 0.7 Absolute Eosinophils 0.0 Absolute Basophils 0.0 Sodium 141.6 143.6 Potassium 3.7 3.1 L Chloride 103 103 Carbon Dioxide 32 H 32 H Anion Gap 7 9 BUN 8 8 Creatinine 0.55 0.54 Est GFR ( Amer) > 60 > 60 Est GFR (Non-Af Amer) > 60 > 60 Glucose 112 H 120 H Calcium 9.0 9.0 Phosphorus 2.3 L Magnesium 1.9 1.7 Total Bilirubin 0.3 AST 22 ALT 17 L Alkaline Phosphatase 113 Total Protein 5.6 L Albumin 2.7 L Impressions: Chest X-Ray 09/22/17 00:00 IMPRESSION: No pneumothorax post tracheostomy tube placement. Tracheostomy tip is in the mid trachea. No acute infiltrates. Subdiaphragmatic free air from gastrostomy tube which was just placed. Results called to Dr. Almendarez Tube Placement 09/22/17 00:00 IMPRESSION: THE GASTROSTOMY TUBE APPEARS TO BE IN SATISFACTORY POSITION. KUB X-Ray 09/22/17 12:30 IMPRESSION: THE GASTROSTOMY TUBE APPEARS TO BE IN SATISFACTORY POSITION. Assessment & Plan - Diagnosis (1) Moderate protein-calorie malnutrition Is this a current diagnosis for this admission?: Yes Plan: Per surgery we will initiate tube feedings ELIDA (2) Trach Is this a current diagnosis for this admission?: Yes Plan: Patient quite comfortable exercise extraordinary caution as this is definitely the best and quite possibly the only airway possible (3) Cancer of larynx Is this a current diagnosis for this admission?: Yes Plan: As per oncology [facility] (4) Essential hypertension Is this a current diagnosis for this admission?: Yes Plan: Stable at this time (5) PEG (percutaneous endoscopic gastrostomy) status Is this a current diagnosis for this admission?: Yes Plan: As per surgery - Time Total Critical Time (Minutes): 40
[2017-09-24] MEDS: ALPRAZOLAM 0.5 MG TABLET GT PRN (23:42)
[2017-09-25] MEDS: KETOROLAC TROMETHAMINE INJ/PF 30 MG/1 ML SDV IV SCH ×6 (03:43→21:27)
[2017-09-25] MEDS: RINGERS SOLUTION,LACTATED 1,000 ML IV PRN ×2 (06:23→08:24)
[2017-09-25 06:33] LABS: ABSOLUTE LYMPHOCYTES (AUTO) 1.1 10^3/uL (0.5-4.7); ABSOLUTE MONOCYTES (AUTO) 0.9 10^3/uL (0.1-1.4); BASOPHILS % (AUTO) 0.2 % (0-2); HEMATOCRIT 28.9 % (37.9-51.0); HEMOGLOBIN 9.6 g/dL (13.5-17.0); LYMPHOCYTES % (AUTO) 6.5 % (13-45); MEAN CORPUSCULAR HEMOGLOBIN 30.5 pg (27.0-33.4); MEAN CORPUSCULAR HGB CONC 33.2 g/dL (32.0-36.0); MEAN CORPUSCULAR VOLUME 92 fl (80-97); MONOCYTES % (AUTO) 5.3 % (3-13); PLATELET COUNT 236 10^3/uL (150-450); RED BLOOD COUNT 3.15 10^6/uL (4.35-5.55); RED CELL DISTRIBUTION WIDTH 17.7 % (11.5-14.0); TOTAL CELLS COUNTED % (AUTO) 100 %
[2017-09-25 06:57] LABS: ALANINE AMINOTRANSFERASE 25 U/L (21-72); ALBUMIN 2.6 g/dL (3.5-5.0); ALKALINE PHOSPHATASE 114 U/L (38-126); ANION GAP 11 (5-19); ASPARTATE AMINO TRANSFERASE 20 U/L (17-59); BILIRUBIN,DIRECT 0.4 mg/dL (0.0-0.4); BILIRUBIN,TOTAL 0.4 mg/dL (0.2-1.3); BLOOD UREA NITROGEN 11 mg/dL (7-20); CALCIUM 8.7 mg/dL (8.4-10.2); CARBON DIOXIDE 30 mmol/L (22-30); CHLORIDE 101 mmol/L (98-107); GLUCOSE 109 mg/dL (75-110); PHOSPHORUS 2.5 mg/dL (2.5-4.5); POTASSIUM 3.1 mmol/L (3.6-5.0); SODIUM 141.8 mmol/L (137-145); TOTAL PROTEIN 5.7 g/dL (6.3-8.2)
[2017-09-25] MEDS ORDERED: POTASSIUM CHLORIDE 20 MEQ/15 ML UDCUP PEG ONE (07:18)
--- NOTE | 2017-09-25 08:18 | PDOC PROGRESS REPORT ---
Subjective Progress Note for:: 09/25/17 Subjective:: He seems to be doing well, trach care continued, pt being trained on this, is getting up, tube feeds seem to be going well Reason For Visit: METASTATIC DZ WITH CHRONIC WORSENING LARYNGEAL/ Physical Exam Vital Signs: Temp Pulse Resp BP Pulse Ox 98.2 F 100 15 147/73 H 96 09/24/17 08:00 09/24/17 20:00 09/25/17 06:00 09/24/17 19:34 09/24/17 19:34 Pulse Oximeter Continuous Start: 09/22/17 11: 07 Freq: RTQ4 Status: Complete Document 09/22/17 12:00 LDA (Rec: 09/22/17 12:06 LDA [email or web address]) Pulse Oximetry Assessment Oxygen Saturation (92-100) 99 Oxygen Flow Rate (L/min) 8 Oxygen Delivery Method Trach Collar Fraction of Inspired Oxygen (FIO2) 30 Equipment Usage Equipment Standby Continuous SpO2 Machine # xx-pt. on monitor Intake & Output 09/24/17 09/25/17 09/26/17 06:59 06:59 06:59 Intake Total 4254 3146 Output Total 2850 1825 Balance 1404 1321 Weight 68 kg 67.2 kg General appearance: PRESENT: no acute distress, well-developed, well-nourished Head exam: PRESENT: atraumatic, normocephalic Eye exam: PRESENT: conjunctiva pink, EOMI, PERRLA. ABSENT: scleral icterus Ear exam: PRESENT: normal external ear exam Mouth exam: PRESENT: moist, tongue midline Neck exam: ABSENT: carotid bruit, JVD, lymphadenopathy, thyromegaly Respiratory exam: PRESENT: clear to auscultation alana. ABSENT: rales, rhonchi, wheezes Cardiovascular exam: PRESENT: RRR. ABSENT: diastolic murmur, rubs, systolic murmur Pulses: PRESENT: normal dorsalis pedis pul Vascular exam: PRESENT: normal capillary refill GI/Abdominal exam: PRESENT: normal bowel sounds, soft. ABSENT: distended, guarding, mass, organolmegaly, rebound, tenderness Rectal exam: PRESENT: deferred Extremities exam: PRESENT: full ROM. ABSENT: calf tenderness, clubbing, pedal edema Neurological exam: PRESENT: alert, awake, oriented to person, oriented to place , oriented to time, oriented to situation, CN II-XII grossly intact. ABSENT: motor sensory deficit Psychiatric exam: PRESENT: appropriate affect, normal mood. ABSENT: homicidal ideation, suicidal ideation Skin exam: PRESENT: dry, intact, warm. ABSENT: cyanosis, rash Results Laboratory Results: 09/25/17 06:20 09/25/17 06:20 09/25/17 09/25/17 06:20 06:20 WBC 17.0 H RBC 3.15 L Hgb 9.6 L Hct 28.9 L MCV 92 MCH 30.5 MCHC 33.2 RDW 17.7 H Plt Count 236 Seg Neutrophils % 88.0 H Lymphocytes % 6.5 L Monocytes % 5.3 Eosinophils % 0.0 Basophils % 0.2 Absolute Neutrophils 15.0 H Absolute Lymphocytes 1.1 Absolute Monocytes 0.9 Absolute Eosinophils 0.0 Absolute Basophils 0.0 Sodium 141.8 Potassium 3.1 L Chloride 101 Carbon Dioxide 30 Anion Gap 11 BUN 11 Creatinine 0.47 L Est GFR ( Amer) > 60 Est GFR (Non-Af Amer) > 60 Glucose 109 Calcium 8.7 Phosphorus 2.5 Magnesium 1.5 L Total Bilirubin 0.4 AST 20 ALT 25 Alkaline Phosphatase 114 Total Protein 5.7 L Albumin 2.6 L Impressions: Chest X-Ray 09/22/17 00:00 IMPRESSION: No pneumothorax post tracheostomy tube placement. Tracheostomy tip is in the mid trachea. No acute infiltrates. Subdiaphragmatic free air from gastrostomy tube which was just placed. Results called to Dr. Almendarez Tube Placement 09/22/17 00:00 IMPRESSION: THE GASTROSTOMY TUBE APPEARS TO BE IN SATISFACTORY POSITION. KUB X-Ray 09/22/17 12:30 IMPRESSION: THE GASTROSTOMY TUBE APPEARS TO BE IN SATISFACTORY POSITION. Assessment & Plan - Diagnosis (1) Cancer of larynx Is this a current diagnosis for this admission?: Yes Plan: Will plan further rx, most likely w/ immunotx, Keytruda, will discuss further as oupt. Today discussed w/. pt and family about current status of disease and next steps of care
--- NOTE | 2017-09-25 09:22 | PDOC PROGRESS REPORT ---
Subjective Progress Note for:: 09/25/17 Subjective:: No new issues. Nursing reports that patient's electrolytes are abnormal. Patient states that he is having some pain at trach site and also reports that abdominal pain has decreased. Patient communicates via written communication Reason For Visit: METASTATIC DZ WITH CHRONIC WORSENING LARYNGEAL/ Physical Exam Vital Signs: Temp Pulse Resp BP Pulse Ox 98.4 F 92 15 147/73 H 96 09/25/17 08:00 09/25/17 08:00 09/25/17 06:00 09/24/17 19:34 09/24/17 19:34 Pulse Oximeter Continuous Start: 09/22/17 11: 07 Freq: RTQ4 Status: Complete Document 09/22/17 12:00 LDA (Rec: 09/22/17 12:06 LDA [email or web address]) Pulse Oximetry Assessment Oxygen Saturation (92-100) 99 Oxygen Flow Rate (L/min) 8 Oxygen Delivery Method Trach Collar Fraction of Inspired Oxygen (FIO2) 30 Equipment Usage Equipment Standby Continuous SpO2 Machine # xx-pt. on monitor Intake & Output 09/24/17 09/25/17 09/26/17 06:59 06:59 06:59 Intake Total 4254 3146 Output Total 2850 1825 Balance 1404 1321 Weight 68 kg 67.2 kg General appearance: PRESENT: no acute distress, thin, other - trach in place Head exam: PRESENT: atraumatic, normocephalic Eye exam: PRESENT: conjunctiva pink, EOMI. ABSENT: scleral icterus Ear exam: PRESENT: normal external ear exam Mouth exam: PRESENT: moist, tongue midline Neck exam: ABSENT: carotid bruit, JVD, lymphadenopathy, thyromegaly Respiratory exam: PRESENT: clear to auscultation alana. ABSENT: rales, rhonchi, wheezes Cardiovascular exam: PRESENT: RRR. ABSENT: diastolic murmur, rubs, systolic murmur Pulses: PRESENT: normal dorsalis pedis pul Vascular exam: PRESENT: normal capillary refill GI/Abdominal exam: PRESENT: other - PEG in place, + bowel sounds Rectal exam: PRESENT: deferred Extremities exam: PRESENT: full ROM. ABSENT: calf tenderness, clubbing, pedal edema Musculoskeletal exam: PRESENT: full ROM Neurological exam: PRESENT: alert, awake, oriented to person, oriented to place , oriented to time, oriented to situation. ABSENT: motor sensory deficit Psychiatric exam: PRESENT: appropriate affect, normal mood. ABSENT: homicidal ideation, suicidal ideation Skin exam: PRESENT: dry, intact, warm. ABSENT: cyanosis, rash Results Laboratory Results: 09/25/17 06:20 09/25/17 06:20 09/25/17 09/25/17 06:20 06:20 WBC 17.0 H RBC 3.15 L Hgb 9.6 L Hct 28.9 L MCV 92 MCH 30.5 MCHC 33.2 RDW 17.7 H Plt Count 236 Seg Neutrophils % 88.0 H Lymphocytes % 6.5 L Monocytes % 5.3 Eosinophils % 0.0 Basophils % 0.2 Absolute Neutrophils 15.0 H Absolute Lymphocytes 1.1 Absolute Monocytes 0.9 Absolute Eosinophils 0.0 Absolute Basophils 0.0 Sodium 141.8 Potassium 3.1 L Chloride 101 Carbon Dioxide 30 Anion Gap 11 BUN 11 Creatinine 0.47 L Est GFR ( Amer) > 60 Est GFR (Non-Af Amer) > 60 Glucose 109 Calcium 8.7 Phosphorus 2.5 Magnesium 1.5 L Total Bilirubin 0.4 AST 20 ALT 25 Alkaline Phosphatase 114 Total Protein 5.7 L Albumin 2.6 L Impressions: Chest X-Ray 09/22/17 00:00 IMPRESSION: No pneumothorax post tracheostomy tube placement. Tracheostomy tip is in the mid trachea. No acute infiltrates. Subdiaphragmatic free air from gastrostomy tube which was just placed. Results called to Dr. Almendarez Tube Placement 09/22/17 00:00 IMPRESSION: THE GASTROSTOMY TUBE APPEARS TO BE IN SATISFACTORY POSITION. KUB X-Ray 09/22/17 12:30 IMPRESSION: THE GASTROSTOMY TUBE APPEARS TO BE IN SATISFACTORY POSITION. Assessment & Plan - Diagnosis (1) Essential hypertension Is this a current diagnosis for this admission?: Yes Plan: Will increase metoprolol to 25 mg p.o. twice daily. Will continue lisinopril and Norvasc. Patient's goal for blood pressure is 140/80 mmHg. Due to patient' s comorbidities feel that it is safer for patient to have a higher blood pressure. (2) Hypomagnesemia Is this a current diagnosis for this admission?: Yes Plan: We will give 3 g of magnesium today. Will check mag in a.m. (3) Moderate protein-calorie malnutrition Is this a current diagnosis for this admission?: Yes Plan: We will continue tube feeds. Will discontinue IV fluids. (4) Depression Qualifiers: Is this a current diagnosis for this admission?: Yes Plan: We will continue home medications. (5) History of laryngeal cancer Is this a current diagnosis for this admission?: Yes Plan: Status post trach :per oncology. Status post trach and PEG (6) PEG (percutaneous endoscopic gastrostomy) status Is this a current diagnosis for this admission?: Yes Plan: Patient has PEG in place (7) Trach Is this a current diagnosis for this admission?: Yes Plan: Due to head and neck CA: Dr. Carrillo has been consulted to follow patient. (8) Hypokalemia Is this a current diagnosis for this admission?: Yes Plan: Patient given 60 mEq of liquid KCl this morning. Will check BMP in a.m. IV fluids have been discontinued. (9) Hypophosphatemia Is this a current diagnosis for this admission?: Yes Plan: Patient placed on phosphorus replacement. Will check phosphorus level in a.m. (10) DVT prophylaxis Is this a current diagnosis for this admission?: Yes Plan: SCDs - Time Time Spent with patient: 15-24 minutes
[2017-09-25] MEDS: VENLAFAXINE HCL 75 MG CAP.SR.24H PO SCH (10:12)
[2017-09-25] MEDS: MAGNESIUM SULFATE/D5W 1 GM/100 ML RTUPB IV SCH ×3 (10:12→12:43)
[2017-09-25] MEDS: SERTRALINE HCL 50 MG TABLET PO SCH (10:13)
[2017-09-25] MEDS: PHOSPHORUS #1 250 MG TABLET PO SCH ×2 (10:13→18:34)
[2017-09-25] MEDS: LISINOPRIL 10 MG TABLET PO SCH (10:13)
[2017-09-25] MEDS: METOPROLOL TARTRATE 25 MG TABLET PO SCH ×2 (10:14→21:28)
[2017-09-25] MEDS: AMLODIPINE BESYLATE 10 MG TABLET PO SCH (10:14)
--- NOTE | 2017-09-25 13:57 | PDOC PROGRESS REPORT ---
Subjective Progress Note for:: 09/25/17 Subjective:: doing well w/o complaints Reason For Visit: METASTATIC DZ WITH CHRONIC WORSENING LARYNGEAL/ Physical Exam Vital Signs: Temp Pulse Resp BP Pulse Ox 98.4 F 92 20 151/84 H 96 09/25/17 08:00 09/25/17 08:00 09/25/17 09:12 09/25/17 09:12 09/24/17 19:34 Pulse Oximeter Continuous Start: 09/22/17 11: 07 Freq: RTQ4 Status: Complete Document 09/22/17 12:00 LDA (Rec: 09/22/17 12:06 LDA [email or web address]) Pulse Oximetry Assessment Oxygen Saturation (92-100) 99 Oxygen Flow Rate (L/min) 8 Oxygen Delivery Method Trach Collar Fraction of Inspired Oxygen (FIO2) 30 Equipment Usage Equipment Standby Continuous SpO2 Machine # xx-pt. on monitor Intake & Output 09/24/17 09/25/17 09/26/17 06:59 06:59 06:59 Intake Total 4254 3146 Output Total 2850 1825 400 Balance 1404 1321 -400 Weight 68 kg 67.2 kg General appearance: PRESENT: no acute distress, cooperative, disheveled, thin Head exam: PRESENT: atraumatic, normocephalic Eye exam: PRESENT: conjunctiva pale, EOMI. ABSENT: nystagmus, periorbital swelling, scleral icterus Mouth exam: PRESENT: dry mucosa, neck supple, tongue midline Neck exam: PRESENT: tracheostomy. ABSENT: carotid bruit, JVD, lymphadenopathy, thyromegaly, tracheal deviation Respiratory exam: PRESENT: decreased breath sounds, prolonged expiratory phas, rhonchi, symmetrical, unlabored. ABSENT: crackles, rales, retraction, stridor, tachypnea, wheezes Cardiovascular exam: PRESENT: RRR, +S1, +S2 Pulses: PRESENT: normal radial pulses GI/Abdominal exam: PRESENT: diminished bowel sounds, soft Extremities exam: ABSENT: calf tenderness, clubbing, joint swelling Musculoskeletal exam: ABSENT: deformity, dislocation Neurological exam: PRESENT: alert, awake Psychiatric exam: PRESENT: normal mood Skin exam: PRESENT: dry, warm Results Laboratory Results: 09/25/17 06:20 09/25/17 06:20 09/25/17 09/25/17 06:20 06:20 WBC 17.0 H RBC 3.15 L Hgb 9.6 L Hct 28.9 L MCV 92 MCH 30.5 MCHC 33.2 RDW 17.7 H Plt Count 236 Seg Neutrophils % 88.0 H Lymphocytes % 6.5 L Monocytes % 5.3 Eosinophils % 0.0 Basophils % 0.2 Absolute Neutrophils 15.0 H Absolute Lymphocytes 1.1 Absolute Monocytes 0.9 Absolute Eosinophils 0.0 Absolute Basophils 0.0 Sodium 141.8 Potassium 3.1 L Chloride 101 Carbon Dioxide 30 Anion Gap 11 BUN 11 Creatinine 0.47 L Est GFR ( Amer) > 60 Est GFR (Non-Af Amer) > 60 Glucose 109 Calcium 8.7 Phosphorus 2.5 Magnesium 1.5 L Total Bilirubin 0.4 AST 20 ALT 25 Alkaline Phosphatase 114 Total Protein 5.7 L Albumin 2.6 L Impressions: Chest X-Ray 09/22/17 00:00 IMPRESSION: No pneumothorax post tracheostomy tube placement. Tracheostomy tip is in the mid trachea. No acute infiltrates. Subdiaphragmatic free air from gastrostomy tube which was just placed. Results called to Dr. Almendarez Tube Placement 09/22/17 00:00 IMPRESSION: THE GASTROSTOMY TUBE APPEARS TO BE IN SATISFACTORY POSITION. KUB X-Ray 09/22/17 12:30 IMPRESSION: THE GASTROSTOMY TUBE APPEARS TO BE IN SATISFACTORY POSITION. Assessment & Plan - Diagnosis (1) Moderate protein-calorie malnutrition Is this a current diagnosis for this admission?: Yes Plan: Per surgery we will initiate tube feedings ELIDA (2) Trach Is this a current diagnosis for this admission?: Yes Plan: Patient quite comfortable exercise extraordinary caution as this is definitely the best and quite possibly the only airway possible (3) Cancer of larynx Is this a current diagnosis for this admission?: Yes Plan: As per oncology [facility] (4) Essential hypertension Is this a current diagnosis for this admission?: Yes Plan: Stable at this time (5) PEG (percutaneous endoscopic gastrostomy) status Is this a current diagnosis for this admission?: Yes Plan: As per surgery
[2017-09-25] MEDS ORDERED: HYDROCOD/ACETAMIN 7.5-325 MG/15 ML ORAL SOLN UDCUP GT PRN (18:52)
[2017-09-25] MEDS: ALPRAZOLAM 0.5 MG TABLET GT PRN (21:28)
--- NOTE | 2017-09-25 21:28 | OPERATIVE REPORT E ---
Operative Report NAME: OLIMPIA ST : 1945 AGE: 71Y DATE OF SURGERY: 09/22/2017 ROOM: 601 PREOPERATIVE DIAGNOSES: 1. LEFT PARATRACHEAL/MEDIASTINAL INLET MASS. 2. CHRONIC LARYNGEAL DYSFUNCTION. 3. CHRONIC ASPIRATION. 4. CHRONIC DYSPHAGIA. 5. WEIGHT LOSS. 6. HISTORY OF STAGE IV HEAD AND NECK CANCER. POSTOPERATIVE DIAGNOSES: 1. LEFT PARATRACHEAL/MEDIASTINAL INLET MASS. 2. CHRONIC LARYNGEAL DYSFUNCTION. 3. CHRONIC ASPIRATION. 4. CHRONIC DYSPHAGIA. 5. WEIGHT LOSS. 6. HISTORY OF STAGE IV HEAD AND NECK CANCER. OPERATION PERFORMED: Tracheostomy. SURGEON: ABBI PACHECO D.O. ANESTHETIC: General endotracheal tube. ANESTHESIA STAFF: Jaycob Esteban CRNA ESTIMATED BLOOD LOSS: 10 mL. IV FLUIDS: 2000 mL. COMPLICATIONS: None. DRAINS: None. SPONGE COUNT: Verified. NEEDLE COUNT: Verified. MATERIALS FORWARDED SPECIMEN: Left paratracheal biopsies. FINDINGS: 1. Left paratracheal tissue thickening/inflammatory changes. 2. Right tracheal shift. 3. On endoscopic evaluation, there was no endotracheal tumor penetration noted. INDICATIONS: This is a 71-year-old white male who was seen and evaluated in the [facility] otolaryngology office. The patient had been referred by [facility] Oncology staff with history of stage IV head and neck cancer. The patient had been receiving treatment consisting of white earth/taxane/Erbitux and was on cycle #6. There was concern for the patient's continued weight loss, chronic laryngeal dysfunction, chronic aspiration, and chronic dysphagia in this setting. Consultation was also held with general surgery for placement of a feeding tube and request from ENT for a tracheostomy. Plan as discussed by oncology with the patient and his was for continued treatment which they both desired to proceed with. The patient's medical history consists of stage III subglottic squamous cell cancer and longstanding hoarseness with prior ENT evaluation and general surgery involvement with a PEG placed in 01/2014 which became infected and was discontinued. The patient had received chemotherapy as well and was noted to have a complete response. However, with respect to the patient's current condition and clinic endoscopy being notable for repeated aspiration and poor cough effort to clear secretions, recommendation and plan was to proceed with the previously-discussed tracheotomy. The patient and his voiced an understanding of all that was discussed, desired to proceed, and consent was obtained. PROCEDURE: The patient was taken to the main operating room and placed on the operating room tablet in the supine position. Appropriate monitors were placed. Using mask and IV access, general anesthesia was induced. The patient was next transorally intubated without difficulty. The previously-marked location for incision was marked injected with local anesthetic with epinephrine. The patient also underwent a flexible endoscopic evaluation for subglottic/tracheal evaluation and no tumor penetration was appreciated. At this point, the flexible endoscope was withdrawn and the patient was prepped and draped in a sterile fashion for neck surgery. The skin and soft tissues were sharply incised with dissection carried down between the strap muscles. The trachea and thyroid isthmus were clearly identified. Findings were noted as noted above. There were biopsies taken from the left paratracheal area where tissue thickening and inflammatory change was noted. The trachea was sharply incised and a flap was created which was sutured to the skin and soft tissues with 4-0 Prolene suture in 3 locations. The entrance into the tracheal lumen was coordinated with anesthesia staff. Next, a 6-0 Shiley DCT tracheostomy tube with stylet was introduced without difficulty. The cuff was inflated and the ventilation circuit was established with appropriate function, pressures, and end tidal CO2 return. At this point, the tracheostomy tube plate was secured in 4 positions with 4-0 Prolene suture. Next, a tracheostomy tie was established to further secure the new tracheostomy tube. At this point, the patient was returned to the anesthesia staff and was allowed to emerge from general anesthesia. The patient was then transported to the post anesthesia recovery unit in stable condition. There were no complications. DICTATING PHYSICIAN: ABBI PACHECO D.O. [id number] PHY#: [id number] ID: [id number] JOB#: [id number] ACCT: [id number] cc:ABBI PACHECO D.O. >
--- NOTE | 2017-09-25 21:47 | PDOC PROGRESS REPORT ---
Subjective Progress Note for:: 09/25/17 - POD3 Trach and Feeding Tube Subjective:: POD3 s/p Trach and feeding tube. The pt. continues to do well overall. Tube feedings cont. without difficulty. Trach care and teaching is cont. appropriately with no concerns. Rec. and plan is for transfer from the ICU to a telemetry unit, but d/t H bed status the pt. remains in the ICU setting. 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 on monitor Intake & Output 09/24/17 09/25/17 09/26/17 06:59 06:59 06:59 Intake Total 4254 3146 1397 Output Total 2850 1825 400 Balance 1404 1321 997 Weight 68 kg 67.2 kg General appearance: PRESENT: no acute distress, cooperative Mouth exam: PRESENT: moist Neck exam: PRESENT: tracheostomy - #6 Marlenley DCT is stable Results Laboratory Results: 09/25/17 06:20 09/25/17 06:20 09/25/17 09/25/17 06:20 06:20 WBC 17.0 H RBC 3.15 L Hgb 9.6 L Hct 28.9 L MCV 92 MCH 30.5 MCHC 33.2 RDW 17.7 H Plt Count 236 Seg Neutrophils % 88.0 H Lymphocytes % 6.5 L Monocytes % 5.3 Eosinophils % 0.0 Basophils % 0.2 Absolute Neutrophils 15.0 H Absolute Lymphocytes 1.1 Absolute Monocytes 0.9 Absolute Eosinophils 0.0 Absolute Basophils 0.0 Sodium 141.8 Potassium 3.1 L Chloride 101 Carbon Dioxide 30 Anion Gap 11 BUN 11 Creatinine 0.47 L Est GFR ( Amer) > 60 Est GFR (Non-Af Amer) > 60 Glucose 109 Calcium 8.7 Phosphorus 2.5 Magnesium 1.5 L Total Bilirubin 0.4 AST 20 ALT 25 Alkaline Phosphatase 114 Total Protein 5.7 L Albumin 2.6 L Impressions: Chest X-Ray 09/22/17 00:00 IMPRESSION: No pneumothorax post tracheostomy tube placement. Tracheostomy tip is in the mid trachea. No acute infiltrates. Subdiaphragmatic free air from gastrostomy tube which was just placed. Results called to Dr. Almendarez Tube Placement 09/22/17 00:00 IMPRESSION: THE GASTROSTOMY TUBE APPEARS TO BE IN SATISFACTORY POSITION. KUB X-Ray 09/22/17 12:30 IMPRESSION: THE GASTROSTOMY TUBE APPEARS TO BE IN SATISFACTORY POSITION. Assessment & Plan - Diagnosis (1) Trach Is this a current diagnosis for this admission?: Yes (2) Laryngeal disease Is this a current diagnosis for this admission?: Yes - Time Time Spent with patient: Less than 15 minutes Anticipated discharge: Home Within: within 24 hours - Inpatient Certification Medical Necessity: Risk of Complication if Not Cared For in Hospital Post Hospital Care: D/C [facility] Documentation - Plan Summary Plan Summary: JOY
[2017-09-26] MEDS: KETOROLAC TROMETHAMINE INJ/PF 30 MG/1 ML SDV IV SCH ×6 (01:31→21:28)
[2017-09-26 05:15] LABS: ABSOLUTE LYMPHOCYTES (AUTO) 1.3 10^3/uL (0.5-4.7); ABSOLUTE MONOCYTES (AUTO) 0.8 10^3/uL (0.1-1.4); ABSOLUTE NEUT (AUTO) 12.5 10^3/uL (1.7-8.2); BASOPHILS % (AUTO) 0.2 % (0-2); EOSINOPHILS % (AUTO) 0.2 % (0-6); HEMATOCRIT 29.1 % (37.9-51.0); HEMOGLOBIN 9.6 g/dL (13.5-17.0); LYMPHOCYTES % (AUTO) 8.8 % (13-45); MEAN CORPUSCULAR HEMOGLOBIN 30.4 pg (27.0-33.4); MEAN CORPUSCULAR VOLUME 92 fl (80-97); MONOCYTES % (AUTO) 5.6 % (3-13); PLATELET COUNT 261 10^3/uL (150-450); RED BLOOD COUNT 3.16 10^6/uL (4.35-5.55); RED CELL DISTRIBUTION WIDTH 17.8 % (11.5-14.0); SEGMENTED NEUTROPHILS % (AUTO) 85.2 % (42-78); TOTAL CELLS COUNTED % (AUTO) 100 %; WHITE BLOOD COUNT 14.7 10^3/uL (4.0-10.5)
[2017-09-26 05:35] LABS: ANION GAP 9 (5-19); BLOOD UREA NITROGEN 14 mg/dL (7-20); CALCIUM 9.1 mg/dL (8.4-10.2); CARBON DIOXIDE 29 mmol/L (22-30); CHLORIDE 105 mmol/L (98-107); GLUCOSE 82 mg/dL (75-110); POTASSIUM 3.5 mmol/L (3.6-5.0); SODIUM 142.8 mmol/L (137-145)
--- NOTE | 2017-09-26 08:10 | PDOC PROGRESS REPORT ---
Subjective Progress Note for:: 09/26/17 Subjective:: No acute events overnight, pt seems to be improving Reason For Visit: METASTATIC DZ WITH CHRONIC WORSENING LARYNGEAL/ Physical Exam Vital Signs: Temp Pulse Resp BP Pulse Ox 98.4 F 89 16 134/83 H 94 09/25/17 08:00 09/26/17 07:41 09/26/17 04:52 09/26/17 04:52 09/26/17 04:52 Pulse Oximeter Continuous Start: 09/22/17 11: 07 Freq: RTQ4 Status: Complete Document 09/22/17 12:00 LDA (Rec: 09/22/17 12:06 LDA [email or web address]) Pulse Oximetry Assessment Oxygen Saturation (92-100) 99 Oxygen Flow Rate (L/min) 8 Oxygen Delivery Method Trach Collar Fraction of Inspired Oxygen (FIO2) 30 Equipment Usage Equipment Standby Continuous SpO2 Machine # xx-pt. on monitor Intake & Output 09/25/17 09/26/17 09/27/17 06:59 06:59 06:59 Intake Total 3146 2187 Output Total 1825 1400 Balance 1321 787 Weight 67.2 kg 69.3 kg General appearance: PRESENT: no acute distress, well-developed, well-nourished Head exam: PRESENT: atraumatic, normocephalic Eye exam: PRESENT: conjunctiva pink, EOMI, PERRLA. ABSENT: scleral icterus Ear exam: PRESENT: normal external ear exam Mouth exam: PRESENT: moist, tongue midline Neck exam: ABSENT: carotid bruit, JVD, lymphadenopathy, thyromegaly Respiratory exam: PRESENT: clear to auscultation alana. ABSENT: rales, rhonchi, wheezes Cardiovascular exam: PRESENT: RRR. ABSENT: diastolic murmur, rubs, systolic murmur Pulses: PRESENT: normal dorsalis pedis pul Vascular exam: PRESENT: normal capillary refill GI/Abdominal exam: PRESENT: normal bowel sounds, soft. ABSENT: distended, guarding, mass, organolmegaly, rebound, tenderness Rectal exam: PRESENT: deferred Extremities exam: PRESENT: full ROM. ABSENT: calf tenderness, clubbing, pedal edema Neurological exam: PRESENT: alert, awake, oriented to person, oriented to place , oriented to time, oriented to situation, CN II-XII grossly intact. ABSENT: motor sensory deficit Psychiatric exam: PRESENT: appropriate affect, normal mood. ABSENT: homicidal ideation, suicidal ideation Skin exam: PRESENT: dry, intact, warm. ABSENT: cyanosis, rash Results Laboratory Results: 09/26/17 05:00 09/26/17 05:00 09/26/17 09/26/17 05:00 05:00 WBC 14.7 H RBC 3.16 L Hgb 9.6 L Hct 29.1 L MCV 92 MCH 30.4 MCHC 33.0 RDW 17.8 H Plt Count 261 Seg Neutrophils % 85.2 H Lymphocytes % 8.8 L Monocytes % 5.6 Eosinophils % 0.2 Basophils % 0.2 Absolute Neutrophils 12.5 H Absolute Lymphocytes 1.3 Absolute Monocytes 0.8 Absolute Eosinophils 0.0 Absolute Basophils 0.0 Sodium 142.8 Potassium 3.5 L Chloride 105 Carbon Dioxide 29 Anion Gap 9 BUN 14 Creatinine 0.44 L Est GFR ( Amer) > 60 Est GFR (Non-Af Amer) > 60 Glucose 82 Calcium 9.1 Phosphorus 3.0 Magnesium 1.7 Impressions: Chest X-Ray 09/22/17 00:00 IMPRESSION: No pneumothorax post tracheostomy tube placement. Tracheostomy tip is in the mid trachea. No acute infiltrates. Subdiaphragmatic free air from gastrostomy tube which was just placed. Results called to Dr. Almendarez Tube Placement 09/22/17 00:00 IMPRESSION: THE GASTROSTOMY TUBE APPEARS TO BE IN SATISFACTORY POSITION. KUB X-Ray 09/22/17 12:30 IMPRESSION: THE GASTROSTOMY TUBE APPEARS TO BE IN SATISFACTORY POSITION. Assessment & Plan - Diagnosis (1) Cancer of larynx Is this a current diagnosis for this admission?: Yes Plan: Cont current trach teaching, PEG feeds, getting pt stronger. Plan for outpt rx to be started
[2017-09-26] MEDS ORDERED: POTASSIUM CHLORIDE 20 MEQ/15 ML UDCUP PEG ONE (09:00)
[2017-09-26] MEDS: VENLAFAXINE HCL 75 MG CAP.SR.24H PO SCH (09:53)
[2017-09-26] MEDS: LISINOPRIL 10 MG TABLET PO SCH (09:54)
[2017-09-26] MEDS: AMLODIPINE BESYLATE 10 MG TABLET PO SCH (09:54)
[2017-09-26] MEDS: METOPROLOL TARTRATE 25 MG TABLET PO SCH (09:54)
[2017-09-26] MEDS: SERTRALINE HCL 50 MG TABLET PO SCH (09:55)
--- NOTE | 2017-09-26 10:42 | PDOC PROGRESS REPORT ---
Subjective Progress Note for:: 09/26/17 Subjective:: Nursing states that pt has no major issues. Pt states that he is having some discomfort at trach site. Reason For Visit: METASTATIC DZ WITH CHRONIC WORSENING LARYNGEAL/ Physical Exam Vital Signs: Temp Pulse Resp BP Pulse Ox 98 F 89 18 139/89 H 98 09/26/17 09:08 09/26/17 07:41 09/26/17 09:08 09/26/17 09:08 09/26/17 09:08 Pulse Oximeter Continuous Start: 09/22/17 11: 07 Freq: RTQ4 Status: Complete Document 09/22/17 12:00 LDA (Rec: 09/22/17 12:06 LDA [email or web address]) Pulse Oximetry Assessment Oxygen Saturation (92-100) 99 Oxygen Flow Rate (L/min) 8 Oxygen Delivery Method Trach Collar Fraction of Inspired Oxygen (FIO2) 30 Equipment Usage Equipment Standby Continuous SpO2 Machine # xx-pt. on monitor Intake & Output 09/25/17 09/26/17 09/27/17 06:59 06:59 06:59 Intake Total 3146 2187 Output Total 1825 1400 Balance 1321 787 Weight 67.2 kg 69.3 kg General appearance: PRESENT: no acute distress, thin, other - trach Head exam: PRESENT: atraumatic, normocephalic Eye exam: PRESENT: conjunctiva pink, EOMI Ear exam: PRESENT: normal external ear exam Mouth exam: PRESENT: moist, tongue midline Neck exam: PRESENT: tracheostomy. ABSENT: carotid bruit, JVD, lymphadenopathy, thyromegaly Respiratory exam: PRESENT: clear to auscultation alana. ABSENT: rales, rhonchi, wheezes Cardiovascular exam: PRESENT: RRR. ABSENT: diastolic murmur, rubs, systolic murmur Pulses: PRESENT: normal dorsalis pedis pul Vascular exam: PRESENT: normal capillary refill GI/Abdominal exam: PRESENT: other - PEG in place Rectal exam: PRESENT: deferred Extremities exam: PRESENT: full ROM. ABSENT: calf tenderness, clubbing, pedal edema Musculoskeletal exam: PRESENT: full ROM Neurological exam: PRESENT: alert, altered, oriented to person, oriented to place, oriented to time Psychiatric exam: PRESENT: appropriate affect, normal mood. ABSENT: homicidal ideation, suicidal ideation Skin exam: PRESENT: dry, intact, warm. ABSENT: cyanosis, rash Results Laboratory Results: 09/26/17 05:00 09/26/17 05:00 09/26/17 09/26/17 05:00 05:00 WBC 14.7 H RBC 3.16 L Hgb 9.6 L Hct 29.1 L MCV 92 MCH 30.4 MCHC 33.0 RDW 17.8 H Plt Count 261 Seg Neutrophils % 85.2 H Lymphocytes % 8.8 L Monocytes % 5.6 Eosinophils % 0.2 Basophils % 0.2 Absolute Neutrophils 12.5 H Absolute Lymphocytes 1.3 Absolute Monocytes 0.8 Absolute Eosinophils 0.0 Absolute Basophils 0.0 Sodium 142.8 Potassium 3.5 L Chloride 105 Carbon Dioxide 29 Anion Gap 9 BUN 14 Creatinine 0.44 L Est GFR ( Amer) > 60 Est GFR (Non-Af Amer) > 60 Glucose 82 Calcium 9.1 Phosphorus 3.0 Magnesium 1.7 Impressions: Chest X-Ray 09/22/17 00:00 IMPRESSION: No pneumothorax post tracheostomy tube placement. Tracheostomy tip is in the mid trachea. No acute infiltrates. Subdiaphragmatic free air from gastrostomy tube which was just placed. Results called to Dr. Almendarez Tube Placement 09/22/17 00:00 IMPRESSION: THE GASTROSTOMY TUBE APPEARS TO BE IN SATISFACTORY POSITION. KUB X-Ray 09/22/17 12:30 IMPRESSION: THE GASTROSTOMY TUBE APPEARS TO BE IN SATISFACTORY POSITION. Assessment & Plan - Diagnosis (1) Essential hypertension Is this a current diagnosis for this admission?: Yes Plan: We will increase lisinopril to 20 mg p.o. daily. Will continue Norvasc and metoprolol (2) Hypomagnesemia Is this a current diagnosis for this admission?: Yes Plan: Give additional magnesium today. Will check mag level in a.m. (3) Moderate protein-calorie malnutrition Is this a current diagnosis for this admission?: Yes Plan: Have requested that dietitian transition patient to bolus feeds today. Spoke with nurse who states that dietitian will arrive around noon today. This will make it easier for patient and his at home. In addition this will allow patient to have more freedom to do more activities. (4) Depression Qualifiers: Is this a current diagnosis for this admission?: Yes Plan: We will continue home medications. (5) History of laryngeal cancer Is this a current diagnosis for this admission?: Yes Plan: Status post trach :per oncology. Status post trach and PEG (6) PEG (percutaneous endoscopic gastrostomy) status Is this a current diagnosis for this admission?: Yes Plan: Patient has PEG in place (7) Trach Is this a current diagnosis for this admission?: Yes Plan: Due to head and neck CA: Dr. Carrillo has been consulted to follow patient. (8) Hypokalemia Is this a current diagnosis for this admission?: Yes Plan: Patient written for 60 mEq of potassium chloride. Will check potassium level in a.m. (9) Hypophosphatemia Is this a current diagnosis for this admission?: Yes Plan: Patient's phosphorus has been replaced. Resolved. (10) DVT prophylaxis Is this a current diagnosis for this admission?: Yes Plan: SCDs - Time Time Spent with patient: 25-34 minutes
[2017-09-26] MEDS ORDERED: LISINOPRIL 10 MG TABLET PO SCH (11:00)
[2017-09-26] MEDS: MAGNESIUM SULFATE/D5W 1 GM/100 ML RTUPB IV SCH ×3 (13:18→15:57)
[2017-09-26] MEDS ORDERED: VENLAFAXINE HCL 75 MG CAP.SR.24H PO SCH (13:47)
--- NOTE | 2017-09-26 15:45 | PDOC PROGRESS REPORT ---
Subjective Progress Note for:: 09/26/17 Subjective:: doing well w/o complaints Reason For Visit: METASTATIC DZ WITH CHRONIC WORSENING LARYNGEAL/ Physical Exam Vital Signs: Temp Pulse Resp BP Pulse Ox 98.4 F 89 16 134/83 H 94 09/25/17 08:00 09/26/17 07:41 09/26/17 04:52 09/26/17 04:52 09/26/17 04:52 Pulse Oximeter Continuous Start: 09/22/17 11: 07 Freq: RTQ4 Status: Complete Document 09/22/17 12:00 LDA (Rec: 09/22/17 12:06 LDA [email or web address]) Pulse Oximetry Assessment Oxygen Saturation (92-100) 99 Oxygen Flow Rate (L/min) 8 Oxygen Delivery Method Trach Collar Fraction of Inspired Oxygen (FIO2) 30 Equipment Usage Equipment Standby Continuous SpO2 Machine # xx-pt. on monitor Intake & Output 09/25/17 09/26/17 09/27/17 06:59 06:59 06:59 Intake Total 3146 2187 Output Total 1825 1400 Balance 1321 787 Weight 67.2 kg 69.3 kg General appearance: PRESENT: no acute distress, cooperative, disheveled, thin Head exam: PRESENT: atraumatic, normocephalic Eye exam: PRESENT: conjunctiva pale. ABSENT: nystagmus, periorbital swelling, scleral icterus Mouth exam: PRESENT: dry mucosa, neck supple, tongue midline Neck exam: PRESENT: tracheostomy. ABSENT: carotid bruit, JVD, lymphadenopathy, thyromegaly, tracheal deviation Respiratory exam: PRESENT: decreased breath sounds, prolonged expiratory phas, rhonchi, symmetrical, unlabored. ABSENT: rales, retraction, stridor, tachypnea , wheezes Cardiovascular exam: PRESENT: RRR, +S1, +S2 Pulses: PRESENT: normal radial pulses GI/Abdominal exam: PRESENT: diminished bowel sounds, soft Gentrourinary exam: PRESENT: indwelling catheter Extremities exam: ABSENT: calf tenderness, clubbing, joint swelling Musculoskeletal exam: ABSENT: deformity, dislocation Neurological exam: PRESENT: alert, awake Psychiatric exam: PRESENT: normal mood Skin exam: PRESENT: dry, warm Results Laboratory Results: 09/26/17 05:00 09/26/17 05:00 09/26/17 09/26/17 05:00 05:00 WBC 14.7 H RBC 3.16 L Hgb 9.6 L Hct 29.1 L MCV 92 MCH 30.4 MCHC 33.0 RDW 17.8 H Plt Count 261 Seg Neutrophils % 85.2 H Lymphocytes % 8.8 L Monocytes % 5.6 Eosinophils % 0.2 Basophils % 0.2 Absolute Neutrophils 12.5 H Absolute Lymphocytes 1.3 Absolute Monocytes 0.8 Absolute Eosinophils 0.0 Absolute Basophils 0.0 Sodium 142.8 Potassium 3.5 L Chloride 105 Carbon Dioxide 29 Anion Gap 9 BUN 14 Creatinine 0.44 L Est GFR ( Amer) > 60 Est GFR (Non-Af Amer) > 60 Glucose 82 Calcium 9.1 Phosphorus 3.0 Magnesium 1.7 Impressions: Chest X-Ray 09/22/17 00:00 IMPRESSION: No pneumothorax post tracheostomy tube placement. Tracheostomy tip is in the mid trachea. No acute infiltrates. Subdiaphragmatic free air from gastrostomy tube which was just placed. Results called to Dr. Almendarez Tube Placement 09/22/17 00:00 IMPRESSION: THE GASTROSTOMY TUBE APPEARS TO BE IN SATISFACTORY POSITION. KUB X-Ray 09/22/17 12:30 IMPRESSION: THE GASTROSTOMY TUBE APPEARS TO BE IN SATISFACTORY POSITION. Assessment & Plan - Diagnosis (1) Moderate protein-calorie malnutrition Is this a current diagnosis for this admission?: Yes Plan: Per surgery we will initiate tube feedings ELIDA (2) Trach Is this a current diagnosis for this admission?: Yes Plan: Patient quite comfortable exercise extraordinary caution as this is definitely the best and quite possibly the only airway possible (3) Cancer of larynx Is this a current diagnosis for this admission?: Yes Plan: As per oncology [facility] (4) Essential hypertension Is this a current diagnosis for this admission?: Yes Plan: Stable at this time (5) PEG (percutaneous endoscopic gastrostomy) status Is this a current diagnosis for this admission?: Yes
[2017-09-26] MEDS: VENLAFAXINE HCL 25 MG TABLET PEG SCH (21:28)
[2017-09-26] MEDS: METOPROLOL TARTRATE 25 MG TABLET PEG SCH (21:28)
[2017-09-26] MEDS: ALPRAZOLAM 0.5 MG TABLET GT PRN (21:32)
[2017-09-27] MEDS: KETOROLAC TROMETHAMINE INJ/PF 30 MG/1 ML SDV IV SCH ×4 (01:47→16:02)
--- NOTE | 2017-09-27 08:17 | PDOC PROGRESS REPORT ---
Subjective Progress Note for:: 09/27/17 Subjective:: No acute events overnight, pt doing better Reason For Visit: METASTATIC DZ WITH CHRONIC WORSENING LARYNGEAL/ Physical Exam Vital Signs: Temp Pulse Resp BP Pulse Ox 98.8 F 93 16 146/88 H 95 09/26/17 19:36 09/26/17 22:00 09/26/17 19:36 09/27/17 06:19 09/27/17 08:06 Pulse Oximeter Continuous Start: 09/22/17 11: 07 Freq: RTQ4 Status: Complete Document 09/22/17 12:00 LDA (Rec: 09/22/17 12:06 [email or web address]) Pulse Oximetry Assessment Oxygen Saturation (92-100) 99 Oxygen Flow Rate (L/min) 8 Oxygen Delivery Method Trach Collar Fraction of Inspired Oxygen (FIO2) 30 Equipment Usage Equipment Standby Continuous SpO2 Machine # xx-pt. on monitor Intake & Output 09/26/17 09/27/17 09/28/17 06:59 06:59 06:59 Intake Total 2187 1318 Output Total 1400 500 Balance 787 818 Weight 69.3 kg 68.2 kg General appearance: PRESENT: no acute distress, well-developed, well-nourished Head exam: PRESENT: atraumatic, normocephalic Eye exam: PRESENT: conjunctiva pink, EOMI, PERRLA. ABSENT: scleral icterus Ear exam: PRESENT: normal external ear exam Mouth exam: PRESENT: moist, tongue midline Neck exam: ABSENT: carotid bruit, JVD, lymphadenopathy, thyromegaly Respiratory exam: PRESENT: clear to auscultation alana. ABSENT: rales, rhonchi, wheezes Cardiovascular exam: PRESENT: RRR. ABSENT: diastolic murmur, rubs, systolic murmur Pulses: PRESENT: normal dorsalis pedis pul Vascular exam: PRESENT: normal capillary refill GI/Abdominal exam: PRESENT: normal bowel sounds, soft. ABSENT: distended, guarding, mass, organolmegaly, rebound, tenderness Rectal exam: PRESENT: deferred Extremities exam: PRESENT: full ROM. ABSENT: calf tenderness, clubbing, pedal edema Neurological exam: PRESENT: alert, awake, oriented to person, oriented to place , oriented to time, oriented to situation, CN II-XII grossly intact. ABSENT: motor sensory deficit Psychiatric exam: PRESENT: appropriate affect, normal mood. ABSENT: homicidal ideation, suicidal ideation Skin exam: PRESENT: dry, intact, warm. ABSENT: cyanosis, rash Results Laboratory Results: 09/26/17 05:00 09/26/17 05:00 Impressions: Chest X-Ray 09/22/17 00:00 IMPRESSION: No pneumothorax post tracheostomy tube placement. Tracheostomy tip is in the mid trachea. No acute infiltrates. Subdiaphragmatic free air from gastrostomy tube which was just placed. Results called to Dr. Almendarez Tube Placement 09/22/17 00:00 IMPRESSION: THE GASTROSTOMY TUBE APPEARS TO BE IN SATISFACTORY POSITION. KUB X-Ray 09/22/17 12:30 IMPRESSION: THE GASTROSTOMY TUBE APPEARS TO BE IN SATISFACTORY POSITION. Assessment & Plan - Diagnosis (1) Cancer of larynx Is this a current diagnosis for this admission?: Yes Plan: Con't current management per ENT, likely d/c soon once home care in place, further rx planned as oupt - Time Time Spent with patient: 35 or more minutes - Today spent >45 min in discussion and coordiation of care, d/w Dr. Madsen w/ ENT
--- NOTE | 2017-09-27 08:54 | PDOC PROGRESS REPORT ---
Subjective Progress Note for:: 09/27/17 Subjective:: doing well w/o complaints Reason For Visit: METASTATIC DZ WITH CHRONIC WORSENING LARYNGEAL/ Physical Exam Vital Signs: Temp Pulse Resp BP Pulse Ox 98.8 F 93 16 146/88 H 95 09/26/17 19:36 09/26/17 22:00 09/26/17 19:36 09/27/17 06:19 09/27/17 08:06 Pulse Oximeter Continuous Start: 09/22/17 11: 07 Freq: RTQ4 Status: Complete Document 09/22/17 12:00 LDA (Rec: 09/22/17 12:06 [email or web address] [email or web address]) Pulse Oximetry Assessment Oxygen Saturation (92-100) 99 Oxygen Flow Rate (L/min) 8 Oxygen Delivery Method Trach Collar Fraction of Inspired Oxygen (FIO2) 30 Equipment Usage Equipment Standby Continuous SpO2 Machine # xx-pt. on monitor Intake & Output 09/26/17 09/27/17 09/28/17 06:59 06:59 06:59 Intake Total 2187 1318 Output Total 1400 500 Balance 787 818 Weight 69.3 kg 68.2 kg General appearance: PRESENT: no acute distress, cooperative, disheveled, thin Head exam: PRESENT: atraumatic, normocephalic Eye exam: PRESENT: conjunctiva pale. ABSENT: nystagmus, periorbital swelling, scleral icterus Mouth exam: PRESENT: dry mucosa, neck supple Neck exam: PRESENT: tracheostomy. ABSENT: carotid bruit, JVD, lymphadenopathy, thyromegaly, tracheal deviation Respiratory exam: PRESENT: decreased breath sounds, prolonged expiratory phas, rales, rhonchi, symmetrical, unlabored. ABSENT: retraction, stridor, tachypnea Cardiovascular exam: PRESENT: RRR, +S2 Pulses: PRESENT: normal radial pulses GI/Abdominal exam: PRESENT: diminished bowel sounds, soft Extremities exam: ABSENT: clubbing, joint swelling Musculoskeletal exam: ABSENT: deformity, dislocation Neurological exam: PRESENT: awake Psychiatric exam: PRESENT: normal mood Skin exam: PRESENT: dry, warm Results Laboratory Results: 09/26/17 05:00 09/26/17 05:00 Impressions: Chest X-Ray 09/22/17 00:00 IMPRESSION: No pneumothorax post tracheostomy tube placement. Tracheostomy tip is in the mid trachea. No acute infiltrates. Subdiaphragmatic free air from gastrostomy tube which was just placed. Results called to Dr. Almendarez Tube Placement 09/22/17 00:00 IMPRESSION: THE GASTROSTOMY TUBE APPEARS TO BE IN SATISFACTORY POSITION. KUB X-Ray 09/22/17 12:30 IMPRESSION: THE GASTROSTOMY TUBE APPEARS TO BE IN SATISFACTORY POSITION. Assessment & Plan - Diagnosis (1) Moderate protein-calorie malnutrition Is this a current diagnosis for this admission?: Yes Plan: Per surgery we will initiate tube feedings ELIDA (2) Trach Is this a current diagnosis for this admission?: Yes Plan: Patient quite comfortable exercise extraordinary caution as this is definitely the best and quite possibly the only airway possible (3) Cancer of larynx Is this a current diagnosis for this admission?: Yes Plan: As per oncology [facility] (4) Essential hypertension Is this a current diagnosis for this admission?: Yes Plan: Stable at this time (5) PEG (percutaneous endoscopic gastrostomy) status Is this a current diagnosis for this admission?: Yes Plan: As per surgery
[2017-09-27] MEDS ORDERED: SERTRALINE HCL 50 MG TABLET PEG SCH (10:00)
[2017-09-27] MEDS ORDERED: LISINOPRIL 10 MG TABLET PEG SCH (10:00)
[2017-09-27] MEDS ORDERED: AMLODIPINE BESYLATE 10 MG TABLET PEG SCH (10:00)
[2017-09-27] MEDS: METOPROLOL TARTRATE 25 MG TABLET PEG SCH (10:00)
[2017-09-27] MEDS: VENLAFAXINE HCL 25 MG TABLET PEG SCH (10:01)
--- NOTE | 2017-09-27 16:41 | PDOC PROGRESS REPORT ---
Subjective Progress Note for:: 09/27/17 Subjective:: No overnight events. Planned to have trach replaced. Feeling better overall. Likely will be transferred to floor Reason For Visit: METASTATIC DZ WITH CHRONIC WORSENING LARYNGEAL/ Physical Exam Vital Signs: Temp Pulse Resp BP Pulse Ox 98.8 F 96 16 113/69 96 09/26/17 19:36 09/27/17 08:00 09/26/17 19:36 09/27/17 09:03 09/27/17 12:00 Pulse Oximeter Continuous Start: 09/22/17 11: 07 Freq: RTQ4 Status: Complete Document 09/22/17 12:00 LDA (Rec: 09/22/17 12:06 [email or web address] [email or web address]) Pulse Oximetry Assessment Oxygen Saturation (92-100) 99 Oxygen Flow Rate (L/min) 8 Oxygen Delivery Method Trach Collar Fraction of Inspired Oxygen (FIO2) 30 Equipment Usage Equipment Standby Continuous SpO2 Machine # xx-pt. on monitor Intake & Output 09/26/17 09/27/17 09/28/17 06:59 06:59 06:59 Intake Total 2187 1318 815 Output Total 1400 500 Balance 787 818 815 Weight 69.3 kg 68.2 kg General appearance: PRESENT: no acute distress, thin, other - Chronically ill appearing Head exam: PRESENT: normocephalic Neck exam: PRESENT: tracheostomy - In place, surrounding skin erythematous, foul odor, clear discharge, no obvious pus Respiratory exam: PRESENT: unlabored Cardiovascular exam: PRESENT: +S1, +S2 GI/Abdominal exam: PRESENT: soft. ABSENT: tenderness Neurological exam: PRESENT: alert, awake, CN II-XII grossly intact Results Laboratory Results: 09/26/17 05:00 09/26/17 05:00 Impressions: Chest X-Ray 09/22/17 00:00 IMPRESSION: No pneumothorax post tracheostomy tube placement. Tracheostomy tip is in the mid trachea. No acute infiltrates. Subdiaphragmatic free air from gastrostomy tube which was just placed. Results called to Dr. Almendarez Tube Placement 09/22/17 00:00 IMPRESSION: THE GASTROSTOMY TUBE APPEARS TO BE IN SATISFACTORY POSITION. KUB X-Ray 09/22/17 12:30 IMPRESSION: THE GASTROSTOMY TUBE APPEARS TO BE IN SATISFACTORY POSITION. Assessment & Plan - Diagnosis (1) Essential hypertension Is this a current diagnosis for this admission?: Yes Plan: Blood pressure much better controlled - Continue lisinopril 20mg daily, lopressor 25mg, norvasc 10mg dialy (2) Laryngeal disease Is this a current diagnosis for this admission?: Yes Plan: History of metastatic SCC - Followed by [facility] (3) Moderate protein-calorie malnutrition Is this a current diagnosis for this admission?: Yes Plan: Currently on bolus feeds, will need to follow with nutrition (4) History of laryngeal cancer Is this a current diagnosis for this admission?: Yes - Time Anticipated discharge: Home Within: within 24 hours - Likely discharge today by surgical team
[2017-09-27 17:37] VITALS: BP 120/78
--- NOTE | 2017-09-27 18:35 | PDOC DISCHARGE SUMMARY ---
General - Admit/Disc Date/PCP Admission Date/Primary Care Provider: 09/22/17 05:31 ADNAN Discharge Date: 09/27/17 - Discharge Diagnosis (1) Trach Is this a current diagnosis for this admission?: Yes (2) Laryngeal disease Is this a current diagnosis for this admission?: Yes - Additional Information Resuscitation Status: Full Code Discharge Diet: Tube Feeding (Comments) Discharge Activity: Activity As Tolerated Home Medications: Alprazolam [Xanax 0.5 mg Tablet] 0.5 mg PO Q12HP PRN 02/21/17 Gabapentin [Neurontin] 1,600 mg PO QHS 02/21/17 Pantoprazole Sodium [Protonix] 40 mg PO Q12 02/21/17 Sertraline HCl [Zoloft] 150 mg PO DAILY 02/21/17 Venlafaxine HCl [Effexor Xr] 150 mg PO DAILY 02/21/17 Acetaminophen [Tylenol Extra Strength 500 mg Tablet] 1 - 2 tab PO Q8 PRN Benzonatate 200 mg PO Q6 PRN 03/30/17 Diphenhydramine HCl 25 mg PO DAILY PRN 03/30/17 Docusate Sodium 100 mg PO DAILY PRN 03/30/17 Amoxicillin 250 mg PO ASDIR PRN 09/18/17 Polyethylene Glycol 3350 [Miralax] 119 gm PO ASDIR PRN 09/18/17 Promethazine HCl [Phenergan 25 mg Tablet] 25 mg PO ASDIR PRN 09/18/17 Ondansetron HCl [Zofran 8 mg Tablet] PO DAILY PRN 09/21/17 History of Present Illness Patient complains of: Mild shemar-trach site discomfort, but is otherwise doing reasonably well overall. History of Present Illness: OLIMPIA ST is a 71 year old male Please refer to the patient's hospital course and specialist documentation for details. Hospital Course Hospital Course: The patient's hospital course in the ICU from September 22 - September 27, 2017 was essentially on remarkable and the patient discharged home on September 27 in stable condition. Physical Exam Vital Signs: Temp Pulse Resp BP Pulse Ox 98.8 F 96 16 120/78 96 09/27/17 17:35 09/27/17 17:35 09/27/17 17:35 09/27/17 17:35 09/27/17 17:35 Pulse Oximeter Continuous Start: 09/22/17 11: 07 Freq: RTQ4 Status: Complete Document 09/22/17 12:00 LDA (Rec: 09/22/17 12:06 LDA [email or web address]) Pulse Oximetry Assessment Oxygen Saturation (92-100) 99 Oxygen Flow Rate (L/min) 8 Oxygen Delivery Method Trach Collar Fraction of Inspired Oxygen (FIO2) 30 Equipment Usage Equipment Standby Continuous SpO2 Machine # xx-pt. on monitor Intake & Output 09/26/17 09/27/17 09/28/17 06:59 06:59 06:59 Intake Total 2187 1318 1290 Output Total 1400 500 200 Balance 810 275 7102 Weight 69.3 kg 68.2 kg General appearance: PRESENT: no acute distress, thin Head exam: PRESENT: atraumatic Mouth exam: PRESENT: moist Neck exam: PRESENT: tracheostomy - Flexible endoscopic evaluation was performed through the original trach with trachea, bronchi, and hallie appearing on remarkable and with mild thickened secretions noted and no bleeding. Next, the trach was changed today over a bougie wand to a #6 Shiley non-cuffed and non- fenestrated trach without difficulty. Prolene sutures were removed. Wound care was provided to the shemar-trach site skin/soft tissues with mild maceration noted at the inferior trach plate margin, and no active bleeding was noted. The patient was able to occlude the trach and speak which was understandable, and which he performed without difficulty. Results Laboratory Results: 09/26/17 05:00 09/26/17 05:00 Impressions: Chest X-Ray 09/22/17 00:00 IMPRESSION: No pneumothorax post tracheostomy tube placement. Tracheostomy tip is in the mid trachea. No acute infiltrates. Subdiaphragmatic free air from gastrostomy tube which was just placed. Results called to Dr. Almendarez Tube Placement 09/22/17 00:00 IMPRESSION: THE GASTROSTOMY TUBE APPEARS TO BE IN SATISFACTORY POSITION. KUB X-Ray 09/22/17 12:30 IMPRESSION: THE GASTROSTOMY TUBE APPEARS TO BE IN SATISFACTORY POSITION. Qualifiers - * PATEINT BEING DISCHARGED WITH ANY OF THE FOLLOWING DIAGNOSIS?: No Plan Discharge Plan: The patient is discharged to home today with the following in place for home care plan: Home health, half-way, trach care, tube feeds, and mobility needs per physical therapy are all in place. The patient has follow-up appointments with ENT, general surgery, and oncology. Time Spent: Greater than 30 Minutes - The first trach change was performed today with endoscopy performed, additional trach teaching was provided, and coordination of care was discussed.
== END 2017-09-27 18:16 | disposition home or self-care (01) | DRG 12 ==
LOC: OROUT 05:30 → ICU 05:31 → OROUT 19:04
PROVIDERS: ADMIT Otolaryngology; ATTEND Otolaryngology
PROC: 0DH68UZ Insertion of Feeding Device into Stomach, Via Natural or Artificial Opening Endoscopic (ICD-10-PCS; 2017-09-22)
PROC: 0B110F4 Bypass Trachea to Cutaneous with Tracheostomy Device, Open Approach (ICD-10-PCS; principal; 2017-09-25)
PROC: 5A1945Z Respiratory Ventilation, 24-96 Consecutive Hours (ICD-10-PCS; 2017-09-25)
DX: C32.0 Malignant neoplasm of glottis (principal); E44.0 Moderate protein-calorie malnutrition; R13.10 Dysphagia, unspecified; I10 Essential (primary) hypertension; F32.9 Major depressive disorder, single episode, unspecified; E87.6 Hypokalemia; E83.42 Hypomagnesemia; E83.39 Other disorders of phosphorus metabolism; Z79.899 Other long term (current) drug therapy; Z68.21 Body mass index [BMI] 21.0-21.9, adult; Z87.891 Personal history of nicotine dependence; Z80.8 Family history of malignant neoplasm of other organs or systems
CPT/HCPCS: 00320; 00790; 36415; 49465; 71045; 74018; 80048; 80053; 82962; 83735; 84100; 85025; 88305; 88341; 88342; 93005; 93010; G8978-GP; G8979-GP; G8987-GO; G8988-GO; G8989-GO; J0131; J0690; J1100; J1885; J2250; J2270; J2405; J2704; J3010; J3475; J3480; J3490; J7120

== ENCOUNTER → 2017-12-22 | Outpatient (CLI) | payer MEDICARE, BC ==
--- NOTE | 2017-12-22 09:27 | ST Modified Barium Swallow ---
Recommendation - Recommendations Recommendations: Continue NPO and tube feeds. Recommend referral to GI. Medical Diagnoses - Medical Diagnoses Medical Diagnosis Description & ICD-10 Code(s): Dysphagia (R13.10) Other Medical Diagnoses/Co-Morbidities: head and neck cancer, reflux, arthritis , depression, neuropathy ST Modified Barium Swallow - General Date: 12/22/17 Referring Physician: Cale Risks/Precautions: Aspiration Date of Onset: 07/31/13 Reason for Referral: dysphagia (R13.10) - History History obtained from: Patient -: Medical, ST - Functional Status Prior Functional Status: INDEPENDENT: ADL, work duties, community mobility, communication, feeding, leisure/play - Subjective Patient/caregiver goal(s): safe swallow, r/o struct. abnormality Cognitive-Linguistic Function: WNL Speech Intelligibility: WNL - Tracheostomy and Passy Rkzysztof Valve Current Nutritional Means: NPO, PEG Current symptoms: Weight loss, Coughing, Wet/gurgly voice, Aspiration - Objective Assessment: Upright, Left Lateral - Food Trials Used Food trials used: [place] thick liquids - Trialed only one half teaspoon of nectar thick liquids then discontinued evaluation as patient could not clear bolus The patient: fed by ST, via spoon - Oral-Motor Skills Dentition: Full - Assessment Labial closure: Adequate Leakage: None Oral stage: Normal for this Procedure Oral Stage: Oral motor exam within functional limits. No solids trialed during this exam. - Pharyngeal Stage Initiation of Pharyngeal Stage Reflex: Delayed Decreased laryngeal elevation: Yes Reduced Velopharyngeal Closure: no Reduced pressure generation: No reduced tongue-based retraction: No Pre-swallow pooling in valleculae: None Pre-Swallow pooling in pyriforms: None Reduced Thyro-Hyoid approximation: Yes - severely Reduced epiglottic excursion: Yes - severely Reduced pharyngeal peristalsis/contraction: Yes Multiple Swallows with: Ineffective Clearance Post-swallow residulas vallecular: Significant Post-Swallow residuals in pyriforms: Significant Post-Swallow Residuals: throughout pharynx Reduced Cricopharyngeal opening: Yes - minimal to no opening - Esophageal Stage Cricopharyngeal Function: Impaired Upper Esophageal Transit: Impaired Cervical Osteophytes noted: No - Fall Risk Assessment Medications/Conditions that increase fall risks include: Antidepressants, sedatives, anti-arrhythmic, diuretic, benzodiazipenes, neuroleptics. BP regulation problems, cardiac problems, balance or gait deficits, neurological problems. Fall Risk Actions Taken: No action needed - Behavioral Observations During evaluation process patient: was pleasant, was cooperative, able to answer questions, provided medical history - Treatment / Educational Needs: Treatment/Education Needs: Treatment consisted of patient education on the role of the Speech Pathologist. Patient's plan of care and golas were communicated as well as scheduling and attendance policies. Recommendations for initial home program were shared. Patient demonstrated understanding and verbalized agreement. Initial home program recommendations: continue NPO and PEG feeds - Impression/Summary Laryngeal Penetration: Yes, after swallow - cleared with cued cough Consistency: [place] Tracheal Aspiration: yes, deep, after swallow - cleared with cued cough Productive cough: Yes Effective Clearing: yes Ineffective compensatory strategies: head turn-right, head turn-left, chin down , throat clear & reswallow, hard swallow Patient presents with: Pharyngeal stage dysph., Severe Risk of Aspiration: Severe Risk of nutritional compromise: Severe - Recommendations NPO: yes Pt/Family education and followup with MD: Yes Dysphagia therapy with MEDICAID BILLING SPECIALIST: yes, dysphagia therapy, f/u with current thera. Information, Precautions and Recommendations: Patient (Verbal) Other recommendations: Recommend referral to gastrointestinal specialist to consider options as patient has minimal to no upper esophageal sphincter opening. - Time Total Time: 30 - Plan of Care Patient to follow-up with referring physician: Yes Rehab potential for established goals: Fair POC Procedures/Codes: therapeutic trials, NMES, pharyngeal exercises, laryngeal exercises, pt/family education, MBSS (53013) Strategies to optimize patient understanding include:: ongoing assessment of educational needs, implementation of educational strategies, and re-education. - - -: Thank you for the opportunity to work with this patient and his/her family. Should you have any questions about this patient's plan or progress, I can be reached at [phone]. Charge G Code? - - -: Yes ST F.L. Impairment Category - Rationale Based On Rationale Based On: Clin Find., Obj Measures - Swallowing Current G8996: CN 100% Impaired Goal G8997: CL 60-79% Impaired
--- NOTE | 2017-12-22 09:42 | RADIOLOGY REPORT (SQ) ---
EXAM DESCRIPTION: COOKIE SWALLOW COMPLETED DATE/TIME: 12/22/2017 9:09 am REASON FOR STUDY: DYSPHAGIA (R13.10) R13.10 DYSPHAGIA, UNSPECIFIED head and neck cancer, squamous c ell carcinoma COMPARISON: None. TECHNIQUE: Videofluoroscopic swallowing examination was performed in conjunction with speech patholo gy. Videofluoroscopic imaging was obtained and reviewed and these are the findings: RADIATION DOSE: 2 minutes 15 seconds of fluoroscopy was used. 1 images saved to PACS. LIMITATIONS: None FINDINGS: The patient was brought into the fluoro room and placed upright on a modified barium swall ow chair. The patient was then given multiple consistencies mixed with barium to swallow under live fluoroscopic video guidance. According to the Speech Pathologist there was laryngeal penetration and aspiration of nectar thick liquids. Very little contrast reached esophagus. There was narrowing of the proximal esophagus at the level of the proximal esophageal sphincter which cause retention of con trast within the vallecular and piriform sinuses which led to penetration and aspiration. IMPRESSION: LARYNGEAL PENETRATION AND ASPIRATION DESCRIBED.PLEASE SEE SPEECH PATHOLOGIST REPORT F OR OTHER FINDINGS AND RECOMMENDATIONS. COMMENT: Quality ID 145: Final reports for procedures using fluoroscopy that document radiation exp osure indices, or exposure time and number of fluorographic images (if radiation exposure indices are not available) TECHNICAL DOCUMENTATION: JOB ID: [id number] [employer]- All Rights Reserved Reading location - IP/workstation name: [email or web address]
== END ==
LOC: RAD 08:16
PROVIDERS: ATTEND Otolaryngology
DX: R13.10 Dysphagia, unspecified (principal)
CPT/HCPCS: 74230; 92611; G8996; G8997

== ENCOUNTER → 2017-12-31 | Outpatient (CLI) | payer MEDICARE, BC ==
--- NOTE | 2018-01-01 08:55 | RADIOLOGY REPORT (SQ) ---
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 RADIONUCLIDE AND DOSE: 10.0 mCi F18 FDG The route of agent administration: Intravenous FASTING BLOOD SUGAR: 98 mg/dl CONTRAST TYPE AND DOSE: No CT contrast given. TECHNIQUE: Blood glucose level was verified. Above dose of FDG was injected intravenously. 2-D seg mented attenuation correction images were obtained from the base of the skull to the midthighs. Nonc ontrast CT images were obtained for attenuation correction and fusion with emission images. CT image s were performed without oral or intravenous contrast and are not sensitive for parenchymal lesions. A series of overlapping emission PET images were obtained. Images reviewed and manipulated at [facility] work station by the radiologist. Images stored on PACS. LIMITATIONS: None. FINDINGS: HEAD AND NECK: New tracheostomy tube. Previously seen increased uptake in the posterior h ypopharynx has improved. Current mean SUV value 2.56 with prior value 7.4. Previously seen lymph no cheri on the right side have decreased in size and currently no abnormal metabolic activity. CHEST: The soft tissue mass on the left side of the thoracic inlet has decreased in size, currently m easuring 1.5 cm with prior measurement 4 x 3 cm. Currently no abnormal metabolic activity. Multiple pulmonary nodules seen on prior studies, August 2017 and February 2017, have decreased significantly in size and no longer demonstrate abnormal metabolic activity. The small cavitary nodule in the lef t lung with small mural nodule has decreased size with no abnormal activity. There is, however, a ne w nodule in the posterior left lower lobe (axial series 4, image 148). This nodule measures 1.2 cm a nd has increased activity with mean SUV value 3.32. ABDOMEN AND PELVIS: New gastrostomy tube. No areas of abnormal metabolic activity in the abdomen or pelvis. Expected physiologic activity is present in the genitourinary system and bowel. PROXIMAL LOWER EXTREMITIES: No areas of abnormal metabolic activity in the soft tissues of the lower extremities. BONES: Areas of activity in the right 7th rib and T7 vertebral body are no longer present. ADDITIONAL CT FINDINGS: No additional significant findings on the noncontrast CT images. OTHER: No other significant findings. IMPRESSION: 1. GENERALLY FAVORABLE RESPONSE TO TREATMENT. ACTIVITY IN THE POSTERIOR HYPOPHARYNX HAS DECREASED. PREVIOUSLY SEEN LYMPH NODES IN THE NECK AND AT THE LEFT THORACIC INLET HAVE ALSO DECREASED WELL MULTIPLE PULMONARY NODULES. ACTIVITY IN THE RIGHT 7TH RIB AND T7 VERTEBRAL BODY HAS DECREASED. THE RE IS, HOWEVER, A NEW PULMONARY NODULE IN THE LEFT LOWER LOBE WITH INCREASED ACTIVITY DESCRIBED AB OVE. 2. SINCE THE PRIOR STUDY THERE HAS BEEN INTERVAL PLACEMENT OF A TRACHEOSTOMY TUBE AND A GASTROSTOMY T UBE. TECHNICAL DOCUMENTATION: JOB ID: [id number] [employer]- All Rights Reserved Reading location - IP/workstation name: [email or web address]
== END ==
LOC: RAD 16:31
PROVIDERS: ATTEND Internal Medicine
DX: C32.0 Malignant neoplasm of glottis (principal); R91.8 Other nonspecific abnormal finding of lung field
CPT/HCPCS: 78815; A9552

== ENCOUNTER → 2018-04-10 | Outpatient (CLI) | payer MEDICARE, BC ==
--- NOTE | 2018-04-10 10:58 | RADIOLOGY REPORT (SQ) ---
EXAM DESCRIPTION: COOKIE SWALLOW COMPLETED DATE/TIME: 04/10/2018 10:25 am REASON FOR STUDY: DYSPHAGIA (R13.10) R13.10 DYSPHAGIA, UNSPECIFIEDlaryngeal cancer, tracheostomy tu be COMPARISON: 12/22/2017 TECHNIQUE: Videofluoroscopic swallowing examination was performed in conjunction with speech patholo gy. Videofluoroscopic imaging was obtained and reviewed and these are the findings: RADIATION DOSE: 57 seconds of fluoroscopy was used. 1 images saved to PACS. LIMITATIONS: None FINDINGS: The patient was brought into the fluoro room and placed upright on a modified barium swall ow chair. The patient was then given multiple consistencies mixed with barium to swallow under live fluoroscopic video guidance. According to the Speech Pathologist there was laryngeal penetration and aspiration of thin liquids. Incomplete opening of the upper esophageal sphincter leading to aspirat ion. IMPRESSION: LARYNGEAL PENETRATION AND ASPIRATION OF THIN LIQUIDS.PLEASE SEE SPEECH PATHOLOGIST REPOR T FOR OTHER FINDINGS AND RECOMMENDATIONS. COMMENT: Quality ID 145: Final reports for procedures using fluoroscopy that document radiation exp osure indices, or exposure time and number of fluorographic images (if radiation exposure indices are not available) TECHNICAL DOCUMENTATION: JOB ID: [id number] [employer]- All Rights Reserved Reading location - IP/workstation name: [email or web address]
--- NOTE | 2018-04-10 14:22 | ST Modified Barium Swallow ---
Recommendation - Recommendations Recommendations: Recommend consult with GI due to minimal UES opening. Outpatient therapy will continue, may continue at reduced frequency due to UES deficits. Continue NPO status. Medical Diagnoses - Medical Diagnoses Medical Diagnosis Description & ICD-10 Code(s): Dysphagia (R13.10) Other Medical Diagnoses/Co-Morbidities: head and neck cancer, reflux, arthritis , depression, neuropathy ST Modified Barium Swallow - General Date: 04/10/18 Referring Physician: Cale Risks/Precautions: Aspiration Date of Onset: 07/31/13 - History History obtained from: Patient -: Medical - Patient has history of head and neck cancer. Currently has PEG and tracheostomy with passy loly valve. Patient had MBSS in November which showed no UES opening leading to aspiration. Patient has been attending dysphagia treatment since that time, today is a follow MBSS to monitor progress. Medications: patient did not provide list Allergies: NKA - Functional Status Prior Functional Status: INDEPENDENT: feeding - independent Current Functional Limitations: feeding - NPO - Subjective Patient/caregiver goal(s): better swallow Cognitive-Linguistic Function: WNL Speech Intelligibility: WNL Current Nutritional Means: NPO, PEG Current PO diet: N/A (NPO) Current symptoms: Coughing Pain: Patient reports, 0/5 - Objective Assessment: Upright, Left Lateral - Food Trials Used Food trials used: Thin liquids The patient: fed by ST - Oral-Motor Skills Dentition: Full - Assessment Oral prep: Normal Labial closure: Adequate Leakage: None Mastication: no chewing observed Lingual Movement: Normal - Pharyngeal Stage Initiation of Pharyngeal Stage Reflex: Normal Decreased laryngeal elevation: Yes Reduced Velopharyngeal Closure: no Reduced pressure generation: No reduced tongue-based retraction: No Pre-Swallow pooling in pyriforms: Significant Reduced epiglottic excursion: Yes Multiple Swallows with: Ineffective Clearance Post-Swallow Residuals: throughout pharynx - Esophageal Stage Cricopharyngeal Function: Impaired - only trace material passed through UES - Fall Risk Assessment Medications/Conditions that increase fall risks include: Antidepressants, sedatives, anti-arrhythmic, diuretic, benzodiazipenes, neuroleptics. BP regulation problems, cardiac problems, balance or gait deficits, neurological problems. Is patient considered at risk for falls: no Fall Risk Actions Taken: No action needed - Behavioral Observations During evaluation process patient: was pleasant, was cooperative, able to answer questions - Treatment / Educational Needs: Treatment/Education Needs: Treatment consisted of patient education on the role of the Speech Pathologist. Patient's plan of care and golas were communicated as well as scheduling and attendance policies. Recommendations for initial home program were shared. Patient demonstrated understanding and verbalized agreement. - Impression/Summary Laryngeal Penetration: Yes, during swallow, after swallow Consistency: Thin Tracheal Aspiration: yes, during swallow, after swallow Patient presents with: Pharyngeal stage dysph., Esophageal stage dysph., Severe Risk of Aspiration: Severe Evaluation and Findings: Significant aspiraiton of thin liquid trial. Material did not pass through UES, and then spilled into larngeal vestibule and was aspirated. - Recommendations NPO: yes Strict aspiration precautions: Yes Pt/Family education and followup with MD: Yes Dysphagia therapy with LOG ROPER: f/u with current thera. - may reduce frequency Information, Precautions and Recommendations: Patient (Written), Patient (Verbal ) - Plan of Care Strategies to optimize patient understanding include:: ongoing assessment of educational needs, implementation of educational strategies, and re-education. - - -: Thank you for the opportunity to work with this patient and his/her family. Should you have any questions about this patient's plan or progress, I can be reached at [phone]. Charge G Code? - - -: Yes ST F.L. Impairment Category - Rationale Based On Rationale Based On: Clin Find., Obj Measures - Swallowing Current G8996: CM 80-99% Impaired Goal G8997: CL 60-79% Impaired
== END ==
LOC: RAD 08:33
PROVIDERS: ATTEND Otolaryngology
DX: R13.10 Dysphagia, unspecified (principal)
CPT/HCPCS: 74230

== ENCOUNTER → 2018-05-06 | Outpatient (CLI) | payer MEDICARE, BC ==
--- NOTE | 2018-05-07 10:22 | RADIOLOGY REPORT (SQ) ---
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 TECHNIQUE: Blood glucose level was verified. Above dose of FDG was injected intravenously. 2-D seg mented attenuation correction images were obtained from the base of the skull to the midthighs. Nonc ontrast CT images were obtained for attenuation correction and fusion with emission images. CT image s were performed without oral or intravenous contrast and are not sensitive for parenchymal lesions. A series of overlapping emission PET images were obtained. Images reviewed and manipulated at [facility] work station by the radiologist. Images stored on PACS. LIMITATIONS: None. FINDINGS: HEAD AND NECK: No residual thoracic inlet tumor is identified on today's study. Patient h as a tracheostomy in good positioning. Chronic left vocal cord paralysis. CHEST: In the periphery of the left lower lobe just above the hemidiaphragm, a hypermetabolic mass is present with surrounding radiotherapy treatment markers measuring 3.7 x 2.8 cm in size on axial imag e 0111. This has SUV of 6.6. The smaller more posterior and medial left lung base nodule with radiation therapy treatment markers seen on 12/31/2017 is no longer apparent. Minimal scarring is seen on axial image 113 in the medial po sterior left lung base. ABDOMEN AND PELVIS: No areas of abnormal metabolic activity in the abdomen or pelvis. Expected physi ologic activity is present in the genitourinary system and bowel. Minimal increased activity is seen along the gastrostomy tube tract, within normal limits PROXIMAL LOWER EXTREMITIES: No areas of abnormal metabolic activity in the soft tissues of the lower extremities. BONES: No abnormal metabolic activity in the visualized skeleton. However, there is mild synovial up take at the bilateral shoulder and hip joints. ADDITIONAL CT FINDINGS: Gastrostomy tube tip in the stomach. Heavy atherosclerotic calcification of the carotid bifurcations and coronary arteries. Left permanent central line tip superior vena cava OTHER: Liver background activity 1.7 SUV. Blood pool background activity 1.2 SUV IMPRESSION: Persistent 3.7 x 2.8 cm hypermetabolic mass left lower lobe, lateral lung base TECHNICAL DOCUMENTATION: JOB ID: [id number] [employer]- All Rights Reserved Reading location - IP/workstation name: [email or web address]
== END ==
LOC: RAD 14:53
PROVIDERS: ATTEND Internal Medicine
DX: C32.0 Malignant neoplasm of glottis (principal)
CPT/HCPCS: 78815; A9552

== ENCOUNTER → 2018-06-04 | Outpatient (CLI) | payer MEDICARE, BC ==
--- NOTE | 2018-06-04 15:07 | RADIOLOGY REPORT (SQ) ---
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 TECHNIQUE: CT scan performed of the chest without intravenous contrast. Images reviewed with lung, soft tissue and bone windows. Reconstructed coronal and sagittal MPR images reviewed. All images st ored on PACS. All CT scanners at this facility use dose modulation, iterative reconstruction, and/or weight based d osing when appropriate to reduce radiation dose to as low as reasonably achievable (ALARA). [facility]: Dose Right [facility]: CareDose [facility]: Dose Right [facility]: Teradose 4D [facility]: Pollen - [employer] RADIATION DOSE: CT Rad equipment meets quality standard of care and radiation dose reduction techniq ues were employed. CTDIvol: 6.7 mGy. DLP: 280 mGy-cm. mGy. LIMITATIONS: No technical limitations. FINDINGS: LUNGS AND PLEURA: Chronic scarring. Calcified nodule in the right lung base unchanged. T he spiculated mass in the left lower lobe has decreased in size. Current measurements are 1.7 x 2 cm with prior measurements of 2.8 x 3.7 cm. No new nodules or masses. No pleural effusions or pleural calcifications. HILAR AND MEDIASTINAL STRUCTURES: No identified masses or abnormal nodes. No obvious aneurysm. HEART AND VASCULAR STRUCTURES: No aneurysm. No pericardial effusion. UPPER ABDOMEN: No significant findings. Limited exam. THYROID AND OTHER SOFT TISSUES: No masses. No adenopathy. BONES: No significant finding. HARDWARE: Tracheostomy tube, vascular port, gastrostomy tube. OTHER: No other significant findings. IMPRESSION: STABLE CHRONIC CHANGES. THE SPICULATED MASS IN THE LEFT LUNG BASE HAS DECREASED IN SIZE SINCE THE RECENT PET-CT. NO NEW PULMONARY NODULES OR MASSES. TECHNICAL DOCUMENTATION: JOB ID: [id number] Quality ID # [id number]: Final reports with documentation of one or more dose reduction techniques (e.g., Au tomated exposure control, adjustment of the mA and/or kV according to patient size, use of iterative reconstruction technique) 2010 [employer]- All Rights Reserved Reading location - IP/workstation name: [email or web address]
== END ==
LOC: RAD 09:04
PROVIDERS: ATTEND Physician Assistant Medical
DX: C32.0 Malignant neoplasm of glottis (principal)
CPT/HCPCS: 71250

== ENCOUNTER → 2018-08-14 | Outpatient (CLI) | payer MEDICARE, BC ==
--- NOTE | 2018-08-15 08:35 | RADIOLOGY REPORT (SQ) ---
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 RADIONUCLIDE AND DOSE: 10 mCi mCi F18 FDG The route of agent administration: Intravenous FASTING BLOOD SUGAR: 79 mg/dl CONTRAST TYPE AND DOSE: No CT contrast given. TECHNIQUE: Blood glucose level was verified. Above dose of FDG was injected intravenously. 2-D seg mented attenuation correction images were obtained from the base of the skull to the midthighs. Nonc ontrast CT images were obtained for attenuation correction and fusion with emission images. CT image s were performed without oral or intravenous contrast and are not sensitive for parenchymal lesions. A series of overlapping emission PET images were obtained. Images reviewed and manipulated at [facility] work station by the radiologist. Images stored on PACS. LIMITATIONS: None. FINDINGS: HEAD AND NECK: No areas of abnormal metabolic activity in the soft tissues of the head and neck. There is focal activity associated with the tracheostomy tube with no mass and this is likely related to localized inflammation/scarring. CHEST: No areas of abnormal metabolic activity in the chest. There are radiotherapy markers in the l eft lower lobe. Previously seen spiculated mass is no longer present. There is scarring in the medi al left lung base. No abnormal metabolic activity. Calcified nodule in the right lung base. ABDOMEN AND PELVIS: A gastrostomy tube is present. There is prominent activity within the stomach. No focal mass evident. No other areas of abnormal metabolic activity in the abdomen or pelvis. Expe cted physiologic activity is present in the genitourinary system and bowel. PROXIMAL LOWER EXTREMITIES: No areas of abnormal metabolic activity in the soft tissues of the lower extremities. BONES: No abnormal metabolic activity in the visualized skeleton. ADDITIONAL CT FINDINGS: Tracheostomy tube. Degenerative changes in the spine. No additional signifi cant findings on the noncontrast CT images. OTHER: No other significant findings. Background blood pool activity mean SUV 1.54. Background live r activity mean SUV 1.75. IMPRESSION: 1. OVERALL FAVORABLE RESPONSE TO TREATMENT. THE SPICULATED MASS IN THE LEFT LUNG BASE HAS RESOLVED O N CT IMAGING AND THERE IS NO ABNORMAL ACTIVITY IN THE LEFT LOWER LOBE. 2. ACTIVITY RELATED TO THE TRACHEOSTOMY TUBE WITH NO FOCAL MASS. THIS IS LIKELY DUE TO LOCALIZED INF LAMMATION/SCARRING. 3. THERE IS PROMINENT ACTIVITY WITHIN THE STOMACH. NO FOCAL LESION IDENTIFIED. THIS IS LIKELY DUE T O PHYSIOLOGIC EXCRETION AND POSSIBLY GASTRITIS OR OTHER INFLAMMATORY PROCESS. 4. NO OTHER AREAS OF ABNORMAL ACTIVITY. NO OTHER SIGNIFICANT FINDINGS. TECHNICAL DOCUMENTATION: JOB ID: [id number] [employer]- All Rights Reserved Reading location - IP/workstation name: [email or web address]
== END ==
LOC: RAD 15:45
PROVIDERS: ATTEND Internal Medicine
DX: C32.0 Malignant neoplasm of glottis (principal); Z93.0 Tracheostomy status
CPT/HCPCS: 78815; A9552

== ENCOUNTER 2018-08-15 12:52 | Outpatient (CLI) | payer MEDICARE, BC ==
[~2018-08-15 12:52] MED LIST changes: -DEXTROSE 5%-LACTATED RINGERS 1,000 ML IV PRN; +NORMAL SALINE 250 ML IV PRN; +PEMBROLIZUMAB 200 MG in NORMAL SALINE 100 ML IV PRN
[2018-08-15 13:29] VITALS: BP 97/50
== END 2018-08-15 14:19 | disposition home or self-care (01) ==
LOC: II 12:52 → 5TH 12:56 → II 14:19
PROVIDERS: ATTEND Internal Medicine
PROC: 3E0430M Introduction of Antineoplastic, Monoclonal Antibody, into Central Vein, Percutaneous Approach (ICD-10-PCS; principal; 2018-08-15)
DX: Z51.11 Encounter for antineoplastic chemotherapy (principal); C32.0 Malignant neoplasm of glottis
CPT/HCPCS: 96413; J9271

== ENCOUNTER 2018-09-01 18:17 | Emergency (ER) | payer BC, MEDICARE ==
--- NOTE | 2018-09-01 20:31 | ER Document Report ---
ED General - General Chief Complaint: Obstructed G-Tube Stated Complaint: PEG TUBE COMPLICATIONS Time Seen by Provider: 09/01/18 19:32 Primary Care Provider: TASHA BAILEY MD [Primary Care Provider] - Follow up as needed Notes: Patient is a 72-year-old male with a past medical history of throat cancer, PEG tube dependent presents with obstruction of his PEG tube. Home health nurse arrived, apparently placed a medication of the PEG tube that subsequently clogged off. Family is unable to relieve the clock or flush the tube. Came to the emergency department due to this concern. PEG tube was just changed ye sterday. Site was unchanged only known tubing. Patient denies any other acute complaints or concerns. TRAVEL OUTSIDE OF THE [place] IN LAST 30 DAYS: No - Related Data Allergies/Adverse Reactions: No Known Allergies Allergy (Verified 09/21/17 15:41) Past Medical History - General Information source: Patient, Relative - Social History Smoking Status: Former Smoker Chew tobacco use (# tins/day): No Frequency of alcohol use: None Drug Abuse: None Lives with: Spouse/Significant other Family History: Reviewed & Not Pertinent Patient has suicidal ideation: No Patient has homicidal ideation: No - Past Medical History Cardiac Medical History: Denies: Hx Coronary Artery Disease, Hx Heart Attack, Hx Hypertension Pulmonary Medical History: Denies: Hx Asthma, Hx Bronchitis, Hx COPD, Hx Pneumonia Neurological Medical History: Denies: Hx Cerebrovascular Accident, Hx Seizures Renal/ Medical History: Denies: Hx Peritoneal Dialysis GI Medical History: Denies: Hx Hepatitis, Hx Hiatal Hernia, Hx Ulcer Musculoskeletal Medical History: Denies Hx Arthritis Psychiatric Medical History: Reports: Hx Depression Infectious Medical History: Denies: Hx Hepatitis Past Surgical History: Reports: Hx Abdominal Surgery - g-tube placement, Other - Abdominal surgery. Denies: Hx Open Heart Surgery, Hx Pacemaker - Immunizations Hx Diphtheria, Pertussis, Tetanus Vaccination: Yes Hx Pneumococcal Vaccination: 04/30/17 Review of Systems - Review of Systems Notes: Constitutional: Negative for fever. HENT: Negative for sore throat. Eyes: Negative for visual changes. Cardiovascular: Negative for chest pain. Respiratory: Negative for shortness of breath. Gastrointestinal: Negative for abdominal pain, vomiting or diarrhea. Genitourinary: Negative for dysuria. Musculoskeletal: Negative for back pain. Skin: Negative for rash. Neurological: Negative for headaches, weakness or numbness. 10 point ROS negative except as marked above and in HPI. Physical Exam - Vital signs Vitals: Resp BP Pulse Ox 20 163/95 H 100 09/01/18 19:01 09/01/18 19:01 09/01/18 19:01 Interpretation: Hypertensive Notes: PHYSICAL EXAMINATION: GENERAL: Appears chronically ill but in no acute distress HEAD: Atraumatic, normocephalic. EYES: Pupils equal round and reactive to light, extraocular movements intact, sclera anicteric, conjunctiva are normal. ENT: nares patent, oropharynx clear without exudates. Moist mucous membranes. NECK: Normal range of motion, supple without lymphadenopathy LUNGS: Breath sounds clear to auscultation bilaterally and equal. No wheezes rales or rhonchi. HEART: Regular rate and rhythm without murmurs ABDOMEN: Soft, PEG tube in place, no spreading erythema or drainage nontender, normoactive bowel sounds. No guarding, no rebound. No masses appreciated. EXTREMITIES: Normal range of motion, no pitting or edema. No cyanosis. NEUROLOGICAL: No focal neurological deficits. Moves all extremities spontaneously and on command. PSYCH: Normal mood, normal affect. SKIN: Warm, Dry, normal turgor, no rashes or lesions noted. Course - Re-evaluation Re-evalutation: 09/01/18 20:32 Patient presents with concerns that his PEG tube was not flushing. This was able to be irrigated without difficulty here in the emergency department and then began flushing without any difficulty with return of gastric contents. Patient and had no additional concerns. At this time will discharge with return precautions and follow-up recommendations. Verbal discharge instructions given a the bedside and opportunity for questions given. Medication warnings reviewed. Patient is in agreement with this plan and has verbalized understanding of return precautions and the need for primary care follow-up in the next 24-72 hours. - Vital Signs Vital signs: Temp Pulse Resp BP Pulse Ox 18 155/85 H 100 09/01/18 19:02 09/01/18 19:02 09/01/18 19:02 Discharge - Discharge Clinical Impression: PEG tube malfunction Condition: Good Disposition: HOME, SELF-CARE Additional Instructions: Return for any additional concerns you may have including your PEG tube malfunctioning, leaking or any additional concerns. Referrals: TASHA BAILEY MD [Primary Care Provider] - Follow up as needed
[2018-09-01 20:47] VITALS: BP 155/85
== END 2018-09-01 20:48 | disposition home or self-care (01) ==
LOC: ER 18:17
DX: K94.23 Gastrostomy malfunction (principal); Y83.3 Surgical operation with formation of external stoma as the cause of abnormal reaction of the patient, or of later complication, without mention of misadventure at the time of the procedure; Y73.8 Miscellaneous gastroenterology and urology devices associated with adverse incidents, not elsewhere classified; Z85.819 Personal history of malignant neoplasm of unspecified site of lip, oral cavity, and pharynx; Z87.891 Personal history of nicotine dependence
CPT/HCPCS: 99282

== ENCOUNTER → 2018-11-20 | Outpatient (CLI) | payer MEDICARE, BC ==
--- NOTE | 2018-11-21 08:38 | RADIOLOGY REPORT (SQ) ---
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 TECHNIQUE: Blood glucose level was verified. Above dose of FDG was injected intravenously. 2-D seg mented attenuation correction images were obtained from the base of the skull to the midthighs. Nonc ontrast CT images were obtained for attenuation correction and fusion with emission images. CT image s were performed without oral or intravenous contrast and are not sensitive for parenchymal lesions. A series of overlapping emission PET images were obtained. Images reviewed and manipulated at [facility] by the radiologist. Images stored on PACS. LIMITATIONS: None. FINDINGS: HEAD AND NECK: There is increased uptake in the left the masseter muscle without a discret e mass within the muscle by CT. This is of uncertain clinical significance, left picture engraver muscle e xhibits SUV of 5.3. CHEST: Radiotherapy treatment markers are present over the left lower lobe. No persistent left lower lobe lung mass. No hypermetabolic lesions over the chest ABDOMEN AND PELVIS: No areas of abnormal metabolic activity in the abdomen or pelvis. Expected physi ologic activity is present in the genitourinary system and bowel. PROXIMAL LOWER EXTREMITIES: No areas of abnormal metabolic activity in the soft tissues of the lower extremities. BONES: No abnormal metabolic activity in the visualized skeleton. ADDITIONAL CT FINDINGS: Heavily calcified carotid bifurcations, coronary arteries, abdominal aorta ca lcifications. Fatty umbilical hernia. Tracheostomy in good positioning. Left permanent [place] e tip superior vena cava. Gastrostomy tube tip in the stomach. OTHER: Liver background activity 2.0 SUV. Blood pool background activity 1.7 SUV. IMPRESSION: No hypermetabolic lesions over the neck soft tissues. No hypermetabolic lung lesions. Incidental finding of increased left mass upper muscle uptake of uncertain clinical significance. No left masseter muscle soft tissue mass on these non contrasted images. TECHNICAL DOCUMENTATION: JOB ID: [id number] [employer]- All Rights Reserved Reading location - IP/workstation name: [email or web address]
== END ==
LOC: RAD 16:03
PROVIDERS: ATTEND Internal Medicine
DX: C32.0 Malignant neoplasm of glottis (principal)
CPT/HCPCS: 78815; A9552

== ENCOUNTER → 2018-12-16 | Outpatient (CLI) | payer MEDICARE, BC ==
--- NOTE | 2018-12-16 15:15 | RADIOLOGY REPORT (SQ) ---
EXAM DESCRIPTION: CHEST 2 VIEWS COMPLETED DATE/TIME: 12/16/2018 3:01 pm REASON FOR STUDY: PNEUMONIA/ PULM CONGESTION COMPARISON: 02/26/2014. EXAM PARAMETERS: NUMBER OF VIEWS: two views TECHNIQUE: Digital Frontal and Lateral radiographic views of the chest acquired. RADIATION DOSE: NA LIMITATIONS: none FINDINGS: LUNGS AND PLEURA: No opacities, masses or pneumothorax. No pleural effusion. MEDIASTINUM AND HILAR STRUCTURES: No masses or contour abnormalities. HEART AND VASCULAR STRUCTURES: Heart normal size. No evidence for failure. BONES: No acute findings. HARDWARE: Tracheostomy tube, vascular port, and metallic markers. Gastrostomy tube. OTHER: No other significant finding. IMPRESSION: NO ACUTE RADIOGRAPHIC FINDING IN THE CHEST. TECHNICAL DOCUMENTATION: JOB ID: [id number] [employer]- All Rights Reserved Reading location - IP/workstation name: [email or web address]
== END ==
LOC: RAD 14:38
PROVIDERS: ATTEND Otolaryngology
DX: R09.89 Other specified symptoms and signs involving the circulatory and respiratory systems (principal); Z93.0 Tracheostomy status; Z93.1 Gastrostomy status
CPT/HCPCS: 71046

== ENCOUNTER 2019-02-01 16:20 | Inpatient (IN) | payer MEDICARE, BC ==
--- NOTE | 2019-02-01 17:18 | ER Document Report ---
ED Medical Screen (RME) - General Chief Complaint: Abdominal Pain Stated Complaint: ABDOMINAL PAIN Time Seen by Provider: 02/01/19 16:56 Primary Care Provider: TASHA BAILEY MD [Primary Care Provider] - Follow up as needed Mode of Arrival: Ambulatory Information source: Patient Notes: Patient is a 73-year-old male presented to the emergency department with abdom inal bloating and lower extremity edema. Patient is currently undergoing treatment for stage IV head and neck cancer according to the PA who called and gave report prior to sending the patient. Patient reports abdominal bloating has been going on for several days, states it is getting worse. Denies ever having anything like this in the past. Patient also had labs drawn today at the oncology office and there were several abnormalities on the chemistry. Exam: Abdomen firm, distended, tender to palpation. Hernia noted to left lower quadrant, G-tube also noted to left lower/mid quadrant. I have greeted and performed a rapid initial assessment of this patient. A comprehensive ED assessment and evaluation of the patient, analysis of test results and completion of the medical decision making process will be conducted by additional ED providers. I have specifically instructed the patient or family members with the patient to immediately return to any nursing staff should anything change in the patient's condition or with their chief complaint. This medical record was dictated with voice recognizing software. There may be grammatical, syntax errors that are unintended. TRAVEL OUTSIDE OF THE [place] IN LAST 30 DAYS: No - Related Data Allergies/Adverse Reactions: No Known Allergies Allergy (Verified 02/01/19 16:35) Past Medical History - Social History Chew tobacco use (# tins/day): No Frequency of alcohol use: None Drug Abuse: None - Past Medical History Cardiac Medical History: Denies: Hx Coronary Artery Disease, Hx Heart Attack, Hx Hypertension Pulmonary Medical History: Denies: Hx Asthma, Hx Bronchitis, Hx COPD, Hx Pneumonia Neurological Medical History: Denies: Hx Cerebrovascular Accident, Hx Seizures Renal/ Medical History: Denies: Hx Peritoneal Dialysis GI Medical History: Denies: Hx Hepatitis, Hx Hiatal Hernia, Hx Ulcer Musculoskeltal Medical History: Denies Hx Arthritis Psychiatric Medical History: Reports: Hx Depression Infectious Medical History: Denies: Hx Hepatitis Past Surgical History: Reports: Hx Abdominal Surgery - g-tube placement, Other - Abdominal surgery. Denies: Hx Open Heart Surgery, Hx Pacemaker - Immunizations Hx Diphtheria, Pertussis, Tetanus Vaccination: Yes History of Influenza Vaccine for 04/2017 - 09/2017 Season: No Physical Exam - Vital signs Vitals: Temp Pulse Resp BP Pulse Ox 97.3 F 94 16 115/90 H 95 02/01/19 16:38 02/01/19 16:38 02/01/19 16:38 02/01/19 16:38 02/01/19 16:38 Course - Vital Signs Vital signs: Temp Pulse Resp BP Pulse Ox 97.3 F 94 16 115/90 H 95 02/01/19 16:38 02/01/19 16:38 02/01/19 16:38 02/01/19 16:38 02/01/19 16:38 Doctor's Discharge - Discharge Referrals: TASHA BAILEY MD [Primary Care Provider] - Follow up as needed
[2019-02-01 18:21] LABS: ABSOLUTE BASOPHILS # (AUTO) 0.1 10^3/uL (0.0-0.2); ABSOLUTE LYMPHOCYTES (AUTO) 1.8 10^3/uL (0.5-4.7); ABSOLUTE MONOCYTES (AUTO) 1.4 10^3/uL (0.1-1.4); ABSOLUTE NEUT (AUTO) 11.7 10^3/uL (1.7-8.2); BASOPHILS % (AUTO) 0.6 % (0-2); EOSINOPHILS % (AUTO) 0.3 % (0-6); HEMATOCRIT 40.4 % (37.9-51.0); HEMOGLOBIN 13.8 g/dL (13.5-17.0); MEAN CORPUSCULAR HEMOGLOBIN 32.2 pg (27.0-33.4); MEAN CORPUSCULAR HGB CONC 34.2 g/dL (32.0-36.0); MEAN CORPUSCULAR VOLUME 94 fl (80-97); MONOCYTES % (AUTO) 9.3 % (3-13); PLATELET COUNT 365 10^3/uL (150-450); RED BLOOD COUNT 4.29 10^6/uL (4.35-5.55); RED CELL DISTRIBUTION WIDTH 12.9 % (11.5-14.0); SEGMENTED NEUTROPHILS % (AUTO) 77.8 % (42-78); TOTAL CELLS COUNTED % (AUTO) 100 %
--- NOTE | 2019-02-01 18:39 | ER Document Report ---
ED GI/ - General Chief Complaint: Abdominal Pain Stated Complaint: ABDOMINAL PAIN Time Seen by Provider: 02/01/19 16:56 Mode of Arrival: Ambulatory Information source: Patient TRAVEL OUTSIDE OF THE [place] IN LAST 30 DAYS: No - HPI Patient complains to provider of: Abdominal pain Onset: Other - 2 weeks Quality of pain: Achy, Dull Severity at maximum: Moderate Severity in ED: Mild Pain Level: 1 Associated symptoms: Loss of appetite Exacerbated by: Denies Relieved by: Denies Similar symptoms previously: No - Related Data Allergies/Adverse Reactions: No Known Allergies Allergy (Verified 02/01/19 16:35) Past Medical History - General Information source: Patient - Social History Smoking Status: Unknown if Ever Smoked Chew tobacco use (# tins/day): No Frequency of alcohol use: None Drug Abuse: None Family History: Reviewed & Not Pertinent Patient has suicidal ideation: No Patient has homicidal ideation: No - Past Medical History Cardiac Medical History: Denies: Hx Coronary Artery Disease, Hx Heart Attack, Hx Hypertension Pulmonary Medical History: Denies: Hx Asthma, Hx Bronchitis, Hx COPD, Hx Pneumonia Neurological Medical History: Denies: Hx Cerebrovascular Accident, Hx Seizures Renal/ Medical History: Denies: Hx Peritoneal Dialysis GI Medical History: Denies: Hx Hepatitis, Hx Hiatal Hernia, Hx Ulcer Musculoskeletal Medical History: Denies Hx Arthritis Psychiatric Medical History: Reports: Hx Depression Infectious Medical History: Denies: Hx Hepatitis Past Surgical History: Reports: Hx Abdominal Surgery - g-tube placement, Other - Abdominal surgery. Denies: Hx Open Heart Surgery, Hx Pacemaker - Immunizations Hx Diphtheria, Pertussis, Tetanus Vaccination: Yes Hx Pneumococcal Vaccination: 04/30/17 Review of Systems - Review of Systems Constitutional: No symptoms reported EENT: No symptoms reported Cardiovascular: No symptoms reported Respiratory: No symptoms reported Gastrointestinal: Abdomen distended, Abdominal pain Genitourinary: No symptoms reported Male Genitourinary: No symptoms reported Musculoskeletal: No symptoms reported Skin: No symptoms reported Hematologic/Lymphatic: No symptoms reported Neurological/Psychological: No symptoms reported -: Yes All other systems reviewed and negative Physical Exam - Vital signs Vitals: Temp Pulse Resp BP Pulse Ox 97.3 F 94 16 115/90 H 95 02/01/19 16:38 02/01/19 16:38 02/01/19 16:38 02/01/19 16:38 02/01/19 16:38 Interpretation: Normal - General General appearance: Appears well, Alert - HEENT Head: Normocephalic, Atraumatic Eyes: Normal Pupils: PERRL - Respiratory Respiratory status: No respiratory distress Chest status: Nontender Breath sounds: Normal Chest palpation: Normal - Cardiovascular Rhythm: Regular Heart sounds: Normal auscultation Murmur: No - Abdominal Inspection: Normal Distension: Distended Bowel sounds: Normal Tenderness: Tender Organomegaly: No organomegaly - Back Back: Normal, Nontender - Extremities General upper extremity: Normal inspection, Nontender, Normal color, Normal ROM, Normal temperature General lower extremity: Normal inspection, Nontender, Normal color, Normal ROM, Normal temperature, Normal weight bearing. No: Lamar's sign - Neurological Neuro grossly intact: Yes Cognition: Normal Orientation: AAOx4 [place] Coma Scale Eye Opening: Spontaneous Patt Coma Scale Verbal: Oriented [place] Coma Scale Motor: Obeys Commands [place] Coma Scale Total: 15 Speech: Normal Motor strength normal: LUE, RUE, LLE, RLE Sensory: Normal - Psychological Associated symptoms: Normal affect, Normal mood - Skin Skin Temperature: Warm Skin Moisture: Dry Skin Color: Normal Course - Vital Signs Vital signs: Temp Pulse Resp BP Pulse Ox 98.1 F 96 16 109/66 94 02/02/19 03:37 02/02/19 03:37 02/02/19 03:37 02/02/19 03:37 02/02/19 03:37 - Laboratory Result Diagrams: 02/01/19 18:06 02/01/19 18:06 Laboratory results interpreted by me: 02/01/19 02/01/19 02/01/19 18:06 18:06 18:06 WBC 15.0 H RBC 4.29 L Lymphocytes % 12.0 L Absolute Neutrophils 11.7 H Sodium 121.9 L Potassium 3.2 L Chloride 76 L Carbon Dioxide 36 H BUN 32 H Calcium 8.2 L Magnesium 2.8 H AST 61 H Alkaline Phosphatase 284 H Total Protein 5.8 L Albumin 2.9 L Lipase 478.9 H - Diagnostic Test Radiology reviewed: Reports reviewed - Transfer of Care Notes: 02/02/19 04:43 Patient will be admitted to the hospital by the hospitalist Dr. Chandra Sauer for further evaluation and management. Discharge - Discharge Clinical Impression: Hypokalemia, Acute hyponatremia, Dehydration, Abdominal distention, Anasarca, Electrolyte imbalance Abdominal pain Qualifiers: Abdominal location: generalized Qualified Code(s): R10.84 - Generalized abdominal pain Ascites Qualifiers: Ascites type: other type Qualified Code(s): R18.8 - Other ascites Condition: Stable Disposition: ADMITTED INPATIENT Admitting Provider: Camacho (Hospitalist) Unit Admitted: [facility]
[2019-02-01 18:50] LABS: ALANINE AMINOTRANSFERASE 39 U/L (21-72); ALBUMIN 2.9 g/dL (3.5-5.0); ALKALINE PHOSPHATASE 284 U/L (38-126); ANION GAP 10 (5-19); ASPARTATE AMINO TRANSFERASE 61 U/L (17-59); BILIRUBIN,DIRECT 0.3 mg/dL (0.0-0.4); BILIRUBIN,TOTAL 0.5 mg/dL (0.2-1.3); BLOOD UREA NITROGEN 32 mg/dL (7-20); CALCIUM 8.2 mg/dL (8.4-10.2); CARBON DIOXIDE 36 mmol/L (22-30); CHLORIDE 76 mmol/L (98-107); GLUCOSE 90 mg/dL (75-110); LIPASE 478.9 U/L (23-300); POTASSIUM 3.2 mmol/L (3.6-5.0); SODIUM 121.9 mmol/L (137-145); TOTAL PROTEIN 5.8 g/dL (6.3-8.2)
[2019-02-01] MEDS ORDERED: NORMAL SALINE 1000 ML 1,000 ML IV ONE ×2 (19:47→19:48)
[2019-02-01] MEDS ORDERED: POTASSI CL 20 MEQ/50 ML RIDER 20 MEQ/50 ML RTUPB IV ONE (19:47)
[2019-02-01] MEDS ORDERED: POTASSIUM CHLORIDE 10 MEQ CAPSULE.ER PO ONE (20:12)
--- NOTE | 2019-02-01 20:30 | RADIOLOGY REPORT (SQ) ---
EXAM DESCRIPTION: CT ABDOMEN PELVIS WITH IV CONTRAST COMPLETED DATE/TME: 02/01/2019 17:15 CLINICAL HISTORY: 73 years, Male, abdominal distention COMPARISON: Prior PET/CT from 11/20/2018 TECHNIQUE: Contrast enhanced CT of the abdomen/pelvis was performed. Coronal and sagittal reformations were created. Images stored on PACS. All CT scanners at this facility use dose modulation, iterative reconstruction, and/or weight based dosing when appropriate to reduce radiation dose to as low as reasonably achievable (ALARA). [facility]: Dose Right [facility]: CareDose [facility]: Dose Right [facility]: Teradose 4D [facility]: [email or web address] LIMITATIONS: None. FINDINGS: Limited evaluation of the lower chest reveals tiny bilateral pleural effusions with associated bibasilar atelectasis. The liver is diffusely nodular in contour. No focal liver lesions are appreciated. However, the liver enhancement pattern appears somewhat heterogenous. The spleen, pancreas, and both adrenal glands appear normal. A few simple cysts are noted about both kidneys. Both kidneys otherwise enhance symmetrically. No hydronephrosis or hydroureter. The urinary bladder is well distended and shows no suspicious finding. The small and large bowel appear normal in caliber without areas of focal wall thickening. No evidence of bowel obstruction. The appendix is normal. A percutaneous gastrostomy tube is in position with the balloon properly located within the gastric lumen. Calcifications are evident about the abdominal aorta and proximal iliac vessels. No suspicious lymphadenopathy is appreciated. There is diffuse anasarca. A large amount of diffuse intra-abdominal ascites is noted. There is also a small fat-containing ventral hernia to the left of midline. Bone windows show no destructive osseous lesions. IMPRESSION: Interval development of liver nodularity which appears somewhat heterogenous in attenuation along with large volume ascites and small bilateral pleural effusions. Acute hepatitis should be considered. Simple bilateral renal cysts. Diffuse anasarca. TECHNICAL DOCUMENTATION: Quality ID # 436: Final reports with documentation of one or more dose reduction techniques (e.g., Automated exposure control, adjustment of the mA and/or kV according to patient size, use of iterative reconstruction technique) copyright 2010 [employer]- All Rights Reserved
[2019-02-01] MEDS ORDERED: MAG HYDROX/AL HYDROX/SIMETH SUSP 30 ML UDCUP PO PRN (20:48)
[2019-02-01] MEDS ORDERED: IPRATROPIUM/ALBUTEROL 0.5-2.5 MG/3 ML AMPUL NEB PRN (20:48)
[2019-02-01] MEDS ORDERED: FUROSEMIDE INJ/PF 40 MG/4 ML SDV IV ONE (21:00)
[2019-02-01 21:15] LABS: INTERNATIONAL RATION (INR) 0.98
[2019-02-01 21:25] LABS: PHOSPHORUS 3.8 mg/dL (2.5-4.5)
[2019-02-01] MEDS ORDERED: CEFOTAXIME SODIUM 1 GM in DEXTROSE 5%-WATER 50 ML IV SCH (22:00)
[2019-02-01] MEDS: DOCUSATE SODIUM 100 MG CAPSULE PO SCH (22:18)
[2019-02-01] MEDS: CEFOXITIN 1 GM/D5W RTU 1 GM/50 ML RTUPB IV SCH (22:28)
[2019-02-01] MEDS: HEPARIN SOD (PORCINE) 5,000 UNIT/ML 1 ML SYRINGE SUBCUT SCH (22:34)
[2019-02-01 22:46] LABS: APPEARANCE,URINE CLEAR; BILIRUBIN,URINE NEGATIVE (NEGATIVE); COLOR,URINE YELLOW; GLUCOSE, URINE NEGATIVE (NEGATIVE); KETONES,URINE NEGATIVE (NEGATIVE)
[2019-02-01 22:47] LABS: NITRITE,URINE NEGATIVE (NEGATIVE); PROTEIN,URINE NEGATIVE (NEGATIVE)
[2019-02-01 22:48] LABS: LEUKOCYTE ESTERASE,URINE NEGATIVE (NEGATIVE)
[2019-02-01] MEDS: POTASSI CL 20 MEQ/50 ML RIDER 20 MEQ/50 ML RTUPB IV SCH (23:48)
[2019-02-02] MEDS: POTASSI CL 20 MEQ/50 ML RIDER 20 MEQ/50 ML RTUPB IV SCH (01:40)
[2019-02-02 04:42] LABS: ABSOLUTE MONOCYTES (AUTO) 1.1 10^3/uL (0.1-1.4); ABSOLUTE NEUT (AUTO) 9.7 10^3/uL (1.7-8.2); BASOPHILS % (AUTO) 0.2 % (0-2); EOSINOPHILS % (AUTO) 0.2 % (0-6); HEMATOCRIT 34.1 % (37.9-51.0); HEMOGLOBIN 11.8 g/dL (13.5-17.0); LYMPHOCYTES % (AUTO) 8.7 % (13-45); MEAN CORPUSCULAR HEMOGLOBIN 32.5 pg (27.0-33.4); MEAN CORPUSCULAR HGB CONC 34.7 g/dL (32.0-36.0); MEAN CORPUSCULAR VOLUME 94 fl (80-97); MONOCYTES % (AUTO) 9.3 % (3-13); PLATELET COUNT 309 10^3/uL (150-450); RED BLOOD COUNT 3.64 10^6/uL (4.35-5.55); SEGMENTED NEUTROPHILS % (AUTO) 81.6 % (42-78); TOTAL CELLS COUNTED % (AUTO) 100 %; WHITE BLOOD COUNT 11.8 10^3/uL (4.0-10.5)
[2019-02-02 04:54] LABS: ALANINE AMINOTRANSFERASE 37 U/L (21-72); ALBUMIN 2.3 g/dL (3.5-5.0); ALKALINE PHOSPHATASE 222 U/L (38-126); ANION GAP 8 (5-19); ASPARTATE AMINO TRANSFERASE 44 U/L (17-59); BILIRUBIN,DIRECT 0.3 mg/dL (0.0-0.4); BILIRUBIN,TOTAL 0.4 mg/dL (0.2-1.3); BLOOD UREA NITROGEN 26 mg/dL (7-20); CALCIUM 7.6 mg/dL (8.4-10.2); CARBON DIOXIDE 33 mmol/L (22-30); CHLORIDE 84 mmol/L (98-107); POTASSIUM 3.1 mmol/L (3.6-5.0); SODIUM 125.2 mmol/L (137-145); TOTAL PROTEIN 4.7 g/dL (6.3-8.2)
[2019-02-02 04:56] LABS: GLUCOSE 69 mg/dL (75-110)
--- NOTE | 2019-02-02 06:57 | PDOC H&P ---
History of Present Illness Admission Date/PCP: 02/01/19 21:12 TASHA BAILEY MD Patient complains of: Abdominal distention History of Present Illness: OLIMPIA ST is a 73 year old male with a past medical history of laryngeal cancer in remission, status post tracheostomy and PEG tube placement. He presents with 1 week of increasing abdominal distention and pain subjective fever nausea without vomiting. In the emergency room is found to have leukocytosis, hyponatremia, hypokalemia and hypoglycemia. He started on IV fluids and referred to the hospitalist for admission. He denies abrupt onset of shortness of breath, cough, previous episode he complains of poor appetite, lower extremity edema in conjunction with the above history. He denies recent change in medication regiment Past Medical History Cardiac Medical History: Denies: Coronary Artery Disease, Myocardial Infarction, Hypertension Pulmonary Medical History: Denies: Asthma, Bronchitis, Chronic Obstructive Pulmonary Disease (COPD), Pneumonia Neurological Medical History: Denies: Seizures GI Medical History: Denies: Hepatitis, Hiatal Hernia Musculoskeltal Medical History: Denies: Arthritis Psychiatric Medical History: Reports: Depression Hematology: Denies: Anemia, Sickle Cell Disease Past Surgical History Past Surgical History: Reports: Other - Abdominal surgery Denies: Pacemaker Social History Information Source: Patient Smoking Status: Unknown if Ever Smoked Frequency of Alcohol Use: Occasional Hx Recreational Drug Use: No Drugs: None Hx Prescription Drug Abuse: Yes - Advance Directive Resuscitation Status: Full Code Family History Family History: Hypertension Parental Family History Reviewed: Yes Children Family History Reviewed: Yes Sibling(s) Family History Reviewed.: Yes Medication/Allergy Allergies/Adverse Reactions: No Known Allergies Allergy (Verified 02/01/19 16:35) Review of Systems Constitutional: PRESENT: as per HPI, anorexia, chills, fatigue, fever(s), weight gain. ABSENT: headache(s), weight loss Eyes: ABSENT: visual disturbances Ears: ABSENT: hearing changes Cardiovascular: ABSENT: chest pain, dyspnea on exertion, edema, orthropnea, palpitations Respiratory: ABSENT: cough, hemoptysis Gastrointestinal: ABSENT: abdominal pain, constipation, diarrhea, hematemesis, hematochezia, nausea, vomiting Genitourinary: ABSENT: dysuria, hematuria Musculoskeletal: ABSENT: joint swelling Integumentary: ABSENT: rash, wounds Neurological: ABSENT: abnormal gait, abnormal speech, confusion, dizziness, focal weakness, syncope Psychiatric: ABSENT: anxiety, depression, homidical ideation, suicidal ideation Endocrine: ABSENT: cold intolerance, heat intolerance, polydipsia, polyuria Hematologic/Lymphatic: ABSENT: easy bleeding, easy bruising Physical Exam Vital Signs: Temp Pulse Resp BP Pulse Ox 98.1 F 96 16 109/66 94 02/02/19 03:37 02/02/19 03:37 02/02/19 03:37 02/02/19 03:37 02/02/19 03:37 Intake & Output 01/31/19 02/01/19 02/02/19 11:59 11:59 11:59 Intake Total 97 Output Total 1200 Balance -1103 Weight 92.2 kg General appearance: PRESENT: cooperative, mild distress, well-developed, well- nourished Head exam: PRESENT: atraumatic, normocephalic Eye exam: PRESENT: conjunctiva pink, EOMI, PERRLA. ABSENT: scleral icterus Ear exam: PRESENT: normal external ear exam Mouth exam: PRESENT: moist, tongue midline Neck exam: ABSENT: carotid bruit, JVD, lymphadenopathy, thyromegaly Respiratory exam: PRESENT: clear to auscultation alana. ABSENT: rales, rhonchi, wheezes Cardiovascular exam: PRESENT: RRR. ABSENT: diastolic murmur, rubs, systolic murmur Pulses: PRESENT: normal dorsalis pedis pul Vascular exam: PRESENT: normal capillary refill GI/Abdominal exam: PRESENT: normal bowel sounds, soft. ABSENT: distended, guarding, mass, organolmegaly, rebound, tenderness Rectal exam: PRESENT: deferred Extremities exam: PRESENT: full ROM, +2 edema. ABSENT: calf tenderness, clubbing, pedal edema Musculoskeletal exam: PRESENT: ambulatory, full ROM Neurological exam: PRESENT: alert, awake, oriented to person, oriented to place, oriented to time, oriented to situation, CN II-XII grossly intact. ABSENT: motor sensory deficit Psychiatric exam: PRESENT: appropriate affect, normal mood. ABSENT: homicidal ideation, suicidal ideation Skin exam: PRESENT: dry, intact, warm. ABSENT: cyanosis, rash Results Laboratory Results: 02/02/19 03:57 02/02/19 03:57 02/01/19 02/01/19 02/01/19 18:06 18:06 18:06 WBC 15.0 H RBC 4.29 L Hgb 13.8 Hct 40.4 MCV 94 MCH 32.2 MCHC 34.2 RDW 12.9 Plt Count 365 Seg Neutrophils % 77.8 Lymphocytes % 12.0 L Monocytes % 9.3 Eosinophils % 0.3 Basophils % 0.6 Absolute Neutrophils 11.7 H Absolute Lymphocytes 1.8 Absolute Monocytes 1.4 Absolute Eosinophils 0.0 Absolute Basophils 0.1 Sodium 121.9 L Potassium 3.2 L Chloride 76 L Carbon Dioxide 36 H Anion Gap 10 BUN 32 H Creatinine 0.86 Est GFR ( Amer) > 60 Est GFR (Non-Af Amer) > 60 Glucose 90 Calcium 8.2 L Phosphorus 3.8 Magnesium 2.8 H Total Bilirubin 0.5 AST 61 H ALT 39 Alkaline Phosphatase 284 H Total Protein 5.8 L Albumin 2.9 L Lipase 478.9 H Urine Color Urine Appearance Urine pH Ur Specific [place] Urine Protein Urine Glucose (UA) Urine Ketones Urine Blood Urine Nitrite Ur Leukocyte Esterase Urine RBC (Auto) 02/01/19 02/02/19 02/02/19 21:58 03:57 03:57 WBC 11.8 H RBC 3.64 L Hgb 11.8 L Hct 34.1 L MCV 94 MCH 32.5 MCHC 34.7 RDW 13.0 Plt Count 309 Seg Neutrophils % 81.6 H Lymphocytes % 8.7 L Monocytes % 9.3 Eosinophils % 0.2 Basophils % 0.2 Absolute Neutrophils 9.7 H Absolute Lymphocytes 1.0 Absolute Monocytes 1.1 Absolute Eosinophils 0.0 Absolute Basophils 0.0 Sodium 125.2 L Potassium 3.1 L Chloride 84 L Carbon Dioxide 33 H Anion Gap 8 BUN 26 H Creatinine 0.88 Est GFR ( Amer) > 60 Est GFR (Non-Af Amer) > 60 Glucose 69 L Calcium 7.6 L Phosphorus Magnesium Total Bilirubin 0.4 AST 44 ALT 37 Alkaline Phosphatase 222 H Total Protein 4.7 L Albumin 2.3 L Lipase Urine Color YELLOW Urine Appearance CLEAR Urine pH 7.0 Ur Specific [place] 1.020 Urine Protein NEGATIVE Urine Glucose (UA) NEGATIVE Urine Ketones NEGATIVE Urine Blood NEGATIVE Urine Nitrite NEGATIVE Ur Leukocyte Esterase NEGATIVE Urine RBC (Auto) 0 Impressions: Abdomen/Pelvis CT 02/01/19 17:15 IMPRESSION: Interval development of liver nodularity which appears somewhat heterogenous in attenuation along with large volume ascites and small bilateral pleural effusions. Acute hepatitis should be considered. Simple bilateral renal cysts. Diffuse anasarca. TECHNICAL DOCUMENTATION: Quality ID # 436: Final reports with documentation of one or more dose reduction techniques (e.g., Automated exposure control, adjustment of the mA and/or kV according to patient size, use of iterative reconstruction technique) copyright 2011 [employer]- All Rights Reserved Assessment and Plan - Diagnosis (1) Spontaneous bacterial peritonitis Is this a current diagnosis for this admission?: Yes Plan: Telemetry admission, consult radiology for paracentesis, empiric cefoxitin, follow-up blood culture and CBC (2) Abdominal distention Is this a current diagnosis for this admission?: Yes Plan: Secondary to ascites unclear cause follow-up paracentesis (3) Acute hyponatremia Is this a current diagnosis for this admission?: Yes Plan: Secondary to volume overload, diuresis trial. Follow-up chemistry - Time Time Spent with patient: 25-34 minutes - Inpatient Certification Medical Necessity: Need Close Monitoring Due to Risk of Patient Decompensation
[2019-02-02] MEDS: HEPARIN SOD (PORCINE) 5,000 UNIT/ML 1 ML SYRINGE SUBCUT SCH ×3 (07:27→22:14)
[2019-02-02] MEDS: CEFOXITIN 1 GM/D5W RTU 1 GM/50 ML RTUPB IV SCH ×3 (07:28→22:05)
[2019-02-02] MEDS ORDERED: POTASSI CL 20 MEQ/50 ML RIDER 20 MEQ/50 ML RTUPB IV SCH (09:00)
[2019-02-02 09:09] LABS: INTERNATIONAL RATION (INR) 1.13; PROTHROMBIN TIME 14.6 SEC (11.4-15.4)
[2019-02-02 09:10] LABS: PARTIAL THROMBOPLASTIN TIME 38.9 SEC (23.5-35.8)
[2019-02-02] MEDS: DOCUSATE SODIUM 100 MG CAPSULE PO SCH ×2 (10:09→17:19)
--- NOTE | 2019-02-02 10:56 | PDOC CONSULTATION ---
Consultation Consult Date: 02/02/19 Provider Consulted: CYNTHIA CAN Consult reason:: Hematology/Oncology consultation was requested for patient on active treatment for head and neck cancer. 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 He has undergone multiple treatments, including surgery, radiation and chemotherapy, most recently starting Keytruda 09/2017. This was last given 01/11/2019. 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 Most recent scans had showed stable disease with no evidence of new mets. About 3 weeks ago, he developed a ventral hernia. Shortly after this, he found his stomach start to swell. He was not able to tolerate as many cans of tube feed as previously. No nausea, but now is constipated. The swelling has progressed and his dyspnea and weakness are much worse over the last week. His neuropathy is also worse. He has a trach as well as a PEG tube and normally uses 6 cans of Jevity 1.5 daily. However, recently, he has only been able to tolerate 4 cans per day, due to the increased swelling. Yesterday, in the office, he was found to have hypokalemia, hypomagnesemia, increased ALK phos, and very low ALB. Concern was for possible bowel obstruction. No recent fevers. Today, he states that he has had none of his regular meds or tube feedings. No new complaints. Past Medical History Cardiac Medical History: Reports: Hypertension Denies: Coronary Artery Disease, Myocardial Infarction Pulmonary Medical History: Denies: Asthma, Bronchitis, Chronic Obstructive Pulmonary Disease (COPD), Pneumonia Neurological Medical History: Denies: Seizures Malignancy Medical History: Reports: Other - Laryngeal cancer GI Medical History: Reports: Peptic Ulcer Disease Denies: Hepatitis, Hiatal Hernia Musculoskeltal Medical History: Denies: Arthritis Psychiatric Medical History: Reports: Depression Hematology: Denies: Anemia, Sickle Cell Disease Past Surgical History Past Surgical History: Reports: Other - Abdominal surgery, cataracts, PEG, laryngoscopy and tracheostomy, T&A Denies: Pacemaker Social History Information Source: Patient Lives with: Spouse/Significant other Smoking Status: Former Smoker Cigarettes Packs Per Day: 1 Number of Years Smokin Last Time Smoked: 13 years ago Frequency of Alcohol Use: Occasional Hx Recreational Drug Use: No Drugs: None Hx Prescription Drug Abuse: Yes Past Social History Note: . - Advance Directive Resuscitation Status: Full Code Family History Family History: Hypertension Parental Family History Reviewed: Yes - Mom with dementia, dad of chronic kidney disease Children Family History Reviewed: No Sibling(s) Family History Reviewed.: No Medication/Allergy Allergies/Adverse Reactions: No Known Allergies Allergy (Verified 02/01/19 16:35) Review of Systems Constitutional: PRESENT: weakness. ABSENT: fever(s), headache(s) Eyes: ABSENT: visual disturbances Ears: ABSENT: hearing changes Nose, Mouth, and Throat: ABSENT: sore throat Cardiovascular: PRESENT: dyspnea on exertion. ABSENT: chest pain Respiratory: PRESENT: sputum Gastrointestinal: PRESENT: bloating, constipation. ABSENT: nausea Genitourinary: ABSENT: difficulty urinating Integumentary: ABSENT: rash Neurological: PRESENT: frequent falls, weakness Hematologic/Lymphatic: ABSENT: lymphadenopathy Physical Exam Vital Signs: Temp Pulse Resp BP Pulse Ox 98.3 F 75 13 120/75 94 02/02/19 08:04 02/02/19 08:04 02/02/19 08:04 02/02/19 08:04 02/02/19 08:04 Intake & Output 02/01/19 02/02/19 02/03/19 06:59 06:59 06:59 Intake Total 97 2100 Output Total 1200 Balance -1103 2100 Weight 92.2 kg General appearance: PRESENT: no acute distress, well-developed Exam: 73 year old male. Head exam: PRESENT: normocephalic Eye exam: PRESENT: EOMI. ABSENT: scleral icterus Mouth exam: PRESENT: tongue midline Neck exam: PRESENT: tracheostomy Respiratory exam: PRESENT: clear to auscultation alana, unlabored Cardiovascular exam: PRESENT: irregular rhythm GI/Abdominal exam: PRESENT: ascites, firm, other - ventral hernia, easily reduced. No palpable masses. Extremities exam: PRESENT: +2 edema Neurological exam: PRESENT: alert, awake Psychiatric exam: PRESENT: appropriate affect Skin exam: PRESENT: normal color. ABSENT: jaundice Results Laboratory Results: 02/02/19 03:57 02/02/19 03:57 02/01/19 02/01/19 02/01/19 18:06 18:06 18:06 WBC 15.0 H RBC 4.29 L Hgb 13.8 Hct 40.4 MCV 94 MCH 32.2 MCHC 34.2 RDW 12.9 Plt Count 365 Seg Neutrophils % 77.8 Lymphocytes % 12.0 L Monocytes % 9.3 Eosinophils % 0.3 Basophils % 0.6 Absolute Neutrophils 11.7 H Absolute Lymphocytes 1.8 Absolute Monocytes 1.4 Absolute Eosinophils 0.0 Absolute Basophils 0.1 Sodium 121.9 L Potassium 3.2 L Chloride 76 L Carbon Dioxide 36 H Anion Gap 10 BUN 32 H Creatinine 0.86 Est GFR ( Amer) > 60 Est GFR (Non-Af Amer) > 60 Glucose 90 Calcium 8.2 L Phosphorus 3.8 Magnesium 2.8 H Total Bilirubin 0.5 AST 61 H ALT 39 Alkaline Phosphatase 284 H Total Protein 5.8 L Albumin 2.9 L Lipase 478.9 H Urine Color Urine Appearance Urine pH Ur Specific [place] Urine Protein Urine Glucose (UA) Urine Ketones Urine Blood Urine Nitrite Ur Leukocyte Esterase Urine RBC (Auto) 02/01/19 02/02/19 02/02/19 21:58 03:57 03:57 WBC 11.8 H RBC 3.64 L Hgb 11.8 L Hct 34.1 L MCV 94 MCH 32.5 MCHC 34.7 RDW 13.0 Plt Count 309 Seg Neutrophils % 81.6 H Lymphocytes % 8.7 L Monocytes % 9.3 Eosinophils % 0.2 Basophils % 0.2 Absolute Neutrophils 9.7 H Absolute Lymphocytes 1.0 Absolute Monocytes 1.1 Absolute Eosinophils 0.0 Absolute Basophils 0.0 Sodium 125.2 L Potassium 3.1 L Chloride 84 L Carbon Dioxide 33 H Anion Gap 8 BUN 26 H Creatinine 0.88 Est GFR ( Amer) > 60 Est GFR (Non-Af Amer) > 60 Glucose 69 L Calcium 7.6 L Phosphorus Magnesium Total Bilirubin 0.4 AST 44 ALT 37 Alkaline Phosphatase 222 H Total Protein 4.7 L Albumin 2.3 L Lipase Urine Color YELLOW Urine Appearance CLEAR Urine pH 7.0 Ur Specific [place] 1.020 Urine Protein NEGATIVE Urine Glucose (UA) NEGATIVE Urine Ketones NEGATIVE Urine Blood NEGATIVE Urine Nitrite NEGATIVE Ur Leukocyte Esterase NEGATIVE Urine RBC (Auto) 0 Impressions: Abdomen/Pelvis CT 02/01/19 17:15 IMPRESSION: Interval development of liver nodularity which appears somewhat heterogenous in attenuation along with large volume ascites and small bilateral pleural effusions. Acute hepatitis should be considered. Simple bilateral renal cysts. Diffuse anasarca. TECHNICAL DOCUMENTATION: Quality ID # 436: Final reports with documentation of one or more dose reduction techniques (e.g., Automated exposure control, adjustment of the mA and/or kV according to patient size, use of iterative reconstruction technique) copyright 2011 [employer]- All Rights Reserved Status: Image reviewed by me Assessment & Plan - Diagnosis (1) Anasarca Is this a current diagnosis for this admission?: Yes Plan: Not yet clear as to cause. His ALB has decreased rapidly over the past 4 weeks. Will try to get paracentesis if possible, with cultures. (2) Hypokalemia Is this a current diagnosis for this admission?: Yes Plan: Replacement started. (3) Cancer of larynx Is this a current diagnosis for this admission?: Yes Plan: Has been on Keytruda. This is now on hold. This is a targeted PD-L1 agent. This should not cause cytopenias. It may cause auto-immune type processes. Although no current evidence of disease progression, this is also a possibility. Will search for infectious cause, and hold off on steroids for now, but consider steroids in the next few days. (4) Hypomagnesemia Is this a current diagnosis for this admission?: Yes Plan: Replacement ordered. (5) Moderate protein-calorie malnutrition Is this a current diagnosis for this admission?: Yes Plan: Nutrition consult has been ordered. restart tube feedings. - Plan Summary Plan Summary: Patient was discussed with Anna Kim - hospitalist team.
--- NOTE | 2019-02-02 15:04 | Progress Note Acknowledgement ---
Progress Note Acknowledgement Progess Note Acknowledgement: I, the undersigned member of the medical staff with appropriate privileges and with supervisory authority over Anna Kim, a [facility] allied health professional, acknowledge that I have reviewed the progress notes entered on this patient, and in my professional judgment believe that the assessment made and/or any care evidenced was appropriate
--- NOTE | 2019-02-02 15:18 | PDOC PROGRESS REPORT ---
Subjective Progress Note for:: 02/02/19 Subjective:: OLIMPIA ST is a 73 year old male with a past medical history of laryngeal cancer in remission, status post tracheostomy and PEG tube placement who was admitted 02/01/19 for generalized weakness, electrolyte derangements, and concern for SBP. Patient was seen on morning rounds with his present. He was found resting in bed comfortably on supplemental oxygen via trach collar. He reports continued abdominal distention and discomfort. He denies nausea or vomiting but does complain of reflux symptoms. He also reports slight shortness of breath and a nonproductive cough. Otherwise he has no new questions or concerns. He denies fever, chills, chest pain, palpitations, cough, emesis and diarrhea. No concerns per nursing. Reason For Visit: HYPONATREMIA, ANASARCA, HYPOKALEMIA Physical Exam Vital Signs: Temp Pulse Resp BP Pulse Ox 98.5 F 81 14 113/61 99 02/02/19 12:00 02/02/19 11:15 02/02/19 12:00 02/02/19 12:00 02/02/19 12:00 Intake & Output 02/01/19 02/02/19 02/03/19 06:59 06:59 06:59 Intake Total 97 2100 Output Total 1200 Balance -1103 2100 Weight 92.2 kg 92.2 kg General appearance: PRESENT: no acute distress, cooperative, well-developed, well-nourished Head exam: PRESENT: atraumatic, normocephalic Eye exam: PRESENT: conjunctiva pink, EOMI, PERRLA. ABSENT: scleral icterus Ear exam: PRESENT: normal external ear exam Mouth exam: PRESENT: moist, tongue midline Neck exam: PRESENT: tracheostomy. ABSENT: carotid bruit, JVD, lymphadenopathy, thyromegaly Respiratory exam: PRESENT: clear to auscultation alana, symmetrical, unlabored. ABSENT: rales, rhonchi, wheezes Cardiovascular exam: PRESENT: RRR. ABSENT: diastolic murmur, rubs, systolic murmur Pulses: PRESENT: normal dorsalis pedis pul Vascular exam: PRESENT: normal capillary refill GI/Abdominal exam: PRESENT: diminished bowel sounds, distended, soft, tenderness - generalized, other - ventral hernia. ABSENT: guarding, mass, organolmegaly, rebound Rectal exam: PRESENT: deferred Extremities exam: PRESENT: full ROM, +1 edema - pitting BLE. ABSENT: calf tenderness, clubbing, pedal edema Neurological exam: PRESENT: alert, awake, oriented to person, oriented to place, oriented to time, oriented to situation, CN II-XII grossly intact. ABSENT: motor sensory deficit Psychiatric exam: PRESENT: appropriate affect, normal mood. ABSENT: homicidal ideation, suicidal ideation Skin exam: PRESENT: dry, intact, warm. ABSENT: cyanosis, rash Results Laboratory Results: 02/02/19 03:57 02/02/19 03:57 02/01/19 02/01/19 02/01/19 18:06 18:06 18:06 WBC 15.0 H RBC 4.29 L Hgb 13.8 Hct 40.4 MCV 94 MCH 32.2 MCHC 34.2 RDW 12.9 Plt Count 365 Seg Neutrophils % 77.8 Lymphocytes % 12.0 L Monocytes % 9.3 Eosinophils % 0.3 Basophils % 0.6 Absolute Neutrophils 11.7 H Absolute Lymphocytes 1.8 Absolute Monocytes 1.4 Absolute Eosinophils 0.0 Absolute Basophils 0.1 Sodium 121.9 L Potassium 3.2 L Chloride 76 L Carbon Dioxide 36 H Anion Gap 10 BUN 32 H Creatinine 0.86 Est GFR ( Amer) > 60 Est GFR (Non-Af Amer) > 60 Glucose 90 Calcium 8.2 L Phosphorus 3.8 Magnesium 2.8 H Total Bilirubin 0.5 AST 61 H ALT 39 Alkaline Phosphatase 284 H Total Protein 5.8 L Albumin 2.9 L Lipase 478.9 H Urine Color Urine Appearance Urine pH Ur Specific [place] Urine Protein Urine Glucose (UA) Urine Ketones Urine Blood Urine Nitrite Ur Leukocyte Esterase Urine RBC (Auto) 02/01/19 02/02/19 02/02/19 21:58 03:57 03:57 WBC 11.8 H RBC 3.64 L Hgb 11.8 L Hct 34.1 L MCV 94 MCH 32.5 MCHC 34.7 RDW 13.0 Plt Count 309 Seg Neutrophils % 81.6 H Lymphocytes % 8.7 L Monocytes % 9.3 Eosinophils % 0.2 Basophils % 0.2 Absolute Neutrophils 9.7 H Absolute Lymphocytes 1.0 Absolute Monocytes 1.1 Absolute Eosinophils 0.0 Absolute Basophils 0.0 Sodium 125.2 L Potassium 3.1 L Chloride 84 L Carbon Dioxide 33 H Anion Gap 8 BUN 26 H Creatinine 0.88 Est GFR ( Amer) > 60 Est GFR (Non-Af Amer) > 60 Glucose 69 L Calcium 7.6 L Phosphorus Magnesium Total Bilirubin 0.4 AST 44 ALT 37 Alkaline Phosphatase 222 H Total Protein 4.7 L Albumin 2.3 L Lipase Urine Color YELLOW Urine Appearance CLEAR Urine pH 7.0 Ur Specific [place] 1.020 Urine Protein NEGATIVE Urine Glucose (UA) NEGATIVE Urine Ketones NEGATIVE Urine Blood NEGATIVE Urine Nitrite NEGATIVE Ur Leukocyte Esterase NEGATIVE Urine RBC (Auto) 0 Impressions: Abdomen/Pelvis CT 02/01/19 17:15 IMPRESSION: Interval development of liver nodularity which appears somewhat heterogenous in attenuation along with large volume ascites and small bilateral pleural effusions. Acute hepatitis should be considered. Simple bilateral renal cysts. Diffuse anasarca. TECHNICAL DOCUMENTATION: Quality ID # 436: Final reports with documentation of one or more dose reduction techniques (e.g., Automated exposure control, adjustment of the mA and/or kV according to patient size, use of iterative reconstruction technique) copyright 2011 [employer]- All Rights Reserved Assessment and Plan - Diagnosis (1) Hypokalemia Is this a current diagnosis for this admission?: Yes Plan: Secondary to poor p.o. intake. Resume tube feeds. Has received K-Riders. Monitor serial chemistries and replace as needed. (2) Hyponatremia Is this a current diagnosis for this admission?: Yes Plan: Secondary to poor p.o. intake and fluid volume overload (anasarca). Received IVF overnight. Spironolactone 25 mg daily. Monitor serial chemistries (3) Anasarca Is this a current diagnosis for this admission?: Yes Plan: Unclear etiology. LFTs are elevated, albumin only 2.3. History of CHF. Paracentesis planned. Continue tube feeds. Registered dietitian is consulted. (4) Ascites Qualifiers: Ascites type: other type Qualified Code(s): R18.8 - Other ascites Is this a current diagnosis for this admission?: Yes Plan: Unclear etiology; related to malignancy versus acute hepatitis. No history of CHF. LFTs are elevated. Hepatitis panel pending. Paracentesis planned for today. Low-dose spironolactone. (5) Cancer of larynx Is this a current diagnosis for this admission?: Yes Plan: Established oncologist is consulted; appreciate Dr. Emmanuel's assistance. Plan per her expertise. (6) Moderate protein-calorie malnutrition Is this a current diagnosis for this admission?: Yes Plan: Continue tube feeds. environmental control administrator is consulted. (7) Hypomagnesemia Is this a current diagnosis for this admission?: Yes Plan: Replete. Continue to monitor and replace as indicated. - Time Time Spent with patient: 35 or more minutes Medications reviewed and adjusted accordingly: Yes Anticipated discharge: Home with Homehealth
[2019-02-02] MEDS: MAGNESIUM OXIDE 400 MG TABLET PEG SCH (17:21)
[2019-02-02] MEDS: POTASSIUM CHLORIDE 20 MEQ PACKET PEG SCH (17:21)
[2019-02-02] MEDS: PANTOPRAZOLE SODIUM 40 MG PACKET.DR NG SCH (17:21)
[2019-02-02] MEDS: VENLAFAXINE HCL 75 MG TABLET JT SCH (17:22)
[2019-02-02] MEDS: PROMETHAZINE HCL 6.25 MG/5 ML SYRUP 60 ML JT SCH (17:23)
[2019-02-02] MEDS: SPIRONOLACTONE 25 MG TABLET PO SCH (17:24)
[2019-02-02 17:35] LABS: FLUID SOURCE ABDOMEN; FLUID TYPE PERITONEAL
[2019-02-02 17:36] LABS: FLUID APPEARANCE TURBID; FLUID COLOR STRAW; FLUID VISCOSITY LIQUID
--- NOTE | 2019-02-02 17:54 | RADIOLOGY REPORT (SQ) ---
EXAM DESCRIPTION: U/S ABD PARACENTESIS COMPLETED DATE/TIME: 02/02/2019 5:00 pm REASON FOR STUDY: suspected SBP COMPARISON CT abdomen pelvis 02/01/2019 LIMITATIONS: None. PROCEDURE: After obtaining informed consent, the patient was brought to the ultrasound suite. The p rocedure was performed with the patient on a gurney. Ultrasound was used to identify a prominent poc ket of ascites in the right lower quadrant. An appropriate access site was selected. The patient wa s prepped and draped in usual sterile fashion. The access site was anesthetized with 5 mL 1% lidoca ine. A [id number] needle was advanced into the fluid. After aspiration of fluid the needle, th e catheter was advanced off the needle into the fluid. A total of 5,000 mL of cloudy straw-colored f luid was removed. The patient tolerated the procedure well left the department in satisfactory condit ion. IMPRESSION: Successful ultrasound-guided paracentesis, fluid sent for laboratory testing as per the hospitalist attending. COMMENT: Patient medication list reviewed: Yes- Quality ID# [id number]:Eligible professional attests to doc umenting in the medical record they obtained, updated, or reviewed the patient's current medications. TECHNICAL DOCUMENTATION: JOB ID: [id number] [employer] and some sugar- All Rights Reserved Reading location - IP/workstation name: [email or web address]
[2019-02-02] MEDS ORDERED: OMEPRAZOLE JT SCH (18:00)
[2019-02-02] MEDS ORDERED: VENLAFAXINE JT SCH (18:00)
[2019-02-02] MEDS: ALBUMIN HUMAN 12.5 GM/50 ML RTUINJ IV SCH ×4 (18:36→22:07)
[2019-02-02] MEDS ORDERED: GABAPENTIN 250 MG/5 ML JT SCH (22:00)
[2019-02-02] MEDS: ALPRAZOLAM 0.5 MG TABLET JT SCH (22:06)
[2019-02-02] MEDS: GABAPENTIN 400 MG CAPSULE JT SCH (22:07)
[2019-02-03] MEDS: HEPARIN SOD (PORCINE) 5,000 UNIT/ML 1 ML SYRINGE SUBCUT SCH ×3 (05:54→21:17)
[2019-02-03] MEDS: CEFOXITIN 1 GM/D5W RTU 1 GM/50 ML RTUPB IV SCH ×3 (06:00→21:16)
[2019-02-03 06:15] LABS: HEMATOCRIT 31.3 % (37.9-51.0); HEMOGLOBIN 10.8 g/dL (13.5-17.0); MEAN CORPUSCULAR HEMOGLOBIN 32.6 pg (27.0-33.4); MEAN CORPUSCULAR HGB CONC 34.5 g/dL (32.0-36.0); MEAN CORPUSCULAR VOLUME 95 fl (80-97); PLATELET COUNT 285 10^3/uL (150-450); WHITE BLOOD COUNT 8.4 10^3/uL (4.0-10.5)
[2019-02-03 06:40] LABS: ANION GAP 7 (5-19); BLOOD UREA NITROGEN 20 mg/dL (7-20); CARBON DIOXIDE 34 mmol/L (22-30); CHLORIDE 89 mmol/L (98-107); PHOSPHORUS 3.2 mg/dL (2.5-4.5); SODIUM 129.7 mmol/L (137-145)
[2019-02-03 06:44] LABS: GLUCOSE 67 mg/dL (75-110)
[2019-02-03 06:45] LABS: POTASSIUM 2.6 mmol/L (3.6-5.0)
[2019-02-03] MEDS ORDERED: DEXTROSE 40% GEL 15 GM TUBE X 2 PO PRN (07:30)
[2019-02-03] MEDS ORDERED: DEXTROSE 50%-WATER SYRINGE 12.5 GM/25 ML DOSE IV PRN (07:30)
[2019-02-03] MEDS ORDERED: DEXTROSE 50%-WATER SYRINGE 25 GM/50 ML DOSE IV PRN (07:30)
[2019-02-03] MEDS ORDERED: DEXTROSE 40% GEL 15 GM TUBE PO PRN (07:30)
[2019-02-03] MEDS ORDERED: GLUCAGON,HUMAN RECOMB 1 MG INJ IM PRN (07:30)
[2019-02-03] MEDS: POTASSI CL 20 MEQ/50 ML RIDER 20 MEQ/50 ML RTUPB IV SCH ×4 (08:47→17:04)
[2019-02-03] MEDS ORDERED: SERTRALINE JT SCH (10:00)
[2019-02-03] MEDS ORDERED: VENLAFAXINE JT SCH (10:00)
[2019-02-03] MEDS: POTASSIUM CHLORIDE 20 MEQ PACKET PEG SCH ×2 (11:56→17:15)
[2019-02-03] MEDS: SERTRALINE HCL 50 MG TABLET JT SCH (11:57)
[2019-02-03] MEDS: MAGNESIUM OXIDE 400 MG TABLET PEG SCH ×2 (11:59→17:05)
[2019-02-03] MEDS: ALPRAZOLAM 0.5 MG TABLET JT SCH ×2 (12:00→21:16)
[2019-02-03] MEDS: PROMETHAZINE HCL 6.25 MG/5 ML SYRUP 60 ML JT SCH ×2 (12:02→17:14)
[2019-02-03] MEDS: GABAPENTIN 400 MG CAPSULE JT SCH ×2 (12:03→21:16)
[2019-02-03] MEDS: VENLAFAXINE HCL 75 MG TABLET JT SCH ×2 (12:05→17:06)
[2019-02-03] MEDS: PANTOPRAZOLE SODIUM 40 MG PACKET.DR NG SCH ×2 (12:06→17:06)
[2019-02-03] MEDS: CETIRIZINE HCL ORAL SOLN 5 MG/5 ML UDCUP JT SCH (12:07)
[2019-02-03] MEDS: AMINO AC/PROTEIN HYDR/WHEY PRO 11 GM/45 ML PKT NG SCH ×3 (12:08→17:16)
[2019-02-03] MEDS: DOCUSATE SODIUM 100 MG CAPSULE PO SCH (13:23)
[2019-02-03] MEDS: SPIRONOLACTONE 25 MG TABLET PO SCH (14:32)
--- NOTE | 2019-02-03 16:11 | PDOC PROGRESS REPORT ---
Subjective Progress Note for:: 02/03/19 Subjective:: OLIMPIA ST is a 73 year old male with a past medical history of laryngeal cancer in remission, status post tracheostomy and PEG tube placement who was admitted 02/01/19 for generalized weakness, electrolyte derangements, and concern for SBP. Patient was seen on afternoon rounds. He was found resting in bed comfortably on supplemental oxygen via trach collar. He reports significant improvement in abdominal distention and comfort. He denies nausea or vomiting. He also reports improvement in his dyspnea. Overall, he is feeling much improved today. Otherwise he has no new questions or concerns. He denies fever, chills, chest pain, palpitations, cough, emesis and diarrhea. No concerns per nursing. Reason For Visit: HYPONATREMIA, ANASARCA, HYPOKALEMIA Physical Exam Vital Signs: Temp Pulse Resp BP Pulse Ox 98.0 F 77 18 132/99 H 92 02/03/19 11:35 02/03/19 14:35 02/03/19 14:35 02/03/19 11:35 02/03/19 14:35 Intake & Output 02/02/19 02/03/19 02/04/19 06:59 06:59 06:59 Intake Total 97 2995 800 Output Total 1200 2275 Balance -1103 720 800 Weight 92.2 kg 92.2 kg General appearance: PRESENT: no acute distress, cooperative - Pleasant, well- developed, well-nourished - Overweight Head exam: PRESENT: atraumatic, normocephalic Eye exam: PRESENT: conjunctiva pink, EOMI, PERRLA. ABSENT: scleral icterus Ear exam: PRESENT: normal external ear exam Mouth exam: PRESENT: moist, tongue midline Neck exam: PRESENT: tracheostomy. ABSENT: carotid bruit, JVD, lymphadenopathy, thyromegaly Respiratory exam: PRESENT: clear to auscultation alana, rhonchi, symmetrical, unlabored, other - Supplemental oxygen via trach collar. ABSENT: rales, wheezes Cardiovascular exam: PRESENT: RRR, +S1, +S2. ABSENT: diastolic murmur, rubs, systolic murmur Pulses: PRESENT: normal dorsalis pedis pul Vascular exam: PRESENT: normal capillary refill GI/Abdominal exam: PRESENT: ascites, normal bowel sounds, soft. ABSENT: distended, guarding, mass, organolmegaly, rebound, tenderness Rectal exam: PRESENT: deferred Extremities exam: PRESENT: full ROM. ABSENT: calf tenderness, clubbing, pedal edema Musculoskeletal exam: PRESENT: ambulatory Neurological exam: PRESENT: alert, awake, oriented to person, oriented to place, oriented to time, oriented to situation, CN II-XII grossly intact. ABSENT: motor sensory deficit Psychiatric exam: PRESENT: appropriate affect, normal mood. ABSENT: homicidal ideation, suicidal ideation Skin exam: PRESENT: dry, intact, warm. ABSENT: cyanosis, rash Results Laboratory Results: 02/03/19 06:00 02/03/19 06:00 02/02/19 02/03/19 02/03/19 15:15 06:00 06:00 WBC 8.4 RBC 3.30 L Hgb 10.8 L Hct 31.3 L MCV 95 MCH 32.6 MCHC 34.5 RDW 13.0 Plt Count 285 Sodium 129.7 L Potassium 2.6 L* Chloride 89 L Carbon Dioxide 34 H Anion Gap 7 BUN 20 Creatinine 0.80 Est GFR ( Amer) > 60 Est GFR (Non-Af Amer) > 60 Glucose 67 L Calcium 8.0 L Phosphorus 3.2 Magnesium 2.5 H Fluid Type PERITONEAL Fluid Source ABDOMEN Fluid Color STRAW Fluid Appearance TURBID Fluid Viscosity LIQUID Fluid WBC 91 Fluid RBC 50 Impressions: Abdomen/Pelvis CT 02/01/19 17:15 IMPRESSION: Interval development of liver nodularity which appears somewhat heterogenous in attenuation along with large volume ascites and small bilateral pleural effusions. Acute hepatitis should be considered. Simple bilateral renal cysts. Diffuse anasarca. TECHNICAL DOCUMENTATION: Quality ID # 436: Final reports with documentation of one or more dose reduction techniques (e.g., Automated exposure control, adjustment of the mA and/or kV according to patient size, use of iterative reconstruction technique) copyright 2010 [employer]- All Rights Reserved Paracentesis Ultrasound 02/02/19 08:08 IMPRESSION: Successful ultrasound-guided paracentesis, fluid sent for laboratory testing as per the hospitalist attending. Assessment and Plan - Diagnosis (1) Hypokalemia Is this a current diagnosis for this admission?: Yes Plan: Secondary to poor p.o. intake. Resume tube feeds. Additional K riders today. Monitor serial chemistries and replace as needed. (2) Hyponatremia Is this a current diagnosis for this admission?: Yes Plan: Gradual improvement. Secondary to poor p.o. intake and fluid volume overload (anasarca). Spironolactone 25 mg daily. Monitor serial chemistries (3) Anasarca Is this a current diagnosis for this admission?: Yes Plan: Unclear etiology. LFTs are elevated, albumin only 2.3. History of CHF. Paracentesis completed; 5 L cloudy straw-colored fluid removed. Continue tube feeds. Registered dietitian is consulted. (4) Ascites Qualifiers: Ascites type: other type Qualified Code(s): R18.8 - Other ascites Is this a current diagnosis for this admission?: Yes Plan: Unclear etiology; related to malignancy versus acute hepatitis. No history of CHF. LFTs are elevated. Hepatitis panel pending. Paracentesis completed yesterday. Peritoneal fluid has no growth at 1 day. Low-dose spironolactone. (5) Cancer of larynx Is this a current diagnosis for this admission?: Yes Plan: Established oncologist is consulted; appreciate Dr. Emmanuel's assistance. Plan per her expertise. (6) Moderate protein-calorie malnutrition Is this a current diagnosis for this admission?: Yes Plan: Continue tube feeds; resumed at 240 mL's Jevity 1.5 every 6 hours. Will increase tomorrow to match the recommendations made by the registered dietitian if patient tolerates well overnight. full stack php developer is consulted. (7) Hypomagnesemia Is this a current diagnosis for this admission?: Yes Plan: Replete. Continue to monitor and replace as indicated. - Time Time Spent with patient: 25-34 minutes Medications reviewed and adjusted accordingly: Yes Anticipated discharge: Home Within: within 24 hours
[2019-02-03] MEDS: DOCUSATE SODIUM 100 MG/10 ML UDC PO SCH (17:05)
[2019-02-04] MEDS: CEFOXITIN 1 GM/D5W RTU 1 GM/50 ML RTUPB IV SCH ×3 (05:28→21:20)
[2019-02-04] MEDS: HEPARIN SOD (PORCINE) 5,000 UNIT/ML 1 ML SYRINGE SUBCUT SCH ×3 (05:28→21:21)
[2019-02-04 05:49] LABS: HEMOGLOBIN 8.7 g/dL (13.5-17.0); MEAN CORPUSCULAR HEMOGLOBIN 32.2 pg (27.0-33.4); MEAN CORPUSCULAR HGB CONC 33.5 g/dL (32.0-36.0); MEAN CORPUSCULAR VOLUME 96 fl (80-97); PLATELET COUNT 222 10^3/uL (150-450); RED CELL DISTRIBUTION WIDTH 13.3 % (11.5-14.0); WHITE BLOOD COUNT 7.9 10^3/uL (4.0-10.5)
[2019-02-04 06:06] LABS: ALANINE AMINOTRANSFERASE 32 U/L (21-72); ALBUMIN 2.1 g/dL (3.5-5.0); ALKALINE PHOSPHATASE 227 U/L (38-126); ASPARTATE AMINO TRANSFERASE 52 U/L (17-59); BILIRUBIN,DIRECT 0.2 mg/dL (0.0-0.4); BILIRUBIN,TOTAL 0.3 mg/dL (0.2-1.3); BLOOD UREA NITROGEN 20 mg/dL (7-20); CALCIUM 7.7 mg/dL (8.4-10.2); CARBON DIOXIDE 32 mmol/L (22-30); CHLORIDE 98 mmol/L (98-107); GLUCOSE 112 mg/dL (75-110); TOTAL PROTEIN 4.3 g/dL (6.3-8.2)
[2019-02-04 06:11] LABS: SODIUM 132.9 mmol/L (137-145)
[2019-02-04 06:14] LABS: ANION GAP 3 (5-19)
--- NOTE | 2019-02-04 07:59 | PDOC PROGRESS REPORT ---
Subjective Progress Note for:: 02/04/19 Subjective:: Patient states that he is feeling better. Since the paracentesis, he feels that his abdomen is about the same. Not increasing in size. He is tolerating the tube feedings, but still minimal BMs. ROS: No dyspnea. No pain. Reason For Visit: HYPONATREMIA, ANASARCA, HYPOKALEMIA Physical Exam Vital Signs: Temp Pulse Resp BP Pulse Ox 97.4 F 89 16 131/74 H 100 02/04/19 03:11 02/04/19 03:11 02/04/19 03:11 02/04/19 03:11 02/04/19 03:11 Intake & Output 02/03/19 02/04/19 02/05/19 06:59 06:59 06:59 Intake Total 2995 1050 Output Total 2275 2200 Balance 720 -1150 Weight 92.2 kg 92.2 kg General appearance: PRESENT: well-developed, well-nourished Head exam: PRESENT: normocephalic Eye exam: ABSENT: scleral icterus Respiratory exam: PRESENT: clear to auscultation alana Cardiovascular exam: PRESENT: irregular rhythm GI/Abdominal exam: PRESENT: ascites, soft Extremities exam: PRESENT: +2 edema Neurological exam: PRESENT: alert, awake Psychiatric exam: PRESENT: appropriate affect Skin exam: PRESENT: normal color Results Laboratory Results: 02/04/19 05:30 02/04/19 05:30 02/03/19 02/03/19 02/04/19 19:45 19:45 05:30 WBC 7.9 RBC 2.70 L Hgb 8.7 L D Hct 26.0 L MCV 96 MCH 32.2 MCHC 33.5 RDW 13.3 Plt Count 222 Sodium Potassium 4.5 D Chloride Carbon Dioxide Anion Gap BUN Creatinine Est GFR ( Amer) Est GFR (Non-Af Amer) Glucose Calcium Magnesium 2.3 Total Bilirubin AST ALT Alkaline Phosphatase Total Protein Albumin 02/04/19 05:30 WBC RBC Hgb Hct MCV MCH MCHC RDW Plt Count Sodium 132.9 L Potassium 4.0 Chloride 98 Carbon Dioxide 32 H Anion Gap 3 L BUN 20 Creatinine 0.77 Est GFR ( Amer) > 60 Est GFR (Non-Af Amer) > 60 Glucose 112 H Calcium 7.7 L Magnesium Total Bilirubin 0.3 AST 52 ALT 32 Alkaline Phosphatase 227 H Total Protein 4.3 L Albumin 2.1 L Impressions: Abdomen/Pelvis CT 02/01/19 17:15 IMPRESSION: Interval development of liver nodularity which appears somewhat heterogenous in attenuation along with large volume ascites and small bilateral pleural effusions. Acute hepatitis should be considered. Simple bilateral renal cysts. Diffuse anasarca. TECHNICAL DOCUMENTATION: Quality ID # 436: Final reports with documentation of one or more dose reduction techniques (e.g., Automated exposure control, adjustment of the mA and/or kV according to patient size, use of iterative reconstruction technique) copyright 2011 [employer]- All Rights Reserved Paracentesis Ultrasound 02/02/19 08:08 IMPRESSION: Successful ultrasound-guided paracentesis, fluid sent for laboratory testing as per the hospitalist attending. Assessment & Plan - Diagnosis (1) Anasarca Is this a current diagnosis for this admission?: Yes Plan: s/p 5 L removed by paracentesis. Currently remains stable. Unsure of the underlying cause. Hepatitis panel still pending. Alk Phos elevated, but otherwise, LFTs are normal. (2) Hypokalemia Is this a current diagnosis for this admission?: Yes Plan: Improving. Continue regular dose or oral and if stable without IVs for 24 hours, consider sending home with oral dose only. (3) Cancer of larynx Is this a current diagnosis for this admission?: Yes Plan: All treatment on hold. (4) Hypomagnesemia Is this a current diagnosis for this admission?: Yes (5) Moderate protein-calorie malnutrition Is this a current diagnosis for this admission?: Yes Plan: Tube feedings restarted. Alb still very low. - Plan Summary Plan Summary: His HGB is much lower today. Unclear as to cause. Will monitor this.
[2019-02-04] MEDS: AMINO AC/PROTEIN HYDR/WHEY PRO 11 GM/45 ML PKT NG SCH ×3 (09:23→18:05)
[2019-02-04] MEDS: CETIRIZINE HCL ORAL SOLN 5 MG/5 ML UDCUP JT SCH (09:23)
[2019-02-04] MEDS: SERTRALINE HCL 50 MG TABLET JT SCH (09:23)
[2019-02-04] MEDS: SPIRONOLACTONE 25 MG TABLET PO SCH (09:23)
[2019-02-04] MEDS: MAGNESIUM OXIDE 400 MG TABLET PEG SCH ×2 (09:23→18:06)
[2019-02-04] MEDS: LEVOTHYROXINE SODIUM 0.05 MG TABLET PO SCH (09:24)
[2019-02-04] MEDS: POTASSIUM CHLORIDE 20 MEQ PACKET PEG SCH ×2 (09:24→18:05)
[2019-02-04] MEDS: PANTOPRAZOLE SODIUM 40 MG PACKET.DR NG SCH ×2 (09:24→18:06)
[2019-02-04] MEDS: ALPRAZOLAM 0.5 MG TABLET JT SCH ×2 (09:24→21:20)
[2019-02-04] MEDS: GABAPENTIN 400 MG CAPSULE JT SCH ×2 (09:24→21:20)
[2019-02-04] MEDS: VENLAFAXINE HCL 75 MG TABLET JT SCH ×2 (09:24→18:06)
[2019-02-04] MEDS: PROMETHAZINE HCL 6.25 MG/5 ML SYRUP 60 ML JT SCH ×2 (09:25→18:07)
[2019-02-04] MEDS: DOCUSATE SODIUM 100 MG/10 ML UDC PO SCH ×2 (09:26→18:41)
[2019-02-04 13:22] LABS: INTERNATIONAL RATION (INR) 1.21; PROTHROMBIN TIME 15.4 SEC (11.4-15.4)
[2019-02-04 13:23] LABS: PARTIAL THROMBOPLASTIN TIME 38.1 SEC (23.5-35.8)
[2019-02-04 13:36] LABS: HEPATITIS A AB IGM Negative (Negative); HEPATITIS B CORE AB IGM Negative (Negative); HEPATITS B SURFACE ANTIGEN Negative (Negative)
[2019-02-04 13:56] LABS: HEPATITIS C VIRUS ANTIBODY <0.1 s/co ratio (0.0-0.9)
--- NOTE | 2019-02-04 15:28 | RADIOLOGY REPORT (SQ) ---
EXAM DESCRIPTION: U/S ABDOMEN LIMITED W/O DOP COMPLETED DATE/TIME: 02/04/2019 2:40 pm REASON FOR STUDY: ascites; therapeutic COMPARISON: Paracentesis 02/02/2019 CT abdomen pelvis 02/01/2019 TECHNIQUE: Dynamic and static grayscale images acquired of the abdomen and recorded on PACS. Additio nal selected color Doppler and spectral images recorded. LIMITATIONS: None. FINDINGS: 4 quadrant abdominal ultrasound was performed. There is no ascites. No procedure was per formed. IMPRESSION: No ascites TECHNICAL DOCUMENTATION: JOB ID: [id number] [employer]- All Rights Reserved Reading location - IP/workstation name: [email or web address]
--- NOTE | 2019-02-04 17:50 | PDOC PROGRESS REPORT ---
Subjective Progress Note for:: 02/04/19 Subjective:: OLIMPIA ST is a 73 year old male with a past medical history of laryngeal cancer in remission, status post tracheostomy and PEG tube placement who was admitted 02/01/19 for generalized weakness, electrolyte derangements, and concern for SBP. Patient was seen on morning rounds. He was found resting in bed comfortably on supplemental oxygen via trach collar. He reports significant improvement in abdominal distention and comfort. He denies nausea or vomiting. He also reports improvement in his dyspnea. Small bowel movement this morning. Overall, he is feeling much improved today. Otherwise he has no new questions or concerns. He denies fever, chills, chest pain, palpitations, cough, emesis and diarrhea. No concerns per nursing. Reason For Visit: HYPONATREMIA, ANASARCA, HYPOKALEMIA Physical Exam Vital Signs: Temp Pulse Resp BP Pulse Ox 98.4 F 90 20 120/72 98 02/04/19 12:44 02/04/19 12:44 02/04/19 12:44 02/04/19 12:44 02/04/19 16:30 Intake & Output 02/03/19 02/04/19 02/05/19 06:59 06:59 06:59 Intake Total 2995 1050 905 Output Total 2275 2200 Balance 720 -1150 905 Weight 92.2 kg 92.2 kg General appearance: PRESENT: no acute distress, cooperative - Pleasant, well- developed, well-nourished - Overweight Head exam: PRESENT: atraumatic, normocephalic Eye exam: PRESENT: conjunctiva pink, EOMI, PERRLA. ABSENT: scleral icterus Ear exam: PRESENT: normal external ear exam Mouth exam: PRESENT: moist, tongue midline Neck exam: PRESENT: tracheostomy. ABSENT: carotid bruit, JVD, lymphadenopathy, thyromegaly Respiratory exam: PRESENT: rhonchi - Right lower field, symmetrical, unlabored. ABSENT: rales, wheezes Cardiovascular exam: PRESENT: RRR, +S1, +S2. ABSENT: diastolic murmur, rubs, systolic murmur Pulses: PRESENT: normal dorsalis pedis pul Vascular exam: PRESENT: normal capillary refill GI/Abdominal exam: PRESENT: distended, normal bowel sounds, soft, other - PEG. ABSENT: guarding, mass, organolmegaly, rebound, tenderness Rectal exam: PRESENT: deferred Extremities exam: PRESENT: full ROM. ABSENT: calf tenderness, clubbing, pedal edema Neurological exam: PRESENT: alert, awake, oriented to person, oriented to place, oriented to time, oriented to situation, CN II-XII grossly intact. ABSENT: motor sensory deficit Psychiatric exam: PRESENT: appropriate affect, normal mood. ABSENT: homicidal ideation, suicidal ideation Skin exam: PRESENT: dry, intact, warm. ABSENT: cyanosis, rash Results Laboratory Results: 02/04/19 05:30 02/04/19 05:30 02/03/19 02/03/19 02/04/19 19:45 19:45 05:30 WBC 7.9 RBC 2.70 L Hgb 8.7 L D Hct 26.0 L MCV 96 MCH 32.2 MCHC 33.5 RDW 13.3 Plt Count 222 Sodium Potassium 4.5 D Chloride Carbon Dioxide Anion Gap BUN Creatinine Est GFR ( Amer) Est GFR (Non-Af Amer) Glucose Calcium Magnesium 2.3 Total Bilirubin AST ALT Alkaline Phosphatase Total Protein Albumin 02/04/19 05:30 WBC RBC Hgb Hct MCV MCH MCHC RDW Plt Count Sodium 132.9 L Potassium 4.0 Chloride 98 Carbon Dioxide 32 H Anion Gap 3 L BUN 20 Creatinine 0.77 Est GFR ( Amer) > 60 Est GFR (Non-Af Amer) > 60 Glucose 112 H Calcium 7.7 L Magnesium Total Bilirubin 0.3 AST 52 ALT 32 Alkaline Phosphatase 227 H Total Protein 4.3 L Albumin 2.1 L 02/02/19 12:45 Sputum Gram Stain - Final 02/02/19 12:45 Sputum Sputum Culture - Final Pseudomonas Aeruginosa Normal Caitlin Impressions: Abdomen/Pelvis CT 02/01/19 17:15 IMPRESSION: Interval development of liver nodularity which appears somewhat heterogenous in attenuation along with large volume ascites and small bilateral pleural effusions. Acute hepatitis should be considered. Simple bilateral renal cysts. Diffuse anasarca. TECHNICAL DOCUMENTATION: Quality ID # 436: Final reports with documentation of one or more dose reduction techniques (e.g., Automated exposure control, adjustment of the mA and/or kV according to patient size, use of iterative reconstruction technique) copyright 2011 [employer]- All Rights Reserved Paracentesis Ultrasound 02/02/19 08:08 IMPRESSION: Successful ultrasound-guided paracentesis, fluid sent for laboratory testing as per the hospitalist attending. Abdomen Ultrasound 02/04/19 12:34 IMPRESSION: No ascites Assessment and Plan - Diagnosis (1) Hypokalemia Is this a current diagnosis for this admission?: Yes Plan: Resolved. Secondary to poor p.o. intake. Continue tube feeds. Monitor serial chemistries and replace as needed. (2) Hyponatremia Is this a current diagnosis for this admission?: Yes Plan: Gradual improvement. Secondary to poor p.o. intake and fluid volume overload (anasarca). Spironolactone 25 mg daily. Monitor serial chemistries (3) Anasarca Is this a current diagnosis for this admission?: Yes Plan: Unclear etiology. LFTs are elevated, though improved. Albumin only 2.1. History of CHF. Paracentesis completed; 5 L cloudy straw-colored fluid removed. Continue tube feeds. Registered dietitian is consulted. (4) Ascites Qualifiers: Ascites type: other type Qualified Code(s): R18.8 - Other ascites Is this a current diagnosis for this admission?: Yes Plan: Unclear etiology; likely related to malignancy No history of CHF. LFTs are elevated, though trending down. Alk phos remains elevated at 227. Hepatitis panel negative Paracentesis completed with 5 L removed Peritoneal fluid has no growth at 2 day. Low-dose spironolactone; blood pressure tolerating well. (5) Cancer of larynx Is this a current diagnosis for this admission?: Yes Plan: Established oncologist is consulted; appreciate Dr. Emmanuel's assistance. Plan per her expertise. (6) Moderate protein-calorie malnutrition Is this a current diagnosis for this admission?: Yes Plan: Continue tube feeds; resumed at 240 mL's Jevity 1.5 every 6 hours. Will increase tomorrow to match the recommendations made by the registered dietitian if patient tolerates well overnight. health care facility administrator is consulted. (7) Hypomagnesemia Is this a current diagnosis for this admission?: Yes Plan: Replete. Continue to monitor and replace as indicated. (8) Anemia Qualifiers: Anemia type: unspecified type Qualified Code(s): D64.9 - Anemia, unspecified Is this a current diagnosis for this admission?: Yes Plan: Hemoglobin has decreased from 13.8 on admission to 8.7. Unclear etiology. No active source of bleeding. Hemoccult pending. Urinalysis is negative for hematuria Possibly related to poor collection technique as nursing is obtaining labs off o f his port. We will monitor CBC. Transfuse as necessary. - Time Time Spent with patient: 15-24 minutes Medications reviewed and adjusted accordingly: Yes Anticipated discharge: Home Within: within 24 hours - if Hgb and Potassium are stable
[2019-02-05] MEDS: LEVOTHYROXINE SODIUM 0.05 MG TABLET PO SCH (05:17)
[2019-02-05] MEDS: CEFOXITIN 1 GM/D5W RTU 1 GM/50 ML RTUPB IV SCH ×2 (05:17→13:06)
[2019-02-05] MEDS: HEPARIN SOD (PORCINE) 5,000 UNIT/ML 1 ML SYRINGE SUBCUT SCH ×2 (05:17→13:06)
[2019-02-05 07:54] LABS: HEMATOCRIT 33.9 % (37.9-51.0); MEAN CORPUSCULAR HEMOGLOBIN 32.5 pg (27.0-33.4); MEAN CORPUSCULAR HGB CONC 33.7 g/dL (32.0-36.0); MEAN CORPUSCULAR VOLUME 96 fl (80-97); PLATELET COUNT 280 10^3/uL (150-450); RED BLOOD COUNT 3.52 10^6/uL (4.35-5.55); RED CELL DISTRIBUTION WIDTH 13.1 % (11.5-14.0); WHITE BLOOD COUNT 9.9 10^3/uL (4.0-10.5)
[2019-02-05 07:59] LABS: BLOOD UREA NITROGEN 21 mg/dL (7-20); CALCIUM 7.7 mg/dL (8.4-10.2); CHLORIDE 100 mmol/L (98-107); GLUCOSE 81 mg/dL (75-110); HEMOGLOBIN 11.4 g/dL (13.5-17.0); POTASSIUM 4.2 mmol/L (3.6-5.0)
[2019-02-05 08:05] LABS: CARBON DIOXIDE 29 mmol/L (22-30); SODIUM 131.7 mmol/L (137-145)
[2019-02-05 08:06] LABS: ANION GAP 3 (5-19)
--- NOTE | 2019-02-05 09:05 | PDOC PROGRESS REPORT ---
Subjective Progress Note for:: 02/05/19 Subjective:: Patient feeling well today. No new complaints. He denies any growth of his abdomen. Tolerating tube feeds well. Still only small amounts of diarrhea, but no significant BM. ROS: Denies any pain. No dyspnea. Reason For Visit: HYPONATREMIA, ANASARCA, HYPOKALEMIA Physical Exam Vital Signs: Temp Pulse Resp BP Pulse Ox 98.7 F 81 18 119/74 97 02/04/19 19:57 02/05/19 07:00 02/04/19 19:57 02/04/19 19:57 02/04/19 20:00 Intake & Output 02/04/19 02/05/19 02/06/19 06:59 06:59 06:59 Intake Total 1050 1245 Output Total 2200 975 Balance -1150 270 Weight 92.2 kg 85.2 kg General appearance: PRESENT: no acute distress, well-developed, well-nourished Head exam: PRESENT: normocephalic Neck exam: PRESENT: tracheostomy Respiratory exam: PRESENT: unlabored Extremities exam: PRESENT: +1 edema Neurological exam: PRESENT: alert, awake Psychiatric exam: PRESENT: appropriate affect Skin exam: PRESENT: normal color Results Laboratory Results: 02/05/19 06:23 02/05/19 06:23 02/05/19 02/05/19 06:23 06:23 WBC 9.9 RBC 3.52 L Hgb 11.4 L D Hct 33.9 L MCV 96 MCH 32.5 MCHC 33.7 RDW 13.1 Plt Count 280 Sodium 131.7 L Potassium 4.2 Chloride 100 Carbon Dioxide 29 Anion Gap 3 L BUN 21 H Creatinine 0.76 Est GFR ( Amer) > 60 Est GFR (Non-Af Amer) > 60 Glucose 81 Calcium 7.7 L 02/02/19 12:45 Sputum Gram Stain - Final 02/02/19 12:45 Sputum Sputum Culture - Final Pseudomonas Aeruginosa Normal Caitlin Impressions: Abdomen/Pelvis CT 02/01/19 17:15 IMPRESSION: Interval development of liver nodularity which appears somewhat heterogenous in attenuation along with large volume ascites and small bilateral pleural effusions. Acute hepatitis should be considered. Simple bilateral renal cysts. Diffuse anasarca. TECHNICAL DOCUMENTATION: Quality ID # 436: Final reports with documentation of one or more dose reduction techniques (e.g., Automated exposure control, adjustment of the mA and/or kV according to patient size, use of iterative reconstruction technique) copyright 2011 [employer]- All Rights Reserved Paracentesis Ultrasound 02/02/19 08:08 IMPRESSION: Successful ultrasound-guided paracentesis, fluid sent for laboratory testing as per the hospitalist attending. Abdomen Ultrasound 02/04/19 12:34 IMPRESSION: No ascites Assessment & Plan - Diagnosis (1) Anasarca Is this a current diagnosis for this admission?: Yes Plan: Much improved. Repeat US yesterday showed no evidence of further ascites. No paracentesis was performed. His hepatitis panel was negative. Still unclear as to the cause of this. (2) Hypokalemia Is this a current diagnosis for this admission?: Yes Plan: Now resolved. He has been receiving large doses of potassium via PEG. This dose may need to be adjusted for discharge. He should continue as outpatient. (3) Cancer of larynx Is this a current diagnosis for this admission?: Yes (4) Hypomagnesemia Is this a current diagnosis for this admission?: Yes Plan: resolved. Continue PEG supplements. (5) Moderate protein-calorie malnutrition Is this a current diagnosis for this admission?: Yes Plan: Continue tube feedings. He was not tolerating these well at home, but this has improved. - Plan Summary Plan Summary: OK to discharge from our standpoint with close follow-up in office.
[2019-02-05] MEDS: DOCUSATE SODIUM 100 MG/10 ML UDC PO SCH (09:12)
[2019-02-05] MEDS: POTASSIUM CHLORIDE 20 MEQ PACKET PEG SCH (09:13)
[2019-02-05] MEDS: CETIRIZINE HCL ORAL SOLN 5 MG/5 ML UDCUP JT SCH (09:17)
[2019-02-05] MEDS: SERTRALINE HCL 50 MG TABLET JT SCH (09:17)
[2019-02-05] MEDS: GABAPENTIN 400 MG CAPSULE JT SCH (09:17)
[2019-02-05] MEDS: MAGNESIUM OXIDE 400 MG TABLET PEG SCH (09:17)
[2019-02-05] MEDS: VENLAFAXINE HCL 75 MG TABLET JT SCH (09:18)
[2019-02-05] MEDS: PANTOPRAZOLE SODIUM 40 MG PACKET.DR NG SCH (09:18)
[2019-02-05] MEDS: SPIRONOLACTONE 25 MG TABLET PO SCH (09:18)
[2019-02-05] MEDS: ALPRAZOLAM 0.5 MG TABLET JT SCH (09:18)
[2019-02-05] MEDS: PROMETHAZINE HCL 6.25 MG/5 ML SYRUP 60 ML JT SCH (09:18)
[2019-02-05] MEDS: AMINO AC/PROTEIN HYDR/WHEY PRO 11 GM/45 ML PKT NG SCH ×2 (09:18→13:06)
--- NOTE | 2019-02-05 09:48 | PDOC DISCHARGE SUMMARY ---
General - Admit/Disc Date/PCP Admission Date/Primary Care Provider: 02/01/19 21:12 TASHA BAILEY MD Discharge Date: 02/05/19 - Discharge Diagnosis (1) Suspected SBP Is this a current diagnosis for this admission?: Yes (2) Hyponatremia Is this a current diagnosis for this admission?: Yes (3) Hypokalemia Is this a current diagnosis for this admission?: Yes (4) Leukocytosis Is this a current diagnosis for this admission?: Yes - Additional Information Resuscitation Status: Full Code Home Medications: Alprazolam [Xanax 0.5 mg Tablet] 0.5 mg JT Q12 02/02/19 Cetirizine HCl [Zyrtec Oral Soln 5 mg/5 ml Udcup] 10 mg JT DAILY 02/02/19 Gabapentin 250mg/5ml Deyanira 16 ml JT Q12 02/02/19 Omeprazole 8mg/Ml 40 mg JT BID 02/02/19 Promethazine HCl 12.5 mg JT DAILY 02/02/19 Promethazine HCl [Phenergan 6.25 mg/5 ml Syrup] 25 mg JT QPM 02/02/19 Sertraline 20mg/Ml 200 mg JT DAILY 02/02/19 Venlafaxine 75mg/5ml Deyanira 75 mg JT DAILY 02/02/19 Venlafaxine 75mg/5ml Deyanira 150 mg JT QPM 02/02/19 History of Present Illness History of Present Illness: OLIMPIA ST is a 73 year old male with a past medical history of laryngeal cancer in remission, status post tracheostomy and PEG tube placement. He presents with 1 week of increasing abdominal distention and pain subjective fe surinder nausea without vomiting. In the emergency room is found to have leukocytosis, hyponatremia, hypokalemia and hypoglycemia. He started on IV fluids and referred to the hospitalist for admission. He denies abrupt onset of shortness of breath, cough, previous episode he complains of poor appetite, lower extremity edema in conjunction with the above history. 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 His blood work shows leukocytosis and electrolyte management in the form of hyponatremia and hypokalemia. Patient has been managed with cefoxitin with possible spontaneous bacterial peritonitis. His sputum Gram stain also positive for Pseudomonas aeruginosa we do not this time it is a true infection or colonization. This morning patient seen propped up in bed he is awake alert oriented. He is not in pain or distress. He feels he is ready to go home. Dr. Mao discussed with me that patient is cleared from oncology standpoint. His vital signs are within normal limits. Patient stable enough to be discharged and follow-up with Dr. Mao. I will send him home with Cipro 500 mg twice daily which can treat also his Pseudomonas aeruginosa colonization as well as prevention of spontaneous ba cterial peritonitis. Physical Exam Vital Signs: Temp Pulse Resp BP Pulse Ox 98.7 F 81 18 119/74 97 02/04/19 19:57 02/05/19 07:00 02/04/19 19:57 02/04/19 19:57 02/04/19 20:00 Intake & Output 02/04/19 02/05/19 02/06/19 06:59 06:59 06:59 Intake Total 1050 1245 Output Total 2200 975 Balance -1150 270 Weight 92.2 kg 85.2 kg General appearance: PRESENT: no acute distress Eye exam: PRESENT: conjunctiva pink Neck exam: ABSENT: carotid bruit, JVD, lymphadenopathy, thyromegaly Respiratory exam: PRESENT: clear to auscultation alana. ABSENT: rales, rhonchi, wheezes Cardiovascular exam: PRESENT: RRR. ABSENT: diastolic murmur, rubs, systolic murmur Neurological exam: PRESENT: alert, awake, oriented to person, oriented to place, oriented to time, oriented to situation Results Laboratory Results: 02/05/19 06:23 02/05/19 06:23 02/05/19 02/05/19 06:23 06:23 WBC 9.9 RBC 3.52 L Hgb 11.4 L D Hct 33.9 L MCV 96 MCH 32.5 MCHC 33.7 RDW 13.1 Plt Count 280 Sodium 131.7 L Potassium 4.2 Chloride 100 Carbon Dioxide 29 Anion Gap 3 L BUN 21 H Creatinine 0.76 Est GFR ( Amer) > 60 Est GFR (Non-Af Amer) > 60 Glucose 81 Calcium 7.7 L 02/02/19 12:45 Sputum Gram Stain - Final 02/02/19 12:45 Sputum Sputum Culture - Final Pseudomonas Aeruginosa Normal Caitlin Impressions: Abdomen/Pelvis CT 02/01/19 17:15 IMPRESSION: Interval development of liver nodularity which appears somewhat heterogenous in attenuation along with large volume ascites and small bilateral pleural effusions. Acute hepatitis should be considered. Simple bilateral renal cysts. Diffuse anasarca. TECHNICAL DOCUMENTATION: Quality ID # 436: Final reports with documentation of one or more dose reduction techniques (e.g., Automated exposure control, adjustment of the mA and/or kV according to patient size, use of iterative reconstruction technique) copyright 2011 [employer]- All Rights Reserved Paracentesis Ultrasound 02/02/19 08:08 IMPRESSION: Successful ultrasound-guided paracentesis, fluid sent for laboratory testing as per the hospitalist attending. Abdomen Ultrasound 02/04/19 12:34 IMPRESSION: No ascites Qualifiers - * PATIENT BEING DISCHARGED WITH ANY OF THE FOLLOWING DIAGNOSIS: No Acute Heart Failure - Is this a Heart Failure Patient?: No e) For LVEF <35%, discharged on Aldosterone antagonist?: N/A (LVEF > or = 35%)
[2019-02-05 12:07] VITALS: BP 128/71
== END 2019-02-05 14:30 | disposition home or self-care (01) | DRG 372 ==
LOC: ER 16:20 → EH 21:12 → 4N 02-02 00:40
PROVIDERS: ADMIT Internal Medicine; ATTEND Internal Medicine
PROC: 0W9G3ZZ Drainage of Peritoneal Cavity, Percutaneous Approach (ICD-10-PCS; principal; 2019-02-02)
DX: K65.2 Spontaneous bacterial peritonitis (principal); E87.1 Hypo-osmolality and hyponatremia; E44.0 Moderate protein-calorie malnutrition; R18.8 Other ascites; Z93.0 Tracheostomy status; G62.9 Polyneuropathy, unspecified; E83.42 Hypomagnesemia; Z93.1 Gastrostomy status; B96.5 Pseudomonas (aeruginosa) (mallei) (pseudomallei) as the cause of diseases classified elsewhere; C32.9 Malignant neoplasm of larynx, unspecified; D64.9 Anemia, unspecified; E87.6 Hypokalemia; D72.829 Elevated white blood cell count, unspecified; E16.2 Hypoglycemia, unspecified; K59.00 Constipation, unspecified; K43.9 Ventral hernia without obstruction or gangrene; I10 Essential (primary) hypertension; K27.9 Peptic ulcer, site unspecified, unspecified as acute or chronic, without hemorrhage or perforation; F32.9 Major depressive disorder, single episode, unspecified; E66.3 Overweight; R94.6 Abnormal results of thyroid function studies; Z92.21 Personal history of antineoplastic chemotherapy; Z92.3 Personal history of irradiation; Z79.899 Other long term (current) drug therapy; Z87.891 Personal history of nicotine dependence; Z82.49 Family history of ischemic heart disease and other diseases of the circulatory system; Z68.28 Body mass index [BMI] 28.0-28.9, adult
CPT/HCPCS: 36415; 49083; 74177; 76705; 80048; 80053; 80074; 81001; 82272; 82962; 83690; 83735; 84100; 84132; 85025; 85027; 85610; 85730; 87040; 87070; 87075; 87077; 87186; 87205; 87252; 89050; 99285; B4155; J0694; J1642; J1644; J1940; J3480; J3490; J7030; P9047

== ENCOUNTER → 2019-02-17 | Outpatient (CLI) | payer MEDICARE, BC ==
--- NOTE | 2019-02-18 09:55 | RADIOLOGY REPORT (SQ) ---
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 PET scan dated 11/20/2018, 08/14/2018, and 05/06/2018. RADIONUCLIDE AND DOSE: 10 mCi F18 FDG The route of agent administration: Intravenous FASTING BLOOD SUGAR: 89 mg/dl CONTRAST TYPE AND DOSE: No CT contrast given. TECHNIQUE: Blood glucose level was verified. Above dose of FDG was injected intravenously. 2-D seg mented attenuation correction images were obtained from the base of the skull to the midthighs. Nonc ontrast CT images were obtained for attenuation correction and fusion with emission images. CT image s were performed without oral or intravenous contrast and are not sensitive for parenchymal lesions. A series of overlapping emission PET images were obtained. Images reviewed and manipulated at [facility] work station by the radiologist. Images stored on PACS. LIMITATIONS: None. FINDINGS: HEAD AND NECK: There is a focal area of increased activity posterior to the right arytenoi d cartilage. No focal mass. Mean SUV 3.15. There is prominent activity in the posterior musculatur e of the neck with no focal lesions. No other areas of abnormal metabolic activity in the soft tissu es of the head and neck. CHEST: Moderate pleural effusions which have increased since the prior study. Radiotherapy markers i n the left lung base. No discrete mass. No areas of abnormal metabolic activity in the chest. ABDOMEN AND PELVIS: Large amount of ascites. Slightly nodular appearance of the liver with no focal lesions. No areas of abnormal metabolic activity in the abdomen or pelvis. Expected physiologic act ivity is present in the genitourinary system and bowel. PROXIMAL LOWER EXTREMITIES: Prominent activity in the musculature, particularly on the right side. N o focal lesions. No other areas of abnormal metabolic activity in the soft tissues of the lower extr emities. BONES: No abnormal metabolic activity in the visualized skeleton. ADDITIONAL CT FINDINGS: Tracheostomy tube, vascular port, and gastrostomy tube. Cortical cyst in the right kidney. No additional significant findings on the noncontrast CT images. OTHER: Background blood pool activity mean SUV 1.18. Background liver activity mean SUV 1.67. No ot her significant findings. IMPRESSION: 1. SMALL FOCAL AREA OF INCREASED ACTIVITY POSTERIOR TO THE RIGHT ARYTENOID CARTILAGE. NO FOCAL LESIO N. THIS MAY BE AN INCIDENTAL FINDING RELATED TO VOCAL CORD PARALYSIS. 2. MODERATE PLEURAL EFFUSIONS WHICH HAVE INCREASED SINCE THE PREVIOUS CT. RADIOTHERAPY MARKERS IN TH E LEFT LUNG BASE WITH NO RESIDUAL MASS AND NO ACTIVITY ON PET IMAGING. 3. LARGE AMOUNT OF ASCITES. SLIGHTLY NODULAR APPEARANCE OF THE LIVER. NO FOCAL HEPATIC LESIONS. NO ABNORMAL ACTIVITY IN THE ABDOMEN OR PELVIS. 4. PROMINENT ACTIVITY IN THE MUSCULATURE OF THE POSTERIOR NECK WELL IN THE MUSCULATURE OF THE P ROXIMAL LOWER EXTREMITIES, PARTICULARLY THE RIGHT LEG. THIS PRESUMABLY REPRESENTS INCIDENTAL MUSCULA R ACTIVITY. INFLAMMATORY PROCESS SUCH MYOSITIS COULD BE ANOTHER ETIOLOGY. TECHNICAL DOCUMENTATION: JOB ID: [id number] [email or web address]- All Rights Reserved Reading location - IP/workstation name: [email or web address]
== END ==
LOC: RAD 16:07
PROVIDERS: ATTEND Internal Medicine
DX: C32.0 Malignant neoplasm of glottis (principal)
CPT/HCPCS: 78815; A9552

== ENCOUNTER 2019-02-22 07:40 | Day surgery (SDC) | payer MEDICARE, BC ==
[2019-02-22 08:56] LABS: ABSOLUTE LYMPHOCYTES (AUTO) 1.2 10^3/uL (0.5-4.7); ABSOLUTE MONOCYTES (AUTO) 1.2 10^3/uL (0.1-1.4); BASOPHILS % (AUTO) 0.2 % (0-2); HEMATOCRIT 35.7 % (37.9-51.0); HEMOGLOBIN 11.8 g/dL (13.5-17.0); LYMPHOCYTES % (AUTO) 10.8 % (13-45); MEAN CORPUSCULAR HEMOGLOBIN 32.6 pg (27.0-33.4); MEAN CORPUSCULAR HGB CONC 33.2 g/dL (32.0-36.0); MEAN CORPUSCULAR VOLUME 98 fl (80-97); MONOCYTES % (AUTO) 10.5 % (3-13); PLATELET COUNT 257 10^3/uL (150-450); RED BLOOD COUNT 3.64 10^6/uL (4.35-5.55); SEGMENTED NEUTROPHILS % (AUTO) 78.5 % (42-78); TOTAL CELLS COUNTED % (AUTO) 100 %; WHITE BLOOD COUNT 11.4 10^3/uL (4.0-10.5)
[2019-02-22 09:10] LABS: BLOOD UREA NITROGEN 35 mg/dL (7-20)
[2019-02-22 09:15] LABS: INTERNATIONAL RATION (INR) 1.05; PROTHROMBIN TIME 13.7 SEC (11.4-15.4)
[2019-02-22 09:16] LABS: PARTIAL THROMBOPLASTIN TIME 26.6 SEC (23.5-35.8)
[2019-02-22 11:35] VITALS: BP 176/97
--- NOTE | 2019-02-22 11:57 | RADIOLOGY REPORT (SQ) ---
EXAM DESCRIPTION: U/S ABD PARACENTESIS COMPLETED DATE/TIME: 02/22/2019 11:07 am REASON FOR STUDY: ASCITES COMPARISON 02/04/2019 LIMITATIONS: None. PROCEDURE: After obtaining informed consent, the patient was brought to the ultrasound suite. The p rocedure was performed with the patient on a gurney. Ultrasound was used to identify a prominent poc ket of ascites in the right lower quadrant. An appropriate access site was selected. The patient wa s prepped and draped in usual sterile fashion. The access site was anesthetized with 10 mL 1% lidoc chris. A [id number] needle was advanced into the fluid. After aspiration of fluid the needle, t he catheter was advanced off the needle into the fluid. A total of 5,000 mL of cloudy, straw-colored fluid was removed. The patient tolerated the procedure well left the department in satisfactory cond ition. IMPRESSION: Successful ultrasound-guided paracentesis COMMENT: Patient medication list reviewed: Yes- Quality ID# [id number]:Eligible professional attests to doc umenting in the medical record they obtained, updated, or reviewed the patient's current medications. TECHNICAL DOCUMENTATION: JOB ID: [id number] [employer]- All Rights Reserved Reading location - IP/workstation name: [email or web address]
== END 2019-02-22 11:30 | disposition home or self-care (01) ==
LOC: RAD 07:40
PROVIDERS: ATTEND Internal Medicine Hematology & Oncology
DX: R18.8 Other ascites (principal); Z79.01 Long term (current) use of anticoagulants; C32.0 Malignant neoplasm of glottis
CPT/HCPCS: 36415; 49083; 82565; 84520; 85025; 85610; 85730

== ENCOUNTER 2019-03-05 11:20 | Inpatient (IN) | payer MEDICARE, BC ==
[2019-03-05 11:42] LABS: INTERNATIONAL RATION (INR) 1.02; PARTIAL THROMBOPLASTIN TIME 28.3 SEC (23.5-35.8); PROTHROMBIN TIME 13.4 SEC (11.4-15.4)
[2019-03-05 11:44] LABS: ABSOLUTE MONOCYTES (AUTO) 0.4 10^3/uL (0.1-1.4); ABSOLUTE NEUT (AUTO) 7.9 10^3/uL (1.7-8.2); BASOPHILS % (AUTO) 0.2 % (0-2); LYMPHOCYTES % (AUTO) 10.4 % (13-45); MEAN CORPUSCULAR HEMOGLOBIN 32.7 pg (27.0-33.4); MEAN CORPUSCULAR HGB CONC 33.4 g/dL (32.0-36.0); MEAN CORPUSCULAR VOLUME 98 fl (80-97); MONOCYTES % (AUTO) 4.3 % (3-13); PLATELET COUNT 164 10^3/uL (150-450); RED BLOOD COUNT 3.98 10^6/uL (4.35-5.55); RED CELL DISTRIBUTION WIDTH 14.9 % (11.5-14.0); SEGMENTED NEUTROPHILS % (AUTO) 85.1 % (42-78); TOTAL CELLS COUNTED % (AUTO) 100 %; WHITE BLOOD COUNT 9.3 10^3/uL (4.0-10.5)
--- NOTE | 2019-03-05 11:46 | RADIOLOGY REPORT (SQ) ---
EXAM DESCRIPTION: CT HEAD WITHOUT COMPLETED DATE/TIME: 03/05/2019 11:31 am REASON FOR STUDY: stroke s/s COMPARISON: None. TECHNIQUE: Axial images acquired through the brain without intravenous contrast. Images reviewed wi th bone, brain and subdural windows. Additional sagittal and coronal reconstructions were generated. Images stored on PACS. All CT scanners at this facility use dose modulation, iterative reconstruction, and/or weight based d osing when appropriate to reduce radiation dose to as low as reasonably achievable (ALARA). [facility]: Dose Right [facility]: CareDose [facility]: Dose Right [facility]: Teradose 4D [facility]: TranSiC RADIATION DOSE: mGy. LIMITATIONS: None. FINDINGS: VENTRICLES: Prominent. CEREBRUM: No masses. No hemorrhage. No midline shift. Areas of low density in the white matter mos t likely due to chronic micro-vascular ischemic change. No evidence for acute infarction. CEREBELLUM: No masses. No hemorrhage. No alteration of density. No evidence for acute infarction. EXTRAAXIAL SPACES: Mild age-related involutional change. No fluid collections. No masses. ORBITS AND GLOBE: No intra- or extraconal masses. Normal contour of globe without masses. CALVARIUM: No fracture. PARANASAL SINUSES: No fluid or mucosal thickening. SOFT TISSUES: No mass or hematoma. OTHER: No other significant finding. IMPRESSION: MILD CHRONIC CHANGES OF ATROPHY AND MICROVASCULAR ISCHEMIA. NO ACUTE PROCESS. EVIDENCE OF ACUTE STROKE: NO. COMMENT: Pertinent positive or negative findings of the imaging study reported as a CRITICAL EXAM rickey Ruvalcaba at11:38 on 03/05/2019. Category of Critical Exam: Stroke protocol. TECHNICAL DOCUMENTATION: JOB ID: [id number] Quality ID # 436: Final reports with documentation of one or more dose reduction techniques (e.g., Au tomated exposure control, adjustment of the mA and/or kV according to patient size, use of iterative reconstruction technique) 2010 [employer]- All Rights Reserved Reading location - IP/workstation name: [email or web address]
[2019-03-05 11:50] LABS: ALBUMIN 2.8 g/dL (3.5-5.0); ALKALINE PHOSPHATASE 939 U/L (38-126); ANION GAP 6 (5-19); ASPARTATE AMINO TRANSFERASE 308 U/L (17-59); BILIRUBIN,DIRECT 0.5 mg/dL (0.0-0.4); BILIRUBIN,TOTAL 0.8 mg/dL (0.2-1.3); BLOOD UREA NITROGEN 34 mg/dL (7-20); CALCIUM 8.5 mg/dL (8.4-10.2); CARBON DIOXIDE 26 mmol/L (22-30); CHLORIDE 103 mmol/L (98-107); CREATINE KINASE < 20 U/L (55-170); POTASSIUM 4.3 mmol/L (3.6-5.0); TOTAL PROTEIN 5.5 g/dL (6.3-8.2)
[2019-03-05 11:51] LABS: GLUCOSE 69 mg/dL (75-110)
--- NOTE | 2019-03-05 11:51 | RADIOLOGY REPORT (SQ) ---
EXAM DESCRIPTION: CHEST SINGLE VIEW COMPLETED DATE/TIME: 03/05/2019 11:43 am REASON FOR STUDY: stroke s/s COMPARISON: 12/16/2018 NUMBER OF VIEWS: One view. TECHNIQUE: Single frontal radiographic view of the chest acquired. LIMITATIONS: Low lung volumes. FINDINGS: LUNGS AND PLEURA: No opacities, masses or pneumothorax. No pleural effusion. MEDIASTINUM AND HILAR STRUCTURES: No masses. Contour normal. HEART AND VASCULAR STRUCTURES: Heart normal in size. Normal vasculature. BONES: No acute findings. HARDWARE: Lyyhno-P-Aikc and tracheostomy tube remain in place. OTHER: No other significant finding. IMPRESSION: Negative chest allowing for low lung volumes. Tracheostomy tube and port remain in plac e. TECHNICAL DOCUMENTATION: JOB ID: [id number] [employer]- All Rights Reserved Reading location - IP/workstation name: [email or web address]
[2019-03-05] MEDS ORDERED: DEXTROSE 50%-WATER 25 GM/50 ML DISP.SYRIN IV ONE ×3 (11:53→20:13)
[2019-03-05 12:02] LABS: CREATINE KINASE MB 1.8 ng/mL (<4.55); TROPONIN I 0.019 ng/mL
[2019-03-05] MEDS ORDERED: ALTEPLASE INJ 100 MG VIAL ONE (12:13)
--- NOTE | 2019-03-05 12:29 | ER Document Report ---
ED Neuro Symptoms/Deficit - General Chief Complaint: S/S of Possible Stroke Stated Complaint: POSSIBLE STROKE Time Seen by Provider: 03/05/19 12:07 Primary Care Provider: CALUDIO FU MD [Primary Care Provider] - Follow up as needed Notes: Presents with symptoms suggestive of a stroke. says that at about 1030 this morning, patient developed drooping of the right face, difficulty with his speech, unable to use his right arm, and difficulty walking due to weakness of the right leg. These are new symptoms that have never occurred before. Denies any headache. No loss of consciousness.. 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 He has a functioning tracheostomy and a feeding, G-tube in the left abdomen. Also a history of lung cancer thought to be in remission. Patient had a negative PET scan about 3 weeks ago. Patient also has had recent problems with his liver with the accumulation of ascites that had to be drained. He had elevation of his liver function test. Was admitted to this hospital for 4 days recently for this problem. TRAVEL OUTSIDE OF THE [place] IN LAST 30 DAYS: No - Related Data Allergies/Adverse Reactions: No Known Allergies Allergy (Verified 02/01/19 16:35) Past Medical History - Social History Smoking Status: Unknown if Ever Smoked Family History: Reviewed & Not Pertinent, Hypertension - Past Medical History Cardiac Medical History: Reports: Hx Hypertension Neurological Medical History: Denies: Hx Cerebrovascular Accident GI Medical History: Reports: Hx Cirrhosis, Other - Recent onset of ascites and elevated liver function tests of uncertain etio Psychiatric Medical History: Reports: Hx Depression Past Surgical History: Reports: Hx Abdominal Surgery - g-tube placement, Other - Abdominal surgery, cataracts, PEG, laryngoscopy and tracheostomy, T&A - Immunizations Hx Diphtheria, Pertussis, Tetanus Vaccination: Yes Hx Pneumococcal Vaccination: 04/30/17 Review of Systems - Review of Systems Notes: REVIEW OF SYSTEMS: CONSTITUTIONAL : Denies fever. EENT: Denies eye, ear, nose or mouth or throat pain or other symptoms. CARDIOVASCULAR: Denies chest pain. RESPIRATORY: Patient has a tracheostomy. Has chronic congestion and require suctioning at home. No change in this congestion from his usual. GASTROINTESTINAL: Denies abdominal pain or nausea, vomiting, or diarrhea. GENITOURINARY: Denies difficulty or painful urinating, urinary frequency, blood in urine. MUSCULOSKELETAL: Denies back or neck pain. Denies joint pain or swelling. SKIN: Denies rash or skin lesions. NEUROLOGICAL: See HPI. Drooping of the right face and right eyelid will not close completely along with right arm Alysis and some weakness of the right leg. Denies any headaches. ALL OTHER SYSTEMS REVIEWED AND NEGATIVE. Physical Exam - Vital signs Interpretation: Normal. No: Hypertensive Notes: PHYSICAL EXAMINATION: GENERAL: In no acute distress. Tracheostomy evident. Ingested sounding. HEAD: Atraumatic, normocephalic. EYES: Pupils equal round and reactive to light, extraocular movements intact. ENT: oropharynx clear without exudates. Moist mucous membranes. NECK: Normal range of motion, supple. LUNGS: Breath sounds clear and equal bilaterally. HEART: Regular rate and rhythm without murmurs. ABDOMEN: Soft, nontender. No guarding or rebound. No masses. BACK: No tenderness throughout entire back. EXTREMITIES: Normal range of motion without pain. NEUROLOGICAL: says patient's speech is slurred some, but it is improving. Some drooping of the right face. Laxity of the upper eyelid. says the patient has had surgery and lenses put in his eyes. Unable to use his right arm at all. Cannot lift it from the stretcher. PSYCH: Normal mood, normal affect. SKIN: Warm, dry, no rashes. Course - Re-evaluation Re-evalutation: 03/05/19 12:38 CT scan of the brain was negative for bleeding or stroke. 03/05/19 12:38 Spoke with this patient's oncologist, Dr. Hanson, for advice or assistance regarding contraindications based on this patient's past history of cancers. There being no apparent contraindications, we both agree that thrombolytics are probably indicated in this case. Presented the pros and cons of giving TPA thrombolytic for this apparent stroke. Advised of the risk of bleeding and even and of the likely recovery p ercentage, full or partial. Patient's and he agreed that they want to have the TPA administered. Patient is well within the window of time for giving the medication. 03/05/19 14:03 TPA has been administered. Patient seems to have some more movement of his right lower leg and foot than he had pre-medication. I have spoken with hospitalist who will admit the patient here. - Laboratory Result Diagrams: 03/05/19 11:20 03/05/19 11:20 Laboratory results interpreted by me: 03/05/19 03/05/19 11:20 11:20 RBC 3.98 L Hgb 13.0 L MCV 98 H RDW 14.9 H Seg Neutrophils % 85.1 H Lymphocytes % 10.4 L Sodium 135.3 L BUN 34 H Glucose 69 L Direct Bilirubin 0.5 H AST 308 H Alkaline Phosphatase 939 H Creatine Kinase < 20 L Total Protein 5.5 L Albumin 2.8 L - Diagnostic Test Radiology reviewed: Image reviewed, Reports reviewed - CT of the brain showed no abnormality and no stroke. Radiology results interpreted by me: 03/05/19 14:07 Chest x-ray shows low volumes, but no infiltrates or infections or other abnormality. - EKG Interpretation by Fl EKG shows normal: Sinus rhythm Rate: Normal Rhythm: NSR Additional EKG results interpreted by me: 03/05/19 14:05 EKG shows low voltage. No acute changes. Critical Care Note - Critical Care Note Total time excluding time spent on procedures (mins): 60 Discharge - Discharge Clinical Impression: Stroke, Tissue plasminogen activator (tPA) administered at other facility within 24 hours before current admission Condition: Stable Disposition: ADMITTED INPATIENT Admitting Provider: Storm (Hospitalist) Unit Admitted: ICU Referrals: CLAUDIO FU MD [Primary Care Provider] - Follow up as needed
--- NOTE | 2019-03-05 12:42 | EKG REPORT ---
SEVERITY:- BORDERLINE ECG - SINUS RHYTHM LEFT AXIS DEVIATION LOW VOLTAGE THROUGHOUT : Confirmed by: Dionisio Avila MD 05-Mar-2019 12:41:33
[2019-03-05] MEDS ORDERED: ACETAMINOPHEN 325 MG TABLET PO PRN (15:39)
[2019-03-05] MEDS ORDERED: LABETALOL HCL INJ 20 MG/4 ML DISP.SYRIN IV PRN (15:39)
[2019-03-05] MEDS ORDERED: ALPRAZOLAM 0.5 MG TABLET PEG PRN (16:58)
[2019-03-05] MEDS ORDERED: PROMETHAZINE HCL 25 MG TABLET PO SCH (18:00)
[2019-03-05] MEDS ORDERED: GABAPENTIN 400 MG CAPSULE PO SCH (22:00)
[2019-03-05] MEDS ORDERED: VENLAFAXINE HCL 75 MG TABLET PO SCH (22:00)
[2019-03-06 03:51] LABS: ABSOLUTE LYMPHOCYTES (AUTO) 0.8 10^3/uL (0.5-4.7); ABSOLUTE MONOCYTES (AUTO) 0.5 10^3/uL (0.1-1.4); ABSOLUTE NEUT (AUTO) 6.4 10^3/uL (1.7-8.2); BASOPHILS % (AUTO) 0.2 % (0-2); HEMATOCRIT 37.3 % (37.9-51.0); HEMOGLOBIN 12.4 g/dL (13.5-17.0); LYMPHOCYTES % (AUTO) 10.8 % (13-45); MEAN CORPUSCULAR HEMOGLOBIN 32.7 pg (27.0-33.4); MEAN CORPUSCULAR HGB CONC 33.4 g/dL (32.0-36.0); MEAN CORPUSCULAR VOLUME 98 fl (80-97); MONOCYTES % (AUTO) 6.9 % (3-13); PLATELET COUNT 148 10^3/uL (150-450); RED BLOOD COUNT 3.81 10^6/uL (4.35-5.55); RED CELL DISTRIBUTION WIDTH 14.8 % (11.5-14.0); SEGMENTED NEUTROPHILS % (AUTO) 82.1 % (42-78); TOTAL CELLS COUNTED % (AUTO) 100 %; WHITE BLOOD COUNT 7.8 10^3/uL (4.0-10.5)
[2019-03-06 03:58] LABS: ALBUMIN 2.4 g/dL (3.5-5.0); ALKALINE PHOSPHATASE 827 U/L (38-126); ANION GAP 6 (5-19); ASPARTATE AMINO TRANSFERASE 171 U/L (17-59); BILIRUBIN,DIRECT 0.4 mg/dL (0.0-0.4); BILIRUBIN,TOTAL 0.7 mg/dL (0.2-1.3); BLOOD UREA NITROGEN 33 mg/dL (7-20); CARBON DIOXIDE 22 mmol/L (22-30); CHLORIDE 106 mmol/L (98-107); GLUCOSE 103 mg/dL (75-110); POTASSIUM 4.6 mmol/L (3.6-5.0); TOTAL PROTEIN 4.8 g/dL (6.3-8.2)
[2019-03-06] MEDS: PANTOPRAZOLE SODIUM 40 MG PACKET.DR NG SCH ×2 (05:55→18:17)
[2019-03-06] MEDS ORDERED: LEVOTHYROXINE SODIUM 0.05 MG TABLET PO SCH (06:00)
--- NOTE | 2019-03-06 07:37 | ADVANCED CARE ---
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 Resuscitation Status: Full Code Discussion: The patient's is the designated decision maker. Because they had a recent negative PET scan there still wishing to be full code. This is despite the patient's tracheostomy and PEG tube. The patient's stated that they had tried esophageal dilatation but was not successful. I am unsure if this is due to radiation therapy or whether there was surgery involving the larynx and esophagus. The patient clearly indicated full code on the verified this. She did discuss the fact that they want a trial of mechanical ventilation and resuscitation but then no heroic measures if that is not successful or if the prognosis is poor. I think the subject needs to be revisited based on the patient's recovery from the stroke. If he is looking at long-term mcc placement he may decide against continued aggressive therapy and so another discussion will likely be held during his hospitalization. Care Planning Goals: Immediate goal is to recover from stroke. 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 If follow-up studies show recurrence than this will also likely affect the current long-term goals. Document(s) Completed: None Time Spent: 25 minutes
[2019-03-06] MEDS ORDERED: ACETAMINOPHEN SOLN 325 MG/10.15 ML UDCUP PEG PRN (07:51)
[2019-03-06] MEDS ORDERED: GABAPENTIN 400 MG CAPSULE PO SCH (10:00)
--- NOTE | 2019-03-06 10:10 | PDOC H&P ---
History of Present Illness Admission Date/PCP: 03/05/19 14:33 CLAUDIO FU MD Patient complains of: Acute right-sided weakness History of Present Illness: OLIMPIA ST is a 73 year old male with a complex past medical history. He was just in [facility] partly 1 month ago with a spontaneous bacterial peritonitis. He did undergo paracentesis. He received antibiotics at that time. There was no definitive cause noted for the ascites. His transaminases are elevated. The patient was at home. He had just received his bolus tube feed when he lost function of his right side. He had right-sided facial droop as well. The patient does have a history of malignancy and has a tracheostomy and PEG tube long-term. Because the acute onset of right-sided weakness the patient was transferred to the emergency department. He is quickly evaluated and found to be a candidate for TPA. This was administered at 12:24 PM. The nurse reports that he began to exhibit increased function in his right leg after the TPA. He still has congested breath sounds with some gurgling likely from secretions. He does have a Passy-Krzysztof valve in place. He is able to talk but there is some dysarthria with right-sided facial droop. The patient was referred to the hospital service for admission for acute ischemic stroke post TPA administration. Past Medical History Cardiac Medical History: Reports: Hypertension Denies: Coronary Artery Disease, Myocardial Infarction Pulmonary Medical History: Denies: Asthma, Bronchitis, Chronic Obstructive Pulmonary Disease (COPD), Pneumonia Neurological Medical History: Denies: Seizures Renal/ Medical History: Denies: Chronic Kidney Disease, End Stage Renal Disease, Nephrolithiasis Malignancy Medical History: Reports: Lung Cancer, Other - Laryngeal cancer GI Medical History: Reports: Cirrhosis, Other - Recent onset of ascites and elev ated liver function tests of uncertain etio Denies: Hepatitis, Hiatal Hernia Musculoskeltal Medical History: Denies: Arthritis Psychiatric Medical History: Reports: Depression Traumatic Medical History: Reports: None Hematology: Denies: Anemia, Sickle Cell Disease Infectious Medical History: Reports: None Past Surgical History Past Surgical History: Reports: Other - Abdominal surgery, cataracts, PEG, laryngoscopy and tracheostomy, T&A Denies: Pacemaker Social History Information Source: Patient - Limited communication with patient, [facility] Records Lives with: Spouse/Significant other Smoking Status: Former Smoker Frequency of Alcohol Use: None Hx Recreational Drug Use: No Drugs: None Hx Prescription Drug Abuse: Yes - Advance Directive Resuscitation Status: Full Code Surrogate healthcare decision maker:: The patient's Mery is the designated decision maker. Family History Family History: Reviewed & Not Pertinent, Hypertension Parental Family History Reviewed: Yes Children Family History Reviewed: Yes Sibling(s) Family History Reviewed.: Yes Medication/Allergy Home Medications: Alprazolam [Xanax 0.5 mg Tablet] 0.5 mg JT Q12 03/05/19 Cetirizine HCl [Zyrtec 10 mg Tablet] 10 mg PO DAILY 03/05/19 Gabapentin [Neurontin] 5 ml PO NOON 03/05/19 Gabapentin [Neurontin] 16 ml PO QAM 03/05/19 Gabapentin [Neurontin] 16 ml PO QPM 03/05/19 Levothyroxine Sodium [Synthroid 50 Mcg Tablet] 50 mcg PO Q6AM 03/05/19 Promethazine HCl [Phenergan 25 mg Tablet] 12.5 mg JT Q12 03/05/19 Sertraline HCl [Zoloft] 10 ml PO DAILY 03/05/19 Spironolactone [Aldactone] 100 mg PO QAM 03/05/19 Venlafaxine HCl [Effexor 75 mg Tablet] 75 mg PO QAM 03/05/19 Venlafaxine HCl [Effexor 75 mg Tablet] 150 mg PO QPM 03/05/19 Allergies/Adverse Reactions: No Known Allergies Allergy (Verified 02/01/19 16:35) Review of Systems ROS unobtainable: Other - Limited review of systems available from the patient's due to CVA and tracheostomy tube. I did get some information from the patient's as well. Constitutional: PRESENT: weakness - Especially legs. This has been chronic.. ABSENT: chills, weight gain, weight loss Eyes: ABSENT: visual disturbances Ears: ABSENT: hearing changes Nose, Mouth, and Throat: PRESENT: other - Yellow secretions around tracheostomy tube. ABSENT: mouth pain, sore throat Cardiovascular: ABSENT: chest pain, dyspnea on exertion, edema, palpitations Respiratory: PRESENT: cough - Weak cough. ABSENT: dyspnea, hemoptysis Gastrointestinal: PRESENT: other - PEG tube permanent. ABSENT: abdominal pain, constipation, diarrhea, hematemesis, nausea, vomiting Genitourinary: ABSENT: difficulty urinating, hematuria Musculoskeletal: PRESENT: muscle weakness - Right-sided weakness from stroke. ABSENT: joint swelling Integumentary: PRESENT: other - Abrasions right knee. ABSENT: diaphoresis Neurological: PRESENT: abnormal speech - Due to tracheostomy tube. Patient does wear Passy-Krzysztof valve., other - Neuropathy both legs etiology unknown Psychiatric: PRESENT: depression. ABSENT: anxiety Endocrine: ABSENT: cold intolerance, flushing, heat intolerance, polydipsia, polyuria Hematologic/Lymphatic: ABSENT: easy bleeding, easy bruising Allergic/Immunologic: PRESENT: seasonal rhinorrhea Physical Exam Vital Signs: Temp Pulse Resp BP Pulse Ox 97.7 F 94 17 115/70 97 03/05/19 11:49 03/05/19 15:20 03/05/19 15:20 03/05/19 15:20 03/05/19 15:20 Intake & Output 03/04/19 03/05/19 03/06/19 06:59 06:59 06:59 Weight 78.9 kg General appearance: PRESENT: cooperative, mild distress, well-developed, other - Right facial droop Head exam: PRESENT: atraumatic, normocephalic Eye exam: PRESENT: conjunctiva pink. ABSENT: scleral icterus Ear exam: PRESENT: normal external ear exam Mouth exam: PRESENT: moist. ABSENT: tongue midline - Tongue deviates to the right Neck exam: PRESENT: tracheostomy Respiratory exam: PRESENT: clear to auscultation alana, symmetrical, unlabored. ABSENT: accessory muscle use, rales, rhonchi, tachypnea, wheezes Cardiovascular exam: PRESENT: RRR, +S1, +S2 Pulses: PRESENT: +1 pedal pulses bilateral Vascular exam: PRESENT: other - Toes slightly dusky and cool. Patient reports this is chronic. GI/Abdominal exam: PRESENT: normal bowel sounds, soft, other - PEG tube in place. PEG site unremarkable.. ABSENT: tenderness Rectal exam: PRESENT: deferred Extremities exam: ABSENT: joint swelling, pedal edema Neurological exam: PRESENT: alert, awake, oriented to person, oriented to place, oriented to situation, motor sensory deficit - No voluntary movement right arm. Right leg able to lift leg off of the bed and hold it for several seconds. Weak plantar flexion and dorsiflexion. Normal left leg and left arm. Right facial droop and tongue deviates to the right as noted above., other - It is difficult to assess speech because he does have a tracheostomy. I am unsure of the exact clarity of speech prior to admission. He does exhibit some dysarthria and this is consistent with his right facial droop.. ABSENT: reflexes normal Psychiatric exam: PRESENT: flat affect. ABSENT: agitated, anxious Focused psych exam: ABSENT: delusional, restlessness Skin exam: PRESENT: abrasion - Right knee Results Laboratory Results: 03/05/19 11:20 03/05/19 11:20 03/05/19 03/05/19 11:20 11:20 WBC 9.3 RBC 3.98 L Hgb 13.0 L Hct 39.0 MCV 98 H MCH 32.7 MCHC 33.4 RDW 14.9 H Plt Count 164 Seg Neutrophils % 85.1 H Lymphocytes % 10.4 L Monocytes % 4.3 Eosinophils % 0.0 Basophils % 0.2 Absolute Neutrophils 7.9 Absolute Lymphocytes 1.0 Absolute Monocytes 0.4 Absolute Eosinophils 0.0 Absolute Basophils 0.0 Sodium 135.3 L Potassium 4.3 Chloride 103 Carbon Dioxide 26 Anion Gap 6 BUN 34 H Creatinine 0.95 Est GFR ( Amer) > 60 Est GFR (Non-Af Amer) > 60 Glucose 69 L Calcium 8.5 Total Bilirubin 0.8 AST 308 H Alkaline Phosphatase 939 H Total Protein 5.5 L Albumin 2.8 L 03/05/19 03/05/19 11:20 11:20 Creatine Kinase < 20 L CK-MB (CK-2) 1.80 Troponin I 0.019 Impressions: Chest X-Ray 03/05/19 11:25 IMPRESSION: Negative chest allowing for low lung volumes. Tracheostomy tube and port remain in place. Head CT 03/05/19 11:25 IMPRESSION: MILD CHRONIC CHANGES OF ATROPHY AND MICROVASCULAR ISCHEMIA. NO ACUTE PROCESS. EVIDENCE OF ACUTE STROKE: NO. Assessment and Plan - Diagnosis (1) Acute ischemic left MCA stroke Is this a current diagnosis for this admission?: Yes Plan: Despite the initial CAT scan showing stroke the patient clearly has a left-sided ischemic infarcts with clear right hemiparesis. This also includes right facial droop with dysarthria. The patient did receive TPA in the emergency department. After 24 hours I will institute aspirin therapy. In addition I will obtain an echocardiogram and carotid Doppler studies. (2) Received intravenous tissue plasminogen activator (tPA) in emergency department Is this a current diagnosis for this admission?: Yes Plan: The patient received TPA. He was having significant secretions and the benefit of endotracheal suctioning versus the risk of bleeding fell on the side of endotracheal suction due to the significant volume of secretions. Will monitor closely for evidence of bleeding. 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 I saw the patient approximately 2 hours after TPA was administered and the nurse reports that he has exhibited increased function in his right leg. Right arm still has flaccid paralysis. We will obtain physical and Occupational Therapy consults as well as speech therapy for the dysarthria. (4) Transaminitis Is this a current diagnosis for this admission?: Yes Plan: The patient was recently seen for ascites with elevated transaminases. He was treated for spontaneous bacterial peritonitis and underwent paracentesis. He is following up with gastroenterology as an outpatient. We will monitor his liver chemistries. He does not exhibit any auto anticoagulation at this point. (5) Depression Qualifiers: Depression Type: major depressive disorder Major depression episode severity: moderate Is this a current diagnosis for this admission?: Yes Plan: The patient's reports that since the cancer diagnosis he has had significant depression. We will continue his current medication regimen. (6) Tracheostomy status Is this a current diagnosis for this admission?: Yes Plan: The patient has a permanent tracheostomy. As noted above the patient was having increased tracheal secretions with some discoloration possibly consistent with blood but there was no heladio blood in the secretions. We will continue tracheostomy care. If the secretions persists we can always send a tracheal aspirate culture. (7) PEG (percutaneous endoscopic gastrostomy) status Is this a current diagnosis for this admission?: Yes Plan: The patient has a permanent PEG tube. Occasions will be formulated either for liquid form or tablets that can be crushed. We will mirror his at home tube feed regimen as he uses Jevity 1.5 which is on our formulary. 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 However with the right-sided facial weakness he now has dysarthria. I will have speech therapy see the patient specifically for the dysarthria. - Time Time Spent with patient: 35 or more minutes Medications reviewed and adjusted accordingly: Yes Anticipated discharge: SNF - Inpatient Certification Based on my medical assessment, after consideration of the patient's comorbidities, presenting symptoms, or acuity I expect that the services needed warrant INPATIENT care.: Yes I certify that my determination is in accordance with my understanding of Medicare's requirements for reasonable and necessary INPATIENT services [42 CFR 412.3e].: Yes Medical Necessity: Need Close Monitoring Due to Risk of Patient Decompensation, Need For Continuous Telemetry Monitoring, Need for Neurological Checks
[2019-03-06] MEDS: SERTRALINE HCL 50 MG TABLET PEG SCH (11:23)
[2019-03-06] MEDS: CETIRIZINE 10 MG TABLET PEG SCH (11:23)
[2019-03-06] MEDS: GABAPENTIN 400 MG CAPSULE PEG SCH ×2 (11:23→21:17)
[2019-03-06] MEDS: SPIRONOLACTONE 25 MG TABLET PEG SCH (11:23)
[2019-03-06] MEDS: VENLAFAXINE HCL 75 MG TABLET PEG SCH ×2 (11:24→21:18)
[2019-03-06] MEDS: PROMETHAZINE HCL 25 MG TABLET PEG SCH ×2 (11:25→18:17)
[2019-03-06] MEDS: GABAPENTIN 300 MG CAPSULE PEG SCH (13:06)
[2019-03-06] MEDS ORDERED: GABAPENTIN 300 MG CAPSULE PO SCH (14:00)
--- NOTE | 2019-03-06 14:31 | PDOC PROGRESS REPORT ---
Subjective Progress Note for:: 03/06/19 Subjective:: Patient is 24 hours post TPA. The most significant complaint is increased secretions from the tracheostomy tube. Nursing reports faulkner-colored foul secretions. A sample was obtained for culture and sent to the lab. The patient just returned from his 24-hour post TPA CT scan.. Reason For Visit: ACUTE ISCHEMIC STROKE Physical Exam Vital Signs: Temp Pulse Resp BP Pulse Ox 97.4 F 104 H 23 H 102/76 96 03/06/19 12:00 03/06/19 14:00 03/06/19 14:00 03/06/19 14:00 03/06/19 14:00 Intake & Output 03/05/19 03/06/19 03/07/19 06:59 06:59 06:59 Intake Total 900 Output Total 900 300 Balance 0 -300 Weight 78.6 kg General appearance: PRESENT: cooperative, mild distress - Patient does appear to be slightly uncomfortable. He did just return from his CT scan., well-developed Head exam: PRESENT: atraumatic, normocephalic Eye exam: PRESENT: conjunctiva pink. ABSENT: scleral icterus Ear exam: PRESENT: normal external ear exam Mouth exam: PRESENT: dry mucosa. ABSENT: tongue midline - Still with slight deviation to the right Neck exam: PRESENT: tracheostomy - With copious faulkner-colored secretions. ABSENT: JVD Respiratory exam: PRESENT: clear to auscultation alana, symmetrical, unlabored. ABSENT: rales, rhonchi, tachypnea, wheezes Cardiovascular exam: PRESENT: RRR, +S1, +S2 GI/Abdominal exam: PRESENT: normal bowel sounds, soft, other - PEG tube in place. ABSENT: distended, tenderness Rectal exam: PRESENT: deferred Gentrourinary exam: PRESENT: indwelling catheter Extremities exam: ABSENT: joint swelling, pedal edema Musculoskeletal exam: PRESENT: normal inspection. ABSENT: ambulatory Neurological exam: PRESENT: alert, awake, oriented to person, oriented to place, oriented to situation, motor sensory deficit - Voluntary movements of the right leg and right arm. Flexion and extension of the arm but no appreciable editor continuity and script squeeze. The patient can lift his right leg off the bed and does exhibit weak plantar flexion. There is still a right facial droop with dysarthria., other Psychiatric exam: PRESENT: flat affect. ABSENT: agitated, anxious Focused psych exam: ABSENT: delusional, restlessness Skin exam: PRESENT: other - Slight facial flushing Results Laboratory Results: 03/06/19 03:19 03/06/19 03:19 03/06/19 03/06/19 03/06/19 03:19 03:19 03:19 WBC 7.8 RBC 3.81 L Hgb 12.4 L Hct 37.3 L MCV 98 H MCH 32.7 MCHC 33.4 RDW 14.8 H Plt Count 148 L Seg Neutrophils % 82.1 H Lymphocytes % 10.8 L Monocytes % 6.9 Eosinophils % 0.0 Basophils % 0.2 Absolute Neutrophils 6.4 Absolute Lymphocytes 0.8 Absolute Monocytes 0.5 Absolute Eosinophils 0.0 Absolute Basophils 0.0 Sodium Cancelled 133.7 L Potassium Cancelled 4.6 Chloride Cancelled 106 Carbon Dioxide Cancelled 22 Anion Gap Cancelled 6 BUN Cancelled 33 H Creatinine Cancelled 0.89 Est GFR ( Amer) Cancelled > 60 Est GFR (Non-Af Amer) Cancelled > 60 Glucose Cancelled 103 Calcium Cancelled 8.0 L Magnesium 2.3 Total Bilirubin 0.7 AST 171 H Alkaline Phosphatase 827 H Total Protein 4.8 L Albumin 2.4 L 03/05/19 03/05/19 11:20 11:20 Creatine Kinase < 20 L CK-MB (CK-2) 1.80 Troponin I 0.019 Impressions: Chest X-Ray 03/05/19 11:25 IMPRESSION: Negative chest allowing for low lung volumes. Tracheostomy tube and port remain in place. Head CT 03/05/19 11:25 IMPRESSION: MILD CHRONIC CHANGES OF ATROPHY AND MICROVASCULAR ISCHEMIA. NO ACUTE PROCESS. EVIDENCE OF ACUTE STROKE: NO. Assessment and Plan - Diagnosis (1) Acute ischemic left MCA stroke Is this a current diagnosis for this admission?: Yes Plan: The patient is just over 24 hours post TPA. He exhibits increased function on the right now with flexion and extension of the right arm. Increased function in the right leg as well. Still with dysarthria. We will add aspirin therapy today. (2) Received intravenous tissue plasminogen activator (tPA) in emergency department Is this a current diagnosis for this admission?: Yes Plan: The patient received TPA. He was having significant secretions and the benefit of endotracheal suctioning versus the risk of bleeding fell on the side of endotracheal suction due to the significant volume of secretions. Will monitor closely for evidence of bleeding. 03/06/2019-no evidence of heladio bleeding 24 hours post TPA. 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 I saw the patient approximately 2 hours after TPA was administered and the nurse reports that he has exhibited increased function in his right leg. Right arm still has flaccid paralysis. We will obtain physical and Occupational Therapy consults as well as speech therapy for the dysarthria. 03/06/2019-patient exhibits increased function in the right arm today. We will continue physical, occupational and speech therapies. Still with dysarthria from the right facial droop. (4) Transaminitis Is this a current diagnosis for this admission?: Yes Plan: Transaminases slowly improving. We will continue to monitor. (5) Tracheostomy status Is this a current diagnosis for this admission?: Yes Plan: The patient has a permanent tracheostomy. As noted above the patient was having increased tracheal secretions with some discoloration possibly consistent with blood but there was no heladio blood in the secretions. We will continue tracheostomy care. If the secretions persists we can always send a tracheal aspirate culture. 03/06/2019-still with copious secretions. The tracheostomy site itself does not have marked irritation or ulceration. Preliminary results on the tracheostomy aspirate show many polys with gram-positive cocci in pairs and chains. This could represent pneumococcus. Nursing reported a low-grade temperature. He does have facial flushing. At this point I believe the benefit antibiotics outweigh the risks and I will start him on antibiotic therapy directed at p neumococcal infection. I will repeat a chest x-ray. He likely has either tracheobronchitis or pneumonia. (6) Depression Qualifiers: Depression Type: major depressive disorder Major depression episode severity: moderate Is this a current diagnosis for this admission?: Yes Plan: The patient's reports that since the cancer diagnosis he has had significant depression. We will continue his current medication regimen. 03/06/2019-patient does have a flat affect today. We are trying to be positive and pointed out the improvements. His is certainly pleased with his progress at this point. Continue current antidepressant medications. (7) PEG (percutaneous endoscopic gastrostomy) status Is this a current diagnosis for this admission?: Yes Plan: Continue PEG tube site care. (8) Tracheobronchitis Is this a current diagnosis for this admission?: Yes Plan: As noted above the aspirate Gram stain reflex infection. Await final results. I have instituted ceftriaxone and azithromycin until the final culture results are available. - Time Time Spent with patient: 25-34 minutes Medications reviewed and adjusted accordingly: Yes
--- NOTE | 2019-03-06 15:25 | RADIOLOGY REPORT (SQ) ---
EXAM DESCRIPTION: CT HEAD WITHOUT COMPLETED DATE/TIME: 03/06/2019 2:48 pm REASON FOR STUDY: 24 hrs post tPA administration (+/-6 hrs) COMPARISON: 03/05/2019 TECHNIQUE: Axial images acquired through the brain without intravenous contrast. Images reviewed wi th bone, brain and subdural windows. Additional sagittal and coronal reconstructions were generated. Images stored on PACS. All CT scanners at this facility use dose modulation, iterative reconstruction, and/or weight based d osing when appropriate to reduce radiation dose to as low as reasonably achievable (ALARA). [facility]: Dose Right [facility]: CareDose [facility]: Dose Right [facility]: Teradose 4D [facility]: [employer] Dynamics RADIATION DOSE: CT Rad equipment meets quality standard of care and radiation dose reduction techniq ues were employed. CTDIvol: 48.6 mGy. DLP: 954 mGy-cm. mGy. LIMITATIONS: None. FINDINGS: VENTRICLES: Normal size and contour. CEREBRUM: There is subtle hypoattenuation involving the left insula and parietal region with loss of the amezcua-white differentiation. No evidence of significant mass effect or midline shift. No evidenc e of hemorrhagic conversion or additional intracranial blood products. CEREBELLUM: No masses. No hemorrhage. No alteration of density. No evidence for acute infarction. EXTRAAXIAL SPACES: No fluid collections. No masses. ORBITS AND GLOBE: No intra- or extraconal masses. Normal contour of globe without masses. Bilateral cataract surgery. CALVARIUM: No fracture. PARANASAL SINUSES: No fluid or mucosal thickening. SOFT TISSUES: No mass or hematoma. OTHER: No other significant finding. IMPRESSION: Hypoattenuation involving the left parietal lobe and insula compatible with left MCA ter ritory infarct. No evidence of significant mass effect or hemorrhagic conversion. Findings discussed with Dr. Inman at 1517 hours on 03/06/2019 EVIDENCE OF ACUTE STROKE: YES. COMMENT: Quality ID # [id number]: Final reports with documentation of one or more dose reduction techniques (e.g., Automated exposure control, adjustment of the mA and/or kV according to patient size, use of iterative reconstruction technique) TECHNICAL DOCUMENTATION: JOB ID: [id number] [employer]- All Rights Reserved Reading location - IP/workstation name: [email or web address]
[2019-03-06] MEDS ORDERED: GUAIFENESIN SYRP 200 MG/10 ML UDC PEG PRN (20:19)
[2019-03-06] MEDS ORDERED: CEFTRIAXONE 1 GM/D5W RTU 1 GM/50 ML RTUPB IV SCH (20:30)
[2019-03-06] MEDS: ASPIRIN 81 MG TABLET, CHEWABLE PEG SCH (21:17)
[2019-03-06] MEDS: CEFTRIAXONE SODIUM 1,000 MG in DEXTROSE 5%-WATER 50 ML IV SCH (21:17)
[2019-03-06] MEDS: AZITHROMYCIN 500 MG in DEXTROSE 5%-WATER 250 ML IV SCH (22:44)
[2019-03-07 06:02] LABS: ABSOLUTE LYMPHOCYTES (AUTO) 1.6 10^3/uL (0.5-4.7); ABSOLUTE MONOCYTES (AUTO) 0.5 10^3/uL (0.1-1.4); ABSOLUTE NEUT (AUTO) 6.7 10^3/uL (1.7-8.2); BASOPHILS % (AUTO) 0.2 % (0-2); EOSINOPHILS % (AUTO) 0.1 % (0-6); HEMATOCRIT 36.3 % (37.9-51.0); HEMOGLOBIN 12.3 g/dL (13.5-17.0); LYMPHOCYTES % (AUTO) 18.4 % (13-45); MEAN CORPUSCULAR HEMOGLOBIN 33.1 pg (27.0-33.4); MEAN CORPUSCULAR VOLUME 97 fl (80-97); MONOCYTES % (AUTO) 5.9 % (3-13); PLATELET COUNT 143 10^3/uL (150-450); RED BLOOD COUNT 3.72 10^6/uL (4.35-5.55); RED CELL DISTRIBUTION WIDTH 14.5 % (11.5-14.0); SEGMENTED NEUTROPHILS % (AUTO) 75.4 % (42-78); TOTAL CELLS COUNTED % (AUTO) 100 %; WHITE BLOOD COUNT 8.9 10^3/uL (4.0-10.5)
[2019-03-07 06:17] LABS: ALBUMIN 2.4 g/dL (3.5-5.0); ALKALINE PHOSPHATASE 746 U/L (38-126); ASPARTATE AMINO TRANSFERASE 175 U/L (17-59); BILIRUBIN,DIRECT 0.3 mg/dL (0.0-0.4); BILIRUBIN,TOTAL 0.6 mg/dL (0.2-1.3); BLOOD UREA NITROGEN 31 mg/dL (7-20); CALCIUM 7.9 mg/dL (8.4-10.2); GLUCOSE 80 mg/dL (75-110); POTASSIUM 4.5 mmol/L (3.6-5.0); TOTAL PROTEIN 4.7 g/dL (6.3-8.2)
[2019-03-07 06:22] LABS: CARBON DIOXIDE 23 mmol/L (22-30); CHLORIDE 106 mmol/L (98-107)
[2019-03-07 06:25] LABS: ANION GAP 3 (5-19)
[2019-03-07] MEDS: PANTOPRAZOLE SODIUM 40 MG PACKET.DR NG SCH ×2 (06:29→18:03)
[2019-03-07] MEDS: LEVOTHYROXINE SODIUM 0.05 MG TABLET PEG SCH (06:29)
--- NOTE | 2019-03-07 08:01 | PDOC CONSULTATION ---
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 History of Present Illness Admission Date/PCP: 03/05/19 14:33 CLAUDIO FU MD History of Present Illness: [address] is a 73 year old male who was diagnosed with alyngeal cancer in 2013. Most recently he had received Keytruda with good response, but has not had this medication since January 11, 2019. He also underwent radiation to a lung lesion 03/06/2018. His most recent scans have shown stable, minimal residual disease. In early January of this year, he developed acute liver failure with ascites. This may have been from Keytruda, but unclear as to cause. This has also remained stable. He presented to the hospital 2 days ago with right sided weakness and has been treated with TPA for acute stroke. Today, he states that he is feeling better. He has increased mucus in his throat, but denies any pain. Past Medical History Cardiac Medical History: Reports: Hypertension Denies: Coronary Artery Disease, Myocardial Infarction Pulmonary Medical History: Denies: Asthma, Bronchitis, Chronic Obstructive Pulmonary Disease (COPD), Pneumonia Neurological Medical History: Denies: Seizures Renal/ Medical History: Denies: Chronic Kidney Disease, End Stage Renal Disease, Nephrolithiasis Malignancy Medical History: Reports: Lung Cancer, Other - Laryngeal cancer GI Medical History: Reports: Cirrhosis, Other - Recent onset of ascites and elevated liver function tests of uncertain etio Denies: Hepatitis, Hiatal Hernia Musculoskeltal Medical History: Denies: Arthritis Psychiatric Medical History: Reports: Depression Traumatic Medical History: Reports: None Hematology: Denies: Anemia, Sickle Cell Disease Infectious Medical History: Reports: None Past Surgical History Past Surgical History: Reports: Other - Abdominal surgery, cataracts, PEG, laryngoscopy and tracheostomy, T&A Denies: Pacemaker Social History Lives with: Spouse/Significant other Smoking Status: Former Smoker Frequency of Alcohol Use: None Hx Recreational Drug Use: No Drugs: None Hx Prescription Drug Abuse: Yes - Advance Directive Resuscitation Status: Full Code Family History Family History: Reviewed & Not Pertinent, Hypertension Parental Family History Reviewed: Yes - Mother with dementia. Father with CKD Children Family History Reviewed: Yes Sibling(s) Family History Reviewed.: No Medication/Allergy Home Medications: Alprazolam [Xanax 0.5 mg Tablet] 0.5 mg JT Q12 03/05/19 Cetirizine HCl [Zyrtec 10 mg Tablet] 10 mg PO DAILY 03/05/19 Gabapentin [Neurontin] 5 ml PO NOON 03/05/19 Gabapentin [Neurontin] 16 ml PO QAM 03/05/19 Gabapentin [Neurontin] 16 ml PO QPM 03/05/19 Levothyroxine Sodium [Synthroid 50 Mcg Tablet] 50 mcg PO Q6AM 03/05/19 Promethazine HCl [Phenergan 25 mg Tablet] 12.5 mg JT Q12 03/05/19 Sertraline HCl [Zoloft] 10 ml PO DAILY 03/05/19 Spironolactone [Aldactone] 100 mg PO QAM 03/05/19 Venlafaxine HCl [Effexor 75 mg Tablet] 75 mg PO QAM 03/05/19 Venlafaxine HCl [Effexor 75 mg Tablet] 150 mg PO QPM 03/05/19 Allergies/Adverse Reactions: No Known Allergies Allergy (Verified 02/01/19 16:35) Review of Systems Constitutional: ABSENT: fever(s), headache(s) Eyes: ABSENT: visual disturbances Ears: ABSENT: hearing changes Nose, Mouth, and Throat: PRESENT: sore throat Cardiovascular: ABSENT: chest pain Respiratory: PRESENT: cough, dyspnea, sputum Gastrointestinal: ABSENT: constipation, nausea Genitourinary: ABSENT: dysuria Integumentary: ABSENT: pruritus Neurological: PRESENT: as per HPI Physical Exam Vital Signs: Temp Pulse Resp BP Pulse Ox 98.8 F 84 20 121/62 95 03/07/19 07:30 03/07/19 07:30 03/07/19 07:30 03/07/19 07:30 03/07/19 07:30 Intake & Output 03/06/19 03/07/19 03/08/19 06:59 06:59 06:59 Intake Total 900 930 Output Total 900 500 Balance 0 430 Weight 78.6 kg 78 kg General appearance: PRESENT: no acute distress, well-developed, well-nourished Head exam: PRESENT: normocephalic Mouth exam: PRESENT: moist, tongue midline Neck exam: PRESENT: tracheostomy Respiratory exam: PRESENT: unlabored, other - Upper Expiratory noises bilaterally. Cardiovascular exam: PRESENT: RRR GI/Abdominal exam: PRESENT: ascites, soft. ABSENT: tenderness Extremities exam: PRESENT: pedal edema Neurological exam: PRESENT: alert, awake Psychiatric exam: PRESENT: appropriate affect Skin exam: PRESENT: normal color Results Laboratory Results: 03/07/19 05:19 03/07/19 05:19 03/07/19 03/07/19 05:19 05:19 WBC 8.9 RBC 3.72 L Hgb 12.3 L Hct 36.3 L MCV 97 MCH 33.1 MCHC 34.0 RDW 14.5 H Plt Count 143 L Seg Neutrophils % 75.4 Lymphocytes % 18.4 Monocytes % 5.9 Eosinophils % 0.1 Basophils % 0.2 Absolute Neutrophils 6.7 Absolute Lymphocytes 1.6 Absolute Monocytes 0.5 Absolute Eosinophils 0.0 Absolute Basophils 0.0 Sodium 131.5 L Potassium 4.5 Chloride 106 Carbon Dioxide 23 Anion Gap 3 L BUN 31 H Creatinine 0.87 Est GFR ( Amer) > 60 Est GFR (Non-Af Amer) > 60 Glucose 80 Calcium 7.9 L Magnesium 2.3 Total Bilirubin 0.6 GGT 2585 H AST 175 H Alkaline Phosphatase 746 H Total Protein 4.7 L Albumin 2.4 L 03/05/19 03/05/19 11:20 11:20 Creatine Kinase < 20 L CK-MB (CK-2) 1.80 Troponin I 0.019 Impressions: Chest X-Ray 03/05/19 11:25 IMPRESSION: Negative chest allowing for low lung volumes. Tracheostomy tube and port remain in place. Head CT 03/06/19 12:00 IMPRESSION: Hypoattenuation involving the left parietal lobe and insula compatible with left MCA territory infarct. No evidence of significant mass effect or hemorrhagic conversion. Findings discussed with Dr. Inman at 1517 hours on 03/06/2019 EVIDENCE OF ACUTE STROKE: YES. Assessment & Plan - Diagnosis (1) Acute ischemic left MCA stroke Is this a current diagnosis for this admission?: Yes Plan: As per primary team. He appears to have had a good response to the TPA thus far. (2) Cancer of larynx Is this a current diagnosis for this admission?: Yes Plan: All treatment currently on hold. He has had minimal residual disease. - Plan Summary Plan Summary: We will continue to follow with you. Please call with any concerns.
--- NOTE | 2019-03-07 09:07 | RADIOLOGY REPORT (SQ) ---
EXAM DESCRIPTION: CHEST SINGLE VIEW COMPLETED DATE/TIME: 03/07/2019 8:17 am REASON FOR STUDY: Pneumonia COMPARISON: Chest films 12/16/2018, 03/05/2019 EXAM PARAMETERS: NUMBER OF VIEWS: One view. TECHNIQUE: Single frontal radiographic view of the chest acquired. RADIATION DOSE: NA LIMITATIONS: None. FINDINGS: LUNGS AND PLEURA: Low lung volumes with bibasilar atelectasis. Radiotherapy treatment mar kers over the left lung base. No gross pleural effusion or pneumothorax. MEDIASTINUM AND HILAR STRUCTURES: No masses. Contour normal. HEART AND VASCULAR STRUCTURES: Heart normal in size. Normal vasculature. BONES: No acute findings. HARDWARE: Tracheostomy tube tip in the upper trachea in good positioning. Left-sided permanent centr al line tip superior vena cava OTHER: No other significant finding. IMPRESSION: Bibasilar atelectasis TECHNICAL DOCUMENTATION: JOB ID: [id number]- All Rights Reserved Reading location - IP/workstation name: [email or web address]
[2019-03-07] MEDS: GABAPENTIN 400 MG CAPSULE PEG SCH ×2 (09:18→21:35)
[2019-03-07] MEDS: PROMETHAZINE HCL 25 MG TABLET PEG SCH ×2 (09:18→18:02)
[2019-03-07] MEDS: SPIRONOLACTONE 25 MG TABLET PEG SCH (09:18)
[2019-03-07] MEDS: VENLAFAXINE HCL 75 MG TABLET PEG SCH ×2 (09:18→21:35)
[2019-03-07] MEDS: CETIRIZINE 10 MG TABLET PEG SCH (09:18)
[2019-03-07] MEDS: SERTRALINE HCL 50 MG TABLET PEG SCH (09:18)
--- NOTE | 2019-03-07 12:19 | Physical Med & Rehab Consult ---
Consultation Consult Date: 03/07/19 Provider Consulted: DANILO KRAFT Consult reason:: Evaluation for admission to acute inpatient rehabilitation History of Present Illness Admission Date/PCP: 03/05/19 14:33 CLAUDIO FU MD Patient complains of: Right-sided weakness and shortness of breath History of Present Illness: JOSE LUIS ASHRAF is a 73-year-old right-handed male with complicated past medical history including lung cancer and laryngeal cancer status post trache ostomy, PEG tube placement, and chemotherapy as well as hypertension, depression, cataract removal, and tonsillectomy/adenoidectomy who was recently admitted to [facility] for spontaneous bacterial peritonitis ascites, and elevated transaminases readmitted to [facility] on 03/05/2019 after presenting with sudden onset of right facial droop, dysarthria, and right-sided weakness. Initial CT head demonstrated mild chronic changes of atrophy and microvascular ischemia with no acute process. The patient was deemed an appropriate candidate for TPA, and this was administered in the emergency department prior to transfer to the intensive care unit for close neurological follow-up. The patient demonstrated improving strength in the right lower extremity within 3 hours of TPA administration and improving strength in the right upper extremity within 24 hours, although he remains with dysarthria and right facial droop. Post TPA CT head demonstrated hypoattenuation involving the left parietal lobe and insula compatible with a left MCA territory infarct with no significant mass-effect or hemorrhagic conversion. Additionally, the patient was noted to have increased secretions and congested breath sounds [place] and tracheal cultures grew many polys with gram-positive cocci in pairs and chains, possibly representing pneumococcus. The patient has been started on IV antibiotics and further trach management is ongoing. Patient is now on aspirin 81 mg daily for secondary stroke prophylaxis. Patient's liver enzymes remain elevated but are stable. Physical medicine and rehabilitation consultation was requested to evaluate the patient for admission to acute inpatient rehabilitation. Today, the patient was seen and examined in his room. He admits to continued right upper extremity weakness and difficulty speaking. His last bowel movement was several days ago, and he denies trouble with urination. Past Medical History Cardiac Medical History: Reports: Hypertension Denies: Coronary Artery Disease, Myocardial Infarction Pulmonary Medical History: Denies: Asthma, Bronchitis, Chronic Obstructive Pulmonary Disease (COPD), Pneumonia Neurological Medical History: Denies: Seizures Renal/ Medical History: Denies: Chronic Kidney Disease, End Stage Renal Disease, Nephrolithiasis Malignancy Medical History: Reports: Lung Cancer, Other - Laryngeal cancer GI Medical History: Reports: Cirrhosis, Other - Recent onset of ascites and elevated liver function tests of uncertain etio Denies: Hepatitis, Hiatal Hernia Musculoskeltal Medical History: Denies: Arthritis Psychiatric Medical History: Reports: Depression Traumatic Medical History: Reports: None Hematology: Denies: Anemia, Sickle Cell Disease Infectious Medical History: Reports: None Past Surgical History Past Surgical History: Reports: Other - Abdominal surgery, cataracts, PEG, laryngoscopy and tracheostomy, T&A Denies: Pacemaker Social History Lives with: Spouse/Significant other Smoking Status: Former Smoker Frequency of Alcohol Use: None Hx Recreational Drug Use: No Drugs: None Hx Prescription Drug Abuse: Yes Past Social History Note: Jose Luis Ashraf lives with his in a 1 level home with 1 steps to enter and 0 steps to the bedroom and bathroom. He quit drinking alcohol 3 years ago and denies smoking or using drugs. Prior Functional Status: Active and modified independent with mobility and all ADLs. Ambulates with a walker. He does require some assistance his with managing his tube feeds. Current Functional Status: Per therapy notes, the patient currently requires maximum assistance of 2 people for bed mobility and transfers, moderate assistance for upper body dressing, dependent assistance for lower body dressing, and dependent assistance for toileting. At baseline, the patient does not take anything by mouth but he is working with speech therapy on communication. - Advance Directive Resuscitation Status: Full Code Family History Family History: Reviewed & Not Pertinent, Hypertension Parental Family History Reviewed: Yes Children Family History Reviewed: NA Sibling(s) Family History Reviewed.: NA Medication/Allergy Home Medications: Alprazolam [Xanax 0.5 mg Tablet] 0.5 mg JT Q12 03/05/19 Cetirizine HCl [Zyrtec 10 mg Tablet] 10 mg PO DAILY 03/05/19 Gabapentin [Neurontin] 5 ml PO NOON 03/05/19 Gabapentin [Neurontin] 16 ml PO QAM 03/05/19 Gabapentin [Neurontin] 16 ml PO QPM 03/05/19 Levothyroxine Sodium [Synthroid 50 Mcg Tablet] 50 mcg PO Q6AM 03/05/19 Promethazine HCl [Phenergan 25 mg Tablet] 12.5 mg JT Q12 03/05/19 Sertraline HCl [Zoloft] 10 ml PO DAILY 03/05/19 Spironolactone [Aldactone] 100 mg PO QAM 03/05/19 Venlafaxine HCl [Effexor 75 mg Tablet] 75 mg PO QAM 03/05/19 Venlafaxine HCl [Effexor 75 mg Tablet] 150 mg PO QPM 03/05/19 Allergies/Adverse Reactions: No Known Allergies Allergy (Verified 02/01/19 16:35) Review of Systems Review of Systems: Constitutional: No fevers, chills, sweats, weight loss Eye: No recent visual problems, no blurry vision, no double vision ENMT: Increased tracheal secretions. Respiratory: Mild to moderate shortness of breath. Positive sputum production. Cardiovascular: No chest pain, palpitations, syncope Gastrointestinal: No nausea, vomiting, diarrhea, abdominal pain Genitourinary: No hematuria, dysuria, flank or suprapubic pain Kevan/Lymph: Negative for bruising tendency, swollen lymph glands Endocrine: Negative for excessive thirst, excessive hunger, extreme fatigue Musculoskeletal: No back pain, neck pain, joint pain, muscle pain, decreased range of motion Integumentary: No rash, pruritus, abrasions Neurologic: No headache or numbness. Positive dysarthria and right-sided weakness. Psychiatric: Positive for history of depression. Physical Exam Vital Signs: Temp Pulse Resp BP Pulse Ox 98.8 F 84 20 121/62 95 03/07/19 07:30 03/07/19 08:00 03/07/19 08:00 03/07/19 08:00 03/07/19 08:00 Intake & Output 03/06/19 03/07/19 03/08/19 06:59 06:59 06:59 Intake Total 900 930 690 Output Total 900 500 Balance 0 430 690 Weight 78.6 kg 78 kg Exam: General: Awake and Alert. No acute distress. Resting comfortably in bed. Head: Normocephalic. Atraumatic. Eyes: Pupils equal, round, and sluggishly reactive to light. EOMI. Sclera white. Ears: No drainage noted. Nose: Nares normal & without exudate. Oropharynx: Moist mucous membranes. Neck: Trach with [place] valve in place. Excessive secretions. Cardiovascular: Regular rate & rhythm. No murmurs, rubs, or gallops appreciated. Pulmonary: Coarse breath sounds bilaterally. Gastrointestinal: Abdomen soft, non-tender, non-distended. Normoactive bowel sounds. PEG tube in place without any issues. Skin: Texture and turgor normal. Warm and dry. Psychiatric: Judgement and insight appear to be good. Patient is oriented to self, location, and situation but not to date. Affect appropriate. Extremities: Arthritic changes of the hands and feet are noted Neurological: CN III-XII grossly intact, except right lower facial droop is present. Sensation to light touch is grossly intact. Tone is decreased in the right hand and wrist. Proprioception is normal. No Campbell's. No Babinski. Speech is moderately dysarthric. Muscle Strength: Full 5/5 strength in all major muscle groups of the left-sided extremities. He has 3/5 strength of the major muscle groups of the right upper extremity, except 0/5 strength of right wrist extensors and finger flexors/extensors. He has 4/5 strength of the major muscle groups of the right lower extremity, except 1/5 strength of right ankle dorsiflexors and plantar flexors. Results Laboratory Results: 03/07/19 05:19 03/07/19 05:19 03/07/19 03/07/19 05: 05:19 WBC 8.9 RBC 3.72 L Hgb 12.3 L Hct 36.3 L MCV 97 MCH 33.1 MCHC 34.0 RDW 14.5 H Plt Count 143 L Seg Neutrophils % 75.4 Lymphocytes % 18.4 Monocytes % 5.9 Eosinophils % 0.1 Basophils % 0.2 Absolute Neutrophils 6.7 Absolute Lymphocytes 1.6 Absolute Monocytes 0.5 Absolute Eosinophils 0.0 Absolute Basophils 0.0 Sodium 131.5 L Potassium 4.5 Chloride 106 Carbon Dioxide 23 Anion Gap 3 L BUN 31 H Creatinine 0.87 Est GFR ( Amer) > 60 Est GFR (Non-Af Amer) > 60 Glucose 80 Calcium 7.9 L Magnesium 2.3 Total Bilirubin 0.6 GGT 2585 H AST 175 H Alkaline Phosphatase 746 H Total Protein 4.7 L Albumin 2.4 L 03/05/19 03/05/19 11:20 11:20 Creatine Kinase < 20 L CK-MB (CK-2) 1.80 Troponin I 0.019 Impressions: Head CT 03/06/19 12:00 IMPRESSION: Hypoattenuation involving the left parietal lobe and insula compatible with left MCA territory infarct. No evidence of significant mass effect or hemorrhagic conversion. Findings discussed with Dr. Inman at 1517 hours on 03/06/2019 EVIDENCE OF ACUTE STROKE: YES. Chest X-Ray 03/07/19 08:00 IMPRESSION: Bibasilar atelectasis Assessment and Plan - Plan Summary Plan Summary: 73-year-old male with left MCA CVA resulting in right hemiparesis (dominant) and dysarthria. 1. Gait and ADL Dysfunction secondary to left MCA CVA resulting in right hemiparesis (dominant) and dysarthria. - Continue PT and OT to maximize mobility, safety, endurance, and self-care. 2. Left MCA CVA resulting in right hemiparesis (dominant) and dysarthria - Needs continued PT & OT & RESIN PAINTER to maximize functional mobility, safety and self-care as well as communication needs & swallow function. Risk Factor Modification: - Hypertension: Dietary and activity modifications, avoid hypotension and hypertension - Glycemic Control: HgBA1c ordered and pending, continue dietary and activity modifications, SSI, avoid hyperglycemia and hypoglycemia - Lipids: Lipid panel is ordered and pending, continue dietary and activity modifications, consider statin therapy - Smoking: The patient does not smoke - Alcohol: The patient does not drink alcohol - Antiplatelet: Continue aspirin 81 mg daily - Cardioembolic Event: Echocardiogram pending - Vascular: Carotid duplex is pending Dysphagia: -The patient does not take anything by mouth secondary to history of laryngeal cancer. Continue tube feeds by PEG tube. VTE Prophylaxis: - Continue mechanical prophylaxis. The patient is status post TPA. Risk of Shoulder Subluxation: - Educate patient and family on positioning. - Lap tray, if needed. - Ensure that the right upper extremity is supported. Risk of Spasticity: - Continue ROM, positioning. - The patient has decreased tone in the right upper extremity. Risk of Contractures: - Continue ROM, positioning. - Right lower extremity [place] AFO ordered: 4 hours on/4 hours off while in bed to prevent plantarflexion contracture. Risk of Constipation: - Continue dietary modifications and encourage fluid intake. - Bowel protocol. Risk of Neurogenic Bladder/UTI: - Monitor for retention, incontinence, UTI. Risk of Skin Breakdown: - Frequent turning/position changes. - Optimize nutritional status. 3. History of Laryngeal/lung cancer - The patient was evaluated by oncology during this admission. All treatment is currently on hold and he is noted to have minimal residual disease. 4. Tracheobronchitis - Continue antibiotics and further management per primary team 5. Disposition - Based on the patient's diagnosis and medical comorbidities he may be a candidate for acute inpatient rehabilitation, but a final recommendation cannot be made at this time. Further progress in acute care therapies needs to be demonstrated before he is accepted to acute inpatient rehabilitation. We will continue to follow the patient's progress in acute care therapies to make a final recommendation. This case was discussed with the patient's acute care therapists, nurse on the floor, and Dr. Inman on the floor. Thank you for allowing us to participate in the care of this patient. Please call with any questions. A total of 75 minutes was spent on [id number] communication with the patient and coordination of care.
--- NOTE | 2019-03-07 14:50 | RADIOLOGY REPORT (SQ) ---
EXAM DESCRIPTION: CAROTID DOPPLER COMPLETED DATE/TIME: 03/07/2019 2:39 pm REASON FOR STUDY: Acute ischemic stroke COMPARISON: None. TECHNIQUE: Grayscale ultrasound, Doppler velocity and spectra, and color Doppler images acquired of the extra-cranial carotid and vertebral arteries. Images stored on PACS. LIMITATIONS: None. FINDINGS: RIGHT CAROTID CCA Velocities: Within normal limits. ICA Velocities Peak systolic 87 cm/s. End diastolic 34 cm/s. Proximal ICA/CCA peak systolic ratio 1.6. Spectra normal. Extensive shadowing heterogeneous plaque of the carotid bulb and proximal internal c arotid artery. LEFT CAROTID CCA Velocities: Within normal limits. ICA Velocities Peak systolic 207 cm/s. End diastolic 64 cm/s. Proximal ICA/CCA peak systolic ratio 3.4. Spectra normal. Extensive shadowing heterogeneous plaque of the carotid bulb and proximal internal c arotid artery. VERTEBRAL ARTERIES: Antegrade flow. Normal waveforms. SUBCLAVIAN ARTERIES: No finding. OTHER: No other significant finding. IMPRESSION: There is extensive bilateral shadowing atherosclerotic plaque of the carotid bulb and pr oximal internal carotid arteries, which somewhat limits evaluation. Within this limitation, less komal n 50% stenosis of the right internal carotid artery and 50 to 69% stenosis of the left internal carot id artery by SRU Doppler flow velocity criteria. COMMENT: Quality ID #[id number]: Velocity criteria are extrapolated from the diameter data as defined by t he Society of Radiologists in Ultrasound Consensus Conference. Radiology 2003: 229; 340-346. TECHNICAL DOCUMENTATION: JOB ID: [id number] [employer]- All Rights Reserved Reading location - IP/workstation name: [email or web address]
[2019-03-07] MEDS: GABAPENTIN 300 MG CAPSULE PEG SCH (15:10)
[2019-03-07] MEDS: CEFTRIAXONE SODIUM 1,000 MG in DEXTROSE 5%-WATER 50 ML IV SCH (18:02)
[2019-03-07] MEDS ORDERED: BISACODYL 10 MG SUPP.RECT PR PRN (21:30)
[2019-03-07] MEDS: ASPIRIN 81 MG TABLET, CHEWABLE PEG SCH (21:36)
[2019-03-07] MEDS: AZITHROMYCIN 500 MG in DEXTROSE 5%-WATER 250 ML IV SCH (21:36)
--- NOTE | 2019-03-07 21:41 | PDOC PROGRESS REPORT ---
Subjective Progress Note for:: 03/07/19 Subjective:: Patient just had a significant amount of secretions from the tracheostomy tube. Reason For Visit: ACUTE ISCHEMIC STROKE Physical Exam Vital Signs: Temp Pulse Resp BP Pulse Ox 98.8 F 84 20 121/62 95 03/07/19 07:30 03/07/19 08:00 03/07/19 08:00 03/07/19 08:00 03/07/19 08:00 Intake & Output 03/06/19 03/07/19 03/08/19 06:59 06:59 06:59 Intake Total 397 833 2682 Output Total 900 500 Balance 0 430 1130 Weight 78.6 kg 78 kg General appearance: PRESENT: cooperative, mild distress, well-developed Head exam: PRESENT: atraumatic, normocephalic Ear exam: PRESENT: normal external ear exam Neck exam: PRESENT: tracheostomy, other - Still with thick secretions Respiratory exam: PRESENT: rhonchi - Rhonchorous breath sounds, symmetrical. ABSENT: rales, tachypnea, wheezes Cardiovascular exam: PRESENT: RRR, +S1, +S2 GI/Abdominal exam: PRESENT: normal bowel sounds, soft, other - PEG tube in place. ABSENT: tenderness Rectal exam: PRESENT: deferred Gentrourinary exam: PRESENT: indwelling catheter Extremities exam: ABSENT: joint swelling, pedal edema Musculoskeletal exam: PRESENT: normal inspection Neurological exam: PRESENT: motor sensory deficit - Able to abduct and abduct the arm as well as flex and extend at the elbow. Still with minimal voluntary function in the right hand. Right leg lift successful and the patient can hold off the bed. Still with very weak plantar and dorsiflexion of the foot. Psychiatric exam: PRESENT: appropriate affect. ABSENT: agitated, anxious Skin exam: PRESENT: other - Facial flushing again today but he was just coughing quite a bit Results Laboratory Results: 03/07/19 05:19 03/07/19 05:19 03/07/19 03/07/19 05:19 05:19 WBC 8.9 RBC 3.72 L Hgb 12.3 L Hct 36.3 L MCV 97 MCH 33.1 MCHC 34.0 RDW 14.5 H Plt Count 143 L Seg Neutrophils % 75.4 Lymphocytes % 18.4 Monocytes % 5.9 Eosinophils % 0.1 Basophils % 0.2 Absolute Neutrophils 6.7 Absolute Lymphocytes 1.6 Absolute Monocytes 0.5 Absolute Eosinophils 0.0 Absolute Basophils 0.0 Sodium 131.5 L Potassium 4.5 Chloride 106 Carbon Dioxide 23 Anion Gap 3 L BUN 31 H Creatinine 0.87 Est GFR ( Amer) > 60 Est GFR (Non-Af Amer) > 60 Glucose 80 Calcium 7.9 L Magnesium 2.3 Total Bilirubin 0.6 GGT 2585 H AST 175 H Alkaline Phosphatase 746 H Total Protein 4.7 L Albumin 2.4 L 03/05/19 03/05/19 11:20 11:20 Creatine Kinase < 20 L CK-MB (CK-2) 1.80 Troponin I 0.019 Impressions: Head CT 03/06/19 12:00 IMPRESSION: Hypoattenuation involving the left parietal lobe and insula compatible with left MCA territory infarct. No evidence of significant mass effect or hemorrhagic conversion. Findings discussed with Dr. Inman at 1517 hours on 03/06/2019 EVIDENCE OF ACUTE STROKE: YES. Carotid Doppler Study 03/07/19 06:00 IMPRESSION: There is extensive bilateral shadowing atherosclerotic plaque of t he carotid bulb and proximal internal carotid arteries, which somewhat limits evaluation. Within this limitation, less than 50% stenosis of the right internal carotid artery and 50 to 69% stenosis of the left internal carotid artery by SRU Doppler flow velocity criteria. Chest X-Ray 03/07/19 08:00 IMPRESSION: Bibasilar atelectasis Assessment and Plan - Diagnosis (1) Acute ischemic left MCA stroke Is this a current diagnosis for this admission?: Yes Plan: The patient is just over 24 hours post TPA. He exhibits increased function on the right now with flexion and extension of the right arm. Increased function in the right leg as well. Still with dysarthria. We will add aspirin therapy today. 03/07/2019-the patient is doing well. Each day he has increased function on the right side. He still has right facial droop, weakness in the right arm and right leg. The patient was evaluated by physiatry today. Evaluation was inconclusive and will reassess on Monday. Continue PT, OT and speech (2) Received intravenous tissue plasminogen activator (tPA) in emergency department Is this a current diagnosis for this admission?: Yes Plan: The patient received TPA. He was having significant secretions and the benefit of endotracheal suctioning versus the risk of bleeding fell on the side of endotracheal suction due to the significant volume of secretions. Will monitor closely for evidence of bleeding. 03/06/2019-no evidence of heladio bleeding 24 hours post TPA. 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 I saw the patient approximately 2 hours after TPA was administered and the nurse reports that he has exhibited increased function in his right leg. Right arm still has flaccid paralysis. We will obtain physical and Occupational Therapy consults as well as speech therapy for the dysarthria. 03/06/2019-patient exhibits increased function in the right arm today. We will continue physical, occupational and speech therapies. Still with dysarthria from the right facial droop. 03/07/2019-as noted above he seems to regain slightly more function daily. At this point gross motor function is improving. Dexterity is lacking however. (4) Transaminitis Is this a current diagnosis for this admission?: Yes Plan: Transaminases slowly improving. We will continue to monitor. 03/07/2019-the AST and ALT slowly improving. Alkaline phosphatase still markedly elevated and I did check his GGT today. This was 2800. I did review recent PET scan and that showed no increased activity in the liver. The liver texture is nodular. This certainly could be cirrhosis. We will continue to monitor. (5) Tracheostomy status Is this a current diagnosis for this admission?: Yes Plan: The patient has a permanent tracheostomy. As noted above the patient was having increased tracheal secretions with some discoloration possibly consistent with blood but there was no heladio blood in the secretions. We will continue tracheostomy care. If the secretions persists we can always send a tracheal aspirate culture. 03/06/2019-still with copious secretions. The tracheostomy site itself does not have marked irritation or ulceration. Preliminary results on the tracheostomy aspirate show many polys with gram-positive cocci in pairs and chains. This could represent pneumococcus. Nursing reported a low-grade temperature. He does have facial flushing. At this point I believe the benefit antibiotics outweigh the risks and I will start him on antibiotic therapy directed at pneumococcal infection. I will repeat a chest x-ray. He likely has either tracheobronchitis or pneumonia. 03/07/2019-the patient was started on ceftriaxone due to the gram-positive cocci seen in the tracheal aspirate. Examination of today's microbiology results shows 4+ gram negative bacilli growing. Pseudomonas and Haemophilus can sometimes stain gram-positive but ultimately will culture out as gram-negative bacilli. I have change the Rocephin to cefepime to cover for Pseudomonas. I will leave the azithromycin. Hopefully I will have final results tomorrow. (6) Depression Qualifiers: Depression Type: major depressive disorder Major depression episode severity: moderate Is this a current diagnosis for this admission?: Yes Plan: The patient's reports that since the cancer diagnosis he has had significant depression. We will continue his current medication regimen. 03/06/2019-patient does have a flat affect today. We are trying to be positive and pointed out the improvements. His is certainly pleased with his progress at this point. Continue current antidepressant medications. 03/07/2019-continue current regimen. The patient does respond appropriately. I believe he is encouraged with his progress but it is difficult to fully appreciate. (7) PEG (percutaneous endoscopic gastrostomy) status Is this a current diagnosis for this admission?: Yes Plan: Continue PEG tube site care. 03/07/2019-increased drainage was noted at the PEG site. A swab was obtained and will be sent for culture. The patient is already on azithromycin and now cefepime as noted above. (8) Tracheobronchitis Is this a current diagnosis for this admission?: Yes Plan: As noted above the aspirate Gram stain reflex infection. Await final results. I have instituted ceftriaxone and azithromycin until the final culture results a re available. 03/07/2019-as noted above the Gram stain showing mostly gram-positive cocci is now growing gram-negative bacilli. Cefepime has been started and the ceftriaxone has been discontinued. Azithromycin will continue unchanged. Hopefully more results will be available tomorrow. - Time Time Spent with patient: 25-34 minutes Medications reviewed and adjusted accordingly: Yes
[2019-03-08] MEDS: CEFEPIME 1 GM/D5W RTU 1 GM/50 ML RTUPB IV SCH ×3 (00:48→22:13)
[2019-03-08] MEDS: LEVOTHYROXINE SODIUM 0.05 MG TABLET PEG SCH (05:53)
[2019-03-08] MEDS: PANTOPRAZOLE SODIUM 40 MG PACKET.DR NG SCH ×2 (05:53→17:11)
[2019-03-08 07:06] LABS: ABSOLUTE LYMPHOCYTES (AUTO) 1.4 10^3/uL (0.5-4.7); ABSOLUTE MONOCYTES (AUTO) 0.6 10^3/uL (0.1-1.4); ABSOLUTE NEUT (AUTO) 6.2 10^3/uL (1.7-8.2); BASOPHILS % (AUTO) 0.2 % (0-2); EOSINOPHILS % (AUTO) 0.1 % (0-6); HEMATOCRIT 34.5 % (37.9-51.0); HEMOGLOBIN 11.5 g/dL (13.5-17.0); LYMPHOCYTES % (AUTO) 16.6 % (13-45); MEAN CORPUSCULAR HEMOGLOBIN 32.6 pg (27.0-33.4); MEAN CORPUSCULAR HGB CONC 33.3 g/dL (32.0-36.0); MEAN CORPUSCULAR VOLUME 98 fl (80-97); PLATELET COUNT 154 10^3/uL (150-450); RED BLOOD COUNT 3.53 10^6/uL (4.35-5.55); RED CELL DISTRIBUTION WIDTH 14.8 % (11.5-14.0); SEGMENTED NEUTROPHILS % (AUTO) 76.1 % (42-78); TOTAL CELLS COUNTED % (AUTO) 100 %; WHITE BLOOD COUNT 8.2 10^3/uL (4.0-10.5)
[2019-03-08 07:19] LABS: ANION GAP 7 (5-19); BLOOD UREA NITROGEN 33 mg/dL (7-20); CALCIUM 7.7 mg/dL (8.4-10.2); CARBON DIOXIDE 19 mmol/L (22-30); CHLORIDE 105 mmol/L (98-107); CHOLESTEROL 98.19 mg/dL (0-200); GLUCOSE 107 mg/dL (75-110); POTASSIUM 4.3 mmol/L (3.6-5.0); TRIGLYCERIDES 48 mg/dL (<150)
[2019-03-08 07:30] LABS: DIRECT LDL 72 mg/dL (<100)
--- NOTE | 2019-03-08 08:23 | PDOC PROGRESS REPORT ---
Subjective Progress Note for:: 03/08/19 Subjective:: Some function has improved, seems to be doing a little bit better Reason For Visit: ACUTE ISCHEMIC STROKE Physical Exam Vital Signs: Temp Pulse Resp BP Pulse Ox 98.8 F 101 H 20 121/62 95 03/07/19 07:30 03/08/19 02:00 03/07/19 08:00 03/07/19 08:00 03/07/19 08:00 Intake & Output 03/07/19 03/08/19 03/09/19 06:59 06:59 06:59 Intake Total 930 1870 Output Total 500 100 Balance 430 1770 Weight 78 kg 74.9 kg General appearance: PRESENT: no acute distress, well-developed, well-nourished Head exam: PRESENT: atraumatic, normocephalic Eye exam: PRESENT: conjunctiva pink, EOMI, PERRLA. ABSENT: scleral icterus Ear exam: PRESENT: normal external ear exam Mouth exam: PRESENT: moist, tongue midline Neck exam: ABSENT: carotid bruit, JVD, lymphadenopathy, thyromegaly Respiratory exam: PRESENT: clear to auscultation alana. ABSENT: rales, rhonchi, wheezes Cardiovascular exam: PRESENT: RRR. ABSENT: diastolic murmur, rubs, systolic mu rmur Pulses: PRESENT: normal dorsalis pedis pul Vascular exam: PRESENT: normal capillary refill GI/Abdominal exam: PRESENT: normal bowel sounds, soft. ABSENT: distended, guarding, mass, organolmegaly, rebound, tenderness Rectal exam: PRESENT: deferred Extremities exam: PRESENT: full ROM. ABSENT: calf tenderness, clubbing, pedal edema Neurological exam: PRESENT: alert, awake, oriented to person, oriented to place, oriented to time, oriented to situation, CN II-XII grossly intact. ABSENT: motor sensory deficit Psychiatric exam: PRESENT: appropriate affect, normal mood. ABSENT: homicidal ideation, suicidal ideation Skin exam: PRESENT: dry, intact, warm. ABSENT: cyanosis, rash Results Laboratory Results: 03/08/19 06:45 03/08/19 06:45 03/08/19 03/08/19 06:45 06:45 WBC 8.2 RBC 3.53 L Hgb 11.5 L Hct 34.5 L MCV 98 H MCH 32.6 MCHC 33.3 RDW 14.8 H Plt Count 154 Seg Neutrophils % 76.1 Lymphocytes % 16.6 Monocytes % 7.0 Eosinophils % 0.1 Basophils % 0.2 Absolute Neutrophils 6.2 Absolute Lymphocytes 1.4 Absolute Monocytes 0.6 Absolute Eosinophils 0.0 Absolute Basophils 0.0 Sodium 131.2 L Potassium 4.3 Chloride 105 Carbon Dioxide 19 L Anion Gap 7 BUN 33 H Creatinine 0.85 Est GFR ( Amer) > 60 Est GFR (Non-Af Amer) > 60 Glucose 107 Calcium 7.7 L Magnesium 2.3 Triglycerides 48 Cholesterol 98.19 LDL Cholesterol Direct 72 VLDL Cholesterol 10.0 HDL Cholesterol 28 L 03/05/19 03/05/19 11:20 11:20 Creatine Kinase < 20 L CK-MB (CK-2) 1.80 Troponin I 0.019 Impressions: Head CT 03/06/19 12:00 IMPRESSION: Hypoattenuation involving the left parietal lobe and insula compatible with left MCA territory infarct. No evidence of significant mass effect or hemorrhagic conversion. Findings discussed with Dr. Inman at 1517 hours on 03/06/2019 EVIDENCE OF ACUTE STROKE: YES. Carotid Doppler Study 03/07/19 06:00 IMPRESSION: There is extensive bilateral shadowing atherosclerotic plaque of the carotid bulb and proximal internal carotid arteries, which somewhat limits evaluation. Within this limitation, less than 50% stenosis of the right internal carotid artery and 50 to 69% stenosis of the left internal carotid artery by SRU Doppler flow velocity criteria. Chest X-Ray 03/07/19 08:00 IMPRESSION: Bibasilar atelectasis Assessment & Plan - Diagnosis (1) Acute ischemic left MCA stroke Is this a current diagnosis for this admission?: Yes Plan: Seemingly better, continue with physical therapy (2) Tracheobronchitis Is this a current diagnosis for this admission?: Yes Plan: Still having a lot of secretions, awaiting cultures, sensitivities, hospitalist team following (3) Cancer of larynx Is this a current diagnosis for this admission?: Yes Plan: Previously patient was on immunotherapy, this is been held because of transaminitis, but he is in a complete response with little to no residual disease noted on last scan. (4) Transaminitis Is this a current diagnosis for this admission?: Yes Plan: Unknown cause, he does have ascites and cirrhosis along with that, he is on medical management.
[2019-03-08] MEDS: CETIRIZINE 10 MG TABLET PEG SCH (10:13)
[2019-03-08] MEDS: GABAPENTIN 400 MG CAPSULE PEG SCH ×2 (10:13→22:13)
[2019-03-08] MEDS: PROMETHAZINE HCL 25 MG TABLET PEG SCH ×2 (10:13→17:11)
[2019-03-08] MEDS: SPIRONOLACTONE 25 MG TABLET PEG SCH (10:14)
[2019-03-08] MEDS: POLYETHYLENE GLYCOL 3350 POWDER 17 GM/1 PACKET PEG SCH ×2 (10:14→11:20)
[2019-03-08] MEDS: VENLAFAXINE HCL 75 MG TABLET PEG SCH ×2 (10:14→22:13)
[2019-03-08] MEDS: SERTRALINE HCL 50 MG TABLET PEG SCH (10:14)
[2019-03-08] MEDS: GABAPENTIN 300 MG CAPSULE PEG SCH (16:59)
[2019-03-08] MEDS ORDERED: GABAPENTIN 300 MG CAPSULE PEG ONE (17:00)
[2019-03-08] MEDS: ASPIRIN 81 MG TABLET, CHEWABLE PEG SCH (22:14)
[2019-03-09] MEDS: PANTOPRAZOLE SODIUM 40 MG PACKET.DR NG SCH ×2 (06:13→16:19)
[2019-03-09] MEDS: LEVOTHYROXINE SODIUM 0.05 MG TABLET PEG SCH (06:13)
--- NOTE | 2019-03-09 10:23 | PDOC PROGRESS REPORT ---
Subjective Progress Note for:: 03/09/19 Subjective:: No acute events overnight Reason For Visit: ACUTE ISCHEMIC STROKE Physical Exam Vital Signs: Temp Pulse Resp BP Pulse Ox 98.1 F 86 22 H 113/73 100 03/09/19 08:16 03/09/19 08:16 03/09/19 08:16 03/09/19 08:16 03/09/19 08:16 Intake & Output 03/08/19 03/09/19 03/10/19 06:59 06:59 06:59 Intake Total 1870 1420 Output Total 100 825 Balance 1770 595 Weight 74.9 kg 79.7 kg General appearance: PRESENT: no acute distress, well-developed, well-nourished Head exam: PRESENT: atraumatic, normocephalic Eye exam: PRESENT: conjunctiva pink, EOMI, PERRLA. ABSENT: scleral icterus Ear exam: PRESENT: normal external ear exam Mouth exam: PRESENT: moist, tongue midline Neck exam: ABSENT: carotid bruit, JVD, lymphadenopathy, thyromegaly Respiratory exam: PRESENT: clear to auscultation alana. ABSENT: rales, rhonchi, wheezes Cardiovascular exam: PRESENT: RRR. ABSENT: diastolic murmur, rubs, systolic murmur Pulses: PRESENT: normal dorsalis pedis pul Vascular exam: PRESENT: normal capillary refill GI/Abdominal exam: PRESENT: normal bowel sounds, soft. ABSENT: distended, guarding, mass, organolmegaly, rebound, tenderness Rectal exam: PRESENT: deferred Extremities exam: PRESENT: full ROM. ABSENT: calf tenderness, clubbing, pedal edema Neurological exam: PRESENT: alert, awake, oriented to person, oriented to place, oriented to time, oriented to situation, CN II-XII grossly intact. ABSENT: motor sensory deficit Psychiatric exam: PRESENT: appropriate affect, normal mood. ABSENT: homicidal ideation, suicidal ideation Skin exam: PRESENT: dry, intact, warm. ABSENT: cyanosis, rash Results Laboratory Results: 03/08/19 06:45 03/08/19 06:45 03/05/19 03/05/19 11:20 11:20 Creatine Kinase < 20 L CK-MB (CK-2) 1.80 Troponin I 0.019 Impressions: Head CT 03/06/19 12:00 IMPRESSION: Hypoattenuation involving the left parietal lobe and insula compatible with left MCA territory infarct. No evidence of significant mass effect or hemorrhagic conversion. Findings discussed with Dr. Inman at 1517 hours on 03/06/2019 EVIDENCE OF ACUTE STROKE: YES. Carotid Doppler Study 03/07/19 06:00 IMPRESSION: There is extensive bilateral shadowing atherosclerotic plaque of the carotid bulb and proximal internal carotid arteries, which somewhat limits evaluation. Within this limitation, less than 50% stenosis of the right internal carotid artery and 50 to 69% stenosis of the left internal carotid artery by SRU Doppler flow velocity criteria. Chest X-Ray 03/07/19 08:00 IMPRESSION: Bibasilar atelectasis Assessment & Plan - Diagnosis (1) Acute ischemic left MCA stroke Is this a current diagnosis for this admission?: Yes Plan: Continue with current therapy per hospitalist team (2) Tracheobronchitis Is this a current diagnosis for this admission?: Yes Plan: Hospitalist team adjusting antibiotics, continue with therapy (3) Cancer of larynx Is this a current diagnosis for this admission?: Yes Plan: Clinically stable, no new disease, he has had an excellent response thus far. (4) Transaminitis Is this a current diagnosis for this admission?: Yes Plan: Cirrhosis of liver, possibly related to previous immunotherapy but also related to previous alcohol history.
[2019-03-09] MEDS: GABAPENTIN 400 MG CAPSULE PEG SCH ×2 (11:46→21:07)
[2019-03-09] MEDS: SPIRONOLACTONE 25 MG TABLET PEG SCH (11:46)
[2019-03-09] MEDS: CETIRIZINE 10 MG TABLET PEG SCH (11:46)
[2019-03-09] MEDS: VENLAFAXINE HCL 75 MG TABLET PEG SCH ×2 (11:47→21:08)
[2019-03-09] MEDS: POLYETHYLENE GLYCOL 3350 POWDER 17 GM/1 PACKET PEG SCH ×2 (11:47→11:49)
[2019-03-09] MEDS: PROMETHAZINE HCL 25 MG TABLET PEG SCH ×2 (11:47→17:08)
[2019-03-09] MEDS: SERTRALINE HCL 50 MG TABLET PEG SCH (11:48)
[2019-03-09] MEDS: CEFEPIME 1 GM/D5W RTU 1 GM/50 ML RTUPB IV SCH (11:48)
--- NOTE | 2019-03-09 13:56 | XCELERA REPORT ---
[address] [address] Transthoracic Echocardiogram Report Name: OLIM[address] ST Age: 73 yrs Gender: Male : 1945 Patient Status: Inpatient Patient Location: [facility]^A Study Date: 03/07/2019 01:27 PM Height: 70 in Weight: 173 lb BSA: 2.0 m2 Reason For Study: Acute ischemic stroke Ordering Physician: GABRIEL RYAN Performed By: Yanely Natarajan Interpretation Summary Non diagnostc echo.The posterior wall,Anteroseptum,lateral wall, and IV septum probably contract normally, with LVEF > than 60% in limited views.Cannot comment on valvuar stenotic or regugitant lesions.Recommend JUAN. Non diagnostc echo.The posterior wall,Anteroseptum,lateral wall, and IV septum probably contract normally, with LVEF > than 60% in limited views.Cannot comment on valvuar stenotic or regugitant lesions.Recommend JUAN. MMode/2D Measurements & Calculations RVDd: 3.6 cm LVIDd: 4.0 cm FS: 30.4 % Ao root diam: 2.9 cm IVSd: 1.0 cm LVIDs: 2.8 cm EDV(Teich): 70.9 ml LVPWd: 1.00 cm ESV(Teich): 29.5 ml Ao root area: 6.5 cm2 LA dimension: 3.1 cm EF(Teich): 58.4 % Doppler Measurements & Calculations MV E max richard: MV P1/2t max richard: Ao V2 max: LV V1 max P.1 cm/sec 67.6 cm/sec 179.5 cm/sec 4.3 mmHg MV A max richard: MV P1/2t: 84.8 msec Ao max PG: LV V1 max: 86.4 cm/sec MVA(P1/2t): 2.6 cm2 12.9 mmHg 104.1 cm/sec MV E/A: 0.78 MV dec slope: 233.6 cm/sec2 MV dec time: 0.29 sec PA V2 max: MV P1/2t-pr_phl: 96.7 cm/sec 84.8 msec PA max P.7 mmHg : GABRIEL RYAN > Carolyn Farias
[2019-03-09] MEDS: GABAPENTIN 300 MG CAPSULE PEG SCH (15:00)
[2019-03-09] MEDS: PIPERACILLIN SODIUM/TAZOBACTAM 3.375 GM in NORMAL SALINE 100 ML IV SCH ×2 (16:18→21:07)
--- NOTE | 2019-03-09 16:39 | PDOC PROGRESS REPORT ---
Subjective Progress Note for:: 03/08/19 Subjective:: Resting in bed. He just coughed up a large amount of secretions from his tracheostomy tube. Reason For Visit: ACUTE ISCHEMIC STROKE Physical Exam Vital Signs: Temp Pulse Resp BP Pulse Ox 98.6 F 104 H 22 H 138/76 H 96 03/08/19 20:00 03/09/19 02:00 03/08/19 20:00 03/08/19 20:00 03/08/19 20:00 Intake & Output 03/07/19 03/08/19 03/09/19 06:59 06:59 06:59 Intake Total 930 1870 1420 Output Total 500 100 400 Balance 430 1770 1020 Weight 78 kg 74.9 kg General appearance: PRESENT: cooperative, mild distress - Just coughed up a great deal of secretions, well-developed Head exam: PRESENT: atraumatic, normocephalic Ear exam: PRESENT: normal external ear exam Mouth exam: PRESENT: moist, tongue midline Neck exam: PRESENT: tracheostomy - Still with secretions. Does not seem to have a foul odor anymore. Respiratory exam: PRESENT: rhonchi, symmetrical, tachypnea, other - Study cough. ABSENT: wheezes Cardiovascular exam: PRESENT: +S1, +S2, tachycardia - Likely from recent coughing GI/Abdominal exam: PRESENT: soft, other - PEG tube in place. ABSENT: distended, tenderness Rectal exam: PRESENT: deferred Extremities exam: ABSENT: joint swelling, pedal edema Musculoskeletal exam: PRESENT: normal inspection Neurological exam: PRESENT: alert, awake, oriented to person, oriented to place, oriented to situation - Asking appropriate questions Psychiatric exam: PRESENT: anxious. ABSENT: agitated Focused psych exam: ABSENT: delusional, restlessness Results Laboratory Results: 03/08/19 06:45 03/08/19 06:45 03/08/19 03/08/19 06:45 06:45 WBC 8.2 RBC 3.53 L Hgb 11.5 L Hct 34.5 L MCV 98 H MCH 32.6 MCHC 33.3 RDW 14.8 H Plt Count 154 Seg Neutrophils % 76.1 Lymphocytes % 16.6 Monocytes % 7.0 Eosinophils % 0.1 Basophils % 0.2 Absolute Neutrophils 6.2 Absolute Lymphocytes 1.4 Absolute Monocytes 0.6 Absolute Eosinophils 0.0 Absolute Basophils 0.0 Sodium 131.2 L Potassium 4.3 Chloride 105 Carbon Dioxide 19 L Anion Gap 7 BUN 33 H Creatinine 0.85 Est GFR ( Amer) > 60 Est GFR (Non-Af Amer) > 60 Glucose 107 Calcium 7.7 L Magnesium 2.3 Triglycerides 48 Cholesterol 98.19 LDL Cholesterol Direct 72 VLDL Cholesterol 10.0 HDL Cholesterol 28 L 03/05/19 03/05/19 11:20 11:20 Creatine Kinase < 20 L CK-MB (CK-2) 1.80 Troponin I 0.019 Impressions: Head CT 03/06/19 12:00 IMPRESSION: Hypoattenuation involving the left parietal lobe and insula compatible with left MCA territory infarct. No evidence of significant mass effect or hemorrhagic conversion. Findings discussed with Dr. Inman at 1517 hours on 03/06/2019 EVIDENCE OF ACUTE STROKE: YES. Carotid Doppler Study 03/07/19 06:00 IMPRESSION: There is extensive bilateral shadowing atherosclerotic plaque of the carotid bulb and proximal internal carotid arteries, which somewhat limits evaluation. Within this limitation, less than 50% stenosis of the right internal carotid artery and 50 to 69% stenosis of the left internal carotid artery by SRU Doppler flow velocity criteria. Chest X-Ray 03/07/19 08:00 IMPRESSION: Bibasilar atelectasis Assessment and Plan - Diagnosis (1) Acute ischemic left MCA stroke Is this a current diagnosis for this admission?: Yes Plan: The patient is just over 24 hours post TPA. He exhibits increased function on the right now with flexion and extension of the right arm. Increased function in the right leg as well. Still with dysarthria. We will add aspirin therapy today. 03/07/2019-the patient is doing well. Each day he has increased function on the right side. He still has right facial droop, weakness in the right arm and right leg. The patient was evaluated by physiatry today. Evaluation was inconclusive and will reassess on Monday. Continue PT, OT and speech 03/08/2019-continues to work with physical therapy. He feels he is improving. Please also see therapy notes. Continue current regimen. (2) Received intravenous tissue plasminogen activator (tPA) in emergency department Is this a current diagnosis for this admission?: Yes Plan: The patient received TPA. He was having significant secretions and the benefit of endotracheal suctioning versus the risk of bleeding fell on the side of endotracheal suction due to the significant volume of secretions. Will monitor closely for evidence of bleeding. 03/06/2019-no evidence of heladio bleeding 24 hours post TPA. 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 I saw the patient approximately 2 hours after TPA was administered and the nurse reports that he has exhibited increased function in his right leg. Right arm still has flaccid paralysis. We will obtain physical and Occupational Therapy consults as well as speech therapy for the dysarthria. 03/06/2019-patient exhibits increased function in the right arm today. We will continue physical, occupational and speech therapies. Still with dysarthria from the right facial droop. 03/07/2019-as noted above he seems to regain slightly more function daily. At this point gross motor function is improving. Dexterity is lacking however. 03/08/2019-slowly continues to improve function on the right. The right hand still has the biggest deficit. Right facial droop seems to be improving. (4) Transaminitis Is this a current diagnosis for this admission?: Yes Plan: Transaminases slowly improving. We will continue to monitor. 03/07/2019-the AST and ALT slowly improving. Alkaline phosphatase still markedly elevated and I did check his GGT today. This was 2800. I did review recent PET scan and that showed no increased activity in the liver. The liver texture is nodular. This certainly could be cirrhosis. We will continue to monitor. 03/08/2019-we did check a GGT and it is over 2000. This could be related to a lcohol or some other intrinsic hepatocellular illness. He is seeing gastroenterology as an outpatient. (5) Tracheostomy status Is this a current diagnosis for this admission?: Yes Plan: The patient has a permanent tracheostomy. As noted above the patient was having increased tracheal secretions with some discoloration possibly consistent with blood but there was no heladio blood in the secretions. We will continue tracheostomy care. If the secretions persists we can always send a tracheal aspirate culture. 03/06/2019-still with copious secretions. The tracheostomy site itself does not have marked irritation or ulceration. Preliminary results on the tracheostomy aspirate show many polys with gram-positive cocci in pairs and chains. This could represent pneumococcus. Nursing reported a low-grade temperature. He does have facial flushing. At this point I believe the benefit antibiotics outweigh the risks and I will start him on antibiotic therapy directed at pneumococcal infection. I will repeat a chest x-ray. He likely has either tracheobronchitis or pneumonia. 03/07/2019-the patient was started on ceftriaxone due to the gram-positive cocci seen in the tracheal aspirate. Examination of today's microbiology results shows 4+ gram negative bacilli growing. Pseudomonas and Haemophilus can sometimes stain gram-positive but ultimately will culture out as gram-negative bacilli. I have change the Rocephin to cefepime to cover for Pseudomonas. I will leave the azithromycin. Hopefully I will have final results tomorrow. 03/08/2019-the patient is growing Pseudomonas. He is now on cefepime. Await final sensitivities. (6) Depression Qualifiers: Depression Type: major depressive disorder Major depression episode severity: moderate Is this a current diagnosis for this admission?: Yes Plan: The patient's reports that since the cancer diagnosis he has had significant depression. We will continue his current medication regimen. 03/06/2019-patient does have a flat affect today. We are trying to be positive and pointed out the improvements. His is certainly pleased with his progress at this point. Continue current antidepressant medications. 03/07/2019-continue current regimen. The patient does respond appropriately. I believe he is encouraged with his progress but it is difficult to fully appreciate. 03/08/2019-no change in treatment plan. (7) PEG (percutaneous endoscopic gastrostomy) status Is this a current diagnosis for this admission?: Yes Plan: Continue PEG tube site care. 03/07/2019-increased drainage was noted at the PEG site. A swab was obtained and will be sent for culture. The patient is already on azithromycin and now cefepime as noted above. 03/08/2019-culture of the drainage from around the PEG tube has a preliminary results of Pseudomonas as well. (8) Tracheobronchitis Is this a current diagnosis for this admission?: Yes Plan: As noted above the aspirate Gram stain reflex infection. Await final results. I have instituted ceftriaxone and azithromycin until the final culture results are available. 03/07/2019-as noted above the Gram stain showing mostly gram-positive cocci is now growing gram-negative bacilli. Cefepime has been started and the ceftriaxone has been discontinued. Azithromycin will continue unchanged. Hopefully more results will be available tomorrow. 03/08/2019-as noted above Pseudomonas has been identified. The patient is now on cefepime. Await final sensitivities. - Time Time Spent with patient: 15-24 minutes Medications reviewed and adjusted accordingly: Yes
--- NOTE | 2019-03-09 16:46 | PDOC PROGRESS REPORT ---
Subjective Progress Note for:: 03/09/19 Subjective:: The patient is resting comfortably. He still has a lot of secretions today with a very congested cough. Reason For Visit: ACUTE ISCHEMIC STROKE Physical Exam Vital Signs: Temp Pulse Resp BP Pulse Ox 97.6 F 98 18 117/83 95 03/09/19 15:10 03/09/19 15:10 03/09/19 15:10 03/09/19 15:10 03/09/19 15:10 Intake & Output 03/08/19 03/09/19 03/10/19 06:59 06:59 06:59 Intake Total 1870 1420 827 Output Total 100 825 300 Balance 1770 595 527 Weight 74.9 kg 79.7 kg General appearance: PRESENT: no acute distress, well-developed Head exam: PRESENT: atraumatic, normocephalic Ear exam: PRESENT: normal external ear exam Mouth exam: PRESENT: moist, tongue midline Neck exam: PRESENT: tracheostomy - With secretions. Not significantly discolored. More clear than anything. Respiratory exam: PRESENT: clear to auscultation alana - Clear peripherally. Congested breath sounds centrally., symmetrical, unlabored. ABSENT: rales, rhonchi, tachypnea, wheezes Cardiovascular exam: PRESENT: RRR, +S1, +S2 GI/Abdominal exam: PRESENT: normal bowel sounds, soft, other - PEG tube in place. ABSENT: distended, tenderness Rectal exam: PRESENT: deferred Extremities exam: ABSENT: joint swelling, pedal edema Musculoskeletal exam: PRESENT: normal inspection Neurological exam: PRESENT: alert, awake, oriented to person, oriented to place, oriented to situation, other - Certainly appears to be oriented. With all the secretions it is impossible to use the [place] valve at this time. He does attempt to answer questions. Sometimes it is understandable and sometimes not. Psychiatric exam: PRESENT: appropriate affect. ABSENT: agitated, anxious Focused psych exam: ABSENT: delusional, restlessness Results Laboratory Results: 03/08/19 06:45 03/08/19 06:45 03/05/19 03/05/19 11:20 11:20 Creatine Kinase < 20 L CK-MB (CK-2) 1.80 Troponin I 0.019 Impressions: Head CT 03/06/19 12:00 IMPRESSION: Hypoattenuation involving the left parietal lobe and insula compatible with left MCA territory infarct. No evidence of significant mass effect or hemorrhagic conversion. Findings discussed with Dr. Inman at 1517 hours on 03/06/2019 EVIDENCE OF ACUTE STROKE: YES. Carotid Doppler Study 03/07/19 06:00 IMPRESSION: There is extensive bilateral shadowing atherosclerotic plaque of the carotid bulb and proximal internal carotid arteries, which somewhat limits evaluation. Within this limitation, less than 50% stenosis of the right internal carotid artery and 50 to 69% stenosis of the left internal carotid artery by SRU Doppler flow velocity criteria. Chest X-Ray 03/07/19 08:00 IMPRESSION: Bibasilar atelectasis Assessment and Plan - Diagnosis (1) Acute ischemic left MCA stroke Is this a current diagnosis for this admission?: Yes Plan: The patient is just over 24 hours post TPA. He exhibits increased function on the right now with flexion and extension of the right arm. Increased function in the right leg as well. Still with dysarthria. We will add aspirin therapy today. 03/07/2019-the patient is doing well. Each day he has increased function on the right side. He still has right facial droop, weakness in the right arm and right leg. The patient was evaluated by physiatry today. Evaluation was inconclusive and will reassess on Monday. Continue PT, OT and speech 03/08/2019-continues to work with physical therapy. He feels he is improving. Please also see therapy notes. Continue current regimen. 03/09/2019-continue aspirin therapy. I will be having a phone discussion with Dr. Park to review the case for possible inpatient rehab on Monday. The patient did cross his fingers when we discussed this. He is hopeful for [facility]. (2) Received intravenous tissue plasminogen activator (tPA) in emergency depa rtment Is this a current diagnosis for this admission?: Yes Plan: The patient received TPA. He was having significant secretions and the benefit of endotracheal suctioning versus the risk of bleeding fell on the side of endotracheal suction due to the significant volume of secretions. Will monitor closely for evidence of bleeding. 03/06/2019-no evidence of heladio bleeding 24 hours post TPA. 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 I saw the patient approximately 2 hours after TPA was administered and the nurse reports that he has exhibited increased function in his right leg. Right arm still has flaccid paralysis. We will obtain physical and Occupational Therapy consults as well as speech therapy for the dysarthria. 03/06/2019-patient exhibits increased function in the right arm today. We will continue physical, occupational and speech therapies. Still with dysarthria from the right facial droop. 03/07/2019-as noted above he seems to regain slightly more function daily. At this point gross motor function is improving. Dexterity is lacking however. 03/08/2019-slowly continues to improve function on the right. The right hand still has the biggest deficit. Right facial droop seems to be improving. 03/09/2019-continues to work with physical therapy. Slow improvement. Trying to see if he is a candidate for inpatient rehab or jail facility (4) Transaminitis Is this a current diagnosis for this admission?: Yes Plan: Transaminases slowly improving. We will continue to monitor. 03/07/2019-the AST and ALT slowly improving. Alkaline phosphatase still markedly elevated and I did check his GGT today. This was 2800. I did review recent PET scan and that showed no increased activity in the liver. The liver texture is nodular. This certainly could be cirrhosis. We will continue to monitor. 03/08/2019-we did check a GGT and it is over 2000. This could be related to alcohol or some other intrinsic hepatocellular illness. He is seeing gastroenterology as an outpatient. 03/09/2019-we will recheck enzymes after the weekend. (5) Tracheostomy status Is this a current diagnosis for this admission?: Yes Plan: The patient has a permanent tracheostomy. As noted above the patient was having increased tracheal secretions with some discoloration possibly consistent with blood but there was no heladio blood in the secretions. We will continue tracheostomy care. If the secretions persists we can always send a tracheal aspirate culture. 03/06/2019-still with copious secretions. The tracheostomy site itself does not have marked irritation or ulceration. Preliminary results on the tracheostomy aspirate show many polys with gram-positive cocci in pairs and chains. This could represent pneumococcus. Nursing reported a low-grade temperature. He does have facial flushing. At this point I believe the benefit antibiotics outweigh the risks and I will start him on antibiotic therapy directed at pneumococcal infection. I will repeat a chest x-ray. He likely has either tracheobronchitis or pneumonia. 03/07/2019-the patient was started on ceftriaxone due to the gram-positive cocci seen in the tracheal aspirate. Examination of today's microbiology results shows 4+ gram negative bacilli growing. Pseudomonas and Haemophilus can sometimes stain gram-positive but ultimately will culture out as gram-negative bacilli. I have change the Rocephin to cefepime to cover for Pseudomonas. I will leave the azithromycin. Hopefully I will have final results tomorrow. 03/08/2019-the patient is growing Pseudomonas. He is now on cefepime. Await final sensitivities. 03/09/2019-still with lots of secretions. (6) Depression Qualifiers: Depression Type: major depressive disorder Major depression episode severity: moderate Is this a current diagnosis for this admission?: Yes Plan: The patient's reports that since the cancer diagnosis he has had significant depression. We will continue his current medication regimen. 03/06/2019-patient does have a flat affect today. We are trying to be positive and pointed out the improvements. His is certainly pleased with his progress at this point. Continue current antidepressant medications. 03/07/2019-continue current regimen. The patient does respond appropriately. I believe he is encouraged with his progress but it is difficult to fully appreciate. 03/08/2019-no change in treatment plan. 03/09/2019-appears to be in good spirits today. Hopeful for transfer early next week. (7) PEG (percutaneous endoscopic gastrostomy) status Is this a current diagnosis for this admission?: Yes Plan: Continue PEG tube site care. 03/07/2019-increased drainage was noted at the PEG site. A swab was obtained and will be sent for culture. The patient is already on azithromycin and now cefepime as noted above. 03/08/2019-culture of the drainage from around the PEG tube has a preliminary results of Pseudomonas as well. 03/09/2019-the sensitivity results of the Pseudomonas are available. The KEEGAN for Zosyn is better than the KEEGAN for cefepime and I will change the patient to Zosyn. It is also sensitive to quinolones but do not want to risk any tendon injury. (8) Tracheobronchitis Is this a current diagnosis for this admission?: Yes Plan: As noted above the aspirate Gram stain reflex infection. Await final results. I have instituted ceftriaxone and azithromycin until the final culture results are available. 03/07/2019-as noted above the Gram stain showing mostly gram-positive cocci is now growing gram-negative bacilli. Cefepime has been started and the ceftriaxone has been discontinued. Azithromycin will continue unchanged. Hopefully more results will be available tomorrow. 03/08/2019-as noted above Pseudomonas has been identified. The patient is now on cefepime. Await final sensitivities. 03/09/2019-now that sensitivities are available and changing the patient to Zosyn. There is also a gram-positive organism. Should have further information tomorrow and may need to add a second antibiotic. (9) Pseudomonas aeruginosa infection Is this a current diagnosis for this admission?: Yes Plan: 03/09/2019-Pseudomonas is present at the PEG site and from endotracheal secretions. Antibiotic regimen as above. - Time Time Spent with patient: 15-24 minutes Medications reviewed and adjusted accordingly: Yes
[2019-03-09] MEDS: ASPIRIN 81 MG TABLET, CHEWABLE PEG SCH (21:09)
[2019-03-10] MEDS: PIPERACILLIN SODIUM/TAZOBACTAM 3.375 GM in NORMAL SALINE 100 ML IV SCH ×4 (03:03→20:04)
[2019-03-10] MEDS: LEVOTHYROXINE SODIUM 0.05 MG TABLET PEG SCH (05:42)
[2019-03-10] MEDS: PANTOPRAZOLE SODIUM 40 MG PACKET.DR NG SCH ×2 (05:42→17:47)
[2019-03-10 06:43] LABS: ABSOLUTE BASOPHILS # (AUTO) 0.1 10^3/uL (0.0-0.2); ABSOLUTE LYMPHOCYTES (AUTO) 1.7 10^3/uL (0.5-4.7); ABSOLUTE MONOCYTES (AUTO) 0.7 10^3/uL (0.1-1.4); ABSOLUTE NEUT (AUTO) 7.5 10^3/uL (1.7-8.2); BASOPHILS % (AUTO) 0.5 % (0-2); EOSINOPHILS % (AUTO) 0.1 % (0-6); LYMPHOCYTES % (AUTO) 16.8 % (13-45); MEAN CORPUSCULAR HEMOGLOBIN 32.6 pg (27.0-33.4); MEAN CORPUSCULAR HGB CONC 33.3 g/dL (32.0-36.0); MEAN CORPUSCULAR VOLUME 98 fl (80-97); MONOCYTES % (AUTO) 7.1 % (3-13); PLATELET COUNT 189 10^3/uL (150-450); RED BLOOD COUNT 3.69 10^6/uL (4.35-5.55); RED CELL DISTRIBUTION WIDTH 14.4 % (11.5-14.0); SEGMENTED NEUTROPHILS % (AUTO) 75.5 % (42-78); TOTAL CELLS COUNTED % (AUTO) 100 %; WHITE BLOOD COUNT 9.9 10^3/uL (4.0-10.5)
[2019-03-10 06:45] LABS: ALBUMIN 2.3 g/dL (3.5-5.0); ALKALINE PHOSPHATASE 1038 U/L (38-126); ANION GAP 7 (5-19); ASPARTATE AMINO TRANSFERASE 639 U/L (17-59); BILIRUBIN,DIRECT 0.7 mg/dL (0.0-0.4); BILIRUBIN,TOTAL 0.8 mg/dL (0.2-1.3); BLOOD UREA NITROGEN 30 mg/dL (7-20); CALCIUM 7.8 mg/dL (8.4-10.2); CARBON DIOXIDE 22 mmol/L (22-30); CHLORIDE 104 mmol/L (98-107); GLUCOSE 95 mg/dL (75-110); PHOSPHORUS 3.4 mg/dL (2.5-4.5); POTASSIUM 4.4 mmol/L (3.6-5.0); TOTAL PROTEIN 4.9 g/dL (6.3-8.2)
--- NOTE | 2019-03-10 09:00 | RADIOLOGY REPORT (SQ) ---
EXAM DESCRIPTION: KUB/ABDOMEN (SINGLE VIEW) COMPLETED DATE/TIME: 03/10/2019 8:44 am REASON FOR STUDY: ileus COMPARISON: None. NUMBER OF VIEWS: One view. TECHNIQUE: Supine radiographic image of the abdomen acquired. LIMITATIONS: None. FINDINGS: BOWEL GAS PATTERN: Normal bowel gas pattern. No dilated loops. CALCIFICATIONS: No suspicious calcifications. SOFT TISSUES: No gross mass or suggestion of organomegaly. HARDWARE: None in the abdomen. BONES: No acute fracture. No worrisome bone lesions. OTHER: No other significant finding. IMPRESSION: NO RADIOGRAPHIC EVIDENCE FOR ACUTE ABDOMINAL DISEASE. TECHNICAL DOCUMENTATION: JOB ID: [id number] [employer] Study Course- All Rights Reserved Reading location - IP/workstation name: [email or web address]
[2019-03-10] MEDS: GABAPENTIN 300 MG CAPSULE PEG SCH (12:27)
[2019-03-10] MEDS: VENLAFAXINE HCL 75 MG TABLET PEG SCH ×2 (12:53→21:07)
[2019-03-10] MEDS: GABAPENTIN 400 MG CAPSULE PEG SCH ×2 (12:53→21:08)
[2019-03-10] MEDS: PROMETHAZINE HCL 25 MG TABLET PEG SCH ×2 (12:53→17:47)
[2019-03-10] MEDS: CETIRIZINE 10 MG TABLET PEG SCH (12:54)
[2019-03-10] MEDS: SPIRONOLACTONE 25 MG TABLET PEG SCH (12:54)
[2019-03-10] MEDS: POLYETHYLENE GLYCOL 3350 POWDER 17 GM/1 PACKET PEG SCH (12:54)
[2019-03-10] MEDS: SERTRALINE HCL 50 MG TABLET PEG SCH (12:54)
--- NOTE | 2019-03-10 16:43 | PDOC PROGRESS REPORT ---
Subjective Progress Note for:: 03/10/19 Subjective:: Patient is resting in bed. He does not seem to have as much tracheal secretions. He is trying to ask questions and once his [place] valve was applied he wants to know when the decision will be made between myself and Dr. Park regarding rehab. I explained that I will have a discussion with Dr. Park and then he will decide tomorrow. Staff reports slowly increasing abdominal girth. Reason For Visit: ACUTE ISCHEMIC STROKE Physical Exam Vital Signs: Temp Pulse Resp BP Pulse Ox 97.4 F 101 H 20 117/78 100 03/10/19 11:32 03/10/19 11:32 03/10/19 11:32 03/10/19 11:32 03/10/19 11:32 Intake & Output 03/09/19 03/10/19 03/11/19 06:59 06:59 06:59 Intake Total 1420 2372 200 Output Total 825 1400 Balance 595 972 200 Weight 79.7 kg 76.9 kg General appearance: PRESENT: no acute distress, cooperative, well-developed Head exam: PRESENT: atraumatic, normocephalic Eye exam: PRESENT: conjunctiva pink. ABSENT: scleral icterus Ear exam: PRESENT: normal external ear exam Neck exam: PRESENT: full ROM, tracheostomy. ABSENT: lymphadenopathy Respiratory exam: PRESENT: clear to auscultation alana, symmetrical, unlabored, other - Breath sounds intermittently congested. They tend to clear with coughing.. ABSENT: rales, rhonchi, tachypnea, wheezes Cardiovascular exam: PRESENT: irregular rhythm, +S1, +S2 GI/Abdominal exam: PRESENT: diminished bowel sounds, distended - Dull to percussion, soft, other - PEG tube in place. ABSENT: tenderness Extremities exam: ABSENT: joint swelling, pedal edema Musculoskeletal exam: ABSENT: ambulatory Neurological exam: PRESENT: alert, awake, oriented to person, oriented to place, oriented to situation, motor sensory deficit - Still with right-sided weakness. Still slightly noticeable droop on the right side of his mouth. Psychiatric exam: PRESENT: flat affect. ABSENT: agitated, anxious Focused psych exam: ABSENT: delusional, restlessness Results Laboratory Results: 03/10/19 05:06 03/10/19 05:06 03/10/19 03/10/19 05:06 05:06 WBC 9.9 RBC 3.69 L Hgb 12.0 L Hct 36.0 L MCV 98 H MCH 32.6 MCHC 33.3 RDW 14.4 H Plt Count 189 Seg Neutrophils % 75.5 Lymphocytes % 16.8 Monocytes % 7.1 Eosinophils % 0.1 Basophils % 0.5 Absolute Neutrophils 7.5 Absolute Lymphocytes 1.7 Absolute Monocytes 0.7 Absolute Eosinophils 0.0 Absolute Basophils 0.1 Sodium 133.1 L Potassium 4.4 Chloride 104 Carbon Dioxide 22 Anion Gap 7 BUN 30 H Creatinine 0.88 Est GFR ( Amer) > 60 Est GFR (Non-Af Amer) > 60 Glucose 95 Calcium 7.8 L Phosphorus 3.4 Magnesium 2.3 Total Bilirubin 0.8 GGT 2458 H AST 639 H Alkaline Phosphatase 1038 H Total Protein 4.9 L Albumin 2.3 L 03/05/19 03/05/19 11:20 11:20 Creatine Kinase < 20 L CK-MB (CK-2) 1.80 Troponin I 0.019 Impressions: Head CT 03/06/19 12:00 IMPRESSION: Hypoattenuation involving the left parietal lobe and insula compatible with left MCA territory infarct. No evidence of significant mass effect or hemorrhagic conversion. Findings discussed with Dr. Inman at 1517 hours on 03/06/2019 EVIDENCE OF ACUTE STROKE: YES. Carotid Doppler Study 03/07/19 06:00 IMPRESSION: There is extensive bilateral shadowing atherosclerotic plaque of the carotid bulb and proximal internal carotid arteries, which somewhat limits evaluation. Within this limitation, less than 50% stenosis of the right internal carotid artery and 50 to 69% stenosis of the left internal carotid artery by SRU Doppler flow velocity criteria. Chest X-Ray 03/07/19 08:00 IMPRESSION: Bibasilar atelectasis KUB X-Ray 03/10/19 00:00 IMPRESSION: NO RADIOGRAPHIC EVIDENCE FOR ACUTE ABDOMINAL DISEASE. Assessment and Plan - Diagnosis (1) Acute ischemic left MCA stroke Is this a current diagnosis for this admission?: Yes Plan: The patient is just over 24 hours post TPA. He exhibits increased function on the right now with flexion and extension of the right arm. Increased function in the right leg as well. Still with dysarthria. We will add aspirin therapy today. 03/07/2019-the patient is doing well. Each day he has increased function on the right side. He still has right facial droop, weakness in the right arm and right leg. The patient was evaluated by physiatry today. Evaluation was inconclusive and will reassess on Monday. Continue PT, OT and speech 03/08/2019-continues to work with physical therapy. He feels he is improving. Please also see therapy notes. Continue current regimen. 03/09/2019-continue aspirin therapy. I will be having a phone discussion with Dr. Park to review the case for possible inpatient rehab on Monday. The patient did cross his fingers when we discussed this. He is hopeful for transfer. 03/10/2019-improvements are being seen. The patient participates with physical therapy. Still with a slight droop on the right corner of his mouth. Please a lso see therapy notes. Inpatient rehab will contact me tomorrow and discuss the patient's progress over the last several days. The decision will be made for inpatient rehab versus care home placement at that time. (2) Received intravenous tissue plasminogen activator (tPA) in emergency department Is this a current diagnosis for this admission?: Yes Plan: The patient received TPA. He was having significant secretions and the benefit of endotracheal suctioning versus the risk of bleeding fell on the side of endotracheal suction due to the significant volume of secretions. Will monitor closely for evidence of bleeding. 03/06/2019-no evidence of heladio bleeding 24 hours post TPA. 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 I saw the patient approximately 2 hours after TPA was administered and the nurse reports that he has exhibited increased function in his right leg. Right arm still has flaccid paralysis. We will obtain physical and Occupational Therapy consults as well as speech therapy for the dysarthria. 03/06/2019-patient exhibits increased function in the right arm today. We will continue physical, occupational and speech therapies. Still with dysarthria from the right facial droop. 03/07/2019-as noted above he seems to regain slightly more function daily. At this point gross motor function is improving. Dexterity is lacking however. 03/08/2019-slowly continues to improve function on the right. The right hand still has the biggest deficit. Right facial droop seems to be improving. 03/09/2019-continues to work with physical therapy. Slow improvement. Trying to see if he is a candidate for inpatient rehab or care home facility 03/10/2019-continue physical and occupational therapy. As noted above the patient is being considered for inpatient rehab. (4) Transaminitis Is this a current diagnosis for this admission?: Yes Plan: Transaminases slowly improving. We will continue to monitor. 03/07/2019-the AST and ALT slowly improving. Alkaline phosphatase still markedly elevated and I did check his GGT today. This was 2800. I did review recent PET scan and that showed no increased activity in the liver. The liver texture is nodular. This certainly could be cirrhosis. We will continue to monitor. 03/08/2019-we did check a GGT and it is over 2000. This could be related to alcohol or some other intrinsic hepatocellular illness. He is seeing gastroenterology as an outpatient. 03/09/2019-we will recheck enzymes after the weekend. AST, ALT and alkaline phosphatase are all increased. The gamma glutamyltransferase is slightly decreased but still well over 2000. I will likely recheck up to Dr. Riojas and discuss. The nurse noted that there was some abdominal distention and she was worried that it was intolerance of the tube feeds. X-ray showed no distended bowel. The patient has had 2 episodes of paracentesis. 1 of note removed 5 L of fluid. I believe the distention is accumulating ascites. (5) Tracheostomy status Is this a current diagnosis for this admission?: Yes Plan: The patient has a permanent tracheostomy. As noted above the patient was having increased tracheal secretions with some discoloration possibly consistent with blood but there was no heladio blood in the secretions. We will continue tracheostomy care. If the secretions persists we can always send a tracheal aspirate culture. 03/06/2019-still with copious secretions. The tracheostomy site itself does not have marked irritation or ulceration. Preliminary results on the tracheostomy aspirate show many polys with gram-positive cocci in pairs and chains. This could represent pneumococcus. Nursing reported a low-grade temperature. He does have facial flushing. At this point I believe the benefit antibiotics outweigh the risks and I will start him on antibiotic therapy directed at pneumococcal infection. I will repeat a chest x-ray. He likely has either tracheobronchitis or pneumonia. 03/07/2019-the patient was started on ceftriaxone due to the gram-positive cocci seen in the tracheal aspirate. Examination of today's microbiology results shows 4+ gram negative bacilli growing. Pseudomonas and Haemophilus can sometimes stain gram-positive but ultimately will culture out as gram-negative bacilli. I have change the Rocephin to cefepime to cover for Pseudomonas. I will leave the azithromycin. Hopefully I will have final results tomorrow. 03/08/2019-the patient is growing Pseudomonas. He is now on cefepime. Await final sensitivities. 03/09/2019-still with lots of secretions. 03/10/2019-the secretions asked to see him a little better today. We are able to place the Passy-Krzysztof valve on so the patient asked me question. The should improve with continued antibiotic therapy. (6) Depression Qualifiers: Depression Type: major depressive disorder Major depression episode severity: moderate Is this a current diagnosis for this admission?: Yes Plan: The patient's reports that since the cancer diagnosis he has had significant depression. We will continue his current medication regimen. 03/06/2019-patient does have a flat affect today. We are trying to be positive and pointed out the improvements. His is certainly pleased with his progress at this point. Continue current antidepressant medications. 03/07/2019-continue current regimen. The patient does respond appropriately. I believe he is encouraged with his progress but it is difficult to fully appreciate. 03/08/2019-no change in treatment plan. 03/09/2019-appears to be in good spirits today. Hopeful for transfer early next week. 03/10/2019-once again exhibits appropriate affect. Anxious for the decision about rehab tomorrow. Continue current medication regimen. (7) PEG (percutaneous endoscopic gastrostomy) status Is this a current diagnosis for this admission?: Yes Plan: Continue PEG tube site care. 03/07/2019-increased drainage was noted at the PEG site. A swab was obtained and will be sent for culture. The patient is already on azithromycin and now cefepime as noted above. 03/08/2019-culture of the drainage from around the PEG tube has a preliminary results of Pseudomonas as well. 03/09/2019-the sensitivity results of the Pseudomonas are available. The KEEGAN for Zosyn is better than the KEEGAN for cefepime and I will change the patient to Zosyn. It is also sensitive to quinolones but do not want to risk any tendon injury. 03/10/2019-Pseudomonas was also found at the PEG tube site. Continue Zosyn therapy until completion. (8) Tracheobronchitis Is this a current diagnosis for this admission?: Yes Plan: As noted above the aspirate Gram stain reflex infection. Await final results. I have instituted ceftriaxone and azithromycin until the final culture results are available. 03/07/2019-as noted above the Gram stain showing mostly gram-positive cocci is now growing gram-negative bacilli. Cefepime has been started and the ceftriaxone has been discontinued. Azithromycin will continue unchanged. Hopefully more results will be available tomorrow. 03/08/2019-as noted above Pseudomonas has been identified. The patient is now on cefepime. Await final sensitivities. 03/09/2019-now that sensitivities are available and changing the patient to Zosyn. There is also a gram-positive organism. Should have further information tomorrow and may need to add a second antibiotic. 03/10/2019-Pseudomonas tracheobronchitis and cellulitis. Zosyn is ordered through March 16. (9) Pseudomonas aeruginosa infection Is this a current diagnosis for this admission?: Yes Plan: 03/09/2019-Pseudomonas is present at the PEG site and from endotracheal secr etions. Antibiotic regimen as above. 03/10/2019-Pseudomonas now isolated from the PEG tube site and tracheal aspirations. The patient appears to be improving on Zosyn therapy. - Time Time Spent with patient: 15-24 minutes Medications reviewed and adjusted accordingly: Yes Anticipated discharge: Other - Currently pending either acceptance to inpatient rehab or will need care home placement. Within: within 48 hours
[2019-03-10] MEDS: ASPIRIN 81 MG TABLET, CHEWABLE PEG SCH (21:09)
[2019-03-11] MEDS: PIPERACILLIN SODIUM/TAZOBACTAM 3.375 GM in NORMAL SALINE 100 ML IV SCH ×4 (03:23→21:57)
[2019-03-11] MEDS: PANTOPRAZOLE SODIUM 40 MG PACKET.DR NG SCH ×2 (05:41→18:19)
[2019-03-11] MEDS: LEVOTHYROXINE SODIUM 0.05 MG TABLET PEG SCH (05:42)
[2019-03-11] MEDS ORDERED: LIDOCAINE 2% JELLY 5 ML TUBE MM ONE (08:15)
--- NOTE | 2019-03-11 09:43 | Operative Report ---
Operative Report DATE OF SURGERY: 03/11/19 PREOPERATIVE DIAGNOSIS: 1. Dislodged 26 [place] feeding tube. 2. Pneumonia POSTOPERATIVE DIAGNOSIS: Same OPERATION: Dilation of previous feeding tube tract, and placement of 24 [place] dual-lumen feeding tube SURGEON: DUSTIN WARD ANESTHESIA: Other - 2% lidocaine jelly TISSUE REMOVED OR ALTERED: None COMPLICATIONS: None ESTIMATED BLOOD LOSS: Scant INTRAOPERATIVE FINDINGS: See below PROCEDURE: The patient was seen in room 330. The existing feeding tube was removed by the patient inadvertently earlier this morning. It was a 26 [place] balloon tube. At bedside, in the interim, a 14 [place] Pierce catheter was inserted into the feeding tube site uneventfully. We then brought onto the field Hegar's dilators, and a replacement feeding tube. Some lidocaine jelly was placed at the level, the previously placed 14 [place] Pierce catheter removed, and using the Hegar's dilators, we dilated the tract up to 24 [place] diameter. We now placed the 24 [place], dual-lumen angled feeding tube into position uneventfully. The balloon was insufflated with 6 cc of saline. The tube was capped. Of note while the 12 [place] Pierce was then, that tube was draining gastric contents, so there was no question about the region of the replaced feeding tube . Instructions for continued to be used shared with nursing staff. Patient tolerated procedure well.
[2019-03-11] MEDS: POLYETHYLENE GLYCOL 3350 POWDER 17 GM/1 PACKET PEG SCH (11:02)
[2019-03-11] MEDS: CETIRIZINE 10 MG TABLET PEG SCH (11:02)
[2019-03-11] MEDS: SERTRALINE HCL 50 MG TABLET PEG SCH (11:03)
[2019-03-11] MEDS: GABAPENTIN 400 MG CAPSULE PEG SCH ×2 (11:03→21:58)
[2019-03-11] MEDS: SPIRONOLACTONE 25 MG TABLET PEG SCH (11:03)
[2019-03-11] MEDS: VENLAFAXINE HCL 75 MG TABLET PEG SCH ×2 (11:03→21:57)
[2019-03-11] MEDS: PROMETHAZINE HCL 25 MG TABLET PEG SCH ×2 (11:03→18:20)
--- NOTE | 2019-03-11 12:37 | PDOC CONSULTATION ---
Consultation-Blank Consultation: Physical Medicine & Rehabilitation Progress Note Chart reviewed and case discussed with Dr. Inman. 73-year-old right-handed male with complicated past medical history including lung cancer and laryngeal cancer status post tracheostomy and PEG tube placement admitted to [facility] on 03/05/2019 with Left MCA territory CVA. The patient is status post [employer] administration. Further hospital course has included trancheobronchitis and accidental dislodgement of the PEG tube, which has now been replaced. Per therapy notes, the patient currently requires maximum assistance for static sitting at the endge of the bed, moderate assistance of 2 people for bed mobility, and maximum assistance of 2 people for transfers. Based on the patient's diagnosis, medical co-morbidities, and current functional status, he is not a candidate for Acute Inpatient Rehabilitation as he would be unable to tolerate 3 hours per day of intensive therapies in at least 2 disciplines with a reasonable expectation of making significant functional gains in a relatively short period of time. The patient would benefit from a prolonged, less intensive rehabilitation course that can be provided at the subacute level.
[2019-03-11] MEDS: GABAPENTIN 300 MG CAPSULE PEG SCH (12:38)
[2019-03-11] MEDS: ASPIRIN 81 MG TABLET, CHEWABLE PEG SCH (21:58)
--- NOTE | 2019-03-11 22:47 | PDOC PROGRESS REPORT ---
Subjective Progress Note for:: 03/11/19 Subjective:: The patient is resting in bed. He is anxious to hear from Dr. Park regarding inpatient rehab. Reason For Visit: ACUTE ISCHEMIC STROKE Physical Exam Vital Signs: Temp Pulse Resp BP Pulse Ox 97.4 F 98 21 H 130/83 H 98 03/11/19 07:17 03/11/19 07:17 03/11/19 07:17 03/11/19 07:17 03/11/19 07:17 Intake & Output 03/10/19 03/11/19 03/12/19 06:59 06:59 06:59 Intake Total 2372 1611 Output Total 1400 1000 Balance 972 611 Weight 76.9 kg 76.8 kg General appearance: PRESENT: no acute distress, cooperative, well-developed Head exam: PRESENT: atraumatic, normocephalic Ear exam: PRESENT: normal external ear exam Mouth exam: PRESENT: moist, tongue midline Neck exam: PRESENT: tracheostomy. ABSENT: lymphadenopathy, tenderness Respiratory exam: PRESENT: clear to auscultation alana - Anteriorly, unlabored. ABSENT: rales, rhonchi, tachypnea, wheezes Cardiovascular exam: PRESENT: irregular rhythm GI/Abdominal exam: PRESENT: normal bowel sounds, soft, other - PEG tube in place. ABSENT: tenderness Extremities exam: ABSENT: joint swelling, pedal edema Musculoskeletal exam: PRESENT: normal inspection Neurological exam: PRESENT: alert, awake, oriented to person, oriented to place, oriented to situation Psychiatric exam: PRESENT: appropriate affect. ABSENT: agitated, anxious Focused psych exam: ABSENT: delusional, restlessness Results Laboratory Results: 03/10/19 05:06 03/10/19 05:06 03/07/19 15:40 Abdomen - Incision Site Gram Stain - Final 03/06/19 11:00 Tracheal Aspirate Gram Stain - Final 03/06/19 11:00 Tracheal Aspirate Sputum Culture - Final Pseudomonas Aeruginosa Group G Beta Streptococcus Normal Caitlin Absent 03/05/19 03/05/19 11:20 11:20 Creatine Kinase < 20 L CK-MB (CK-2) 1.80 Troponin I 0.019 Impressions: Head CT 03/06/19 12:00 IMPRESSION: Hypoattenuation involving the left parietal lobe and insula comp atible with left MCA territory infarct. No evidence of significant mass effect or hemorrhagic conversion. Findings discussed with Dr. Inman at 1517 hours on 03/06/2019 EVIDENCE OF ACUTE STROKE: YES. Carotid Doppler Study 03/07/19 06:00 IMPRESSION: There is extensive bilateral shadowing atherosclerotic plaque of the carotid bulb and proximal internal carotid arteries, which somewhat limits evaluation. Within this limitation, less than 50% stenosis of the right int ernal carotid artery and 50 to 69% stenosis of the left internal carotid artery by SRU Doppler flow velocity criteria. Chest X-Ray 03/07/19 08:00 IMPRESSION: Bibasilar atelectasis KUB X-Ray 03/10/19 00:00 IMPRESSION: NO RADIOGRAPHIC EVIDENCE FOR ACUTE ABDOMINAL DISEASE. Assessment and Plan - Diagnosis (1) Acute ischemic left MCA stroke Is this a current diagnosis for this admission?: Yes Plan: The patient is just over 24 hours post TPA. He exhibits increased function on the right now with flexion and extension of the right arm. Increased function in the right leg as well. Still with dysarthria. We will add aspirin therapy today. 03/07/2019-the patient is doing well. Each day he has increased function on the right side. He still has right facial droop, weakness in the right arm and right leg. The patient was evaluated by physiatry today. Evaluation was inconclusive and will reassess on Monday. Continue PT, OT and speech 03/08/2019-continues to work with physical therapy. He feels he is improving. Please also see therapy notes. Continue current regimen. 03/09/2019-continue aspirin therapy. I will be having a phone discussion with Dr. Park to review the case for possible inpatient rehab on Monday. The patient did cross his fingers when we discussed this. He is hopeful for transfer. 03/10/2019-improvements are being seen. The patient participates with physical therapy. Still with a slight droop on the right corner of his mouth. Please also see therapy notes. Inpatient rehab will contact me tomorrow and discuss the patient's progress over the last several days. The decision will be made f or inpatient rehab versus long term placement at that time. 03/11/2019-awaiting word from inpatient rehab. If denied then will need long term facility. (2) Received intravenous tissue plasminogen activator (tPA) in emergency department Is this a current diagnosis for this admission?: Yes Plan: The patient received TPA. He was having significant secretions and the benefit of endotracheal suctioning versus the risk of bleeding fell on the side of endotracheal suction due to the significant volume of secretions. Will monitor closely for evidence of bleeding. 03/06/2019-no evidence of heladio bleeding 24 hours post TPA. 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 I saw the patient approximately 2 hours after TPA was administered and the nurse reports that he has exhibited increased function in his right leg. Right arm still has flaccid paralysis. We will obtain physical and Occupational Therapy consults as well as speech therapy for the dysarthria. 03/06/2019-patient exhibits increased function in the right arm today. We will continue physical, occupational and speech therapies. Still with dysarthria from the right facial droop. 03/07/2019-as noted above he seems to regain slightly more function daily. At this point gross motor function is improving. Dexterity is lacking however. 03/08/2019-slowly continues to improve function on the right. The right hand still has the biggest deficit. Right facial droop seems to be improving. 03/09/2019-continues to work with physical therapy. Slow improvement. Trying to see if he is a candidate for inpatient rehab or long term facility 03/10/2019-continue physical and occupational therapy. As noted above the patient is being considered for inpatient rehab. 03/11/2019-patient continues to work with therapeutic modalities. Please see therapy notes for additional information. (4) Transaminitis Is this a current diagnosis for this admission?: Yes Plan: Transaminases slowly improving. We will continue to monitor. 03/07/2019-the AST and ALT slowly improving. Alkaline phosphatase still markedly elevated and I did check his GGT today. This was 2800. I did review recent PET scan and that showed no increased activity in the liver. The liver texture is nodular. This certainly could be cirrhosis. We will continue to monitor. 03/08/2019-we did check a GGT and it is over 2000. This could be related to alcohol or some other intrinsic hepatocellular illness. He is seeing gastroenterology as an outpatient. 03/09/2019-we will recheck enzymes after the weekend. AST, ALT and alkaline phosphatase are all increased. The gamma glutamyltransferase is slightly decreased but still well over 1999. I will l duc recheck up to Dr. Riojas and discuss. The nurse noted that there was some abdominal distention and she was worried that it was intolerance of the tube feeds. X-ray showed no distended bowel. The patient has had 2 episodes of paracentesis. 1 of note removed 5 L of fluid. I believe the distention is accumulating ascites. 03/11/2019-still with markedly elevated enzymes. He may need paracentesis in several weeks. This should not interfere with placement for rehab. Continue to follow-up with Dr. Riojas. (5) Tracheostomy status Is this a current diagnosis for this admission?: Yes Plan: The patient has a permanent tracheostomy. As noted above the patient was having increased tracheal secretions with some discoloration possibly consistent with blood but there was no heladio blood in the secretions. We will continue t racheostomy care. If the secretions persists we can always send a tracheal aspirate culture. 03/06/2019-still with copious secretions. The tracheostomy site itself does not have marked irritation or ulceration. Preliminary results on the tracheostomy aspirate show many polys with gram-positive cocci in pairs and chains. This could represent pneumococcus. Nursing reported a low-grade temperature. He does have facial flushing. At this point I believe the benefit antibiotics outweigh the risks and I will start him on antibiotic therapy directed at pneumococcal infection. I will repeat a chest x-ray. He likely has either tracheobronchitis or pneumonia. 03/07/2019-the patient was started on ceftriaxone due to the gram-positive cocci seen in the tracheal aspirate. Examination of today's microbiology results shows 4+ gram negative bacilli growing. Pseudomonas and Haemophilus can sometimes stain gram-positive but ultimately will culture out as gram-negative bacilli. I have change the Rocephin to cefepime to cover for Pseudomonas. I will leave the azithromycin. Hopefully I will have final results tomorrow. 03/08/2019-the patient is growing Pseudomonas. He is now on cefepime. Await final sensitivities. 03/09/2019-still with lots of secretions. 03/10/2019-the secretions asked to see him a little better today. We are able to place the Passy-Krzysztof valve on so the patient asked me question. The should improve with continued antibiotic therapy. 03/11/2019-appreciably less secretions today. (6) Depression Qualifiers: Depression Type: major depressive disorder Major depression episode severity: moderate Is this a current diagnosis for this admission?: Yes Plan: The patient's reports that since the cancer diagnosis he has had significant depression. We will continue his current medication regimen. 03/06/2019-patient does have a flat affect today. We are trying to be positive and pointed out the improvements. His is certainly pleased with his progress at this point. Continue current antidepressant medications. 03/07/2019-continue current regimen. The patient does respond appropriately. I believe he is encouraged with his progress but it is difficult to fully appreciate. 03/08/2019-no change in treatment plan. 03/09/2019-appears to be in good spirits today. Hopeful for transfer early next week. 03/10/2019-once again exhibits appropriate affect. Anxious for the decision about rehab tomorrow. Continue current medication regimen. 03/11/2019-no change in medication regimen at this time. (7) PEG (percutaneous endoscopic gastrostomy) status Is this a current diagnosis for this admission?: Yes Plan: Continue PEG tube site care. 03/07/2019-increased drainage was noted at the PEG site. A swab was obtained and will be sent for culture. The patient is already on azithromycin and now cefepime as noted above. 03/08/2019-culture of the drainage from around the PEG tube has a preliminary results of Pseudomonas as well. 03/09/2019-the sensitivity results of the Pseudomonas are available. The KEEGAN for Zosyn is better than the KEEGAN for cefepime and I will change the patient to Zosyn. It is also sensitive to quinolones but do not want to risk any tendon injury. 03/10/2019-Pseudomonas was also found at the PEG tube site. Continue Zosyn therapy until completion. 03/11/2019-no reported problems with the PEG tube. Continue antibiotics for drainage. (8) Tracheobronchitis Is this a current diagnosis for this admission?: Yes Plan: As noted above the aspirate Gram stain reflex infection. Await final results. I have instituted ceftriaxone and azithromycin until the final culture results are available. 03/07/2019-as noted above the Gram stain showing mostly gram-positive cocci is now growing gram-negative bacilli. Cefepime has been started and the ceftriaxone has been discontinued. Azithromycin will continue unchanged. Hopefully more results will be available tomorrow. 03/08/2019-as noted above Pseudomonas has been identified. The patient is now on cefepime. Await final sensitivities. 03/09/2019-now that sensitivities are available and changing the patient to Zosyn. There is also a gram-positive organism. Should have further information tomorrow and may need to add a second antibiotic. 03/10/2019-Pseudomonas tracheobronchitis and cellulitis. Zosyn is ordered through March 16. 03/11/2019-complete Zosyn as ordered. (9) Pseudomonas aeruginosa infection Is this a current diagnosis for this admission?: Yes Plan: 03/09/2019-Pseudomonas is present at the PEG site and from endotracheal secretions. Antibiotic regimen as above. 03/10/2019-Pseudomonas now isolated from the PEG tube site and tracheal aspirations. The patient appears to be improving on Zosyn therapy. 03/11/2019-tolerating Zosyn therapy. Will complete antibiotic course. Definitely decreased secretions from the tracheostomy. - Time Time Spent with patient: 15-24 minutes Medications reviewed and adjusted accordingly: Yes Anticipated discharge: Other - Patient rehab or long term facility
[2019-03-12] MEDS: PIPERACILLIN SODIUM/TAZOBACTAM 3.375 GM in NORMAL SALINE 100 ML IV SCH ×4 (03:46→21:15)
[2019-03-12] MEDS: PANTOPRAZOLE SODIUM 40 MG PACKET.DR NG SCH ×2 (06:12→17:50)
[2019-03-12] MEDS: LEVOTHYROXINE SODIUM 0.05 MG TABLET PEG SCH (06:12)
[2019-03-12] MEDS: VENLAFAXINE HCL 75 MG TABLET PEG SCH ×2 (11:52→21:15)
[2019-03-12] MEDS: CETIRIZINE 10 MG TABLET PEG SCH (11:52)
[2019-03-12] MEDS: SPIRONOLACTONE 25 MG TABLET PEG SCH (11:52)
[2019-03-12] MEDS: SERTRALINE HCL 50 MG TABLET PEG SCH (11:53)
[2019-03-12] MEDS: GABAPENTIN 400 MG CAPSULE PEG SCH ×2 (11:53→21:15)
[2019-03-12] MEDS: POLYETHYLENE GLYCOL 3350 POWDER 17 GM/1 PACKET PEG SCH (11:53)
[2019-03-12] MEDS: PROMETHAZINE HCL 25 MG TABLET PEG SCH ×2 (11:53→17:50)
[2019-03-12] MEDS: GABAPENTIN 300 MG CAPSULE PEG SCH (11:53)
--- NOTE | 2019-03-12 16:54 | PDOC PROGRESS REPORT ---
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 His CT scan of the brain reported as hypoattenuation involving the left parietal lobe and insula compatible with left MCA territory infarct. Patient has been reevaluated by Dr. Park who concluded that the patient is not a candidate for acute inpatient rehab but he qualifies for residential facility placement. If he remains a stable his potential discharge to residential facility tomorrow. Reason For Visit: ACUTE ISCHEMIC STROKE Physical Exam Vital Signs: Temp Pulse Resp BP Pulse Ox 97.9 F 89 18 161/83 H 100 03/12/19 15:55 03/12/19 15:55 03/12/19 15:55 03/12/19 15:55 03/12/19 15:55 Intake & Output 03/11/19 03/12/19 03/13/19 06:59 06:59 06:59 Intake Total 1611 1768 974 Output Total 1000 625 Balance 611 1143 974 Weight 76.8 kg 76 kg General appearance: PRESENT: no acute distress Head exam: PRESENT: atraumatic Neck exam: PRESENT: tracheostomy Cardiovascular exam: PRESENT: RRR. ABSENT: diastolic murmur, rubs, systolic murmur GI/Abdominal exam: PRESENT: normal bowel sounds, soft. ABSENT: distended, guarding, mass, organolmegaly, rebound, tenderness Neurological exam: PRESENT: alert Results Laboratory Results: 03/10/19 05:06 03/10/19 05:06 03/07/19 15:40 Abdomen - Incision Site Gram Stain - Final 03/07/19 15:40 Abdomen - Incision Site Wound Culture - Final Pseudomonas Aeruginosa Enterococcus Faecalis(Group D) Skin Caitlin C.albicans/C.dubliniensis No Anaerobic Organisms 03/05/19 03/05/19 11:20 11:20 Creatine Kinase < 20 L CK-MB (CK-2) 1.80 Troponin I 0.019 Impressions: Head CT 03/06/19 12:00 IMPRESSION: Hypoattenuation involving the left parietal lobe and insula compatible with left MCA territory infarct. No evidence of significant mass effect or hemorrhagic conversion. Findings discussed with Dr. Inman at 1517 hours on 03/06/2019 EVIDENCE OF ACUTE STROKE: YES. Carotid Doppler Study 03/07/19 06:00 IMPRESSION: There is extensive bilateral shadowing atherosclerotic plaque of the carotid bulb and proximal internal carotid arteries, which somewhat limits evaluation. Within this limitation, less than 50% stenosis of the right internal carotid artery and 50 to 69% stenosis of the left internal carotid artery by SRU Doppler flow velocity criteria. Chest X-Ray 03/07/19 08:00 IMPRESSION: Bibasilar atelectasis KUB X-Ray 03/10/19 00:00 IMPRESSION: NO RADIOGRAPHIC EVIDENCE FOR ACUTE ABDOMINAL DISEASE. Assessment and Plan - Diagnosis (1) Acute ischemic left MCA stroke Is this a current diagnosis for this admission?: Yes Plan: She qualifies for residential facility placement. (2) Elevated liver chemistry Is this a current diagnosis for this admission?: Yes Plan: To be due to his underlying cirrhosis of the liver. (3) Hx of lung and laryngeal CA Is this a current diagnosis for this admission?: Yes Plan: Status post tracheostomy and PEG tube placement (4) End stage renal disease Is this a current diagnosis for this admission?: Yes (5) Hypertension Qualifiers: Hypertension type: essential hypertension Qualified Code(s): I10 - Essential (primary) hypertension Is this a current diagnosis for this admission?: Yes Plan: Continue current regimen
[2019-03-12] MEDS: ZINC OXIDE 20% OINTMENT 28.35 GM TP PRN (17:52)
[2019-03-12] MEDS: ASPIRIN 81 MG TABLET, CHEWABLE PEG SCH (21:15)
[2019-03-13] MEDS: PIPERACILLIN SODIUM/TAZOBACTAM 3.375 GM in NORMAL SALINE 100 ML IV SCH ×4 (02:57→21:43)
[2019-03-13] MEDS: PANTOPRAZOLE SODIUM 40 MG PACKET.DR NG SCH ×2 (06:03→17:39)
[2019-03-13] MEDS: LEVOTHYROXINE SODIUM 0.05 MG TABLET PEG SCH (06:03)
[2019-03-13] MEDS: POLYETHYLENE GLYCOL 3350 POWDER 17 GM/1 PACKET PEG SCH (09:21)
[2019-03-13] MEDS: GABAPENTIN 400 MG CAPSULE PEG SCH ×2 (09:48→21:44)
[2019-03-13] MEDS: VENLAFAXINE HCL 75 MG TABLET PEG SCH ×2 (09:48→21:44)
[2019-03-13] MEDS: SPIRONOLACTONE 25 MG TABLET PEG SCH (09:48)
[2019-03-13] MEDS: SERTRALINE HCL 50 MG TABLET PEG SCH (09:49)
[2019-03-13] MEDS: CETIRIZINE 10 MG TABLET PEG SCH (09:49)
[2019-03-13] MEDS: PROMETHAZINE HCL 25 MG TABLET PEG SCH ×2 (09:49→17:40)
[2019-03-13] MEDS: GABAPENTIN 300 MG CAPSULE PEG SCH (13:06)
--- NOTE | 2019-03-13 15:40 | PDOC PROGRESS REPORT ---
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 His CT scan of the brain reported as hypoattenuation involving the left parietal lobe and insula compatible with left MCA territory infarct. Patient has been reevaluated by Dr. Park who concluded that the patient is not a candidate for acute inpatient rehab but he qualifies for jail facility placement. If he remains a stable his potential discharge to jail facility tomorrow. 03/13/2019: Today patient's more awake alert and responsive. He is not in pain or distress. Patient has been awaiting placement to [facility] once his tracheostomy complement and tube feeding supplies arranged. His potential discharge for tomorrow. Reason For Visit: ACUTE ISCHEMIC STROKE Physical Exam Vital Signs: Temp Pulse Resp BP Pulse Ox 97.4 F 93 20 128/69 H 100 03/13/19 08:24 03/13/19 14:00 03/13/19 08:24 03/13/19 08:24 03/13/19 08:24 Intake & Output 03/12/19 03/13/19 03/14/19 06:59 06:59 06:59 Intake Total 1768 3159 1448 Output Total 625 425 Balance 1143 2734 1448 Weight 76 kg 80.2 kg General appearance: PRESENT: mild distress Eye exam: PRESENT: conjunctiva pink Neck exam: PRESENT: tracheostomy Respiratory exam: PRESENT: rales, wheezes Cardiovascular exam: PRESENT: RRR. ABSENT: diastolic murmur, rubs, systolic murmur GI/Abdominal exam: PRESENT: other - PEG tube Results Laboratory Results: 03/10/19 05:06 03/10/19 05:06 03/05/19 03/05/19 11:20 11:20 Creatine Kinase < 20 L CK-MB (CK-2) 1.80 Troponin I 0.019 Impressions: Head CT 03/06/19 12:00 IMPRESSION: Hypoattenuation involving the left parietal lobe and insula compatible with left MCA territory infarct. No evidence of significant mass effect or hemorrhagic conversion. Findings discussed with Dr. Inman at 1517 hours on 03/06/2019 EVIDENCE OF ACUTE STROKE: YES. Carotid Doppler Study 03/07/19 06:00 IMPRESSION: There is extensive bilateral shadowing atherosclerotic plaque of the carotid bulb and proximal internal carotid arteries, which somewhat limits evaluation. Within this limitation, less than 50% stenosis of the right internal carotid artery and 50 to 69% stenosis of the left internal carotid artery by SRU Doppler flow velocity criteria. Chest X-Ray 03/07/19 08:00 IMPRESSION: Bibasilar atelectasis KUB X-Ray 03/10/19 00:00 IMPRESSION: NO RADIOGRAPHIC EVIDENCE FOR ACUTE ABDOMINAL DISEASE. Assessment and Plan - Diagnosis (1) Acute ischemic left MCA stroke Is this a current diagnosis for this admission?: Yes Plan: She qualifies for jail facility placement. (2) Elevated liver chemistry Is this a current diagnosis for this admission?: Yes Plan: To be due to his underlying cirrhosis of the liver. (3) Hx of lung and laryngeal CA Is this a current diagnosis for this admission?: Yes Plan: Status post tracheostomy and PEG tube placement (4) End stage renal disease Is this a current diagnosis for this admission?: Yes (5) Hypertension Qualifiers: Hypertension type: essential hypertension Qualified Code(s): I10 - Essential (primary) hypertension Is this a current diagnosis for this admission?: Yes Plan: Continue current regimen
[2019-03-13] MEDS: ASPIRIN 81 MG TABLET, CHEWABLE PEG SCH (21:44)
[2019-03-14] MEDS: PIPERACILLIN SODIUM/TAZOBACTAM 3.375 GM in NORMAL SALINE 100 ML IV SCH ×4 (03:38→21:22)
[2019-03-14] MEDS: PANTOPRAZOLE SODIUM 40 MG PACKET.DR NG SCH ×2 (06:59→17:15)
[2019-03-14] MEDS: LEVOTHYROXINE SODIUM 0.05 MG TABLET PEG SCH (06:59)
--- NOTE | 2019-03-14 10:28 | PDOC TRANSFER SUMMARY ---
General - Admit/Disc Date/PCP Admission Date/Primary Care Provider: 03/05/19 14:33 CLAUDIO FU MD Discharge Date: 03/14/19 - Discharge Diagnosis (1) Acute ischemic left MCA stroke Is this a current diagnosis for this admission?: Yes (2) Elevated liver chemistry Is this a current diagnosis for this admission?: Yes (3) Hx of lung and laryngeal CA Is this a current diagnosis for this admission?: Yes (4) End stage renal disease Is this a current diagnosis for this admission?: Yes (5) Hypertension Is this a current diagnosis for this admission?: Yes - Additional Information Resuscitation Status: Full Code Home Medications: Alprazolam [Xanax 0.5 mg Tablet] 0.5 mg JT Q12 03/05/19 Cetirizine HCl [Zyrtec 10 mg Tablet] 10 mg PO DAILY 03/05/19 Gabapentin [Neurontin] 5 ml PO NOON 03/05/19 Gabapentin [Neurontin] 16 ml PO QAM 03/05/19 Gabapentin [Neurontin] 16 ml PO QPM 03/05/19 Levothyroxine Sodium [Synthroid 50 Mcg Tablet] 50 mcg PO Q6AM 03/05/19 Promethazine HCl [Phenergan 25 mg Tablet] 12.5 mg JT Q12 03/05/19 Sertraline HCl [Zoloft] 10 ml PO DAILY 03/05/19 Spironolactone [Aldactone] 100 mg PO QAM 03/05/19 Venlafaxine HCl [Effexor 75 mg Tablet] 75 mg PO QAM 03/05/19 Venlafaxine HCl [Effexor 75 mg Tablet] 150 mg PO QPM 03/05/19 History of Present Illness Admission Date/PCP: 03/05/19 14:33 CLAUDIO FU MD History of Present Illness: OLIMPIA ST is a 73 year old male with a complex past medical history. He was just in [facility] partly 1 month ago with a spontaneous bacterial peritonitis. He did undergo paracentesis. He received antibiotics at that time. There was no definitive cause noted for the ascites. His transa minases are elevated. The patient was at home. He had just received his bolus tube feed when he lost function of his right side. He had right-sided facial droop as well. The patient does have a history of malignancy and has a tracheostomy and PEG tube long-term. Because the acute onset of right-sided weakness the patient was transferred to the emergency department. He is quickly evaluated and found to be a candidate for TPA. This was administered at 12:24 PM. The nurse reports that he began to exhibit increased function in his right leg after the TPA. He still has congested breath sounds with some gurgling likely from secretions. He does have a Passy-Krzysztof valve in place. He is able to talk but there is some dysarthria with right-sided facial droop. The patient was referred to the hospital service for admission for acute ischemic stroke post TPA administration. Hospital Course Hospital Course: He is 73 years old male patient with past medical history of hypertension, end-stage renal disease on hemodialysis, history of laryngeal and lung cancer status post tracheostomy and PEG tube cirrhosis presented with chief complaints of acute right-sided weakness. His CT scan of the brain reported as hypoattenuation involving the left parietal lobe and insula compatible with left MCA territory infarct. Patient has been reevaluated by Dr. Park who concluded that the patient is not a candidate for acute inpatient rehab but he qualifies for senior living facility placement. If he remains a stable his potential discharge to senior living facility tomorrow. 03/13/2019: Today patient's more awake alert and responsive. He is not in pain or distress. Patient has been awaiting placement to [facility] once his tracheostomy complement and tube feeding supplies arranged. His potential discharge for tomorrow. 03/14/2019: Patient seen and examined while he is resting in bed. He is awake alert his respiratory status at its baseline. Vitals and blood works are unremarkable. Patient is stable enough to go to [facility] senior living facility. I will continue all his medications and send him also with aspirin and high intensity statin.. Physical Exam Vital Signs: Temp Pulse Resp BP Pulse Ox 98.3 F 104 H 20 120/76 96 03/14/19 08:16 03/14/19 08:16 03/14/19 08:16 03/14/19 08:16 03/14/19 09:22 Intake & Output 03/13/19 03/14/19 03/15/19 06:59 06:59 06:59 Intake Total 3159 4344 100 Output Total 425 800 Balance 2734 3544 100 Weight 80.2 kg 78.7 kg General appearance: PRESENT: mild distress Head exam: PRESENT: atraumatic Eye exam: PRESENT: conjunctiva pink Mouth exam: PRESENT: dry mucosa Neck exam: PRESENT: tracheostomy Respiratory exam: PRESENT: clear to auscultation alana. ABSENT: rales, rhonchi, wheezes Cardiovascular exam: PRESENT: RRR. ABSENT: diastolic murmur, rubs, systolic murmur GI/Abdominal exam: PRESENT: normal bowel sounds, soft, other - PEG tube in situ. ABSENT: distended, guarding, mass, organolmegaly, rebound, tenderness Results Laboratory Results: 03/10/19 05:06 03/10/19 05:06 03/05/19 03/05/19 11:20 11:20 Creatine Kinase < 20 L CK-MB (CK-2) 1.80 Troponin I 0.019 Impressions: Head CT 03/06/19 12:00 IMPRESSION: Hypoattenuation involving the left parietal lobe and insula elkin tible with left MCA territory infarct. No evidence of significant mass effect or hemorrhagic conversion. Findings discussed with Dr. Inman at 1517 hours on 03/06/2019 EVIDENCE OF ACUTE STROKE: YES. Carotid Doppler Study 03/07/19 06:00 IMPRESSION: There is extensive bilateral shadowing atherosclerotic plaque of the carotid bulb and proximal internal carotid arteries, which somewhat limits evaluation. Within this limitation, less than 50% stenosis of the right inte rnal carotid artery and 50 to 69% stenosis of the left internal carotid artery by SRU Doppler flow velocity criteria. Chest X-Ray 03/07/19 08:00 IMPRESSION: Bibasilar atelectasis KUB X-Ray 03/10/19 00:00 IMPRESSION: NO RADIOGRAPHIC EVIDENCE FOR ACUTE ABDOMINAL DISEASE. Qualifiers - * PATIENT BEING DISCHARGED WITH ANY OF THE FOLLOWING DIAGNOSIS: Stroke VTE patient discharged on overlapping Therapy?: No Reason(s) for not prescribing Overlap Therapy:: Not indicated Stroke Pt being discharged on Anti-thrombolytic therapy?: Yes Stroke Pt being discharged on Anti-coagulation therapy?: No Reason(s) for not prescribing Anti-coagulation therapy:: Not indicated Stroke Pt being discharged on Statins?: Yes UT Pt being discharged on Aspirin therapy?: No Reason(s) for not prescribing Aspirin therapy:: Not indicated UT Pt being discharged on Statins?: No Reason(s) for not prescribing Statin therapy:: Not indicated UT Pt discharged ACEI/ARBS?: No Reason(s) for not prescribing ACEI/ARBS:: Not indicated Acute Heart Failure - Is this a Heart Failure Patient?: No LVEF < 40%?: No- if no continue to question #3 3. Anticoagulant therapy for permanect/persistent/paraoxysmal Afib or Aflutter: N/A Follow-up Appointment scheduled within 7 days?: Yes
[2019-03-14] MEDS: POLYETHYLENE GLYCOL 3350 POWDER 17 GM/1 PACKET PEG SCH (10:30)
[2019-03-14] MEDS: SERTRALINE HCL 50 MG TABLET PEG SCH (10:30)
[2019-03-14] MEDS: VENLAFAXINE HCL 75 MG TABLET PEG SCH ×2 (10:30→21:22)
[2019-03-14] MEDS: SPIRONOLACTONE 25 MG TABLET PEG SCH (10:30)
[2019-03-14] MEDS: PROMETHAZINE HCL 25 MG TABLET PEG SCH ×2 (10:31→17:16)
[2019-03-14] MEDS: GABAPENTIN 400 MG CAPSULE PEG SCH ×2 (10:31→21:22)
[2019-03-14] MEDS: CETIRIZINE 10 MG TABLET PEG SCH (10:31)
[2019-03-14] MEDS: GABAPENTIN 300 MG CAPSULE PEG SCH (14:30)
[2019-03-14] MEDS: ASPIRIN 81 MG TABLET, CHEWABLE PEG SCH (21:23)
[2019-03-15] MEDS: PIPERACILLIN SODIUM/TAZOBACTAM 3.375 GM in NORMAL SALINE 100 ML IV SCH ×3 (02:13→16:43)
[2019-03-15] MEDS: ZINC OXIDE 20% OINTMENT 28.35 GM TP PRN (05:52)
[2019-03-15] MEDS: PANTOPRAZOLE SODIUM 40 MG PACKET.DR NG SCH ×2 (05:52→17:00)
[2019-03-15] MEDS: LEVOTHYROXINE SODIUM 0.05 MG TABLET PEG SCH (05:52)
[2019-03-15] MEDS: VENLAFAXINE HCL 75 MG TABLET PEG SCH (09:29)
[2019-03-15] MEDS: GABAPENTIN 400 MG CAPSULE PEG SCH (09:30)
[2019-03-15] MEDS: SPIRONOLACTONE 25 MG TABLET PEG SCH (09:30)
[2019-03-15] MEDS: SERTRALINE HCL 50 MG TABLET PEG SCH (09:30)
[2019-03-15] MEDS: CETIRIZINE 10 MG TABLET PEG SCH (09:30)
[2019-03-15] MEDS: PROMETHAZINE HCL 25 MG TABLET PEG SCH (09:31)
[2019-03-15] MEDS: POLYETHYLENE GLYCOL 3350 POWDER 17 GM/1 PACKET PEG SCH (09:31)
--- NOTE | 2019-03-15 10:09 | Progress Note ---
Provider Note Provider Note: This is brief addendum to discharge summary I myself dictated for Mr. Jose Luis Ashraf. This morning I seen and examined patient while resting in bed comfortably. He is awake alert. His vital signs are within normal limits. He is a stable enough to be discharged to [facility]. Otherwise no change from previous day.
[2019-03-15] MEDS: GABAPENTIN 300 MG CAPSULE PEG SCH (12:04)
[2019-03-15 17:18] VITALS: BP 122/78
== END 2019-03-15 18:48 | DRG 61 ==
LOC: ER 11:20 → EH 14:33 → ICU 20:10 → 3W 03-06 20:43 → 3S 03-07 11:44
PROVIDERS: ADMIT Hospitalist; ATTEND Hospitalist
PROC: 3E03317 Introduction of Other Thrombolytic into Peripheral Vein, Percutaneous Approach (ICD-10-PCS; principal; 2019-03-05)
PROC: 0D20XUZ Change Feeding Device in Upper Intestinal Tract, External Approach (ICD-10-PCS; 2019-03-11)
DX: I63.512 Cerebral infarction due to unspecified occlusion or stenosis of left middle cerebral artery (principal); N18.6 End stage renal disease; I12.0 Hypertensive chronic kidney disease with stage 5 chronic kidney disease or end stage renal disease; R18.8 Other ascites; G81.91 Hemiplegia, unspecified affecting right dominant side; Z93.0 Tracheostomy status; G62.9 Polyneuropathy, unspecified; Z93.1 Gastrostomy status; Z99.2 Dependence on renal dialysis; K74.60 Unspecified cirrhosis of liver; B96.5 Pseudomonas (aeruginosa) (mallei) (pseudomallei) as the cause of diseases classified elsewhere; B96.3 Hemophilus influenzae [H. influenzae] as the cause of diseases classified elsewhere; J40 Bronchitis, not specified as acute or chronic; F32.9 Major depressive disorder, single episode, unspecified; M19.072 Primary osteoarthritis, left ankle and foot; M19.071 Primary osteoarthritis, right ankle and foot; M19.042 Primary osteoarthritis, left hand; M19.041 Primary osteoarthritis, right hand; J34.89 Other specified disorders of nose and nasal sinuses; S80.211A Abrasion, right knee, initial encounter; R74.0 Nonspecific elevation of levels of transaminase and lactic acid dehydrogenase [LDH]; F10.21 Alcohol dependence, in remission; R29.810 Facial weakness; R47.1 Dysarthria and anarthria; R26.9 Unspecified abnormalities of gait and mobility; Z79.82 Long term (current) use of aspirin; Z92.3 Personal history of irradiation; Z85.118 Personal history of other malignant neoplasm of bronchus and lung; Z85.21 Personal history of malignant neoplasm of larynx; Z92.21 Personal history of antineoplastic chemotherapy; Z87.891 Personal history of nicotine dependence; Z82.49 Family history of ischemic heart disease and other diseases of the circulatory system; Z84.1 Family history of disorders of kidney and ureter
CPT/HCPCS: 36415; 37195; 70450; 71045; 74018; 80048; 80053; 80061; 80076; 82105; 82550; 82553; 82962; 82977; 83036; 83735; 84100; 84484; 85025; 85027; 85610; 85730; 86803; 86804; 87070; 87075; 87077; 87186; 87205; 87350; 93005; 93010; 93306; 93880; 96375; 99291; J0456; J0692; J0696; J2543; J2997; J3490; J7050; J7060; L4386

== ENCOUNTER 2019-03-25 12:10 | Day surgery (SDC) | payer MEDICARE, BC ==
[2019-03-25 13:44] LABS: ABSOLUTE MONOCYTES (AUTO) 1.5 10^3/uL (0.1-1.4); ABSOLUTE NEUT (AUTO) 9.2 10^3/uL (1.7-8.2); BASOPHILS % (AUTO) 0.3 % (0-2); EOSINOPHILS % (AUTO) 0.1 % (0-6); HEMATOCRIT 37.3 % (37.9-51.0); HEMOGLOBIN 12.5 g/dL (13.5-17.0); LYMPHOCYTES % (AUTO) 21.7 % (13-45); MEAN CORPUSCULAR HEMOGLOBIN 32.3 pg (27.0-33.4); MEAN CORPUSCULAR HGB CONC 33.5 g/dL (32.0-36.0); MEAN CORPUSCULAR VOLUME 97 fl (80-97); MONOCYTES % (AUTO) 10.7 % (3-13); PLATELET COUNT 353 10^3/uL (150-450); RED BLOOD COUNT 3.86 10^6/uL (4.35-5.55); SEGMENTED NEUTROPHILS % (AUTO) 67.2 % (42-78); TOTAL CELLS COUNTED % (AUTO) 100 %; WHITE BLOOD COUNT 13.7 10^3/uL (4.0-10.5)
[2019-03-25 13:49] LABS: PROTHROMBIN TIME 14.3 SEC (11.4-15.4)
[2019-03-25 13:50] LABS: PARTIAL THROMBOPLASTIN TIME 39.9 SEC (23.5-35.8)
[2019-03-25 14:09] LABS: BLOOD UREA NITROGEN 26 mg/dL (7-20)
--- NOTE | 2019-03-25 16:54 | RADIOLOGY REPORT (SQ) ---
EXAM DESCRIPTION: U/S ABD PARACENTESIS COMPLETED DATE/TIME: 03/25/2019 4:42 pm REASON FOR STUDY: ASCITES COMPARISON 02/22/2019 LIMITATIONS: None. PROCEDURE: After obtaining informed consent, the patient was brought to the ultrasound suite. The p rocedure was performed with the patient on a gurney. Ultrasound was used to identify a prominent poc ket of ascites in the right lower quadrant . An appropriate access site was selected. The patient w as prepped and draped in usual sterile fashion. The access site was anesthetized with 6 mL 1% lidoc chris. A Epvp-V-Rlncxbol needle was advanced into the fluid. After aspiration of fluid the needle, t he catheter was advanced off the needle into the fluid. A total of 7,000 mL of cloudy milky fluid wa s removed. The patient tolerated the procedure well left the department in satisfactory condition. IMPRESSION: Successful ultrasound-guided palliative paracentesis COMMENT: Patient medication list reviewed: Yes- Quality ID# [id number]:Eligible professional attests to doc umenting in the medical record they obtained, updated, or reviewed the patient's current medications. TECHNICAL DOCUMENTATION: JOB ID: [id number] [employer]- All Rights Reserved Reading location - IP/workstation name: [email or web address]
[2019-03-25] MEDS ORDERED: ALBUMIN HUMAN 25 GM/100 ML RTUINJ IV PRN (17:00)
[2019-03-25 19:28] VITALS: BP 135/68
== END 2019-03-25 19:00 ==
LOC: RAD 12:10
PROVIDERS: ATTEND Internal Medicine
DX: R18.8 Other ascites (principal); Z79.01 Long term (current) use of anticoagulants
CPT/HCPCS: 36415; 84520; 82565; 85025; 85610; 85730; 49083; P9047

== ENCOUNTER 2019-03-26 14:11 | Inpatient (IN) | payer MEDICARE, BC ==
[2019-03-26] MEDS ORDERED: NORMAL SALINE 1000 ML 1,000 ML IV ONE ×2 (14:47→18:55)
[2019-03-26 15:43] LABS: ABSOLUTE LYMPHOCYTES (AUTO) 2.2 10^3/uL (0.5-4.7); ABSOLUTE MONOCYTES (AUTO) 1.5 10^3/uL (0.1-1.4); ABSOLUTE NEUT (AUTO) 10.4 10^3/uL (1.7-8.2); BASOPHILS % (AUTO) 0.2 % (0-2); HEMATOCRIT 33.4 % (37.9-51.0); LYMPHOCYTES % (AUTO) 15.8 % (13-45); MEAN CORPUSCULAR HEMOGLOBIN 31.8 pg (27.0-33.4); MEAN CORPUSCULAR VOLUME 96 fl (80-97); MONOCYTES % (AUTO) 10.6 % (3-13); PLATELET COUNT 326 10^3/uL (150-450); RED BLOOD COUNT 3.47 10^6/uL (4.35-5.55); RED CELL DISTRIBUTION WIDTH 14.8 % (11.5-14.0); SEGMENTED NEUTROPHILS % (AUTO) 73.4 % (42-78); TOTAL CELLS COUNTED % (AUTO) 100 %; WHITE BLOOD COUNT 14.1 10^3/uL (4.0-10.5)
[2019-03-26 16:15] LABS: ANION GAP 5 (5-19); BLOOD UREA NITROGEN 23 mg/dL (7-20); CALCIUM 9.1 mg/dL (8.4-10.2); CARBON DIOXIDE 23 mmol/L (22-30); CHLORIDE 104 mmol/L (98-107); GLUCOSE 93 mg/dL (75-110); POTASSIUM 4.2 mmol/L (3.6-5.0)
--- NOTE | 2019-03-26 18:39 | RADIOLOGY REPORT (SQ) ---
EXAM DESCRIPTION: CTA CHEST COMPLETED DATE/TIME: 03/26/2019 6:29 pm REASON FOR STUDY: tachy/sedentary COMPARISON: CT chest dated 06/04/2018 TECHNIQUE: CT scan of the chest performed using helical scanning technique with dynamic intravenous contrast injection. Images reviewed with lung, soft tissue and bone windows. Reconstructed coronal and sagittal MPR images reviewed. Additional 3 dimensional post-processing performed to develop Maximal Intensity Projection images (DC P). All images stored on PACS. All CT scanners at this facility use dose modulation, iterative reconstruction, and/or weight based d osing when appropriate to reduce radiation dose to as low as reasonably achievable (ALARA). [facility]: Dose Right [facility]: CareDose [facility]: Dose Right [facility]: Teradose 4D [facility]: Attender CONTRAST TYPE AND DOSE: contrast/concentration: Isovue 350.00 mg/ml; Total Contrast Delivered: 56.0 ml; Total Saline Delivered: 80.0 ml Contrast bolus optimized for the pulmonary arteries. Not diagnostic for the aorta. RENAL FUNCTION: BUN 23, creatinine 0.66 RADIATION DOSE: CT Rad equipment meets quality standard of care and radiation dose reduction techniq ues were employed. CTDIvol: 5.6 - 12.7 mGy. DLP: 463 mGy-cm. . LIMITATIONS: None. FINDINGS: LUNGS AND PLEURA: Tracheostomy tube is in place. There is infiltrate in the right middle lobe. There are small pleural effusions and basilar atelectasis or pneumonia left greater than right . AORTA AND GREAT VESSELS: No aneurysm. Contrast bolus not optimized for the aorta. HEART: No pericardial effusion. No significant coronary artery calcifications. PULMONARY ARTERIES: No emboli visualized in the main pulmonary arteries or the segmental branches. HILAR AND MEDIASTINAL STRUCTURES: No identified masses or abnormal nodes. HARDWARE: None in the chest. UPPER ABDOMEN: Ascites. THYROID AND OTHER SOFT TISSUES: No masses. No adenopathy. BONES: No acute or significant finding. 3D MIPS: Confirm above findings. OTHER: No other significant finding. IMPRESSION: 1. Focal airspace disease in the right middle lobe most likely pneumonia. 2. Bilateral pleural effusions and basilar airspace disease either atelectasis or pneumonia left gre ater than right. The spiculated mass previously described in the left base is not identified. COMMENT: Quality ID # [id number]: Final reports with documentation of one or more dose reduction techniques (e.g., Automated exposure control, adjustment of the mA and/or kV according to patient size, use of iterative reconstruction technique) TECHNICAL DOCUMENTATION: JOB ID: [id number] [employer]- All Rights Reserved Reading location - IP/workstation name: [email or web address]
[2019-03-26] MEDS ORDERED: PIPERACILLIN/TAZOBACTAM 3.375 GM VIAL IV ONE (18:54)
--- NOTE | 2019-03-26 19:00 | EKG REPORT ---
SEVERITY:- ABNORMAL ECG - SINUS TACHYCARDIA LEFT AXIS DEVIATION LOW VOLTAGE IN FRONTAL LEADS CONSIDER ANTEROSEPTAL INFARCT : Confirmed by: Dionisio Avila MD 26-Mar-2019 19:00:04
[2019-03-26] MEDS ORDERED: IPRATROPIUM/ALBUTEROL 0.5-2.5 MG/3 ML AMPUL NEB PRN (20:01)
[2019-03-26] MEDS ORDERED: ACETAMINOPHEN 325 MG TABLET PEG PRN (20:01)
--- NOTE | 2019-03-26 20:04 | ER Document Report ---
ED General - General Chief Complaint: Chest Pain Stated Complaint: ELEVATED HEART RATE Time Seen by Provider: 03/26/19 14:30 Mode of Arrival: Medic Information source: Patient, Relative, Emergency Med Personnel TRAVEL OUTSIDE OF THE [place] IN LAST 30 DAYS: No - HPI Notes: Patient is brought in from rehab facility with increased heart rate. At the rehab facility they felt that patient's heart rate was increased, his face was flushed, and he looked to have labored breathing. Patient is a difficult historian because due to his cancer he is not able to vocalize. At times he does seem to respond by nodding appropriately to my questions other times he does not. Patient has had a recent hospital stay. Patient has had no known fevers or falls. He has not been coughing. Symptoms have been constant. They have been moderate. There is no known radiation of the symptoms. Symptoms do not appear to get worse with minor exertion such as moving in the bed. They do appear to get better with rest. - Related Data Allergies/Adverse Reactions: No Known Allergies Allergy (Verified 03/25/19 14:16) Past Medical History - General Information source: Patient - Social History Smoking Status: Former Smoker Frequency of alcohol use: None Drug Abuse: None Family History: Reviewed & Not Pertinent, Hypertension Patient has suicidal ideation: No Patient has homicidal ideation: No - Past Medical History Cardiac Medical History: Reports: Hx Hypertension Denies: Hx Coronary Artery Disease, Hx Heart Attack Pulmonary Medical History: Denies: Hx Asthma, Hx Bronchitis, Hx COPD, Hx Pneumonia Neurological Medical History: Reports: Hx Cerebrovascular Accident - RIGHT SIDE DEFICITS. Denies: Hx Seizures Renal/ Medical History: Denies: Hx End Stage Renal Disease, Hx Peritoneal Dialysis Malignancy Medical History: Reports Hx Lung Cancer GI Medical History: Reports: Hx Cirrhosis. Denies: Hx Hepatitis, Hx Hiatal He rnia, Hx Ulcer Musculoskeletal Medical History: Denies Hx Arthritis Psychiatric Medical History: Reports: Hx Depression Infectious Medical History: Denies: Hx Hepatitis Past Surgical History: Reports: Hx Abdominal Surgery - g-tube placement, Other - Abdominal surgery, cataracts, PEG, laryngoscopy and tracheostomy, T&A. Denies: Hx Open Heart Surgery, Hx Pacemaker - Immunizations Hx Diphtheria, Pertussis, Tetanus Vaccination: Yes Hx Pneumococcal Vaccination: 04/30/17 Review of Systems - Review of Systems Constitutional: Malaise, Weakness Cardiovascular: Dyspnea Respiratory: Short of breath. denies: Hemoptysis Gastrointestinal: denies: Diarrhea, Vomiting -: Yes All other systems reviewed and negative Physical Exam - Vital signs Vitals: Resp 30 H 03/26/19 14:23 Interpretation: Hypertensive - General General appearance: Appears well, Alert In distress: Mild - HEENT Head: Normocephalic, Atraumatic Eyes: Normal Pupils: PERRL Neck: Other - Trach is in place - Respiratory Respiratory status: No respiratory distress Chest status: Nontender Breath sounds: Decreased air movement - Bilateral Chest palpation: Normal - Cardiovascular Rhythm: Tachycardia Heart sounds: Normal auscultation Murmur: No - Abdominal Inspection: Normal Distension: No distension Bowel sounds: Normal Tenderness: Nontender Organomegaly: No organomegaly - Back Back: Normal, Nontender - Extremities General upper extremity: Normal inspection, Nontender, Normal color, Normal ROM, Normal temperature General lower extremity: Normal inspection, Nontender, Normal color, Normal ROM, Normal temperature, Normal weight bearing. No: Lamar's sign - Neurological Neuro grossly intact: Yes Cognition: Confused Patt Coma Scale Eye Opening: Spontaneous Patt Coma Scale Verbal: Confused Qulin Coma Scale Motor: Obeys Commands Qulin Coma Scale Total: 14 - Psychological Associated symptoms: Confused, Depressed - Skin Skin Temperature: Warm Skin Moisture: Dry Skin Color: Normal Course - Re-evaluation Re-evalutation: 03/26/19 20:03 At this time patient is resting in the bed without labored respirations. He is still mildly tachycardic. He has not been hypotensive or hypoxic. His is at the bedside and has been informed of the results of studies and plan of care. Patient does have a CT of the chest that shows a pneumonia. He has been treated with Zosyn. Lactate is still pending. Patient does have an elevated white blood cell count of 14. - Vital Signs Vital signs: Temp Pulse Resp BP Pulse Ox 98.2 F 27 H 141/123 H 97 03/26/19 14:26 03/26/19 19:18 03/26/19 19:18 03/26/19 19:17 - Laboratory Result Diagrams: 03/26/19 15:30 03/26/19 15:30 Laboratory results interpreted by me: 03/26/19 03/26/19 15:30 15:30 WBC 14.1 H RBC 3.47 L Hgb 11.0 L Hct 33.4 L RDW 14.8 H Absolute Neuts (auto) 10.4 H Absolute Monos (auto) 1.5 H Sodium 131.5 L BUN 23 H 03/26/19 20:03 Laboratory 03/26/19 03/26/19 03/26/19 15:30 15:30 15:30 WBC 14.1 H RBC 3.47 L Hgb 11.0 L Hct 33.4 L MCV 96 MCH 31.8 MCHC 33.0 RDW 14.8 H Plt Count 326 Lymph % (Auto) 15.8 [place] % (Auto) 10.6 Eos % (Auto) 0.0 Baso % (Auto) 0.2 Absolute Neuts (auto) 10.4 H Absolute Lymphs (auto) 2.2 Absolute Monos (auto) 1.5 H Absolute Eos (auto) 0.0 Absolute Basos (auto) 0.0 Seg Neutrophils % 73.4 Sodium 131.5 L Potassium 4.2 Chloride 104 Carbon Dioxide 23 Anion Gap 5 BUN 23 H Creatinine 0.66 Est GFR ( Amer) > 60 Est GFR (MDRD) Non-Af > 60 Glucose 93 Lactic Acid Calcium 9.1 Troponin I 0.059 03/26/19 19:20 WBC RBC Hgb Hct MCV MCH MCHC RDW Plt Count Lymph % (Auto) [place] % (Auto) Eos % (Auto) Baso % (Auto) Absolute Neuts (auto) Absolute Lymphs (auto) Absolute Monos (auto) Absolute Eos (auto) Absolute Basos (auto) Seg Neutrophils % Sodium Potassium Chloride Carbon Dioxide Anion Gap BUN Creatinine Est GFR ( Amer) Est GFR (MDRD) Non-Af Glucose Lactic Acid 0.6 L Calcium Troponin I - Diagnostic Test Radiology reviewed: Image reviewed, Reports reviewed - EKG Interpretation by Vt EKG shows normal: Sinus rhythm Rate: Tachycardia - 106 Rhythm: NSR [place]/QRS: Left axis deviation Voltage: No: Increased voltage Discharge - Discharge Clinical Impression: Pneumonia Qualifiers: Pneumonia type: due to unspecified organism Laterality: right Lung location: middle lobe of lung Qualified Code(s): J18.1 - Lobar pneumonia, unspecified organism Condition: Serious Disposition: ADMITTED INPATIENT Admitting Provider: Camacho (Hospitalist) Unit Admitted: Telemetry
[2019-03-26] MEDS ORDERED: NORMAL SALINE 1000 ML 1,000 ML IV SCH (20:15)
[2019-03-26] MEDS ORDERED: LACTULOSE SYRUP 20 GM/30 ML UDCUP PEG ONE (20:30)
[2019-03-26] MEDS: HEPARIN SOD (PORCINE) 5,000 UNIT/ML 1 ML VIAL SUBCUT SCH (22:40)
[2019-03-26] MEDS: PIPERACILLIN SODIUM/TAZOBACTAM 3.375 GM in NORMAL SALINE 100 ML IV SCH (23:34)
[2019-03-27] MEDS: IPRATROPIUM/ALBUTEROL 0.5-2.5 MG/3 ML AMPUL NEB SCH ×3 (00:22→15:46)
--- NOTE | 2019-03-27 04:10 | PDOC H&P ---
History of Present Illness Admission Date/PCP: 03/26/19 20:17 Patient complains of: Shortness of breath History of Present Illness: OLIMPIA ST is a 73 year old male with a past medical history of laryngeal cancer in remission, status post tracheostomy and PEG tube placement and CVA with right-sided residual weakness. He presents with shortness of breath, tachycardia, chest pain. He is found to have hyponatremia, bilateral infiltrate by chest CT, leukocytosis. Patient is nonverbal secondary to laryngeal cancer. He is started on empiric antibiotics for pneumonia and referred to the hospitalist for admission. Patient denies recent antibiotic use. Past Medical History Cardiac Medical History: Reports: Hypertension Denies: Coronary Artery Disease, Myocardial Infarction Pulmonary Medical History: Denies: Asthma, Bronchitis, Chronic Obstructive Pulmonary Disease (COPD), Pneumonia Neurological Medical History: Denies: Seizures Renal/ Medical History: Denies: End Stage Renal Disease Malignancy Medical History: Reports: Lung Cancer GI Medical History: Reports: Cirrhosis Denies: Hepatitis, Hiatal Hernia Musculoskeltal Medical History: Denies: Arthritis Psychiatric Medical History: Reports: Depression Hematology: Denies: Anemia, Sickle Cell Disease Past Surgical History Past Surgical History: Reports: Other - Abdominal surgery, cataracts, PEG, lar yngoscopy and tracheostomy, T&A Denies: Pacemaker Social History Information Source: Patient, Emergency Med Personnel, [facility] Records Smoking Status: Former Smoker Frequency of Alcohol Use: None Hx Recreational Drug Use: No Drugs: None Hx Prescription Drug Abuse: Yes - Advance Directive Resuscitation Status: Full Code Family History Family History: Reviewed & Not Pertinent, Hypertension Parental Family History Reviewed: No - Unobtainable Children Family History Reviewed: No - Unobtainable Sibling(s) Family History Reviewed.: No - Unobtainable unobtainable Medication/Allergy Home Medications: Alprazolam [Xanax 0.5 mg Tablet] 0.5 mg PEG Q12 03/05/19 Cetirizine HCl [Zyrtec 10 mg Tablet] 10 mg PEG DAILY 03/05/19 Levothyroxine Sodium [Synthroid 0.05 mg Tablet] 50 mcg JT Q6AM 03/05/19 Promethazine HCl [Phenergan 25 mg Tablet] 12.5 mg JT Q12HP PRN 03/05/19 Sertraline HCl [Zoloft] 200 mg PEG DAILY 03/05/19 Spironolactone [Aldactone 100 mg Tablet] 100 mg PO QAM 03/05/19 Venlafaxine HCl [Effexor 75 mg Tablet] 75 mg JT QAM 03/05/19 Venlafaxine HCl [Effexor 75 mg Tablet] 150 mg JT QPM 03/05/19 Aspirin [Aspirin 81 mg Chewable Tablet] 81 mg PEG DAILY 03/25/19 Gabapentin 300 mg PEG NOON 03/25/19 Gabapentin [Neurontin 300 mg Capsule] 300 mg PEG Q12 03/25/19 Ipratropium/Albuterol Sulfate [Duoneb 3 ml Ampul] 3 ml IH Q6HP PRN 03/25/19 Allergies/Adverse Reactions: No Known Allergies Allergy (Verified 03/25/19 14:16) Review of Systems ROS unobtainable: Due to mental status - Nonverbal Physical Exam Vital Signs: Temp Pulse Resp BP Pulse Ox 97.8 F 115 H 19 131/77 H 100 03/27/19 00:06 03/27/19 02:00 03/27/19 00:22 03/27/19 00:06 03/27/19 00:22 Intake & Output 03/25/19 03/26/19 03/27/19 11:59 11:59 11:59 Intake Total 2100 Balance 2100 Weight 73.1 kg General appearance: PRESENT: cooperative, mild distress, well-developed, well- nourished, other - Chronically ill-appearing with temporal wasting Head exam: PRESENT: atraumatic, normocephalic Eye exam: PRESENT: conjunctiva pink, EOMI, PERRLA. ABSENT: scleral icterus Ear exam: PRESENT: normal external ear exam Mouth exam: PRESENT: moist, tongue midline Neck exam: PRESENT: other - Distorted anatomy from head and neck surgery. ABSENT: carotid bruit, JVD, lymphadenopathy, thyromegaly Respiratory exam: PRESENT: accessory muscle use, crackles, prolonged expiratory phas, rhonchi, tachypnea Cardiovascular exam: PRESENT: tachycardia. ABSENT: diastolic murmur, rubs, systolic murmur Pulses: PRESENT: normal dorsalis pedis pul Vascular exam: PRESENT: normal capillary refill GI/Abdominal exam: PRESENT: normal bowel sounds, soft. ABSENT: distended, guarding, mass, organolmegaly, rebound, tenderness Rectal exam: PRESENT: deferred Extremities exam: PRESENT: full ROM. ABSENT: calf tenderness, clubbing, pedal edema Neurological exam: PRESENT: alert, awake, oriented to person, oriented to place, oriented to time, oriented to situation, CN II-XII grossly intact. ABSENT: motor sensory deficit Psychiatric exam: PRESENT: appropriate affect, normal mood. ABSENT: homicidal ideation, suicidal ideation Skin exam: PRESENT: dry, intact, warm. ABSENT: cyanosis, rash Results Laboratory Results: 03/26/19 15:30 03/26/19 15:30 03/26/19 03/26/19 03/26/19 15:30 15:30 19:20 WBC 14.1 H RBC 3.47 L Hgb 11.0 L Hct 33.4 L MCV 96 MCH 31.8 MCHC 33.0 RDW 14.8 H Plt Count 326 Seg Neutrophils % 73.4 Sodium 131.5 L Potassium 4.2 Chloride 104 Carbon Dioxide 23 Anion Gap 5 BUN 23 H Creatinine 0.66 Est GFR ( Amer) > 60 Glucose 93 Lactic Acid 0.6 L Calcium 9.1 03/26/19 15:30 Troponin I 0.059 Impressions: Chest/Abdomen CTA 03/26/19 14:47 IMPRESSION: 1. Focal airspace disease in the right middle lobe most likely pneumonia. 2. Bilateral pleural effusions and basilar airspace disease either atelectasis or pneumonia left greater than right. The spiculated mass previously described in the left base is not identified. Assessment and Plan - Diagnosis (1) Pneumonia Qualifiers: Pneumonia type: due to unspecified organism Laterality: right Lung location: middle lobe of lung Qualified Code(s): J18.1 - Lobar pneumonia, unspecified organism Is this a current diagnosis for this admission?: Yes Plan: Pneumonia care set deployed, complicated by recent left MCA CVA, head and neck cancer, PEG tube placement, increased aspiration risk and healthcare exposure. Vancomycin, cefepime and azithromycin ordered. Follow-up CBC, blood culture (2) Hyponatremia Is this a current diagnosis for this admission?: Yes Plan: Likely secondary to pulmonary complaint, IV fluid challenge, follow-up chemistry - Time Time Spent with patient: 35 or more minutes - Inpatient Certification Medical Necessity: Need Close Monitoring Due to Risk of Patient Decompensation
[2019-03-27] MEDS ORDERED: VANCOMYCIN HCL 0 MG in DEXTROSE 5%-WATER 250 ML IV NR (04:15)
[2019-03-27] MEDS ORDERED: VANCOMYCIN HCL INJ 1000 MG VIAL IV PRN (04:26)
[2019-03-27] MEDS ORDERED: NORMAL SALINE 1000 ML 1,000 ML IV SCH (04:30)
[2019-03-27] MEDS ORDERED: VANCOMYCIN HCL 1,250 MG in DEXTROSE 5%-WATER 250 ML IV ONE (05:00)
[2019-03-27] MEDS: HEPARIN SOD (PORCINE) 5,000 UNIT/ML 1 ML VIAL SUBCUT SCH ×3 (05:30→21:46)
[2019-03-27] MEDS: PIPERACILLIN SODIUM/TAZOBACTAM 3.375 GM in NORMAL SALINE 100 ML IV SCH ×4 (06:03→23:39)
[2019-03-27 06:25] LABS: ABSOLUTE LYMPHOCYTES (AUTO) 1.7 10^3/uL (0.5-4.7); ABSOLUTE MONOCYTES (AUTO) 1.1 10^3/uL (0.1-1.4); BASOPHILS % (AUTO) 0.2 % (0-2); HEMOGLOBIN 10.4 g/dL (13.5-17.0); LYMPHOCYTES % (AUTO) 15.3 % (13-45); MEAN CORPUSCULAR HGB CONC 33.4 g/dL (32.0-36.0); MEAN CORPUSCULAR VOLUME 96 fl (80-97); MONOCYTES % (AUTO) 10.5 % (3-13); PLATELET COUNT 319 10^3/uL (150-450); RED BLOOD COUNT 3.24 10^6/uL (4.35-5.55); RED CELL DISTRIBUTION WIDTH 14.7 % (11.5-14.0); TOTAL CELLS COUNTED % (AUTO) 100 %; WHITE BLOOD COUNT 10.9 10^3/uL (4.0-10.5)
[2019-03-27 06:41] LABS: ANION GAP 5 (5-19); BLOOD UREA NITROGEN 18 mg/dL (7-20); CALCIUM 8.5 mg/dL (8.4-10.2); CARBON DIOXIDE 20 mmol/L (22-30); CHLORIDE 108 mmol/L (98-107); GLUCOSE 84 mg/dL (75-110); POTASSIUM 3.7 mmol/L (3.6-5.0)
[2019-03-27] MEDS: VANCOMYCIN HCL 750 MG in DEXTROSE 5%-WATER 250 ML IV SCH ×2 (14:14→21:42)
--- NOTE | 2019-03-27 17:51 | PDOC PROGRESS REPORT ---
Subjective Progress Note for:: 03/27/19 Subjective:: No adverse events overnight. No new complaints. Vital signs been stable. He is been afebrile. He has been having some suctioning of secretions. Reason For Visit: PNEUMONIA Physical Exam Vital Signs: Temp Pulse Resp BP Pulse Ox 97.5 F 105 H 20 116/65 96 03/27/19 12:45 03/27/19 15:47 03/27/19 15:47 03/27/19 12:45 03/27/19 15:47 Intake & Output 03/26/19 03/27/19 03/28/19 06:59 06:59 06:59 Intake Total 2450 100 Balance 2450 100 Weight 73.1 kg General appearance: PRESENT: no acute distress, cooperative, disheveled Respiratory exam: PRESENT: rhonchi - Bilaterally, worse on the left, unlabored. ABSENT: accessory muscle use, chest wall tenderness, crackles, prolonged expira tory phas, symmetrical, tachypnea, wheezes Cardiovascular exam: PRESENT: tachycardia Pulses: PRESENT: normal carotid pulses Vascular exam: PRESENT: normal capillary refill GI/Abdominal exam: PRESENT: normal bowel sounds, soft, other - PEG tube in place, site is unremarkable. ABSENT: distended, guarding, rebound, tenderness Extremities exam: ABSENT: clubbing, pedal edema Musculoskeletal exam: PRESENT: normal inspection. ABSENT: deformity Neurological exam: PRESENT: alert, awake, oriented to person, oriented to place, oriented to situation Psychiatric exam: PRESENT: flat affect Skin exam: PRESENT: dry, warm Results Laboratory Results: 03/27/19 06:00 03/27/19 06:00 03/26/19 03/27/19 03/27/19 19:20 06:00 06:00 WBC 10.9 H RBC 3.24 L Hgb 10.4 L Hct 31.0 L MCV 96 MCH 32.0 MCHC 33.4 RDW 14.7 H Plt Count 319 Seg Neutrophils % 74.0 Sodium 133.3 L Potassium 3.7 Chloride 108 H Carbon Dioxide 20 L Anion Gap 5 BUN 18 Creatinine 0.67 Est GFR ( Amer) > 60 Glucose 84 Lactic Acid 0.6 L Calcium 8.5 03/27/19 06:25 WBC RBC Hgb Hct MCV MCH MCHC RDW Plt Count Seg Neutrophils % Sodium Potassium Chloride Carbon Dioxide Anion Gap BUN Creatinine Est GFR ( Amer) Glucose Lactic Acid 0.6 L Calcium 03/26/19 15:30 Troponin I 0.059 Impressions: Chest/Abdomen CTA 03/26/19 14:47 IMPRESSION: 1. Focal airspace disease in the right middle lobe most likely pneumonia. 2. Bilateral pleural effusions and basilar airspace disease either atelectasis or pneumonia left greater than right. The spiculated mass previously described in the left base is not identified. Assessment and Plan - Diagnosis (1) Pneumonia Qualifiers: Pneumonia type: due to unspecified organism Laterality: right Lung location: middle lobe of lung Qualified Code(s): J18.1 - Lobar pneumonia, unspecified organism Is this a current diagnosis for this admission?: Yes Plan: Currently on broad antibiotic coverage. Cultures are pending. White blood cell count has improved. Were suctioning his secretions as they come. He usually has a fair amount of secretions normally. (2) Acute hyponatremia Is this a current diagnosis for this admission?: Yes Plan: Improving with IV fluids and treatment of his pneumonia. - Time Time Spent with patient: 15-24 minutes
[2019-03-28] MEDS: IPRATROPIUM/ALBUTEROL 0.5-2.5 MG/3 ML AMPUL NEB SCH ×3 (00:16→16:48)
[2019-03-28] MEDS: PIPERACILLIN SODIUM/TAZOBACTAM 3.375 GM in NORMAL SALINE 100 ML IV SCH ×4 (05:20→23:39)
[2019-03-28] MEDS: HEPARIN SOD (PORCINE) 5,000 UNIT/ML 1 ML VIAL SUBCUT SCH ×3 (05:31→21:46)
[2019-03-28] MEDS: VANCOMYCIN HCL 750 MG in DEXTROSE 5%-WATER 250 ML IV SCH ×3 (06:00→21:46)
[2019-03-28 06:01] LABS: VANCOMYCIN,TROUGH 13.8 ug/mL (5.0-20.0)
[2019-03-28] MEDS ORDERED: ACETAMINOPHEN SOLN 325 MG/10.15 ML UDCUP PEG PRN (12:39)
[2019-03-28 17:00] LABS: HEMATOCRIT 33.3 % (37.9-51.0); HEMOGLOBIN 11.3 g/dL (13.5-17.0); MEAN CORPUSCULAR HEMOGLOBIN 32.6 pg (27.0-33.4); MEAN CORPUSCULAR VOLUME 96 fl (80-97); PLATELET COUNT 352 10^3/uL (150-450); RED BLOOD COUNT 3.48 10^6/uL (4.35-5.55); RED CELL DISTRIBUTION WIDTH 14.6 % (11.5-14.0); WHITE BLOOD COUNT 10.9 10^3/uL (4.0-10.5)
[2019-03-28 17:26] LABS: ANION GAP 8 (5-19); BLOOD UREA NITROGEN 18 mg/dL (7-20); CALCIUM 9.1 mg/dL (8.4-10.2); CARBON DIOXIDE 17 mmol/L (22-30); CHLORIDE 111 mmol/L (98-107); GLUCOSE 91 mg/dL (75-110); POTASSIUM 3.9 mmol/L (3.6-5.0)
--- NOTE | 2019-03-28 18:17 | PDOC PROGRESS REPORT ---
Subjective Progress Note for:: 03/28/19 Subjective:: No adverse events overnight. No new complaints. Vital signs been stable. He is been afebrile. He has been having some suctioning of secretions. He seems to have some chronically, and they still seem a little worse than usual. He does indicate that he is feeling a little bit better. His was very happy that his CT of his chest was negative for blood clot. Reason For Visit: PNEUMONIA Physical Exam Vital Signs: Temp Pulse Resp BP Pulse Ox 97.5 F 119 H 22 H 123/86 H 96 03/28/19 12:02 03/28/19 16:48 03/28/19 16:48 03/28/19 12:02 03/28/19 16:48 Intake & Output 03/27/19 03/28/19 03/29/19 06:59 06:59 06:59 Intake Total 2450 900 250 Balance 2450 900 250 Weight 73.1 kg 72.5 kg General appearance: PRESENT: no acute distress, cooperative, disheveled Respiratory exam: PRESENT: rhonchi - Bilaterally, worse on the left, unlabored. ABSENT: accessory muscle use, chest wall tenderness, crackles, prolonged expiratory phas, symmetrical, tachypnea, wheezes Cardiovascular exam: PRESENT: tachycardia Pulses: PRESENT: normal carotid pulses Vascular exam: PRESENT: normal capillary refill GI/Abdominal exam: PRESENT: normal bowel sounds, soft, other - PEG tube in place, site is unremarkable. ABSENT: distended, guarding, rebound, tenderness Extremities exam: ABSENT: clubbing, pedal edema Musculoskeletal exam: PRESENT: normal inspection. ABSENT: deformity Neurological exam: PRESENT: alert, awake, oriented to person, oriented to place, oriented to situation Psychiatric exam: PRESENT: flat affect Skin exam: PRESENT: dry, warm Results Laboratory Results: 03/28/19 16:45 03/28/19 16:45 03/28/19 03/28/19 03/28/19 05:20 16:45 16:45 WBC 10.9 H RBC 3.48 L Hgb 11.3 L Hct 33.3 L MCV 96 MCH 32.6 MCHC 34.0 RDW 14.6 H Plt Count 352 Sodium 136.4 L Potassium 3.9 Chloride 111 H Carbon Dioxide 17 L Anion Gap 8 BUN 18 Creatinine 0.80 0.76 Est GFR ( Amer) > 60 > 60 Glucose 91 Calcium 9.1 03/26/19 15:30 Troponin I 0.059 Impressions: Chest/Abdomen CTA 03/26/19 14:47 IMPRESSION: 1. Focal airspace disease in the right middle lobe most likely pneumonia. 2. Bilateral pleural effusions and basilar airspace disease either atelectasis or pneumonia left greater than right. The spiculated mass previously described in the left base is not identified. Assessment and Plan - Diagnosis (1) Pneumonia Qualifiers: Pneumonia type: due to unspecified organism Laterality: right Lung location: middle lobe of lung Qualified Code(s): J18.1 - Lobar pneumonia, unspecified organism Is this a current diagnosis for this admission?: Yes Plan: Currently on broad antibiotic coverage. Cultures are pending. White blood cell count has improved. Were suctioning his secretions as they come. He usually has a fair amount of secretions normally. (2) Acute hyponatremia Is this a current diagnosis for this admission?: Yes Plan: Resolved - Time Time Spent with patient: 15-24 minutes
[2019-03-29] MEDS: IPRATROPIUM/ALBUTEROL 0.5-2.5 MG/3 ML AMPUL NEB SCH ×3 (00:15→15:41)
[2019-03-29] MEDS: PIPERACILLIN SODIUM/TAZOBACTAM 3.375 GM in NORMAL SALINE 100 ML IV SCH ×3 (05:37→17:02)
[2019-03-29] MEDS: VANCOMYCIN HCL 750 MG in DEXTROSE 5%-WATER 250 ML IV SCH ×3 (05:37→21:06)
[2019-03-29] MEDS: HEPARIN SOD (PORCINE) 5,000 UNIT/ML 1 ML VIAL SUBCUT SCH ×3 (05:37→21:05)
--- NOTE | 2019-03-29 17:27 | PDOC PROGRESS REPORT ---
Subjective Progress Note for:: 03/29/19 Subjective:: No adverse events overnight. No new complaints. Vital signs been stable. He still getting a lot of secretions from his tracheostomy. He said he feels a lot better overall. Tolerating his tube feeds without difficulty. Reason For Visit: PNEUMONIA Physical Exam Vital Signs: Temp Pulse Resp BP Pulse Ox 97.4 F 86 18 139/69 H 97 03/29/19 15:25 03/29/19 15:41 03/29/19 15:41 03/29/19 15:25 03/29/19 15:41 Intake & Output 03/28/19 03/29/19 03/30/19 06:59 06:59 06:59 Intake Total 900 1838 100 Output Total 2 Balance 900 1836 100 Weight 72.5 kg 73.3 kg General appearance: PRESENT: no acute distress, cooperative, disheveled Respiratory exam: PRESENT: rhonchi - Bilaterally, worse on the left, unlabored. ABSENT: accessory muscle use, chest wall tenderness, crackles, prolonged e xpiratory phas, symmetrical, tachypnea, wheezes Cardiovascular exam: PRESENT: tachycardia Pulses: PRESENT: normal carotid pulses Vascular exam: PRESENT: normal capillary refill GI/Abdominal exam: PRESENT: normal bowel sounds, soft, other - PEG tube in place, site is unremarkable. ABSENT: distended, guarding, rebound, tenderness Extremities exam: ABSENT: clubbing, pedal edema Musculoskeletal exam: PRESENT: normal inspection. ABSENT: deformity Neurological exam: PRESENT: alert, awake, oriented to person, oriented to place, oriented to situation Psychiatric exam: PRESENT: flat affect Skin exam: PRESENT: dry, warm Results Laboratory Results: 03/28/19 16:45 03/28/19 16:45 03/28/19 16:45 Sodium 136.4 L Potassium 3.9 Chloride 111 H Carbon Dioxide 17 L Anion Gap 8 BUN 18 Creatinine 0.76 Est GFR ( Amer) > 60 Glucose 91 Calcium 9.1 03/26/19 15:30 Troponin I 0.059 Impressions: Chest/Abdomen CTA 03/26/19 14:47 IMPRESSION: 1. Focal airspace disease in the right middle lobe most likely pneumonia. 2. Bilateral pleural effusions and basilar airspace disease either atelectasis or pneumonia left greater than right. The spiculated mass previously described in the left base is not identified. Assessment and Plan - Diagnosis (1) Pneumonia Qualifiers: Pneumonia type: due to unspecified organism Laterality: right Lung location: middle lobe of lung Qualified Code(s): J18.1 - Lobar pneumonia, unspecified organism Is this a current diagnosis for this admission?: Yes Plan: He is responding well. Nothing is growing out of his cultures. In the past he is growing out a pansensitive Pseudomonas. We should be able to treat him with levofloxacin down his G-tube. If he is doing okay we might be able to discharge him back to [facility] tomorrow. (2) Acute hyponatremia Is this a current diagnosis for this admission?: Yes Plan: Resolved - Time Time Spent with patient: 15-24 minutes
[2019-03-30] MEDS: IPRATROPIUM/ALBUTEROL 0.5-2.5 MG/3 ML AMPUL NEB SCH ×3 (00:18→15:31)
[2019-03-30] MEDS: PIPERACILLIN SODIUM/TAZOBACTAM 3.375 GM in NORMAL SALINE 100 ML IV SCH ×4 (00:41→18:44)
[2019-03-30] MEDS: HEPARIN SOD (PORCINE) 5,000 UNIT/ML 1 ML VIAL SUBCUT SCH ×3 (05:32→21:30)
[2019-03-30] MEDS: VANCOMYCIN HCL 750 MG in DEXTROSE 5%-WATER 250 ML IV SCH ×3 (05:32→21:30)
--- NOTE | 2019-03-30 16:05 | PDOC PROGRESS REPORT ---
Subjective Progress Note for:: 03/30/19 Subjective:: No adverse events overnight. No new complaints. Vital signs been stable. He indicates that he is feeling pretty well. He is tolerating his tube feeds. We are going to send him back to [facility] today but the people over there did not want to have to come in and do his intake evaluation. Reason For Visit: PNEUMONIA Physical Exam Vital Signs: Temp Pulse Resp BP Pulse Ox 98.3 F 88 18 137/78 H 96 03/30/19 08:35 03/30/19 15:31 03/30/19 15:31 03/30/19 08:35 03/30/19 15:31 Intake & Output 03/29/19 03/30/19 03/31/19 06:59 06:59 06:59 Intake Total 1838 900 250 Output Total 2 Balance 1836 900 250 Weight 73.3 kg 72.8 kg General appearance: PRESENT: no acute distress, cooperative, disheveled Respiratory exam: PRESENT: rhonchi - Bilaterally, worse on the left, unlabored. ABSENT: accessory muscle use, chest wall tenderness, crackles, prolonged expiratory phas, symmetrical, tachypnea, wheezes Cardiovascular exam: PRESENT: tachycardia Pulses: PRESENT: normal carotid pulses Vascular exam: PRESENT: normal capillary refill GI/Abdominal exam: PRESENT: normal bowel sounds, soft, other - PEG tube in place, site is unremarkable. ABSENT: distended, guarding, rebound, tenderness Extremities exam: ABSENT: clubbing, pedal edema Musculoskeletal exam: PRESENT: normal inspection. ABSENT: deformity Neurological exam: PRESENT: alert, awake, oriented to person, oriented to place, oriented to situation Psychiatric exam: PRESENT: flat affect Skin exam: PRESENT: dry, warm Results Laboratory Results: 03/28/19 16:45 03/28/19 16:45 03/26/19 15:30 Troponin I 0.059 Impressions: Chest/Abdomen CTA 03/26/19 14:47 IMPRESSION: 1. Focal airspace disease in the right middle lobe most likely pneumonia. 2. Bilateral pleural effusions and basilar airspace disease either atelectasis or pneumonia left greater than right. The spiculated mass previously described in the left base is not identified. Assessment and Plan - Diagnosis (1) Pneumonia Qualifiers: Pneumonia type: due to unspecified organism Laterality: right Lung location: middle lobe of lung Qualified Code(s): J18.1 - Lobar pneumonia, unspecified organism Is this a current diagnosis for this admission?: Yes Plan: Cultures have been negative. He is been responding to antibiotics. He is grown out Pseudomonas in the past and it has been pansensitive. Anticipate discharge on enteric Levaquin. (2) Acute hyponatremia Is this a current diagnosis for this admission?: Yes Plan: Resolved - Time Time Spent with patient: 15-24 minutes
[2019-03-31] MEDS: IPRATROPIUM/ALBUTEROL 0.5-2.5 MG/3 ML AMPUL NEB SCH ×2 (00:12→09:05)
[2019-03-31 01:47] VITALS: BP 132/86
[2019-03-31] MEDS: PIPERACILLIN SODIUM/TAZOBACTAM 3.375 GM in NORMAL SALINE 100 ML IV SCH ×4 (06:18→12:06)
[2019-03-31] MEDS: HEPARIN SOD (PORCINE) 5,000 UNIT/ML 1 ML VIAL SUBCUT SCH (06:19)
[2019-03-31] MEDS: VANCOMYCIN HCL 750 MG in DEXTROSE 5%-WATER 250 ML IV SCH (06:55)
--- NOTE | 2019-03-31 11:15 | PDOC TRANSFER SUMMARY ---
General - Admit/Disc Date/PCP Admission Date/Primary Care Provider: 03/26/19 20:17 Discharge Date: 03/31/19 - Discharge Diagnosis (1) Pneumonia Is this a current diagnosis for this admission?: Yes Summary: He responded well to broad-spectrum antibiotics. Cultures were negative, so we based his antibiotic choice on previous culture results. He will complete a course of Levaquin at the sn[facility] facility. (2) Acute hyponatremia Is this a current diagnosis for this admission?: Yes Summary: Likely due to his pneumonia and possibly some dehydration, corrected with IV fluids and treatment of his underlying condition. - Additional Information Resuscitation Status: Full Code Discharge Diet: Tube Feeding (Comments) Discharge Activity: Supervised Activity Prescriptions: Levofloxacin [Levaquin 750 mg Tablet] 750 mg PEG DAILY #5 tablet Home Medications: Alprazolam [Xanax 0.5 mg Tablet] 0.5 mg PEG Q12 03/05/19 Cetirizine HCl [Zyrtec 10 mg Tablet] 10 mg PEG DAILY 03/05/19 Levothyroxine Sodium [Synthroid 0.05 mg Tablet] 50 mcg JT Q6AM 03/05/19 Promethazine HCl [Phenergan 25 mg Tablet] 12.5 mg JT Q12HP PRN 03/05/19 Sertraline HCl [Zoloft] 200 mg PEG DAILY 03/05/19 Spironolactone [Aldactone 100 mg Tablet] 100 mg PO QAM 03/05/19 Venlafaxine HCl [Effexor 75 mg Tablet] 75 mg JT QAM 03/05/19 Venlafaxine HCl [Effexor 75 mg Tablet] 150 mg JT QPM 03/05/19 Aspirin [Aspirin 81 mg Chewable Tablet] 81 mg PEG DAILY 03/25/19 Gabapentin 300 mg PEG NOON 03/25/19 Gabapentin [Neurontin 300 mg Capsule] 300 mg PEG Q12 03/25/19 Ipratropium/Albuterol Sulfate [Duoneb 3 ml Ampul] 3 ml IH Q6HP PRN 03/25/19 Levofloxacin [Levaquin 750 mg Tablet] 750 mg PEG DAILY #5 tablet 03/31/19 History of Present Illness Admission Date/PCP: 03/26/19 20:17 History of Present Illness: [facility] is a 73 year old male with a past medical history of laryngeal cancer in remission, status post tracheostomy and PEG tube placement and CVA with right-sided residual weakness. He presents with shortness of breath, tachycardia, chest pain. He is found to have hyponatremia, bilateral infiltrate by chest CT, leukocytosis. Patient is nonverbal secondary to laryngeal cancer. He is started on empiric antibiotics for pneumonia and referred to the hospitalist for admission. Patient denies recent antibiotic use. Hospital Course Hospital Course: He responded well to broad-spectrum antibiotics and IV fluids. His comorbid conditions were managed with his home medications and not acutely exacerbated during this hospitalization. Cultures were negative and so he based his treatment on previous culture results. He will complete a course of Levaquin at the [facility] facility. His labs and examination were reassuring and he was discharged in stable condition. Physical Exam Vital Signs: Temp Pulse Resp BP Pulse Ox 97.4 F 79 22 H 132/86 H 97 03/30/19 23:21 03/31/19 09:05 03/31/19 09:05 03/30/19 23:21 03/31/19 09:05 Intake & Output 03/30/19 03/31/19 04/01/19 06:59 06:59 06:59 Intake Total 900 1150 Balance 900 1150 Weight 72.8 kg 71.6 kg General appearance: PRESENT: no acute distress, cooperative, disheveled Respiratory exam: PRESENT: rhonchi - Bilaterally, worse on the left, unlabored. ABSENT: accessory muscle use, chest wall tenderness, crackles, prolonged expiratory phas, symmetrical, tachypnea, wheezes Cardiovascular exam: PRESENT: tachycardia Pulses: PRESENT: normal carotid pulses Vascular exam: PRESENT: normal capillary refill GI/Abdominal exam: PRESENT: normal bowel sounds, soft, other - PEG tube in place, site is unremarkable. ABSENT: distended, guarding, rebound, tenderness Extremities exam: ABSENT: clubbing, pedal edema Musculoskeletal exam: PRESENT: normal inspection. ABSENT: deformity Neurological exam: PRESENT: alert, awake, oriented to person, oriented to place, oriented to situation Psychiatric exam: PRESENT: flat affect Skin exam: PRESENT: dry, warm Results Laboratory Results: 03/28/19 16:45 03/28/19 16:45 03/26/19 15:30 Troponin I 0.059 Impressions: Chest/Abdomen CTA 03/26/19 14:47 IMPRESSION: 1. Focal airspace disease in the right middle lobe most likely pneumonia. 2. Bilateral pleural effusions and basilar airspace disease either atelectasis or pneumonia left greater than right. The spiculated mass previously described in the left base is not identified. Transfer Plan - Time Spent with Patient Time spent with patient: Greater than 30 Minutes Qualifiers - * PATIENT BEING DISCHARGED WITH ANY OF THE FOLLOWING DIAGNOSIS: No Acute Heart Failure - Is this a Heart Failure Patient?: No
== END 2019-03-31 12:55 | DRG 194 ==
LOC: ER 14:11 → EH 20:17 → 4S 21:50
PROVIDERS: ADMIT Internal Medicine; ATTEND Internal Medicine
DX: J18.1 Lobar pneumonia, unspecified organism (principal); E87.1 Hypo-osmolality and hyponatremia; G81.91 Hemiplegia, unspecified affecting right dominant side; Z93.0 Tracheostomy status; I10 Essential (primary) hypertension; F32.9 Major depressive disorder, single episode, unspecified; Z87.891 Personal history of nicotine dependence; Z93.1 Gastrostomy status; E86.0 Dehydration; Z79.899 Other long term (current) drug therapy; Z79.82 Long term (current) use of aspirin; Z85.21 Personal history of malignant neoplasm of larynx; D72.829 Elevated white blood cell count, unspecified; K74.60 Unspecified cirrhosis of liver; Z85.118 Personal history of other malignant neoplasm of bronchus and lung
CPT/HCPCS: 36415; 49083; 71275; 80048; 80202; 82565; 83605; 84484; 84520; 85025; 85027; 85610; 85730; 87040; 93005; 93010; 94640; 94799; 96361; 96365; 99285; J1642; J1644; J2543; J3370; J3490; J7030; J7050; J7060; J7620; P9047

== ENCOUNTER 2019-04-01 13:04 | Emergency (ER) | payer MEDICARE, BC ==
--- NOTE | 2019-04-01 14:10 | ER Document Report ---
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 states that the patient became altered in the hospital during this most recent stay and he has continued to be altered since discharge. She is concerned he may have had another stroke or because he has a skin breakdown and redness around his penis that he may have developed a UTI. denies any change in his mental status since discharge until this morning when he was brought in. Patient is mostly nonverbal but shakes his head yes and no. Denies any pain. Agrees with work-up. Not says he had yes when asked if he wants to go back to [facility], shakes his head no when asked if he wants to be admitted. TRAVEL OUTSIDE OF THE [place] IN LAST 30 DAYS: No - Related Data Allergies/Adverse Reactions: No Known Allergies Allergy (Verified 03/25/19 14:16) Past Medical History - General Information source: Patient, Relative, Emergency Med Personnel, [facility] Records, Outside Facility Records - Social History Smoking Status: Former Smoker Chew tobacco use (# tins/day): No Frequency of alcohol use: None - former drinker, none currently Drug Abuse: None Family History: Reviewed & Not Pertinent, Hypertension Patient has suicidal ideation: No Patient has homicidal ideation: No - Past Medical History Cardiac Medical History: Reports: Hx Hypertension Denies: Hx Coronary Artery Disease, Hx Heart Attack Pulmonary Medical History: Denies: Hx Asthma, Hx Bronchitis, Hx COPD, Hx Pneumonia Neurological Medical History: Reports: Hx Cerebrovascular Accident - RIGHT SIDE DEFICITS. Denies: Hx Seizures Renal/ Medical History: Denies: Hx End Stage Renal Disease, Hx Peritoneal Dialysis Malignancy Medical History: Reports Hx Lung Cancer GI Medical History: Reports: Hx Cirrhosis. Denies: Hx Hepatitis, Hx Hiatal Hernia, Hx Ulcer Musculoskeletal Medical History: Denies Hx Arthritis Psychiatric Medical History: Reports: Hx Depression Infectious Medical History: Denies: Hx Hepatitis Past Surgical History: Reports: Hx Abdominal Surgery - g-tube placement, Other - Abdominal surgery, cataracts, PEG, laryngoscopy and tracheostomy, T&A. Denies: Hx Open Heart Surgery, Hx Pacemaker - Immunizations Hx Diphtheria, Pertussis, Tetanus Vaccination: Yes Hx Pneumococcal Vaccination: 04/30/17 Review of Systems - Review of Systems Constitutional: See HPI - Confusion and altered mental status per . EENT: No symptoms reported Male Genitourinary: See HPI - Skin breakdown the penis. Neurological/Psychological: See HPI -: Yes All other systems reviewed and negative Physical Exam - Vital signs Vitals: Resp 23 H 04/01/19 13:14 Interpretation: Tachycardic - Intermittently tachycardic. - Notes Notes: GENERAL: Alert, interacts well. No acute distress. HEAD: Normocephalic, atraumatic EYES: Pupils equal, round and reactive to light, extraocular movements intact. ENT: Oral mucosa moist, tongue midline. NECK: Full range of motion, supple, trachea midline. Tracheostomy in good position, draining yellowish mucoid discharge. LUNGS: Some transmitted upper airway sounds, no expiratory wheezing, no respiratory distress, on tracheostomy at 4 L via cough. No acute distress. HEART: Regular rate and rhythm with occasional ectopic beats, no murmurs, gallops, rubs. ABDOMEN: Soft, nontender, nondistended, bowel sounds present in all 4 quadrants. G-tube in the left upper quadrant EXTREMITIES: no edema, radial and dorsalis pedis pulses 2/4 bilaterally. No cyanosis. NEUROLOGICAL: Awake, nods his head yes and no, occasionally mouths words, no true speech. Understands that he is in the hospital. Denies pain. Follows commands to move his feet, will not squeeze with either hand. PSYCH: Normal mood, normal affect. SKIN: Warm, Dry. Course - Re-evaluation Re-evalutation: 04/01/19 18:00 CBC shows worsening leukocytosis of 14.5 compared to 10 on the th, chronic anemia, platelets normal, coags are grossly unremarkable, venous blood gas unremarkable, CMP grossly unremarkable, he does have elevated alkaline phosphatase but this is been elevated in the past, troponin is indeterminate 0.04 and 0.042 three hours apart, urinalysis shows no signs of infection, no signs of dehydration. CT scan of the head shows a left temporoparietal infarct which appears to be in the same location as his stroke last month, chest x-ray shows no acute process. Discussed case with Dr. Sanchez the lead hospitalist who is going to review the chart and come down and examined the patient and discussed with patient and as well. 04/01/19 19:08 Dr. Sanchez suggests adding on sputum culture as well. Patient and are agreeable to this plan. No indication is seen at this time for admitting to the hospital. does admit that the altered mental status has been going on since 5 days ago and has not changed or worsened. We did discuss the plan of decreasing the Xanax that he has been written for 0.5 mg twice a day at the long term to only 0.25 mg as needed at bed. is agreeable to this plan. This recommendation will be sent to the long term. Patient will be discharged back to [facility]. - Vital Signs Vital signs: Temp Pulse Resp BP Pulse Ox 99.1 F 25 H 142/95 H 100 04/01/19 14:57 04/01/19 18:01 04/01/19 18:01 04/01/19 18:00 - Laboratory Result Diagrams: 04/01/19 13:50 04/01/19 13:50 Laboratory results interpreted by me: 04/01/19 04/01/19 04/01/19 13:50 13:50 15:10 WBC 14.5 H RBC 3.61 L Hgb 11.2 L Hct 34.3 L RDW 15.1 H Absolute Neuts (auto) 11.4 H Seg Neutrophils % 78.7 H Chloride 114 H BUN 31 H AST 258 H Alkaline Phosphatase 1114 H Total Protein 5.2 L Albumin 2.4 L Urine Protein 30 H Urine Urobilinogen 2.0 H Urine Ascorbic Acid 40 H - EKG Interpretation by Me Additional EKG results interpreted by me: 04/01/19 14:14 EKG shows sinus tachycardia at a rate of 105, occasional PACs, no PVCs, borderline R wave progression, left axis deviation, no ST segment elevations or depressions per my interpretation. Discharge - Discharge Clinical Impression: Tracheostomy dependent, History of laryngeal cancer Altered mental status Qualifiers: Altered mental status type: disorientation Qualified Code(s): R41.0 - Disorientation, unspecified Condition: Stable Disposition: REHAB FACILITY Additional Instructions: Please decrease his Xanax from 0.5 mg twice a day down to 0.25 mg only as needed at bedtime. We have obtain blood, urine and sputum cultures. Unless you hear differently please continue his Levaquin as directed until it is gone. Prescriptions: Alprazolam [Xanax 0.25 mg Tablet] 0.25 mg PO QHS PRN #30 tab PRN Reason: Anxiety
[2019-04-01 14:13] LABS: VENOUS BLOOD BASE EXCESS -4.4 mmol/L; VENOUS BLOOD HCO3 21.2 mmol/L (20-32); VENOUS BLOOD PCO2 40.9 mmHg (35-63); VENOUS BLOOD PH 7.33 (7.30-7.42)
[2019-04-01 14:17] LABS: INTERNATIONAL RATION (INR) 1.15; PROTHROMBIN TIME 14.8 SEC (11.4-15.4)
[2019-04-01 14:22] LABS: ABSOLUTE LYMPHOCYTES (AUTO) 1.9 10^3/uL (0.5-4.7); ABSOLUTE MONOCYTES (AUTO) 1.1 10^3/uL (0.1-1.4); ABSOLUTE NEUT (AUTO) 11.4 10^3/uL (1.7-8.2); BASOPHILS % (AUTO) 0.2 % (0-2); HEMATOCRIT 34.3 % (37.9-51.0); HEMOGLOBIN 11.2 g/dL (13.5-17.0); LYMPHOCYTES % (AUTO) 13.2 % (13-45); MEAN CORPUSCULAR HEMOGLOBIN 31.1 pg (27.0-33.4); MEAN CORPUSCULAR HGB CONC 32.7 g/dL (32.0-36.0); MEAN CORPUSCULAR VOLUME 95 fl (80-97); MONOCYTES % (AUTO) 7.9 % (3-13); PLATELET COUNT 372 10^3/uL (150-450); RED BLOOD COUNT 3.61 10^6/uL (4.35-5.55); RED CELL DISTRIBUTION WIDTH 15.1 % (11.5-14.0); SEGMENTED NEUTROPHILS % (AUTO) 78.7 % (42-78); TOTAL CELLS COUNTED % (AUTO) 100 %; WHITE BLOOD COUNT 14.5 10^3/uL (4.0-10.5)
[2019-04-01 14:34] LABS: ALBUMIN 2.4 g/dL (3.5-5.0); ALKALINE PHOSPHATASE 1114 U/L (38-126); ASPARTATE AMINO TRANSFERASE 258 U/L (17-59); BILIRUBIN,DIRECT 0.3 mg/dL (0.0-0.4); BILIRUBIN,TOTAL 0.4 mg/dL (0.2-1.3); BLOOD UREA NITROGEN 31 mg/dL (7-20); CALCIUM 9.1 mg/dL (8.4-10.2); GLUCOSE 95 mg/dL (75-110); POTASSIUM 3.6 mmol/L (3.6-5.0); TOTAL PROTEIN 5.2 g/dL (6.3-8.2)
[2019-04-01 14:39] LABS: ANION GAP 5 (5-19); CARBON DIOXIDE 22 mmol/L (22-30); CHLORIDE 114 mmol/L (98-107)
[2019-04-01 15:33] LABS: APPEARANCE,URINE CLEAR; BILIRUBIN,URINE NEGATIVE (NEGATIVE); CALCIUM OXALATE CRYSTALS,URINE RARE /HPF; COLOR,URINE YELLOW; GLUCOSE, URINE NEGATIVE (NEGATIVE); KETONES,URINE NEGATIVE (NEGATIVE); LEUKOCYTE ESTERASE,URINE NEGATIVE (NEGATIVE); NITRITE,URINE NEGATIVE (NEGATIVE); PROTEIN,URINE 30 mg/dL (NEGATIVE); URINE SPECIFIC GRAVITY 1.017
--- NOTE | 2019-04-01 15:34 | RADIOLOGY REPORT (SQ) ---
EXAM DESCRIPTION: CT HEAD WITHOUT COMPLETED DATE/TIME: 04/01/2019 3:20 pm REASON FOR STUDY: altered mental status COMPARISON: 03/06/2019 TECHNIQUE: Axial images acquired through the brain without intravenous contrast. Images reviewed wi th bone, brain and subdural windows. Additional sagittal and coronal reconstructions were generated. Images stored on PACS. All CT scanners at this facility use dose modulation, iterative reconstruction, and/or weight based d osing when appropriate to reduce radiation dose to as low as reasonably achievable (ALARA). [facility]: Dose Right [facility]: CareDose [facility]: Dose Right [facility]: Teradose 4D [facility]: Smart [employer] RADIATION DOSE: CT Rad equipment meets quality standard of care and radiation dose reduction techniq ues were employed. CTDIvol: 53.2 mGy. DLP: 1017 mGy-cm. mGy. LIMITATIONS: None. FINDINGS: VENTRICLES: Normal size and contour. CEREBRUM: Hypoattenuation in the left temporoparietal area. No hemorrhage. No midline shift. No ac mayi finding. Areas of low density in the white matter most likely chronic small vessel ischemic burt es. CEREBELLUM: No masses. No hemorrhage. No alteration of density. No evidence for acute infarction. EXTRAAXIAL SPACES: No fluid collections. No masses. ORBITS AND GLOBE: No intra- or extraconal masses. Normal contour of globe without masses. CALVARIUM: No fracture. PARANASAL SINUSES: No fluid or mucosal thickening. SOFT TISSUES: No mass or hematoma. OTHER: No other significant finding. IMPRESSION: Recent left temporoparietal infarction. Chronic microvascular ischemia. No acute intra cranial imaging finding. EVIDENCE OF ACUTE STROKE: NO. COMMENT: Quality ID # [id number]: Final reports with documentation of one or more dose reduction techniques (e.g., Automated exposure control, adjustment of the mA and/or kV according to patient size, use of iterative reconstruction technique) TECHNICAL DOCUMENTATION: JOB ID: [id number] [employer]- All Rights Reserved Reading location - IP/workstation name: [email or web address]
--- NOTE | 2019-04-01 15:36 | RADIOLOGY REPORT (SQ) ---
EXAM DESCRIPTION: CHEST SINGLE VIEW COMPLETED DATE/TIME: 04/01/2019 3:28 pm REASON FOR STUDY: AMS, h/o pneumonia COMPARISON: 03/07/2019 EXAM PARAMETERS: NUMBER OF VIEWS: One view. TECHNIQUE: Single frontal radiographic view of the chest acquired. RADIATION DOSE: NA LIMITATIONS: None. FINDINGS: LUNGS AND PLEURA: No opacities, masses or pneumothorax. No pleural effusion. MEDIASTINUM AND HILAR STRUCTURES: No masses. Contour normal. HEART AND VASCULAR STRUCTURES: Heart normal in size. Normal vasculature. BONES: No acute findings. HARDWARE: Injection port on the left. Tracheostomy tube. OTHER: No other significant finding. IMPRESSION: NO ACUTE RADIOGRAPHIC FINDING IN THE CHEST. TECHNICAL DOCUMENTATION: JOB ID: [id number] [employer]- All Rights Reserved Reading location - IP/workstation name: [email or web address]
[2019-04-01 23:07] VITALS: BP 152/84
--- NOTE | 2019-04-02 23:23 | EKG REPORT ---
SEVERITY:- ABNORMAL ECG - SINUS TACHYCARDIA MULTIPLE ATRIAL PREMATURE COMPLEXES BORDERLINE R WAVE PROGRESSION, ANTERIOR LEADS : Confirmed by: Abbe Archibald 02-Apr-2019 23:21:25
== END 2019-04-01 23:31 ==
LOC: ER 13:04
DX: Z93.0 Tracheostomy status (principal); R41.0 Disorientation, unspecified; Z87.891 Personal history of nicotine dependence; I10 Essential (primary) hypertension
CPT/HCPCS: 36415; 36591; 51701; 70450; 71045; 80053; 81001; 82140; 82803; 83605; 84484; 85025; 85610; 87040; 87070; 87077; 87086; 87186; 87205; 93005; 93010; 99285

== ENCOUNTER 2019-04-22 07:51 | Day surgery (SDC) | payer MEDICARE, BC ==
[2019-04-22 08:41] LABS: HEMATOCRIT 34.9 % (37.9-51.0); HEMOGLOBIN 11.5 g/dL (13.5-17.0); MEAN CORPUSCULAR HEMOGLOBIN 30.9 pg (27.0-33.4); MEAN CORPUSCULAR VOLUME 94 fl (80-97); PLATELET COUNT 384 10^3/uL (150-450); RED BLOOD COUNT 3.73 10^6/uL (4.35-5.55); RED CELL DISTRIBUTION WIDTH 15.4 % (11.5-14.0); WHITE BLOOD COUNT 10.6 10^3/uL (4.0-10.5)
[2019-04-22 08:54] LABS: INTERNATIONAL RATION (INR) 1.12; PROTHROMBIN TIME 14.4 SEC (11.4-15.4)
[2019-04-22 08:55] LABS: PARTIAL THROMBOPLASTIN TIME 37.7 SEC (23.5-35.8)
[2019-04-22 09:06] LABS: BLOOD UREA NITROGEN 31 mg/dL (7-20)
[2019-04-22 13:03] VITALS: BP 132/88
--- NOTE | 2019-04-22 13:41 | RADIOLOGY REPORT (SQ) ---
EXAM DESCRIPTION: U/S ABD PARACENTESIS COMPLETED DATE/TIME: 04/22/2019 11:32 am REASON FOR STUDY: ASCITES COMPARISON None. LIMITATIONS: None. PROCEDURE: After obtaining informed consent, the patient was brought to the ultrasound suite. The p rocedure was performed with the patient on a gurney. Ultrasound was used to identify a prominent poc ket of ascites in the right lower quadrant. An appropriate access site was selected. The patient wa s prepped and draped in usual sterile fashion. The access site was anesthetized with 10 mL 1% lidoc chris. A Uaeo-G-Ajiqijfd needle was advanced into the fluid. After aspiration of fluid the needle, t he catheter was advanced off the needle into the fluid. A total of 3,700 mL of cloudy fluid was pattie lola. The patient tolerated the procedure well left the department in satisfactory condition. IMPRESSION: Successful ultrasound-guided paracentesis COMMENT: Patient medication list reviewed: Yes- Quality ID# [id number]:Eligible professional attests to doc umenting in the medical record they obtained, updated, or reviewed the patient's current medications. TECHNICAL DOCUMENTATION: JOB ID: [id number] [employer]- All Rights Reserved Reading location - IP/workstation name: [email or web address]
== END 2019-04-22 12:15 | disposition home or self-care (01) ==
LOC: RAD 07:51
PROVIDERS: ATTEND Internal Medicine
DX: R18.8 Other ascites (principal); Z79.01 Long term (current) use of anticoagulants
CPT/HCPCS: 36415; 49083; 82565; 84520; 85027; 85610; 85730

== ENCOUNTER 2019-05-02 14:35 | Inpatient (IN) | payer MEDICARE, BC ==
[2019-05-02 15:25] LABS: ABSOLUTE LYMPHOCYTES (AUTO) 2.4 10^3/uL (0.5-4.7); ABSOLUTE MONOCYTES (AUTO) 1.3 10^3/uL (0.1-1.4); BASOPHILS % (AUTO) 0.2 % (0-2); HEMATOCRIT 33.1 % (37.9-51.0); HEMOGLOBIN 10.6 g/dL (13.5-17.0); LYMPHOCYTES % (AUTO) 17.2 % (13-45); MEAN CORPUSCULAR HEMOGLOBIN 29.5 pg (27.0-33.4); MEAN CORPUSCULAR VOLUME 92 fl (80-97); MONOCYTES % (AUTO) 9.6 % (3-13); PLATELET COUNT 438 10^3/uL (150-450); RED BLOOD COUNT 3.59 10^6/uL (4.35-5.55); RED CELL DISTRIBUTION WIDTH 15.7 % (11.5-14.0); TOTAL CELLS COUNTED % (AUTO) 100 %; WHITE BLOOD COUNT 13.7 10^3/uL (4.0-10.5)
[2019-05-02 15:40] LABS: AMORPHOUS SEDIMENT,URINE TRACE /HPF; APPEARANCE,URINE SLIGHTLY-CLOUDY; BILIRUBIN,URINE NEGATIVE (NEGATIVE); COLOR,URINE YELLOW; GLUCOSE, URINE NEGATIVE (NEGATIVE); KETONES,URINE NEGATIVE (NEGATIVE); LEUKOCYTE ESTERASE,URINE NEGATIVE (NEGATIVE); NITRITE,URINE NEGATIVE (NEGATIVE); PROTEIN,URINE NEGATIVE (NEGATIVE); URINE SPECIFIC GRAVITY 1.016; UROBILINOGEN,URINE NEGATIVE mg/dL (<2.0)
--- NOTE | 2019-05-02 15:41 | ER Document Report ---
ED General - General Chief Complaint: Abdominal Pain Stated Complaint: ABDOMINAL PAIN Time Seen by Provider: 05/02/19 15:23 Primary Care Provider: CLAUDIO FU MD [Primary Care Provider] - Follow up as needed Mode of Arrival: Medic Information source: Patient, Relative, Emergency Med Personnel TRAVEL OUTSIDE OF THE [place] 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 Patient's last paracentesis was 10 days ago, but he and family and staff at the custodial as well as patient's regular practitioner Dr. Hanson report that the ascites has recurred and is impairing his breathing. The patient is requiring additional supplemental oxygen going up from 2 L humidified oxygen now on 4-1/2 L of oxygen over the course the past month. The staff at the custodial states they are having to suction his tracheostomy almost hourly due to the secretions. The patient has lost his ability to cough forcibly to bring up secretions. The patient denies significant dyspnea on my exam. He reports no abdominal pain or chest pain. He has had no significant constipation or diarrhea by report. The patient reportedly just finished an antibiotic which was given for his secretions. There is been no fever or chills. Patient denies any headache. Staff at the custodial and the patient's report that he has become progressively weaker since his CVA. - Related Data Allergies/Adverse Reactions: No Known Allergies Allergy (Verified 04/22/19 08:43) Past Medical History - General Information source: Patient - Social History Smoking Status: Unknown if Ever Smoked Frequency of alcohol use: None Drug Abuse: None Lives with: [facility] Family History: Reviewed & Not Pertinent, Hypertension Patient has suicidal ideation: No Patient has homicidal ideation: No - Past Medical History Cardiac Medical History: Reports: Hx Hypertension Denies: Hx Coronary Artery Disease, Hx Heart Attack Pulmonary Medical History: Denies: Hx Asthma, Hx Bronchitis, Hx COPD, Hx Pneumonia Neurological Medical History: Reports: Hx Cerebrovascular Accident - RIGHT SIDE DEFICITS. Denies: Hx Seizures Renal/ Medical History: Denies: Hx End Stage Renal Disease, Hx Peritoneal Dialysis Malignancy Medical History: Reports Hx Lung Cancer GI Medical History: Reports: Hx Cirrhosis. Denies: Hx Hepatitis, Hx Hiatal Hernia, Hx Ulcer Musculoskeletal Medical History: Denies Hx Arthritis Psychiatric Medical History: Reports: Hx Depression Infectious Medical History: Denies: Hx Hepatitis Past Surgical History: Reports: Hx Abdominal Surgery - g-tube placement, Other - Abdominal surgery, cataracts, PEG, laryngoscopy and tracheostomy, T&A. Denies: Hx Open Heart Surgery, Hx Pacemaker - Immunizations Hx Diphtheria, Pertussis, Tetanus Vaccination: Yes Hx Pneumococcal Vaccination: 04/30/17 Review of Systems - Review of Systems -: Yes All other systems reviewed and negative Physical Exam - Vital signs Vitals: Resp 24 H 05/02/19 14:45 - Notes Notes: PHYSICAL EXAMINATION: GENERAL: Debilitated with temporal muscle wasting, no acute distress. HEAD: Atraumatic, normocephalic. EYES: Pupils equal round and reactive to light, extraocular movements intact, sclera anicteric, conjunctiva are normal. ENT: Nares patent, oropharynx clear without exudates. Dry mucous membranes. NECK: Normal range of motion, supple without lymphadenopathy. Tracheostomy site appears otherwise clear without significant breakdown or bleeding or erythema. LUNGS: Breath sounds coarse to auscultation bilaterally and equal. No rales or rhonchi. Scant wheezes noted. HEART: Regular rate and rhythm with 1/6 systolic ejection murmur over apex. ABDOMEN: nontender, mildly distended abdomen. No guarding, no rebound. No masses appreciated. Unable to reproduce any tenderness, but patient has fluid wave with ascites noted. Musculoskeletal: Normal range of motion, no pitting or edema. No cyanosis. NEUROLOGICAL: Patient has extremely weak barely intelligible speech, family states this is somewhat worse than prior. He has a mild right hemiparesis which they state is chronic since his CVA. He is alert and attempts to talk but has some difficulty. No gross unilateral sensory deficit. PSYCH: Normal mood, normal affect. SKIN: Warm, Dry, normal turgor, patient has a stage III decubitus on the sacral region measures 1.5 cm x 4 mm. Patient has minimal erythema but no cellulitis. No gross discharge. Dressing was in place. Course - Re-evaluation Re-evalutation: 05/02/19 20:[address] showed subacute infarct with no acute finding. Chest x-ray showed no significant CHF but there was diaphragmatic elevation from patient's ascites. Patient's regular practitioner from the [place], Dr. Hanson contact me and stated the patient needed admission for paracentesis and further evaluation for his dyspnea and his respiratory and mental status decline. Discussion was undertaken with the patient's who echoed this request. Discussion was also undertaken with custodial staff that agreed that the patient was declining with his respiratory status and they stated they were unable to keep him with his regular suctioning and periodic desaturations at the custodial. 05/02/19 20:29 Patient was given a DuoNeb for his wheezing. Repeat exam showed some improvement in his mild wheezing. Discussion was undertaken with the hospitalist and they agreed to consult on the patient for admission. Patient has lipase elevation but normal amylase. Repeat abdominal exam is completely nontender and bilirubin is normal without evidence for obstructive process or any pain corresponding to his lipase elevation. No evidence for UTI. With nontender abdomen and patient being afebrile, unlikely SBP. No evidence for obvious acute CVA but this cannot be completely excluded. 05/02/19 20:30 05/02/19 20:33 - Vital Signs Vital signs: Temp Pulse Resp BP Pulse Ox 98.0 F 110 H 23 H 99/73 L 99 05/02/19 14:57 05/02/19 14:57 05/02/19 15:03 05/02/19 15:03 05/02/19 15:03 - Laboratory Result Diagrams: 05/02/19 15:07 05/02/19 15:07 Laboratory results interpreted by me: 05/02/19 05/02/19 05/02/19 15:07 15:07 15:07 WBC 13.7 H RBC 3.59 L Hgb 10.6 L Hct 33.1 L RDW 15.7 H Absolute Neuts (auto) 10.0 H Sodium 133.9 L BUN 39 H POC Glucose AST 219 H Alkaline Phosphatase 706 H Total Protein 5.5 L Albumin 2.5 L Amylase Lipase 3196.5 H TSH Urine Ascorbic Acid 40 H 05/02/19 05/02/19 05/02/19 15:07 15:07 15:07 WBC RBC Hgb Hct RDW Absolute Neuts (auto) Sodium BUN POC Glucose 113 H AST Alkaline Phosphatase Total Protein Albumin Amylase 134 H Lipase TSH 5.69 H Urine Ascorbic Acid - EKG Interpretation by Nm EKG shows normal: Sinus rhythm Additional EKG results interpreted by me: 05/02/19 15:39 EKG as interp by me showed sinus tach 108, no gross evidence for acute LA or ischemia. No change from prior EKG from 04/01/19. 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
[2019-05-02 15:49] LABS: ALBUMIN 2.5 g/dL (3.5-5.0); ALKALINE PHOSPHATASE 706 U/L (38-126); ANION GAP 5 (5-19); ASPARTATE AMINO TRANSFERASE 219 U/L (17-59); BILIRUBIN,DIRECT 0.2 mg/dL (0.0-0.4); BILIRUBIN,TOTAL 0.4 mg/dL (0.2-1.3); BLOOD UREA NITROGEN 39 mg/dL (7-20); CARBON DIOXIDE 24 mmol/L (22-30); CHLORIDE 105 mmol/L (98-107); GLUCOSE 92 mg/dL (75-110); POTASSIUM 4.8 mmol/L (3.6-5.0); TOTAL PROTEIN 5.5 g/dL (6.3-8.2)
[2019-05-02] MEDS ORDERED: IPRATROPIUM/ALBUTEROL 0.5-2.5 MG/3 ML AMPUL NEB ONE (16:26)
[2019-05-02 16:35] LABS: INTERNATIONAL RATION (INR) 1.11; PROTHROMBIN TIME 14.3 SEC (11.4-15.4)
--- NOTE | 2019-05-02 16:55 | RADIOLOGY REPORT (SQ) ---
EXAM DESCRIPTION: CHEST SINGLE VIEW COMPLETED DATE/TIME: 05/02/2019 4:24 pm REASON FOR STUDY: dyspnea COMPARISON: 04/01/2019 NUMBER OF VIEWS: One view. TECHNIQUE: Single frontal radiographic image of the chest acquired. LIMITATIONS: Low lung volumes. FINDINGS: LUNGS AND PLEURA: Stable appearance. MEDIASTINUM AND HILAR STRUCTURES: Stable heart size and mediastinal structures. HEART AND VASCULAR STRUCTURES: Stable appearance. SUPPORT DEVICES: Appropriate location without change. BONES: No acute findings. OTHER: No other significant finding. IMPRESSION: STABLE APPEARANCE OF THE CHEST. SUPPORT DEVICES UNCHANGED. TECHNICAL DOCUMENTATION: JOB ID: [id number] [employer]- All Rights Reserved Reading location - IP/workstation name: [email or web address]
[2019-05-02 17:09] LABS: FREE T4 (FREE THYROXINE) 1.46 ng/dL (0.78-2.19)
[2019-05-02 17:23] LABS: THYROID STIMULATING HORMONE 5.69 uIU/mL (0.47-4.68)
--- NOTE | 2019-05-02 18:06 | RADIOLOGY REPORT (SQ) ---
EXAM DESCRIPTION: CT HEAD WITHOUT COMPLETED DATE/TIME: 05/02/2019 5:37 pm REASON FOR STUDY: altered mental state COMPARISON: 04/01/2019 TECHNIQUE: Axial images acquired through the brain without intravenous contrast. Images reviewed wi th bone, brain and subdural windows. Additional sagittal and coronal reconstructions were generated. Images stored on PACS. All CT scanners at this facility use dose modulation, iterative reconstruction, and/or weight based d osing when appropriate to reduce radiation dose to as low as reasonably achievable (ALARA). [facility]: Dose Right [facility]: CareDose [facility]: Dose Right [facility]: Teradose 4D [facility]: Smart [employer] RADIATION DOSE: CT Rad equipment meets quality standard of care and radiation dose reduction techniq ues were employed. CTDIvol: 53.2 mGy. DLP: 1044 mGy-cm. mGy. LIMITATIONS: None. FINDINGS: VENTRICLES: Normal size and contour. CEREBRUM: No masses. No hemorrhage. No midline shift. Left temporoparietal infarction has progress ed since the prior study. No evidence for acute infarction. Normal amezcua/white matter differentiation . No areas of low density in the white matter. CEREBELLUM: No masses. No hemorrhage. No alteration of density. No evidence for acute infarction. EXTRAAXIAL SPACES: No fluid collections. No masses. ORBITS AND GLOBE: No intra- or extraconal masses. Normal contour of globe without masses. CALVARIUM: No fracture. PARANASAL SINUSES: No fluid or mucosal thickening. SOFT TISSUES: No mass or hematoma. OTHER: No other significant finding. IMPRESSION: Subacute left temporoparietal infarction. No acute finding. EVIDENCE OF ACUTE STROKE: NO. COMMENT: Quality ID # [id number]: Final reports with documentation of one or more dose reduction techniques (e.g., Automated exposure control, adjustment of the mA and/or kV according to patient size, use of iterative reconstruction technique) TECHNICAL DOCUMENTATION: JOB ID: [id number] [email or web address]- All Rights Reserved Reading location - IP/workstation name: [email or web address]
[2019-05-02] MEDS ORDERED: ONDANSETRON HCL INJ/PF 4 MG/2 ML SDV IV PRN (20:08)
[2019-05-02] MEDS ORDERED: LEVALBUTEROL HCL NEB 0.63 MG/3 ML AMPUL NEB PRN (20:08)
[2019-05-02] MEDS ORDERED: MORPHINE SULFATE 10 MG/ML INJ IV PRN ×3 (20:22→20:33)
--- NOTE | 2019-05-02 21:50 | EKG REPORT ---
SEVERITY:- ABNORMAL ECG - SINUS TACHYCARDIA MULTIPLE ATRIAL PREMATURE COMPLEXES BORDERLINE LEFT AXIS DEVIATION : Confirmed by: Carolyn Farias MD 02-May-2019 21:49:00
[2019-05-02] MEDS: VENLAFAXINE HCL 75 MG TABLET JT SCH (22:28)
[2019-05-03] MEDS: IPRATROPIUM BROMIDE 0.02% NEB 0.5 MG/2.5 ML AMPUL NEB SCH ×3 (00:15→16:07)
[2019-05-03] MEDS: LEVALBUTEROL HCL NEB 1.25 MG/3 ML AMPUL NEB SCH ×3 (00:15→16:07)
[2019-05-03] MEDS: FAMOTIDINE INJ/PF 20 MG/2 ML SDV IV SCH ×3 (00:50→22:42)
[2019-05-03] MEDS: HEPARIN SOD (PORCINE) 5,000 UNIT/ML 1 ML VIAL SUBCUT SCH ×3 (00:50→14:06)
[2019-05-03] MEDS: SERTRALINE HCL 50 MG TABLET PEG SCH ×3 (00:51→22:43)
--- NOTE | 2019-05-03 00:55 | PDOC H&P ---
History of Present Illness Admission Date/PCP: 05/02/2019 18:32 CLAUDIO FU MD Patient complains of: Ascities History of Present Illness: OLIMPIA ST is a 73 year old male who presented to the emergency room from the [facility] at Dr. Hanson's request for an elective abdominal paracentesis to remove reaccumulated, severe ascites. The patient has known laryngeal carcinoma and is currently under the care of Dr. Hanson. Patient has experienced numerous accumulations of ascites requiring paracentesis over the last several months. The accumulated ascites causes the patient to have dyspnea and abdominal discomfort. Patient is nonverbal and is unable to participate in providing medical history therefore all past medical history, past surgical hist ory, social history and family history are obtained from the best available sources and previous medical records. In the emergency room he was found to have no acute stroke and a stable chest x-ray compared to previous evaluations. His laboratory evaluation was at his baseline with the exception of an elevated serum lipase of 3195 and a minimally elevated serum amylase. A modestly elevated TSH was also noted. Patient was subsequently admitted to the hospital for further evaluation and treatment per Dr. Hanson's request. Past Medical History Past Medical History: Patient is nonverbal and is unable to participate in providing medical history therefore all past medical history, past surgical history, social history and family history are obtained from the best available sources and previous medical records. Cardiac Medical History: Reports: Hypertension Denies: Coronary Artery Disease, Myocardial Infarction Pulmonary Medical History: Reports: Chronic Obstructive Pulmonary Disease (COPD), Pneumonia Denies: Asthma, Bronchitis EENT Medical History: Reports: Cataracts, Throat - History of laryngeal carcinoma Denies: Ears - Hearing aids Neurological Medical History: Reports: Ischemic CVA Denies: Hemorrhagic CVA, Seizures Endocrine Medical History: Reports: Hypothyroidism Denies: Diabetes Mellitus Type 1, Diabetes Mellitus Type 2, Hyperthyroidism Renal/ Medical History: Denies: Chronic Kidney Disease, Nephrolithiasis Malignancy Medical History: Reports: Other - Laryngeal carcinoma GI Medical History: Reports: Cirrhosis Denies: Hepatitis, Hiatal Hernia, Peptic Ulcer Disease Musculoskeltal Medical History: Denies: Arthritis, Gout Skin Medical History: Denies: Eczema, Psoriasis Psychiatric Medical History: Reports: Depression Denies: Alcohol Dependency, Substance Abuse, Tobacco Dependency Traumatic Medical History: Reports: None Hematology: Denies: Anemia, Bleeding Tendencies Infectious Medical History: Reports: None Past Surgical History Past Surgical History: Patient is nonverbal and is unable to participate in providing medical history therefore all past medical history, past surgical history, social history and family history are obtained from the best available sources and previous medical records. Past Surgical History: Reports: Tonsillectomy - With adenoidectomy, Other - Abdominal surgery, bilateral cataracts, PEG, laryngoscopy and tracheostomy Social History Information Source: [facility] Records Lives with: [facility] Smoking Status: Former Smoker Electronic Cigarette use?: No Frequency of Alcohol Use: None Hx Recreational Drug Use: No Drugs: None Hx Prescription Drug Abuse: Yes Past Social History Note: Patient is nonverbal and is unable to participate in providing medical history therefore all past medical history, past surgical history, social history and family history are obtained from the best available sources and previous medical records. - Advance Directive Resuscitation Status: Full Code Surrogate healthcare decision maker:: Mery St Family History Family History: Hypertension Family History: Patient is nonverbal and is unable to participate in providing medical history therefore all past medical history, past surgical history, social history and family history are obtained from the best available sources and previous medical records. Parental Family History Reviewed: Yes Children Family History Reviewed: No Sibling(s) Family History Reviewed.: Yes Medication/Allergy Home Medications: Cetirizine HCl [Zyrtec 10 mg Tablet] 10 mg PEG DAILY 03/05/19 Levothyroxine Sodium [Synthroid 0.05 mg Tablet] 50 mcg JT Q6AM 03/05/19 Promethazine HCl [Phenergan 25 mg Tablet] 12.5 mg JT Q12HP PRN 03/05/19 Sertraline HCl [Zoloft] 200 mg PEG DAILY 03/05/19 Spironolactone [Aldactone 100 mg Tablet] 100 mg PO QAM 03/05/19 Venlafaxine HCl [Effexor 75 mg Tablet] 75 mg JT QAM 03/05/19 Venlafaxine HCl [Effexor 75 mg Tablet] 150 mg JT QHS 03/05/19 Aspirin [Aspirin 81 mg Chewable Tablet] 81 mg PEG DAILY 03/25/19 Gabapentin [Neurontin 300 mg Capsule] 300 mg PEG TID 03/25/19 Ipratropium/Albuterol Sulfate [Duoneb 3 ml Ampul] 3 ml IH Q6HP PRN 03/25/19 Ascorbic Acid [Vitamin C] 500 mg PO DAILY 05/02/19 Silver Chloride [Silver Gel] 1 applic TP ASDIR PRN 05/02/19 Zinc Sulfate [Zinc-220 Capsule] 220 mg PO DAILY 05/02/19 Allergies/Adverse Reactions: No Known Allergies Allergy (Verified 04/22/19 08:43) Review of Systems ROS unobtainable: Other - Patient is nonverbal and due to his post CVA medical status he is unable to communicate effectively to provide historical information. Physical Exam Vital Signs: Temp Pulse Resp BP Pulse Ox 98.0 F 110 H 23 H 99/73 L 99 05/02/19 14:57 05/02/19 14:57 05/02/19 15:03 05/02/19 15:03 05/02/19 15:03 Intake & Output 04/30/19 05/01/19 05/02/19 23:59 23:59 23:59 Weight 77.111 kg General appearance: PRESENT: no acute distress, cooperative Head exam: PRESENT: atraumatic, normocephalic Eye exam: PRESENT: conjunctiva pink. ABSENT: conjunctival injection, scleral icterus Ear exam: PRESENT: normal external ear exam. ABSENT: bleeding, drainage Mouth exam: PRESENT: dry mucosa, neck supple Neck exam: PRESENT: tracheostomy. ABSENT: thyromegaly Respiratory exam: PRESENT: clear to auscultation alana, symmetrical, unlabored Cardiovascular exam: PRESENT: RRR. ABSENT: clicks, gallop, rubs Pulses: PRESENT: normal radial pulses, normal dorsalis pedis pul Vascular exam: PRESENT: normal capillary refill. ABSENT: pallor GI/Abdominal exam: PRESENT: ascites, distended, normal bowel sounds, other - PEG tube in good position Rectal exam: PRESENT: deferred Extremities exam: ABSENT: joint swelling, pedal edema Musculoskeletal exam: ABSENT: deformity, dislocation Neurological exam: PRESENT: alert, CN II-XII grossly intact - Right muscles of facial expression with mild weakness in the central seventh facial nerve distribution, motor sensory deficit - Moderate right hemiparesis, aphasic - Dysarthria and expressive aphasia, questionable receptive aphasia Psychiatric exam: PRESENT: flat affect, other - Unable to assess beyond gross impression as patient is nonverbal. ABSENT: agitated, anxious Skin exam: PRESENT: dry, intact, warm. ABSENT: jaundice, rash, urticaria Results Laboratory Results: 05/02/19 15:07 05/02/19 15:07 05/02/19 05/02/19 05/02/19 15:07 15:07 15:07 WBC 13.7 H RBC 3.59 L Hgb 10.6 L Hct 33.1 L MCV 92 MCH 29.5 MCHC 32.0 RDW 15.7 H Plt Count 438 Seg Neutrophils % 73.0 Sodium 133.9 L Potassium 4.8 Chloride 105 Carbon Dioxide 24 Anion Gap 5 BUN 39 H Creatinine 0.66 Est GFR ( Amer) > 60 Glucose 92 Calcium 9.0 Magnesium Total Bilirubin 0.4 AST 219 H Alkaline Phosphatase 706 H Ammonia Total Protein 5.5 L Albumin 2.5 L Amylase Lipase 3196.5 H TSH Free T4 Urine Color YELLOW Urine Appearance SLIGHTLY-CLOUDY Urine pH 7.0 Ur Specific [place] 1.016 Urine Protein NEGATIVE Urine Glucose (UA) NEGATIVE Urine Ketones NEGATIVE Urine Blood NEGATIVE Urine Nitrite NEGATIVE Ur Leukocyte Esterase NEGATIVE Urine WBC (Auto) 1 Urine RBC (Auto) 7 05/02/19 05/02/19 05/02/19 15:07 15:07 15:07 WBC RBC Hgb Hct MCV MCH MCHC RDW Plt Count Seg Neutrophils % Sodium Potassium Chloride Carbon Dioxide Anion Gap BUN Creatinine Est GFR ( Amer) Glucose Calcium Magnesium 2.3 Total Bilirubin AST Alkaline Phosphatase Ammonia Total Protein Albumin Amylase 134 H Lipase TSH 5.69 H Free T4 1.46 Urine Color Urine Appearance Urine pH Ur Specific [place] Urine Protein Urine Glucose (UA) Urine Ketones Urine Blood Urine Nitrite Ur Leukocyte Esterase Urine WBC (Auto) Urine RBC (Auto) 05/02/19 16:37 WBC RBC Hgb Hct MCV MCH MCHC RDW Plt Count Seg Neutrophils % Sodium Potassium Chloride Carbon Dioxide Anion Gap BUN Creatinine Est GFR ( Amer) Glucose Calcium Magnesium Total Bilirubin AST Alkaline Phosphatase Ammonia 13.5 Total Protein Albumin Amylase Lipase TSH Free T4 Urine Color Urine Appearance Urine pH Ur Specific [place] Urine Protein Urine Glucose (UA) Urine Ketones Urine Blood Urine Nitrite Ur Leukocyte Esterase Urine WBC (Auto) Urine RBC (Auto) Impressions: Chest X-Ray 05/02/19 15:37 IMPRESSION: STABLE APPEARANCE OF THE CHEST. SUPPORT DEVICES UNCHANGED. Head CT 05/02/19 16:28 IMPRESSION: Subacute left temporoparietal infarction. No acute finding. EVIDENCE OF ACUTE STROKE: NO. Assessment and Plan - Diagnosis (1) Ascites Qualifiers: Ascites type: malignant Qualified Code(s): R18.0 - Malignant ascites Is this a current diagnosis for this admission?: Yes (2) Elevated TSH Is this a current diagnosis for this admission?: Yes (3) PEG (percutaneous endoscopic gastrostomy) status Is this a current diagnosis for this admission?: Yes (4) Laryngeal cancer Is this a current diagnosis for this admission?: Yes (5) Anemia Qualifiers: Anemia type: unspecified type Qualified Code(s): D64.9 - Anemia, unspecified Is this a current diagnosis for this admission?: Yes (6) Leukocytosis Qualifiers: Leukocytosis type: unspecified Qualified Code(s): D72.829 - Elevated white blood cell count, unspecified Is this a current diagnosis for this admission?: Yes - Plan Summary Summary: Patient will be seen for a paracentesis by interventional radiology. A thyroid profile will be obtained. Serial lipase and amylase determinations will be obtained as well as serial metabolic profiles with magnesium levels and CBCs. Patient's pain will be controlled with morphine sulfate 2 to 4 mg IV every 2 hours on an as-needed basis per sliding scale. Dr. Hanson will be seeing the patient in consultation during his hospital course. Advanced care planning should be discussed with the patient's family when the opportunity presents itself. - Time Time Spent with patient: 15-24 minutes Medications reviewed and adjusted accordingly: Yes Anticipated discharge: SNF - Inpatient Certification Based on my medical assessment, after consideration of the patient's comorbidities, presenting symptoms, or acuity I expect that the services needed warrant INPATIENT care.: Yes I certify that my determination is in accordance with my understanding of Medicare's requirements for reasonable and necessary INPATIENT services [42 CFR 412.3e].: Yes Medical Necessity: Failure to Improve With Outpatient Therapy, Significant Comorbidiites Make Outpatient Treatment Too Risky, Need Close Monitoring Due to Risk of Patient Decompensation, Need for Surgery, Risk of Complication if Not Cared For in Hospital, Risk of Diagnosis Which Will Require Inpatient Eval/Care/Monitoring
[2019-05-03 04:48] LABS: HEMATOCRIT 31.1 % (37.9-51.0); HEMOGLOBIN 10.2 g/dL (13.5-17.0); MEAN CORPUSCULAR HEMOGLOBIN 29.9 pg (27.0-33.4); MEAN CORPUSCULAR HGB CONC 32.8 g/dL (32.0-36.0); MEAN CORPUSCULAR VOLUME 91 fl (80-97); PLATELET COUNT 440 10^3/uL (150-450); RED BLOOD COUNT 3.41 10^6/uL (4.35-5.55); RED CELL DISTRIBUTION WIDTH 15.6 % (11.5-14.0); WHITE BLOOD COUNT 13.6 10^3/uL (4.0-10.5)
[2019-05-03 05:06] LABS: ALBUMIN 2.3 g/dL (3.5-5.0); ALKALINE PHOSPHATASE 613 U/L (38-126); AMYLASE 137 U/L (30-110); ANION GAP 6 (5-19); ASPARTATE AMINO TRANSFERASE 137 U/L (17-59); BILIRUBIN,DIRECT 0.2 mg/dL (0.0-0.4); BILIRUBIN,TOTAL 0.4 mg/dL (0.2-1.3); BLOOD UREA NITROGEN 38 mg/dL (7-20); CALCIUM 9.3 mg/dL (8.4-10.2); CARBON DIOXIDE 22 mmol/L (22-30); CHLORIDE 107 mmol/L (98-107); GLUCOSE 108 mg/dL (75-110); POTASSIUM 4.4 mmol/L (3.6-5.0); TOTAL PROTEIN 5.2 g/dL (6.3-8.2)
[2019-05-03] MEDS: LEVOTHYROXINE SODIUM 0.05 MG TABLET JT SCH (06:07)
[2019-05-03] MEDS: DEXTROSE 5%-LACTATED RINGERS 1,000 ML IV PRN ×2 (06:07→14:11)
[2019-05-03] MEDS ORDERED: ALBUMIN HUMAN 25 GM/100 ML RTUINJ IV PRN (08:38)
--- NOTE | 2019-05-03 09:04 | PDOC CONSULTATION ---
Consultation Consult Date: 05/03/19 Attending physician:: KOSTA HURTADO Provider Consulted: TASHA BAILEY Consult reason:: Stage IV head neck cancer, cirrhosis of the liver, stroke History of Present Illness Admission Date/PCP: 05/02/19 20:33 CLAUDIO FU MD Patient complains of: Confusion, hypoxia History of Present Illness: OLIMPIA ST is a 73 year old with now a 2-year history of stage IV head neck cancer, status post tracheostomy because of recurrence in the neck, but from that standpoint has been in a good partial response, but recently was admitted for a prolonged period about a month ago with stroke, pneumonia. He also had prior to that a diagnosis of cirrhosis of the liver and required paracentesis. He has been at [facility], and initially was improving slowly, but over the last couple weeks has been regressing in terms of mental status, weakness, and over the last 24 to 48 hours was more and more hypoxic, ultimately patient was deemed appropriate for ER visit and was admitted for pneumonia, confusion, weakness, dehydration Past Medical History Cardiac Medical History: Reports: Hypertension Denies: Coronary Artery Disease, Myocardial Infarction Pulmonary Medical History: Reports: Chronic Obstructive Pulmonary Disease (COPD), Pneumonia Denies: Asthma, Bronchitis EENT Medical History: Reports: Cataracts, Throat - History of laryngeal carcinoma Denies: Ears - Hearing aids Neurological Medical History: Reports: Ischemic CVA Denies: Hemorrhagic CVA, Seizures Endocrine Medical History: Reports: Hypothyroidism Denies: Diabetes Mellitus Type 1, Diabetes Mellitus Type 2, Hyperthyroidism Renal/ Medical History: Denies: Chronic Kidney Disease, End Stage Renal Disease, Nephrolithiasis Malignancy Medical History: Reports: Lung Cancer, Other - Laryngeal carcinoma GI Medical History: Reports: Cirrhosis Denies: Hepatitis, Hiatal Hernia, Peptic Ulcer Disease Musculoskeltal Medical History: Denies: Arthritis, Gout Skin Medical History: Denies: Eczema, Psoriasis Psychiatric Medical History: Reports: Depression Denies: Alcohol Dependency, Substance Abuse, Tobacco Dependency Traumatic Medical History: Reports: None Hematology: Denies: Anemia, Sickle Cell Disease, Bleeding Tendencies Infectious Medical History: Reports: None Past Surgical History Past Surgical History: Reports: Tonsillectomy - With adenoidectomy, Other - Abdominal surgery, bilateral cataracts, PEG, laryngoscopy and tracheostomy Denies: Pacemaker Social History Lives with: [facility] Smoking Status: Former Smoker Electronic Cigarette use?: No Frequency of Alcohol Use: None Hx Recreational Drug Use: No Drugs: None Hx Prescription Drug Abuse: Yes - Advance Directive Resuscitation Status: Do Not Resuscitate Family History Family History: Hypertension Parental Family History Reviewed: Yes Children Family History Reviewed: Yes Sibling(s) Family History Reviewed.: Yes Medication/Allergy Home Medications: Cetirizine HCl [Zyrtec 10 mg Tablet] 10 mg PEG DAILY 03/05/19 Levothyroxine Sodium [Synthroid 0.05 mg Tablet] 50 mcg JT Q6AM 03/05/19 Promethazine HCl [Phenergan 25 mg Tablet] 12.5 mg JT Q12HP PRN 03/05/19 Sertraline HCl [Zoloft] 200 mg PEG DAILY 03/05/19 Spironolactone [Aldactone 100 mg Tablet] 100 mg PO QAM 03/05/19 Venlafaxine HCl [Effexor 75 mg Tablet] 75 mg JT QAM 03/05/19 Venlafaxine HCl [Effexor 75 mg Tablet] 150 mg JT QHS 03/05/19 Aspirin [Aspirin 81 mg Chewable Tablet] 81 mg PEG DAILY 03/25/19 Gabapentin [Neurontin 300 mg Capsule] 300 mg PEG TID 03/25/19 Ipratropium/Albuterol Sulfate [Duoneb 3 ml Ampul] 3 ml IH Q6HP PRN 03/25/19 Ascorbic Acid [Vitamin C] 500 mg PO DAILY 05/02/19 Silver Chloride [Silver Gel] 1 applic TP ASDIR PRN 05/02/19 Zinc Sulfate [Zinc-220 Capsule] 220 mg PO DAILY 05/02/19 Allergies/Adverse Reactions: No Known Allergies Allergy (Verified 04/22/19 08:43) Review of Systems Constitutional: ABSENT: chills, fever(s), headache(s), weight gain, weight loss Eyes: ABSENT: visual disturbances Ears: ABSENT: hearing changes Cardiovascular: ABSENT: chest pain, dyspnea on exertion, edema, orthropnea, palpitations Respiratory: ABSENT: cough, hemoptysis Gastrointestinal: ABSENT: abdominal pain, constipation, diarrhea, hematemesis, hematochezia, nausea, vomiting Genitourinary: ABSENT: dysuria, hematuria Musculoskeletal: ABSENT: joint swelling Integumentary: ABSENT: rash, wounds Neurological: ABSENT: abnormal gait, abnormal speech, confusion, dizziness, foca l weakness, syncope Psychiatric: ABSENT: anxiety, depression, homidical ideation, suicidal ideation Endocrine: ABSENT: cold intolerance, heat intolerance, polydipsia, polyuria Hematologic/Lymphatic: ABSENT: easy bleeding, easy bruising Physical Exam Vital Signs: Temp Pulse Resp BP Pulse Ox 97.7 F 105 H 18 134/81 H 96 05/03/19 01:00 05/03/19 01:00 05/03/19 01:00 05/03/19 01:00 05/03/19 04:20 Intake & Output 05/02/19 05/03/19 05/04/19 06:59 06:59 06:59 Intake Total 0 Output Total 350 Balance -350 Weight 72 kg General appearance: PRESENT: no acute distress, well-developed, well-nourished Head exam: PRESENT: atraumatic, normocephalic Eye exam: PRESENT: conjunctiva pink, EOMI, PERRLA. ABSENT: scleral icterus Ear exam: PRESENT: normal external ear exam Mouth exam: PRESENT: moist, tongue midline Neck exam: ABSENT: carotid bruit, JVD, lymphadenopathy, thyromegaly Respiratory exam: PRESENT: clear to auscultation alana. ABSENT: rales, rhonchi, wheezes Cardiovascular exam: PRESENT: RRR. ABSENT: diastolic murmur, rubs, systolic murmur Pulses: PRESENT: normal dorsalis pedis pul Vascular exam: PRESENT: normal capillary refill GI/Abdominal exam: PRESENT: normal bowel sounds, soft. ABSENT: distended, guarding, mass, organolmegaly, rebound, tenderness Rectal exam: PRESENT: deferred Extremities exam: PRESENT: full ROM. ABSENT: calf tenderness, clubbing, pedal edema Neurological exam: PRESENT: alert, awake, oriented to person, oriented to place, oriented to time, oriented to situation, CN II-XII grossly intact. ABSENT: motor sensory deficit Psychiatric exam: PRESENT: appropriate affect, normal mood. ABSENT: homicidal ideation, suicidal ideation Skin exam: PRESENT: dry, intact, warm. ABSENT: cyanosis, rash Results Laboratory Results: 05/03/19 04:30 05/03/19 04:30 05/02/19 05/02/19 05/02/19 15:07 15:07 15:07 WBC 13.7 H RBC 3.59 L Hgb 10.6 L Hct 33.1 L MCV 92 MCH 29.5 MCHC 32.0 RDW 15.7 H Plt Count 438 Seg Neutrophils % 73.0 Sodium 133.9 L Potassium 4.8 Chloride 105 Carbon Dioxide 24 Anion Gap 5 BUN 39 H Creatinine 0.66 Est GFR ( Amer) > 60 Glucose 92 Lactic Acid Calcium 9.0 Magnesium Total Bilirubin 0.4 AST 219 H Alkaline Phosphatase 706 H Ammonia Total Protein 5.5 L Albumin 2.5 L Amylase Lipase 3196.5 H TSH Free T4 Free T3 pg/mL Urine Color YELLOW Urine Appearance SLIGHTLY-CLOUDY Urine pH 7.0 Ur Specific [place] 1.016 Urine Protein NEGATIVE Urine Glucose (UA) NEGATIVE Urine Ketones NEGATIVE Urine Blood NEGATIVE Urine Nitrite NEGATIVE Ur Leukocyte Esterase NEGATIVE Urine WBC (Auto) 1 Urine RBC (Auto) 7 05/02/19 05/02/19 05/02/19 15:07 15:07 15:07 WBC RBC Hgb Hct MCV MCH MCHC RDW Plt Count Seg Neutrophils % Sodium Potassium Chloride Carbon Dioxide Anion Gap BUN Creatinine Est GFR ( Amer) Glucose Lactic Acid Calcium Magnesium 2.3 Total Bilirubin AST Alkaline Phosphatase Ammonia Total Protein Albumin Amylase 134 H Lipase TSH 5.69 H Free T4 1.46 Free T3 pg/mL Urine Color Urine Appearance Urine pH Ur Specific [place] Urine Protein Urine Glucose (UA) Urine Ketones Urine Blood Urine Nitrite Ur Leukocyte Esterase Urine WBC (Auto) Urine RBC (Auto) 05/02/19 05/02/19 05/02/19 15:07 15:07 16:37 WBC RBC Hgb Hct MCV MCH MCHC RDW Plt Count Seg Neutrophils % Sodium Potassium Chloride Carbon Dioxide Anion Gap BUN Creatinine Est GFR ( Amer) Glucose Lactic Acid 0.8 Calcium Magnesium Total Bilirubin AST Alkaline Phosphatase Ammonia 13.5 Total Protein Albumin Amylase Lipase TSH Free T4 Free T3 pg/mL 5.09 Urine Color Urine Appearance Urine pH Ur Specific [place] Urine Protein Urine Glucose (UA) Urine Ketones Urine Blood Urine Nitrite Ur Leukocyte Esterase Urine WBC (Auto) Urine RBC (Auto) 05/03/19 05/03/19 05/03/19 00:43 04:30 04:30 WBC 13.6 H RBC 3.41 L Hgb 10.2 L Hct 31.1 L MCV 91 MCH 29.9 MCHC 32.8 RDW 15.6 H Plt Count 440 Seg Neutrophils % Sodium Potassium Chloride Carbon Dioxide Anion Gap BUN Creatinine Est GFR ( Amer) Glucose Lactic Acid 0.9 0.8 Calcium Magnesium Total Bilirubin AST Alkaline Phosphatase Ammonia Total Protein Albumin Amylase Lipase TSH Free T4 Free T3 pg/mL Urine Color Urine Appearance Urine pH Ur Specific [place] Urine Protein Urine Glucose (UA) Urine Ketones Urine Blood Urine Nitrite Ur Leukocyte Esterase Urine WBC (Auto) Urine RBC (Auto) 05/03/19 04:30 WBC RBC Hgb Hct MCV MCH MCHC RDW Plt Count Seg Neutrophils % Sodium 134.7 L Potassium 4.4 Chloride 107 Carbon Dioxide 22 Anion Gap 6 BUN 38 H Creatinine 0.70 Est GFR ( Amer) > 60 Glucose 108 Lactic Acid Calcium 9.3 Magnesium 2.3 Total Bilirubin 0.4 AST 137 H Alkaline Phosphatase 613 H Ammonia Total Protein 5.2 L Albumin 2.3 L Amylase 137 H Lipase 2923.2 H TSH Free T4 Free T3 pg/mL Urine Color Urine Appearance Urine pH Ur Specific [place] Urine Protein Urine Glucose (UA) Urine Ketones Urine Blood Urine Nitrite Ur Leukocyte Esterase Urine WBC (Auto) Urine RBC (Auto) Impressions: Chest X-Ray 05/02/19 15:37 IMPRESSION: STABLE APPEARANCE OF THE CHEST. SUPPORT DEVICES UNCHANGED. Head CT 05/02/19 16:28 IMPRESSION: Subacute left temporoparietal infarction. No acute finding. EVIDENCE OF ACUTE STROKE: NO. Assessment & Plan - Diagnosis (1) Acute ischemic left MCA stroke Is this a current diagnosis for this admission?: Yes Plan: It does appear that the stroke has worsened, this may be the reason for the mental status worsening (2) Ascites Qualifiers: Ascites type: due to alcoholic cirrhosis Qualified Code(s): K70.31 - Alcoholic cirrhosis of liver with ascites Is this a current diagnosis for this admission?: Yes Plan: Ascites secondary to cirrhosis, needs paracentesis today, we put those orders in (3) Cancer of larynx Is this a current diagnosis for this admission?: Yes Plan: Unfortunately patient is not amenable to further therapy (4) Cirrhosis Qualifiers: Hepatic cirrhosis type: alcoholic cirrhosis Ascites presence: with ascites Qualified Code(s): K70.31 - Alcoholic cirrhosis of liver with ascites Is this a current diagnosis for this admission?: Yes Plan: Cirrhosis of liver, end-stage - Time Time Spent: Greater than 70 Minutes - Inpatient Certification Based on my medical assessment, after consideration of the patient's comorbidities, presenting symptoms, or acuity I expect that the services needed warrant INPATIENT care.: Yes I certify that my determination is in accordance with my understanding of Medicare's requirements for reasonable and necessary INPATIENT services [42 CFR 412.3e].: Yes Medical Necessity: Failure to Improve With Outpatient Therapy, Need for Surgery, Risk of Complication if Not Cared For in Hospital - Plan Summary Plan Summary: Had a long discussion with today, she is amenable to consideration of comfort care, to that extent I have contacted [facility] which is the preferred provider for [facility],m would like him to go back to that [facility], hopefully we can get that set up and may be getting moving in the next few days after we hydrate him and improve his status somewhat.
--- NOTE | 2019-05-03 09:05 | ADVANCED CARE ---
- Diagnosis (1) Acute ischemic left MCA stroke Diagnosis Current: Yes (2) Ascites Diagnosis Current: Yes (3) Cancer of larynx Diagnosis Current: Yes (4) Cirrhosis Diagnosis Current: Yes Attendance: Discussed with is patient is not mentally appropriate for making a decision he agreed to DNR Resuscitation Status: Do Not Resuscitate
[2019-05-03] MEDS: ZINC SULFATE 220 MG CAPSULE PEG SCH (09:46)
[2019-05-03] MEDS: CETIRIZINE 10 MG TABLET PEG SCH (09:46)
[2019-05-03] MEDS: SPIRONOLACTONE 25 MG TABLET PEG SCH (09:46)
[2019-05-03] MEDS: ASCORBIC ACID 500 MG TABLET PEG SCH ×2 (09:46→18:02)
[2019-05-03] MEDS: ASPIRIN 81 MG TABLET, CHEWABLE PEG SCH (09:47)
[2019-05-03] MEDS: GABAPENTIN 300 MG CAPSULE PEG SCH ×3 (09:47→18:02)
[2019-05-03] MEDS: DOCUSATE SODIUM 100 MG/10 ML UDC PEG SCH ×2 (09:51→18:02)
[2019-05-03] MEDS: VENLAFAXINE HCL 75 MG TABLET JT SCH ×2 (10:05→22:43)
--- NOTE | 2019-05-03 11:27 | PDOC PROGRESS REPORT ---
Subjective Progress Note for:: 05/03/19 Reason For Visit: RECURRENT ABDOMINAL ASCITES Physical Exam Vital Signs: Temp Pulse Resp BP Pulse Ox 97.6 F 98 20 137/77 H 98 05/03/19 08:08 05/03/19 08:25 05/03/19 08:25 05/03/19 08:08 05/03/19 08:25 Intake & Output 05/02/19 05/03/19 05/04/19 06:59 06:59 06:59 Intake Total 0 Output Total 350 Balance -350 Weight 72 kg General appearance: PRESENT: no acute distress, other - Mumbling and appears confused Respiratory exam: PRESENT: clear to auscultation alana. ABSENT: rales, rhonchi, wheezes Cardiovascular exam: PRESENT: RRR. ABSENT: diastolic murmur, rubs, systolic murmur Neurological exam: PRESENT: altered, other - She is unable to give any history status post CVA Psychiatric exam: PRESENT: appropriate affect, normal mood, other - Patient lying in bed in no distress. ABSENT: homicidal ideation, suicidal ideation Results Laboratory Results: 05/03/19 04:30 05/03/19 04:30 05/02/19 05/02/19 05/02/19 15:07 15:07 15:07 WBC 13.7 H RBC 3.59 L Hgb 10.6 L Hct 33.1 L MCV 92 MCH 29.5 MCHC 32.0 RDW 15.7 H Plt Count 438 Seg Neutrophils % 73.0 Sodium 133.9 L Potassium 4.8 Chloride 105 Carbon Dioxide 24 Anion Gap 5 BUN 39 H Creatinine 0.66 Est GFR ( Amer) > 60 Glucose 92 Lactic Acid Calcium 9.0 Magnesium Total Bilirubin 0.4 AST 219 H Alkaline Phosphatase 706 H Ammonia Total Protein 5.5 L Albumin 2.5 L Amylase Lipase 3196.5 H TSH Free T4 Free T3 pg/mL Urine Color YELLOW Urine Appearance SLIGHTLY-CLOUDY Urine pH 7.0 Ur Specific [place] 1.016 Urine Protein NEGATIVE Urine Glucose (UA) NEGATIVE Urine Ketones NEGATIVE Urine Blood NEGATIVE Urine Nitrite NEGATIVE Ur Leukocyte Esterase NEGATIVE Urine WBC (Auto) 1 Urine RBC (Auto) 7 05/02/19 05/02/19 05/02/19 15:07 15:07 15:07 WBC RBC Hgb Hct MCV MCH MCHC RDW Plt Count Seg Neutrophils % Sodium Potassium Chloride Carbon Dioxide Anion Gap BUN Creatinine Est GFR ( Amer) Glucose Lactic Acid Calcium Magnesium 2.3 Total Bilirubin AST Alkaline Phosphatase Ammonia Total Protein Albumin Amylase 134 H Lipase TSH 5.69 H Free T4 1.46 Free T3 pg/mL Urine Color Urine Appearance Urine pH Ur Specific [place] Urine Protein Urine Glucose (UA) Urine Ketones Urine Blood Urine Nitrite Ur Leukocyte Esterase Urine WBC (Auto) Urine RBC (Auto) 05/02/19 05/02/19 05/02/19 15:07 15:07 16:37 WBC RBC Hgb Hct MCV MCH MCHC RDW Plt Count Seg Neutrophils % Sodium Potassium Chloride Carbon Dioxide Anion Gap BUN Creatinine Est GFR ( Amer) Glucose Lactic Acid 0.8 Calcium Magnesium Total Bilirubin AST Alkaline Phosphatase Ammonia 13.5 Total Protein Albumin Amylase Lipase TSH Free T4 Free T3 pg/mL 5.09 Urine Color Urine Appearance Urine pH Ur Specific [place] Urine Protein Urine Glucose (UA) Urine Ketones Urine Blood Urine Nitrite Ur Leukocyte Esterase Urine WBC (Auto) Urine RBC (Auto) 05/03/19 05/03/19 05/03/19 00:43 04:30 04:30 WBC 13.6 H RBC 3.41 L Hgb 10.2 L Hct 31.1 L MCV 91 MCH 29.9 MCHC 32.8 RDW 15.6 H Plt Count 440 Seg Neutrophils % Sodium Potassium Chloride Carbon Dioxide Anion Gap BUN Creatinine Est GFR ( Amer) Glucose Lactic Acid 0.9 0.8 Calcium Magnesium Total Bilirubin AST Alkaline Phosphatase Ammonia Total Protein Albumin Amylase Lipase TSH Free T4 Free T3 pg/mL Urine Color Urine Appearance Urine pH Ur Specific [place] Urine Protein Urine Glucose (UA) Urine Ketones Urine Blood Urine Nitrite Ur Leukocyte Esterase Urine WBC (Auto) Urine RBC (Auto) 05/03/19 04:30 WBC RBC Hgb Hct MCV MCH MCHC RDW Plt Count Seg Neutrophils % Sodium 134.7 L Potassium 4.4 Chloride 107 Carbon Dioxide 22 Anion Gap 6 BUN 38 H Creatinine 0.70 Est GFR ( Amer) > 60 Glucose 108 Lactic Acid Calcium 9.3 Magnesium 2.3 Total Bilirubin 0.4 AST 137 H Alkaline Phosphatase 613 H Ammonia Total Protein 5.2 L Albumin 2.3 L Amylase 137 H Lipase 2923.2 H TSH Free T4 Free T3 pg/mL Urine Color Urine Appearance Urine pH Ur Specific [place] Urine Protein Urine Glucose (UA) Urine Ketones Urine Blood Urine Nitrite Ur Leukocyte Esterase Urine WBC (Auto) Urine RBC (Auto) Impressions: Chest X-Ray 05/02/19 15:37 IMPRESSION: STABLE APPEARANCE OF THE CHEST. SUPPORT DEVICES UNCHANGED. Head CT 05/02/19 16:28 IMPRESSION: Subacute left temporoparietal infarction. No acute finding. EVIDENCE OF ACUTE STROKE: NO. Assessment and Plan - Diagnosis (1) Ascites Qualifiers: Ascites type: due to alcoholic cirrhosis Qualified Code(s): K70.31 - Alcoholic cirrhosis of liver with ascites Is this a current diagnosis for this admission?: Yes (2) Cirrhosis Qualifiers: Hepatic cirrhosis type: alcoholic cirrhosis Ascites presence: with ascites Qualified Code(s): K70.31 - Alcoholic cirrhosis of liver with ascites Is this a current diagnosis for this admission?: Yes (3) Hx of lung and laryngeal CA Is this a current diagnosis for this admission?: Yes (4) Leukocytosis Qualifiers: Leukocytosis type: unspecified Qualified Code(s): D72.829 - Elevated white blood cell count, unspecified Is this a current diagnosis for this admission?: Yes - Plan Summary Summary: Patient will be seen for a paracentesis by interventional radiology. A thyroid profile will be obtained. Serial lipase and amylase determinations will be obtained as well as serial metabolic profiles with magnesium levels and CBCs. Patient's pain will be controlled with morphine sulfate 2 to 4 mg IV every 2 hours on an as-needed basis per sliding scale. Dr. Hanson will be seeing the patient in consultation during his hospital course. Advanced care planning should be discussed with the patient's family when the opportunity presents itself. 05/03/2019 oncology is managing patient primarily. Patient will have his ascites drained and surgery has been consulted for pigtail catheter His CODE STATUS has been readdressed and patient is now DNR Labs will be evaluated and treated appropriately, CBC is stable today, coags stable, lactic acid is normal for enzymes elevated, ammonia level normal, I really profile is pending - Time Time Spent with patient: 25-34 minutes
--- NOTE | 2019-05-03 13:41 | RADIOLOGY REPORT (SQ) ---
EXAM DESCRIPTION: U/S ABD PARACENTESIS COMPLETED DATE/TIME: 05/03/2019 1:17 pm REASON FOR STUDY: therapeutic only, no studies on fluid needed COMPARISON: 04/22/2019 LIMITATIONS: None. PROCEDURE: Procedure, risks, benefit, and alternative explained to patient who then gave written con sent. The right lower quadrant abdominal wall marked using ultrasound guidance. A time-out was call ed for correct marking verification. Abdomen prepped and draped using sterile technique. Local anest hesia achieved using 10 ml of 1% lidocaine injection. A 6fr Nyaa-[id number]-Vbdsyxob set was introduced into the peritoneal cavity. Fluid was drained. The catheter was removed and entry site was covered with sterile bandage. No immediate complications noted. Images acquired during the procedure were stored on PACS. FINDINGS: ENTRY SITE: Right lower quadrant FLUID VOLUME: 6000 cc FLUID ANALYSIS: Milky white OTHER: Therapeutic only. IMPRESSION: SUCCESSFUL ULTRASOUND GUIDED PARACENTESIS. COMMENT: Patient medication list reviewed:Yes- Quality ID# [id number]:Eligible professional attests to docu menting in the medical record they obtained, updated, or reviewed the patient's current medications. TECHNICAL DOCUMENTATION: JOB ID: [id number] [employer]- All Rights Reserved Reading location - IP/workstation name: [email or web address]
--- NOTE | 2019-05-03 15:05 | PDOC CONSULTATION ---
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 His expectancy of life is about 6 months according to the oncologist whom I talked to today. He also had prior to that a diagnosis of cirrhosis of the liver related to alcohol abuse and requires weekly paracentesis, the last one today. I was consulted by the oncologist to place a peritoneal catheter so that the patient ascites can be drained as needed while he is under hospice care in the senior living where the patient will return after the procedure. Past Medical History Cardiac Medical History: Reports: Hypertension Denies: Coronary Artery Disease, Myocardial Infarction Pulmonary Medical History: Reports: Chronic Obstructive Pulmonary Disease (COPD), Pneumonia Denies: Asthma, Bronchitis EENT Medical History: Reports: Cataracts, Throat - History of laryngeal carcinoma Denies: Ears - Hearing aids Neurological Medical History: Reports: Ischemic CVA Denies: Hemorrhagic CVA, Seizures Endocrine Medical History: Reports: Hypothyroidism Denies: Diabetes Mellitus Type 1, Diabetes Mellitus Type 2, Hyperthyroidism Renal/ Medical History: Denies: Chronic Kidney Disease, End Stage Renal Disease, Nephrolithiasis Malignancy Medical History: Reports: Lung Cancer, Other - Laryngeal carcinoma GI Medical History: Reports: Cirrhosis Denies: Hepatitis, Hiatal Hernia, Peptic Ulcer Disease Musculoskeltal Medical History: Denies: Arthritis, Gout Skin Medical History: Denies: Eczema, Psoriasis Psychiatric Medical History: Reports: Depression Denies: Alcohol Dependency, Substance Abuse, Tobacco Dependency Traumatic Medical History: Reports: None Hematology: Denies: Anemia, Sickle Cell Disease, Bleeding Tendencies Infectious Medical History: Reports: None Past Surgical History Past Surgical History: Reports: Tonsillectomy - With adenoidectomy, Other - Abdominal surgery, bilateral cataracts, PEG, laryngoscopy and tracheostomy Denies: Pacemaker Social History Lives with: Assisted Smoking Status: Former Smoker Electronic Cigarette use?: No Frequency of Alcohol Use: None Hx Recreational Drug Use: No Drugs: None Hx Prescription Drug Abuse: Yes - Advance Directive Resuscitation Status: Do Not Resuscitate Family History Family History: Reviewed & Not Pertinent, Hypertension Parental Family History Reviewed: No Children Family History Reviewed: No Sibling(s) Family History Reviewed.: No Medication/Allergy Home Medications: Cetirizine HCl [Zyrtec 10 mg Tablet] 10 mg PEG DAILY 03/05/19 Levothyroxine Sodium [Synthroid 0.05 mg Tablet] 50 mcg JT Q6AM 03/05/19 Promethazine HCl [Phenergan 25 mg Tablet] 12.5 mg JT Q12HP PRN 03/05/19 Sertraline HCl [Zoloft] 200 mg PEG DAILY 03/05/19 Spironolactone [Aldactone 100 mg Tablet] 100 mg PO QAM 03/05/19 Venlafaxine HCl [Effexor 75 mg Tablet] 75 mg JT QAM 03/05/19 Venlafaxine HCl [Effexor 75 mg Tablet] 150 mg JT QHS 03/05/19 Aspirin [Aspirin 81 mg Chewable Tablet] 81 mg PEG DAILY 03/25/19 Gabapentin [Neurontin 300 mg Capsule] 300 mg PEG TID 03/25/19 Ipratropium/Albuterol Sulfate [Duoneb 3 ml Ampul] 3 ml IH Q6HP PRN 03/25/19 Ascorbic Acid [Vitamin C] 500 mg PO DAILY 05/02/19 Silver Chloride [Silver Gel] 1 applic TP ASDIR PRN 05/02/19 Zinc Sulfate [Zinc-220 Capsule] 220 mg PO DAILY 05/02/19 Allergies/Adverse Reactions: No Known Allergies Allergy (Verified 04/22/19 08:43) Physical Exam Vital Signs: Temp Pulse Resp BP Pulse Ox 97.6 F 98 20 137/77 H 98 05/03/19 08:08 05/03/19 08:25 05/03/19 08:25 05/03/19 08:08 05/03/19 08:25 Intake & Output 05/02/19 05/03/19 05/04/19 06:59 06:59 06:59 Intake Total 0 1000 Output Total 350 Balance -350 1000 Weight 72 kg General appearance: PRESENT: no acute distress, other - Nonverbal Head exam: PRESENT: atraumatic Eye exam: PRESENT: EOMI Mouth exam: PRESENT: moist, neck supple, other - Tracheostomy in place Teeth exam: PRESENT: poor dentation Respiratory exam: PRESENT: clear to auscultation alana, decreased breath sounds Cardiovascular exam: PRESENT: RRR GI/Abdominal exam: PRESENT: soft, other - Presence of gastrostomy tube in the left upper quadrant of the abdomen, small midline supraumbilical incision Rectal exam: PRESENT: deferred Extremities exam: PRESENT: full ROM Musculoskeletal exam: PRESENT: full ROM Neurological exam: PRESENT: alert, other - Nonverbal due to the tracheostomy; disoriented by time and situation and person Results Laboratory Results: 05/03/19 04:30 05/03/19 04:30 05/02/19 05/02/19 05/02/19 15:07 15:07 15:07 WBC 13.7 H RBC 3.59 L Hgb 10.6 L Hct 33.1 L MCV 92 MCH 29.5 MCHC 32.0 RDW 15.7 H Plt Count 438 Seg Neutrophils % 73.0 Sodium 133.9 L Potassium 4.8 Chloride 105 Carbon Dioxide 24 Anion Gap 5 BUN 39 H Creatinine 0.66 Est GFR ( Amer) > 60 Glucose 92 Lactic Acid Calcium 9.0 Magnesium Total Bilirubin 0.4 AST 219 H Alkaline Phosphatase 706 H Ammonia Total Protein 5.5 L Albumin 2.5 L Amylase Lipase 3196.5 H TSH Free T4 Free T3 pg/mL Urine Color YELLOW Urine Appearance SLIGHTLY-CLOUDY Urine pH 7.0 Ur Specific [place] 1.016 Urine Protein NEGATIVE Urine Glucose (UA) NEGATIVE Urine Ketones NEGATIVE Urine Blood NEGATIVE Urine Nitrite NEGATIVE Ur Leukocyte Esterase NEGATIVE Urine WBC (Auto) 1 Urine RBC (Auto) 7 05/02/19 05/02/19 05/02/19 15:07 15:07 15:07 WBC RBC Hgb Hct MCV MCH MCHC RDW Plt Count Seg Neutrophils % Sodium Potassium Chloride Carbon Dioxide Anion Gap BUN Creatinine Est GFR ( Amer) Glucose Lactic Acid Calcium Magnesium 2.3 Total Bilirubin AST Alkaline Phosphatase Ammonia Total Protein Albumin Amylase 134 H Lipase TSH 5.69 H Free T4 1.46 Free T3 pg/mL Urine Color Urine Appearance Urine pH Ur Specific [place] Urine Protein Urine Glucose (UA) Urine Ketones Urine Blood Urine Nitrite Ur Leukocyte Esterase Urine WBC (Auto) Urine RBC (Auto) 05/02/19 05/02/19 05/02/19 15:07 15:07 16:37 WBC RBC Hgb Hct MCV MCH MCHC RDW Plt Count Seg Neutrophils % Sodium Potassium Chloride Carbon Dioxide Anion Gap BUN Creatinine Est GFR ( Amer) Glucose Lactic Acid 0.8 Calcium Magnesium Total Bilirubin AST Alkaline Phosphatase Ammonia 13.5 Total Protein Albumin Amylase Lipase TSH Free T4 Free T3 pg/mL 5.09 Urine Color Urine Appearance Urine pH Ur Specific [place] Urine Protein Urine Glucose (UA) Urine Ketones Urine Blood Urine Nitrite Ur Leukocyte Esterase Urine WBC (Auto) Urine RBC (Auto) 05/03/19 05/03/19 05/03/19 00:43 04:30 04:30 WBC 13.6 H RBC 3.41 L Hgb 10.2 L Hct 31.1 L MCV 91 MCH 29.9 MCHC 32.8 RDW 15.6 H Plt Count 440 Seg Neutrophils % Sodium Potassium Chloride Carbon Dioxide Anion Gap BUN Creatinine Est GFR ( Amer) Glucose Lactic Acid 0.9 0.8 Calcium Magnesium Total Bilirubin AST Alkaline Phosphatase Ammonia Total Protein Albumin Amylase Lipase TSH Free T4 Free T3 pg/mL Urine Color Urine Appearance Urine pH Ur Specific [place] Urine Protein Urine Glucose (UA) Urine Ketones Urine Blood Urine Nitrite Ur Leukocyte Esterase Urine WBC (Auto) Urine RBC (Auto) 05/03/19 04:30 WBC RBC Hgb Hct MCV MCH MCHC RDW Plt Count Seg Neutrophils % Sodium 134.7 L Potassium 4.4 Chloride 107 Carbon Dioxide 22 Anion Gap 6 BUN 38 H Creatinine 0.70 Est GFR ( Amer) > 60 Glucose 108 Lactic Acid Calcium 9.3 Magnesium 2.3 Total Bilirubin 0.4 AST 137 H Alkaline Phosphatase 613 H Ammonia Total Protein 5.2 L Albumin 2.3 L Amylase 137 H Lipase 2923.2 H TSH Free T4 Free T3 pg/mL Urine Color Urine Appearance Urine pH Ur Specific [place] Urine Protein Urine Glucose (UA) Urine Ketones Urine Blood Urine Nitrite Ur Leukocyte Esterase Urine WBC (Auto) Urine RBC (Auto) Impressions: Chest X-Ray 05/02/19 15:37 IMPRESSION: STABLE APPEARANCE OF THE CHEST. SUPPORT DEVICES UNCHANGED. Head CT 05/02/19 16:28 IMPRESSION: Subacute left temporoparietal infarction. No acute finding. EVIDENCE OF ACUTE STROKE: NO. Paracentesis Ultrasound 05/03/19 00:00 IMPRESSION: SUCCESSFUL ULTRASOUND GUIDED PARACENTESIS. 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 Status post tracheostomy, patient nonverbal Decreased mental status of unknown origin Alcoholic cirrhosis with ascites Patient requiring weekly drainage of ascites for comfort Patient to be placed on full care by hospice I been requested by the family and oncologist to place a percutaneous tunneled peritoneal catheter for drainage of the ascites on this patient once while he resides in the senior living for comfort care Plan: I had a long conversation with both the and the oncologist in regard to the insertion of the peritoneal catheter and possible complications (peritonitis) My understanding is that both the oncologist and the are aware of the patient poor general conditions, short expectancy of life, and that he would be placed on comfort care following discharge from the hospital. They both agreed that no further procedures will be performed on this patient such as remove the catheter should he developed an infectious process. Plan insertion of a subcutaneous tunneled peritoneal catheter tomorrow in surgery with sedation or general anesthesia plus local anesthetic. Procedure, risks, complications, explained to the patient's , she understands all the above and decides to proceed.
[2019-05-03] MEDS ORDERED: GLUCAGON,HUMAN RECOMB 1 MG INJ SUBCUT PRN (15:06)
[2019-05-03] MEDS ORDERED: DEXTROSE 50%-WATER 25 GM/50 ML DISP.SYRIN IV PRN ×2 (15:06)
[2019-05-03] MEDS ORDERED: DEXTROSE 40% GEL 15 GM TUBE PO PRN ×2 (15:06)
[2019-05-03] MEDS: MORPHINE SULFATE 10 MG/ML INJ IV PRN (23:07)
[2019-05-04] MEDS: LEVALBUTEROL HCL NEB 1.25 MG/3 ML AMPUL NEB SCH ×3 (00:41→16:00)
[2019-05-04] MEDS: IPRATROPIUM BROMIDE 0.02% NEB 0.5 MG/2.5 ML AMPUL NEB SCH ×3 (00:41→16:00)
[2019-05-04] MEDS: LEVOTHYROXINE SODIUM 0.05 MG TABLET JT SCH (05:07)
[2019-05-04] MEDS: CEFOXITIN 1 GM/D5W RTU 1 GM/50 ML RTUPB IV SCH ×3 (05:27→22:03)
[2019-05-04] MEDS: NORMAL SALINE 1000 ML 1,000 ML IV PRN ×2 (05:27→19:50)
[2019-05-04 06:15] LABS: HEMATOCRIT 27.3 % (37.9-51.0); HEMOGLOBIN 8.8 g/dL (13.5-17.0); MEAN CORPUSCULAR HEMOGLOBIN 29.8 pg (27.0-33.4); MEAN CORPUSCULAR HGB CONC 32.3 g/dL (32.0-36.0); MEAN CORPUSCULAR VOLUME 92 fl (80-97); PLATELET COUNT 365 10^3/uL (150-450); RED BLOOD COUNT 2.96 10^6/uL (4.35-5.55); RED CELL DISTRIBUTION WIDTH 15.8 % (11.5-14.0); WHITE BLOOD COUNT 14.8 10^3/uL (4.0-10.5)
[2019-05-04 06:34] LABS: BLOOD UREA NITROGEN 28 mg/dL (7-20); GLUCOSE 93 mg/dL (75-110)
[2019-05-04 06:35] LABS: ALBUMIN 2.3 g/dL (3.5-5.0); ALKALINE PHOSPHATASE 453 U/L (38-126); AMYLASE 151 U/L (30-110); ANION GAP 6 (5-19); ASPARTATE AMINO TRANSFERASE 93 U/L (17-59); BILIRUBIN,DIRECT 0.3 mg/dL (0.0-0.4); BILIRUBIN,TOTAL 0.3 mg/dL (0.2-1.3); CARBON DIOXIDE 24 mmol/L (22-30); CHLORIDE 108 mmol/L (98-107); POTASSIUM 4.3 mmol/L (3.6-5.0); TOTAL PROTEIN 4.8 g/dL (6.3-8.2)
[2019-05-04] MEDS ORDERED: HEPARIN SOD (PORCINE) 1,000 UNIT/ML 1 ML VIAL ONE (08:08)
[2019-05-04] MEDS ORDERED: BACITRACIN INJ 50,000 UNIT VIAL ONE (08:08)
[2019-05-04] MEDS ORDERED: MIDAZOLAM 2 MG/2 ML INJ ONE (08:32)
[2019-05-04] MEDS ORDERED: FENTANYL CITRATE INJ/PF 100 MCG/2 ML AMPUL ONE (08:32)
[2019-05-04] MEDS ORDERED: PROPOFOL INJ 200 MG/20 ML VIAL IV ONE (08:32)
[2019-05-04] MEDS ORDERED: LIDOCAINE 0.5% INJ-PF (5 MG/ML) 50 ML SDV ONE (08:32)
[2019-05-04] MEDS ORDERED: EPHEDRINE SULFATE INJ 50 MG/1 ML AMPULE ONE (08:32)
[2019-05-04] MEDS ORDERED: CEFOXITIN INJ 2 GM VIAL ONE (09:30)
[2019-05-04] MEDS ORDERED: BUPIVACAINE INJ/PF LIPOSOME/PF 266 MG/20 ML SDV ONE (09:34)
[2019-05-04] MEDS ORDERED: OXYCODONE-ACETAMINOPHEN 5-325 MG TABLET PO PRN ×2 (09:45)
[2019-05-04] MEDS ORDERED: FENTANYL CITRATE INJ/PF 100 MCG/2 ML AMPUL IV PRN ×3 (09:45)
[2019-05-04] MEDS ORDERED: ONDANSETRON HCL INJ/PF 4 MG/2 ML SDV IV PRN (09:45)
[2019-05-04] MEDS ORDERED: PROMETHAZINE HCL INJ 25 MG/1 ML VIAL IV PRN ×2 (09:45)
[2019-05-04] MEDS ORDERED: MEPERIDINE HCL/PF INJ 25 MG/1 ML DISP.SYRIN IV PRN (09:45)
[2019-05-04] MEDS ORDERED: MORPHINE SULFATE 10 MG/ML INJ IV PRN (09:45)
[2019-05-04] MEDS ORDERED: DIPHENHYDRAMINE HCL 50 MG/ML VIAL IV PRN (09:45)
[2019-05-04] MEDS ORDERED: PHENYLEPHRINE HCL INJ/PF 10 MG/1 ML SDV ONE (10:12)
--- NOTE | 2019-05-04 10:50 | Operative Report ---
Operative Report DATE OF SURGERY: 05/04/19 Operative Report: May 04, 2019 PREOPERATIVE DIAGNOSIS: Liver cirrhosis; chronic ascites; head and neck cancer POSTOPERATIVE DIAGNOSIS: Same OPERATION: Insertion of peritoneal catheter SURGEON: ELLEN ROTH ANESTHESIA: Other - 20 mL of long acting local anesthetic TISSUE REMOVED OR ALTERED: None applicable COMPLICATIONS: None ESTIMATED BLOOD LOSS: Less than 5 mL INTRAOPERATIVE FINDINGS: As above PROCEDURE: The procedure was done in the operating room, the patient was placed in a supine position, general anesthesia induced by the anesthesiologist via endotracheal intubation, the abdomen was prepped and draped in a standard fashion. An incision was made just below the umbilicus, the subcutaneous fat was divided with Bovie, the linea alba was divided with Bovie as well, and the peritoneal cavity was entered. The edges of the linea alba were tethered with Aliyah clamps. The planned subcutaneous catheter path was infiltrated with local anesthetic. A counterincision was made in the right lateral aspect of the abdominal wall, the catheter was threaded subcutaneously from the counterincision to the midline supraumbilical incision using a tunneler without difficulty. The proximal cuff was left in the subcutaneous tissue, while the second distal cuff was placed just above the abdominal wall fascia. The catheter was easily inserted into the peritoneal cavity. The distal cuff was secured to the edges of the fascia using a single 2-0 Prolene suture. Two pursestring concentric 2-0 Prolene sutures were placed around the insertion point of the catheter through the fascia and tied sequentially without strangulating the catheter, so to seal the peritoneal cavity opening. The catheter was then flushed with heparinized normal saline without difficulty, this was fully aspirated. The catheter was then capped, clamped, and secured to the skin with a 2-0 nylon suture. The midline supraumbilical incision was closed with inverted, interrupted, subcutaneous 3-0 Vicryl sutures; the skin was closed with 4-0 Monocryl running subcuticular suture. Dermabond was applied followed by sterile dressings. Sterile dressings and Tegaderm were applied to cover the insertion point of the catheter. The patient tolerated procedure well, was extubated, and transferred to recovery room in satisfactory edition.
--- NOTE | 2019-05-04 11:15 | PDOC PROGRESS REPORT ---
Subjective Progress Note for:: 05/04/19 Subjective:: 05/04/2019 Patient was going down for pigtail catheter to be placed for draining of recurring ascites. Patient has a terminal illness that is causing recurring relation of ascites yesterday approximately 6000 mL's was drained radiology. Reason For Visit: RECURRENT ABDOMINAL ASCITES Physical Exam Vital Signs: Temp Pulse Resp BP Pulse Ox 98.6 F 94 20 121/69 94 05/04/19 10:22 05/04/19 10:52 05/04/19 10:52 05/04/19 10:52 05/04/19 10:52 Intake & Output 05/03/19 05/04/19 05/05/19 06:59 06:59 06:59 Intake Total 0 1860 900 Output Total 350 10 Balance -350 1860 890 Weight 72 kg 72.3 kg General appearance: PRESENT: no acute distress Respiratory exam: PRESENT: clear to auscultation alana. ABSENT: rales, rhonchi, wheezes Cardiovascular exam: PRESENT: RRR. ABSENT: diastolic murmur, rubs, systolic murmur Neurological exam: PRESENT: other - Patient is nonverbal Results Laboratory Results: 05/04/19 05:30 05/04/19 05:30 05/04/19 05/04/19 05:30 05:30 WBC 14.8 H RBC 2.96 L Hgb 8.8 L Hct 27.3 L MCV 92 MCH 29.8 MCHC 32.3 RDW 15.8 H Plt Count 365 Sodium 137.5 Potassium 4.3 Chloride 108 H Carbon Dioxide 24 Anion Gap 6 BUN 28 H Creatinine 0.72 Est GFR ( Amer) > 60 Glucose 93 Calcium 9.0 Magnesium 2.2 Total Bilirubin 0.3 AST 93 H Alkaline Phosphatase 453 H Total Protein 4.8 L Albumin 2.3 L Amylase 151 H Lipase 2745.1 H Impressions: Chest X-Ray 05/02/19 15:37 IMPRESSION: STABLE APPEARANCE OF THE CHEST. SUPPORT DEVICES UNCHANGED. Head CT 05/02/19 16:28 IMPRESSION: Subacute left temporoparietal infarction. No acute finding. EVIDENCE OF ACUTE STROKE: NO. Paracentesis Ultrasound 05/03/19 00:00 IMPRESSION: SUCCESSFUL ULTRASOUND GUIDED PARACENTESIS. Assessment and Plan - Diagnosis (1) Ascites Qualifiers: Ascites type: due to alcoholic cirrhosis Qualified Code(s): K70.31 - Alcoholic cirrhosis of liver with ascites Is this a current diagnosis for this admission?: Yes (2) Cirrhosis Qualifiers: Hepatic cirrhosis type: alcoholic cirrhosis Ascites presence: with ascites Qualified Code(s): K70.31 - Alcoholic cirrhosis of liver with ascites Is this a current diagnosis for this admission?: Yes (3) Hx of lung and laryngeal CA Is this a current diagnosis for this admission?: Yes (4) Leukocytosis Qualifiers: Leukocytosis type: unspecified Qualified Code(s): D72.829 - Elevated white blood cell count, unspecified Is this a current diagnosis for this admission?: Yes - Plan Summary Summary: Patient will be seen for a paracentesis by interventional radiology. A thyroid profile will be obtained. Serial lipase and amylase determinations will be obtained as well as serial metabolic profiles with magnesium levels and CBCs. Patient's pain will be controlled with morphine sulfate 2 to 4 mg IV every 2 hours on an as-needed basis per sliding scale. Dr. Hanson will be seeing the patient in consultation during his hospital course. Advanced care planning should be discussed with the patient's family when the opportunity presents itself. 05/03/2019 oncology is managing patient primarily. Patient will have his ascites drained and surgery has been consulted for pigtail catheter His CODE STATUS has been readdressed and patient is now DNR Labs will be evaluated and treated appropriately, CBC is stable today, coags stable, lactic acid is normal for enzymes elevated, ammonia level normal, I really profile is pending 05/04/2019 Vital signs this morning are stable heart rate approximately 90, temperature 98.6, blood pressure 121/69 ,O2 sat 90s trach collar CBC is stable, lites are grossly normal renal function appears to be improving. Patient will return back to [facility] Patient is DNR - Time Time Spent with patient: 25-34 minutes
[2019-05-04] MEDS: CETIRIZINE 10 MG TABLET PEG SCH (12:11)
[2019-05-04] MEDS: DOCUSATE SODIUM 100 MG/10 ML UDC PEG SCH ×2 (12:11→18:03)
[2019-05-04] MEDS: ZINC SULFATE 220 MG CAPSULE PEG SCH (12:11)
[2019-05-04] MEDS: SERTRALINE HCL 50 MG TABLET PEG SCH ×2 (12:11→22:02)
[2019-05-04] MEDS: ASCORBIC ACID 500 MG TABLET PEG SCH ×2 (12:11→18:03)
[2019-05-04] MEDS: SPIRONOLACTONE 25 MG TABLET PEG SCH (12:12)
[2019-05-04] MEDS: GABAPENTIN 300 MG CAPSULE PEG SCH ×3 (12:12→18:03)
[2019-05-04] MEDS: ASPIRIN 81 MG TABLET, CHEWABLE PEG SCH (12:12)
[2019-05-04] MEDS: VENLAFAXINE HCL 75 MG TABLET JT SCH ×2 (12:12→22:02)
[2019-05-04] MEDS: FAMOTIDINE INJ/PF 20 MG/2 ML SDV IV SCH ×2 (12:13→22:02)
--- NOTE | 2019-05-04 13:58 | PDOC PROGRESS REPORT ---
Subjective Progress Note for:: 05/04/19 Subjective:: Patient had peritoneal catheter placed for drainage, overall otherwise stable and medical condition. Had a long discussion with yesterday as well as discharge planning, trying to get patient to a comfort care setting in a facility setting. Reason For Visit: RECURRENT ABDOMINAL ASCITES Physical Exam Vital Signs: Temp Pulse Resp BP Pulse Ox 98.3 F 99 22 H 111/61 97 05/04/19 11:44 05/04/19 11:44 05/04/19 11:44 05/04/19 11:44 05/04/19 11:44 Intake & Output 05/03/19 05/04/19 05/05/19 06:59 06:59 06:59 Intake Total 0 1860 970 Output Total 350 80 Balance -350 1860 890 Weight 72 kg 72.3 kg General appearance: PRESENT: no acute distress, well-developed, well-nourished Head exam: PRESENT: atraumatic, normocephalic Eye exam: PRESENT: conjunctiva pink, EOMI, PERRLA. ABSENT: scleral icterus Ear exam: PRESENT: normal external ear exam Mouth exam: PRESENT: moist, tongue midline Neck exam: ABSENT: carotid bruit, JVD, lymphadenopathy, thyromegaly Respiratory exam: PRESENT: clear to auscultation alana. ABSENT: rales, rhonchi, wheezes Cardiovascular exam: PRESENT: RRR. ABSENT: diastolic murmur, rubs, systolic murmur Pulses: PRESENT: normal dorsalis pedis pul Vascular exam: PRESENT: normal capillary refill GI/Abdominal exam: PRESENT: normal bowel sounds, soft. ABSENT: distended, guarding, mass, organolmegaly, rebound, tenderness Rectal exam: PRESENT: deferred Extremities exam: PRESENT: full ROM. ABSENT: calf tenderness, clubbing, pedal edema Neurological exam: PRESENT: alert, awake, oriented to person, oriented to place, oriented to time, oriented to situation, CN II-XII grossly intact. ABSENT: motor sensory deficit Psychiatric exam: PRESENT: appropriate affect, normal mood. ABSENT: homicidal ideation, suicidal ideation Skin exam: PRESENT: dry, intact, warm. ABSENT: cyanosis, rash Results Laboratory Results: 05/04/19 05:30 05/04/19 05:30 05/04/19 05/04/19 05:30 05:30 WBC 14.8 H RBC 2.96 L Hgb 8.8 L Hct 27.3 L MCV 92 MCH 29.8 MCHC 32.3 RDW 15.8 H Plt Count 365 Sodium 137.5 Potassium 4.3 Chloride 108 H Carbon Dioxide 24 Anion Gap 6 BUN 28 H Creatinine 0.72 Est GFR ( Amer) > 60 Glucose 93 Calcium 9.0 Magnesium 2.2 Total Bilirubin 0.3 AST 93 H Alkaline Phosphatase 453 H Total Protein 4.8 L Albumin 2.3 L Amylase 151 H Lipase 2745.1 H Impressions: Chest X-Ray 05/02/19 15:37 IMPRESSION: STABLE APPEARANCE OF THE CHEST. SUPPORT DEVICES UNCHANGED. Head CT 05/02/19 16:28 IMPRESSION: Subacute left temporoparietal infarction. No acute finding. EVIDENCE OF ACUTE STROKE: NO. Paracentesis Ultrasound 05/03/19 00:00 IMPRESSION: SUCCESSFUL ULTRASOUND GUIDED PARACENTESIS. Assessment & Plan - Diagnosis (1) Acute ischemic left MCA stroke Is this a current diagnosis for this admission?: Yes Plan: Continue with current therapy, no changes (2) Ascites Qualifiers: Ascites type: due to alcoholic cirrhosis Qualified Code(s): K70.31 - Alcoholic cirrhosis of liver with ascites Is this a current diagnosis for this admission?: Yes Plan: Peritoneal catheter placed will have drainage done for comfort (3) Cancer of larynx Is this a current diagnosis for this admission?: Yes Plan: No further treatment planned, patient is hospice appropriate (4) Cirrhosis Qualifiers: Hepatic cirrhosis type: alcoholic cirrhosis Ascites presence: with ascites Qualified Code(s): K70.31 - Alcoholic cirrhosis of liver with ascites Is this a current diagnosis for this admission?: Yes Plan: End-stage liver disease, not candidate for transplant given cancer history, continue paracentesis via peritoneal catheter for comfort - Time Time Spent with patient: 35 or more minutes - Inpatient Certification Based on my medical assessment, after consideration of the patient's comorbidities, presenting symptoms, or acuity I expect that the services needed warrant INPATIENT care.: Yes I certify that my determination is in accordance with my understanding of Medicare's requirements for reasonable and necessary INPATIENT services [42 CFR 412.3e].: Yes Medical Necessity: Need For Continuous Telemetry Monitoring, Risk of Complication if Not Cared For in Hospital
[2019-05-04] MEDS: MORPHINE SULFATE 10 MG/ML INJ IV PRN (18:03)
[2019-05-05] MEDS: LEVALBUTEROL HCL NEB 1.25 MG/3 ML AMPUL NEB SCH ×3 (00:08→16:03)
[2019-05-05] MEDS: IPRATROPIUM BROMIDE 0.02% NEB 0.5 MG/2.5 ML AMPUL NEB SCH ×3 (00:08→16:03)
[2019-05-05] MEDS: NORMAL SALINE 1000 ML 1,000 ML IV PRN ×3 (04:18→20:47)
[2019-05-05] MEDS: LEVOTHYROXINE SODIUM 0.05 MG TABLET JT SCH (05:43)
[2019-05-05 06:30] LABS: HEMATOCRIT 27.9 % (37.9-51.0); HEMOGLOBIN 8.9 g/dL (13.5-17.0); WHITE BLOOD COUNT 22.9 10^3/uL (4.0-10.5)
[2019-05-05 06:31] LABS: MEAN CORPUSCULAR HEMOGLOBIN 29.5 pg (27.0-33.4); MEAN CORPUSCULAR HGB CONC 31.7 g/dL (32.0-36.0); MEAN CORPUSCULAR VOLUME 93 fl (80-97); PLATELET COUNT 373 10^3/uL (150-450); RED CELL DISTRIBUTION WIDTH 16.1 % (11.5-14.0)
[2019-05-05 06:51] LABS: ALBUMIN 2.1 g/dL (3.5-5.0); ALKALINE PHOSPHATASE 387 U/L (38-126); AMYLASE 109 U/L (30-110); ANION GAP 5 (5-19); ASPARTATE AMINO TRANSFERASE 57 U/L (17-59); BILIRUBIN,DIRECT 0.1 mg/dL (0.0-0.4); BILIRUBIN,TOTAL 0.4 mg/dL (0.2-1.3); BLOOD UREA NITROGEN 25 mg/dL (7-20); CALCIUM 8.6 mg/dL (8.4-10.2); CARBON DIOXIDE 22 mmol/L (22-30); CHLORIDE 110 mmol/L (98-107); POTASSIUM 4.2 mmol/L (3.6-5.0); TOTAL PROTEIN 4.7 g/dL (6.3-8.2)
[2019-05-05 06:56] LABS: GLUCOSE 65 mg/dL (75-110)
[2019-05-05] MEDS: SERTRALINE HCL 50 MG TABLET PEG SCH ×2 (09:05→22:50)
[2019-05-05] MEDS: DOCUSATE SODIUM 100 MG/10 ML UDC PEG SCH ×2 (09:05→17:16)
[2019-05-05] MEDS: SPIRONOLACTONE 25 MG TABLET PEG SCH (09:05)
[2019-05-05] MEDS: VENLAFAXINE HCL 75 MG TABLET JT SCH ×2 (09:05→22:51)
[2019-05-05] MEDS: ASPIRIN 81 MG TABLET, CHEWABLE PEG SCH (09:05)
[2019-05-05] MEDS: GABAPENTIN 300 MG CAPSULE PEG SCH ×3 (09:05→17:16)
[2019-05-05] MEDS: ASCORBIC ACID 500 MG TABLET PEG SCH ×2 (09:06→17:16)
[2019-05-05] MEDS: ZINC SULFATE 220 MG CAPSULE PEG SCH (09:06)
[2019-05-05] MEDS: CETIRIZINE 10 MG TABLET PEG SCH (09:06)
[2019-05-05] MEDS: FAMOTIDINE INJ/PF 20 MG/2 ML SDV IV SCH ×2 (09:07→22:51)
--- NOTE | 2019-05-05 10:46 | PDOC PROGRESS REPORT ---
Subjective Progress Note for:: 05/05/19 Subjective:: 05/04/2019 Patient was going down for pigtail catheter to be placed for draining of recurring ascites. Patient has a terminal illness that is causing recurring relation of ascites yesterday approximately 6000 mL's was drained radiology. 05/05/2019 Patient is afebrile rates up a little bit today, will watch this trend, blood pressures however are stable, sats are stable at 95% on trach collar he is being set up for hospice palliative care at senior living, which seems appropriate based on his deteriorating medical condition Reason For Visit: RECURRENT ABDOMINAL ASCITES Physical Exam Vital Signs: Temp Pulse Resp BP Pulse Ox 97.8 F 110 H 20 113/56 L 95 05/05/19 07:38 05/05/19 07:38 05/05/19 07:38 05/05/19 07:38 05/05/19 07:38 Intake & Output 05/04/19 05/05/19 05/06/19 06:59 06:59 06:59 Intake Total 1860 4439 343 Output Total 80 Balance 1860 4359 343 Weight 72.3 kg 75.9 kg Results Laboratory Results: 05/05/19 06:12 05/05/19 06:12 05/05/19 05/05/19 06:12 06:12 WBC 22.9 H RBC 3.00 L Hgb 8.9 L Hct 27.9 L MCV 93 MCH 29.5 MCHC 31.7 L RDW 16.1 H Plt Count 373 Sodium 136.7 L Potassium 4.2 Chloride 110 H Carbon Dioxide 22 Anion Gap 5 BUN 25 H Creatinine 0.63 Est GFR ( Amer) > 60 Glucose 65 L Calcium 8.6 Magnesium 2.1 Total Bilirubin 0.4 AST 57 Alkaline Phosphatase 387 H Total Protein 4.7 L Albumin 2.1 L Amylase 109 Lipase 1131.0 H Impressions: Chest X-Ray 05/02/19 15:37 IMPRESSION: STABLE APPEARANCE OF THE CHEST. SUPPORT DEVICES UNCHANGED. Head CT 05/02/19 16:28 IMPRESSION: Subacute left temporoparietal infarction. No acute finding. EVIDENCE OF ACUTE STROKE: NO. Paracentesis Ultrasound 05/03/19 00:00 IMPRESSION: SUCCESSFUL ULTRASOUND GUIDED PARACENTESIS. Assessment and Plan - Diagnosis (1) Ascites Qualifiers: Ascites type: due to alcoholic cirrhosis Qualified Code(s): K70.31 - Alcoholic cirrhosis of liver with ascites Is this a current diagnosis for this admission?: Yes (2) Cirrhosis Qualifiers: Hepatic cirrhosis type: alcoholic cirrhosis Ascites presence: with ascites Qualified Code(s): K70.31 - Alcoholic cirrhosis of liver with ascites Is this a current diagnosis for this admission?: Yes (3) Hx of lung and laryngeal CA Is this a current diagnosis for this admission?: Yes (4) Leukocytosis Qualifiers: Leukocytosis type: unspecified Qualified Code(s): D72.829 - Elevated white blood cell count, unspecified Is this a current diagnosis for this admission?: Yes - Plan Summary Summary: Patient will be seen for a paracentesis by interventional radiology. A thyroid profile will be obtained. Serial lipase and amylase determinations will be obtained as well as serial metabolic profiles with magnesium levels and CBCs. Patient's pain will be controlled with morphine sulfate 2 to 4 mg IV every 2 hours on an as-needed basis per sliding scale. Dr. Hanson will be seeing the patient in consultation during his hospital course. Advanced care planning should be discussed with the patient's family when the opportunity presents itself. 05/03/2019 oncology is managing patient primarily. Patient will have his ascites drained and surgery has been consulted for pigtail catheter His CODE STATUS has been readdressed and patient is now DNR Labs will be evaluated and treated appropriately, CBC is stable today, coags stable, lactic acid is normal for enzymes elevated, ammonia level normal, I really profile is pending 05/04/2019 Vital signs this morning are stable heart rate approximately 90, temperature 98.6, blood pressure 121/69 ,O2 sat 90s trach collar CBC is stable, lites are grossly normal renal function appears to be improving. Patient will return back to [facility] stable.. Patient is DNR 05/05/2019 Patient being placed on hospice palliative care, waiting for placement at [facility]. Coarse rhonchi heard in lungs unchanged - Time Time Spent with patient: 25-34 minutes
--- NOTE | 2019-05-05 11:05 | PDOC PROGRESS REPORT ---
Subjective Progress Note for:: 05/05/19 Subjective:: Patient is nonverbal; however, he is comfortable Reason For Visit: RECURRENT ABDOMINAL ASCITES Physical Exam Vital Signs: Temp Pulse Resp BP Pulse Ox 97.8 F 110 H 20 113/56 L 95 05/05/19 07:38 05/05/19 07:38 05/05/19 07:38 05/05/19 07:38 05/05/19 07:38 Intake & Output 05/04/19 05/05/19 05/06/19 06:59 06:59 06:59 Intake Total 1860 4401 343 Output Total 80 Balance 1860 4359 343 Weight 72.3 kg 75.9 kg General appearance: PRESENT: no acute distress GI/Abdominal exam: PRESENT: soft, other - Presence of catheter on the right lower quadrant of the abdomen, no evidence of erythema edema or drainage; midline incision clean dry intact Results Laboratory Results: 05/05/19 06:12 05/05/19 06:12 05/05/19 05/05/19 06:12 06:12 WBC 22.9 H RBC 3.00 L Hgb 8.9 L Hct 27.9 L MCV 93 MCH 29.5 MCHC 31.7 L RDW 16.1 H Plt Count 373 Sodium 136.7 L Potassium 4.2 Chloride 110 H Carbon Dioxide 22 Anion Gap 5 BUN 25 H Creatinine 0.63 Est GFR ( Amer) > 60 Glucose 65 L Calcium 8.6 Magnesium 2.1 Total Bilirubin 0.4 AST 57 Alkaline Phosphatase 387 H Total Protein 4.7 L Albumin 2.1 L Amylase 109 Lipase 1131.0 H Impressions: Chest X-Ray 05/02/19 15:37 IMPRESSION: STABLE APPEARANCE OF THE CHEST. SUPPORT DEVICES UNCHANGED. Head CT 05/02/19 16:28 IMPRESSION: Subacute left temporoparietal infarction. No acute finding. EVIDENCE OF ACUTE STROKE: NO. Paracentesis Ultrasound 05/03/19 00:00 IMPRESSION: SUCCESSFUL ULTRASOUND GUIDED PARACENTESIS. Assessment & Plan - Diagnosis (1) Ascites Qualifiers: Ascites type: due to alcoholic cirrhosis Qualified Code(s): K70.31 - Alcoholic cirrhosis of liver with ascites Is this a current diagnosis for this admission?: Yes (2) Cirrhosis Qualifiers: Hepatic cirrhosis type: alcoholic cirrhosis Ascites presence: with ascites Qualified Code(s): K70.31 - Alcoholic cirrhosis of liver with ascites Is this a current diagnosis for this admission?: Yes (3) History of laryngeal cancer Is this a current diagnosis for this admission?: Yes - Time Time Spent with patient: 15-24 minutes - Plan Summary Plan Summary: Assessment: Postop day #1 Pierce placement of peritoneal catheter, tunneled subcutaneously Abdomen soft Patient comfortable Plan: The catheter can be used as needed once the patient is in the [facility] for comfort from the recurrent ascites I will sign off. Please call us with questions
[2019-05-05] MEDS: MORPHINE SULFATE 10 MG/ML INJ IV PRN (11:51)
[2019-05-05] MEDS: ACETAMINOPHEN 325 MG TABLET PEG PRN (22:50)
[2019-05-06] MEDS: IPRATROPIUM BROMIDE 0.02% NEB 0.5 MG/2.5 ML AMPUL NEB SCH ×3 (00:45→16:51)
[2019-05-06] MEDS: LEVALBUTEROL HCL NEB 1.25 MG/3 ML AMPUL NEB SCH ×3 (00:45→16:52)
[2019-05-06] MEDS: NORMAL SALINE 1000 ML 1,000 ML IV PRN ×2 (05:51→16:05)
[2019-05-06] MEDS: LEVOTHYROXINE SODIUM 0.05 MG TABLET JT SCH (06:00)
--- NOTE | 2019-05-06 09:04 | PDOC PROGRESS REPORT ---
Subjective Progress Note for:: 05/06/19 Subjective:: No acute events overnight, DC planning will be contacting [facility] to see if [facility] will take him back Reason For Visit: RECURRENT ABDOMINAL ASCITES Physical Exam Vital Signs: Temp Pulse Resp BP Pulse Ox 97.2 F 99 22 H 102/70 98 05/06/19 07:20 05/06/19 08:35 05/06/19 08:35 05/06/19 07:20 05/06/19 08:35 Intake & Output 05/05/19 05/06/19 05/07/19 06:59 06:59 06:59 Intake Total 4439 4287 Output Total 80 275 Balance 4359 4012 Weight 75.9 kg 78.3 kg General appearance: PRESENT: no acute distress, well-developed, well-nourished Head exam: PRESENT: atraumatic, normocephalic Eye exam: PRESENT: conjunctiva pink, EOMI, PERRLA. ABSENT: scleral icterus Ear exam: PRESENT: normal external ear exam Mouth exam: PRESENT: moist, tongue midline Neck exam: ABSENT: carotid bruit, JVD, lymphadenopathy, thyromegaly Respiratory exam: PRESENT: clear to auscultation alana. ABSENT: rales, rhonchi, wheezes Cardiovascular exam: PRESENT: RRR. ABSENT: diastolic murmur, rubs, systolic murmur Pulses: PRESENT: normal dorsalis pedis pul Vascular exam: PRESENT: normal capillary refill GI/Abdominal exam: PRESENT: normal bowel sounds, soft. ABSENT: distended, guard ing, mass, organolmegaly, rebound, tenderness Rectal exam: PRESENT: deferred Extremities exam: PRESENT: full ROM. ABSENT: calf tenderness, clubbing, pedal edema Neurological exam: PRESENT: alert, awake, oriented to person, oriented to place, oriented to time, oriented to situation, CN II-XII grossly intact. ABSENT: motor sensory deficit Psychiatric exam: PRESENT: appropriate affect, normal mood. ABSENT: homicidal ideation, suicidal ideation Skin exam: PRESENT: dry, intact, warm. ABSENT: cyanosis, rash Results Laboratory Results: 05/05/19 06:12 05/05/19 06:12 Impressions: Chest X-Ray 05/02/19 15:37 IMPRESSION: STABLE APPEARANCE OF THE CHEST. SUPPORT DEVICES UNCHANGED. Head CT 05/02/19 16:28 IMPRESSION: Subacute left temporoparietal infarction. No acute finding. EVIDENCE OF ACUTE STROKE: NO. Paracentesis Ultrasound 05/03/19 00:00 IMPRESSION: SUCCESSFUL ULTRASOUND GUIDED PARACENTESIS. Assessment & Plan - Diagnosis (1) Acute ischemic left MCA stroke Is this a current diagnosis for this admission?: Yes Plan: No further treatment plan, continue with current therapy (2) Ascites Qualifiers: Ascites type: due to alcoholic cirrhosis Qualified Code(s): K70.31 - Alcoholic cirrhosis of liver with ascites Is this a current diagnosis for this admission?: Yes Plan: Peritoneal catheter placed, remove fluid as tolerated every 3 days (3) Cancer of larynx Is this a current diagnosis for this admission?: Yes Plan: No further treatment plan (4) Cirrhosis Qualifiers: Hepatic cirrhosis type: alcoholic cirrhosis Ascites presence: with ascites Qualified Code(s): K70.31 - Alcoholic cirrhosis of liver with ascites Is this a current diagnosis for this admission?: Yes Plan: Plan as above - Time Time Spent with patient: 35 or more minutes
[2019-05-06] MEDS: ASCORBIC ACID 500 MG TABLET PEG SCH ×2 (09:33→19:17)
[2019-05-06] MEDS: DOCUSATE SODIUM 100 MG/10 ML UDC PEG SCH ×2 (09:34→19:17)
[2019-05-06] MEDS: ZINC SULFATE 220 MG CAPSULE PEG SCH (09:34)
[2019-05-06] MEDS: SERTRALINE HCL 50 MG TABLET PEG SCH ×2 (09:34→22:03)
[2019-05-06] MEDS: VENLAFAXINE HCL 75 MG TABLET JT SCH ×2 (09:34→22:02)
[2019-05-06] MEDS: GABAPENTIN 300 MG CAPSULE PEG SCH ×3 (09:34→19:17)
[2019-05-06] MEDS: FAMOTIDINE INJ/PF 20 MG/2 ML SDV IV SCH ×2 (09:34→22:01)
[2019-05-06] MEDS: SPIRONOLACTONE 25 MG TABLET PEG SCH (09:34)
[2019-05-06] MEDS: ASPIRIN 81 MG TABLET, CHEWABLE PEG SCH (09:34)
[2019-05-06] MEDS: CETIRIZINE 10 MG TABLET PEG SCH (09:34)
--- NOTE | 2019-05-06 11:07 | PDOC PROGRESS REPORT ---
Subjective Progress Note for:: 05/06/19 Subjective:: 05/04/2019 Patient was going down for pigtail catheter to be placed for draining of recurring ascites. Patient has a terminal illness that is causing recurring relation of ascites yesterday approximately 6000 mL's was drained radiology. 05/05/2019 Patient is afebrile rates up a little bit today, will watch this trend, blood pressures however are stable, sats are stable at 95% on trach collar he is being set up for hospice palliative care at [facility], which seems appropriate based on his deteriorating medical condition 05/06/2019 Waiting for [facility] see if they will take him back as a patient. Prior to admission this is where he was placed. Patient has a pigtail catheter now for his ascites which will be drained as needed every 3 days Reason For Visit: RECURRENT ABDOMINAL ASCITES Physical Exam Vital Signs: Temp Pulse Resp BP Pulse Ox 97.2 F 99 22 H 102/70 98 05/06/19 07:20 05/06/19 08:35 05/06/19 08:35 05/06/19 07:20 05/06/19 08:35 Intake & Output 05/05/19 05/06/19 05/07/19 06:59 06:59 06:59 Intake Total 4439 4287 Output Total 80 275 Balance 4359 4012 Weight 75.9 kg 78.3 kg General appearance: PRESENT: no acute distress Throat exam: PRESENT: other - Trach Respiratory exam: PRESENT: rhonchi, wheezes Cardiovascular exam: PRESENT: RRR. ABSENT: diastolic murmur, rubs, systolic murmur Neurological exam: PRESENT: altered, other - Status post stroke Psychiatric exam: PRESENT: appropriate affect, normal mood. ABSENT: homicidal ideation, suicidal ideation Results Laboratory Results: 05/05/19 06:12 05/05/19 06:12 Impressions: Chest X-Ray 05/02/19 15:37 IMPRESSION: STABLE APPEARANCE OF THE CHEST. SUPPORT DEVICES UNCHANGED. Head CT 05/02/19 16:28 IMPRESSION: Subacute left temporoparietal infarction. No acute finding. EVIDENCE OF ACUTE STROKE: NO. Paracentesis Ultrasound 05/03/19 00:00 IMPRESSION: SUCCESSFUL ULTRASOUND GUIDED PARACENTESIS. Assessment and Plan - Diagnosis (1) Ascites Qualifiers: Ascites type: due to alcoholic cirrhosis Qualified Code(s): K70.31 - Alcoholic cirrhosis of liver with ascites Is this a current diagnosis for this admission?: Yes (2) Cirrhosis Qualifiers: Hepatic cirrhosis type: alcoholic cirrhosis Ascites presence: with ascites Qualified Code(s): K70.31 - Alcoholic cirrhosis of liver with ascites Is this a current diagnosis for this admission?: Yes (3) Hx of lung and laryngeal CA Is this a current diagnosis for this admission?: Yes (4) Leukocytosis Qualifiers: Leukocytosis type: unspecified Qualified Code(s): D72.829 - Elevated white blood cell count, unspecified Is this a current diagnosis for this admission?: Yes (5) Stroke Is this a current diagnosis for this admission?: Yes - Plan Summary Summary: Patient will be seen for a paracentesis by interventional radiology. A thyroid profile will be obtained. Serial lipase and amylase determinations will be obtained as well as serial metabolic profiles with magnesium levels and CBCs. Patient's pain will be controlled with morphine sulfate 2 to 4 mg IV every 2 hours on an as-needed basis per sliding scale. Dr. Hanson will be seeing the patient in consultation during his hospital course. Advanced care planning should be discussed with the patient's family when the opportunity presents itself. 05/03/2019 oncology is managing patient primarily. Patient will have his ascites drained and surgery has been consulted for pigtail catheter His CODE STATUS has been readdressed and patient is now DNR Labs will be evaluated and treated appropriately, CBC is stable today, coags stable, lactic acid is normal for enzymes elevated, ammonia level normal, I really profile is pending 05/04/2019 Vital signs this morning are stable heart rate approximately 90, temperature 98.6, blood pressure 121/69 ,O2 sat 90s trach collar CBC is stable, lites are grossly normal renal function appears to be improving. Patient will return back to [facility] stable.. Patient is DNR 05/05/2019 Patient being placed on hospice palliative care, waiting for placement at [facility]. Coarse rhonchi heard in lungs unchanged 05/06/2019 Charge planning has contacted [facility] to see if they will take him back for long-term care, hospice. Days ago patient had a pigtail catheter placed in his abdomen drainage of recurrent ascites secondary to cancer - Time Time Spent with patient: 25-34 minutes
[2019-05-06] MEDS ORDERED: LIDOCAINE 1% INJ-PF (10 MG/ML) 30 ML SDV ONE (15:45)
--- NOTE | 2019-05-06 16:24 | Operative Report ---
Nonrecallable Operative Report DATE OF SURGERY: 05/06/19 PREOPERATIVE DIAGNOSIS: Status post paracentesis catheter placement with shemar- catheter drainage POSTOPERATIVE DIAGNOSIS: Same OPERATION: 1. Attachment of drainage apparatus to her Suzie catheter. 2. Pursestring suture securing of catheter to skin exit site SURGEON: DUSTIN WARD ANESTHESIA: Local TISSUE REMOVED OR ALTERED: None COMPLICATIONS: None ESTIMATED BLOOD LOSS: Scant INTRAOPERATIVE FINDINGS: Below PROCEDURE: Was called by the nursing staff as the on-call surgeon to investigate excessive amount of peritoneal fluid draining from around a recently placed peritoneal catheter in Mr. Ashraf. At bedside it was apparent that there was copious amounts of chylous drainage from around the catheter. Catheter was capped off. We obtained a Luer-Eleanor adapter catheter, tested to a Pierce bag, cleaned the tip of the peritoneal catheter after removing the proprietary. The Luer-Eleanor adapter was attached, and the clamp released from the peritoneal catheter and the drainage system began collecting the peritoneal fluid. Unfortunately there was a significant amount of assisting chylous drainage from around the catheter. Therefore we opted to place a pursestring here. The adjacent skin was prepped with alcohol, Paige x1% plain lidocaine, and using 2-0 Prolene suture, a pursestring was used to pinch the skin around the catheter, thereby abating the leak. The 2-0 Prolene was also secured to the tube without kinking. At the conclusion of the procedure, the patient was draining peritoneal fluid through the designated catheter. The patient tolerated procedure well. Care for the catheter reviewed with nursing staff. Please reconsult surgery if needed.
[2019-05-06] MEDS: ACETAMINOPHEN 325 MG TABLET PEG PRN (22:01)
[2019-05-07] MEDS: LEVALBUTEROL HCL NEB 1.25 MG/3 ML AMPUL NEB SCH ×4 (00:09→23:55)
[2019-05-07] MEDS: IPRATROPIUM BROMIDE 0.02% NEB 0.5 MG/2.5 ML AMPUL NEB SCH ×4 (00:09→23:55)
[2019-05-07] MEDS: NORMAL SALINE 1000 ML 1,000 ML IV PRN ×3 (00:16→16:30)
[2019-05-07] MEDS: LEVOTHYROXINE SODIUM 0.05 MG TABLET JT SCH (05:15)
--- NOTE | 2019-05-07 08:30 | PDOC PROGRESS REPORT ---
Subjective Progress Note for:: 05/07/19 Subjective:: Apparently [facility] finding it difficult to take patient back, therefore today my cardiology nurse Marcia is going to meet with the and see if we can get him home on home hospice with caregivers. Reason For Visit: RECURRENT ABDOMINAL ASCITES Physical Exam Vital Signs: Temp Pulse Resp BP Pulse Ox 97.5 F 53 L 18 123/60 100 05/07/19 08:00 05/07/19 08:00 05/07/19 08:00 05/07/19 08:00 05/07/19 08:00 Intake & Output 05/06/19 05/07/19 05/08/19 06:59 06:59 06:59 Intake Total 4287 2909 Output Total 275 Balance 4012 2909 Weight 78.3 kg 78.7 kg General appearance: PRESENT: no acute distress, well-developed, well-nourished Head exam: PRESENT: atraumatic, normocephalic Eye exam: PRESENT: conjunctiva pink, EOMI, PERRLA. ABSENT: scleral icterus Ear exam: PRESENT: normal external ear exam Mouth exam: PRESENT: moist, tongue midline Neck exam: ABSENT: carotid bruit, JVD, lymphadenopathy, thyromegaly Respiratory exam: PRESENT: clear to auscultation alana. ABSENT: rales, rhonchi, wheezes Cardiovascular exam: PRESENT: RRR. ABSENT: diastolic murmur, rubs, systolic murmur Pulses: PRESENT: normal dorsalis pedis pul Vascular exam: PRESENT: normal capillary refill GI/Abdominal exam: PRESENT: normal bowel sounds, soft. ABSENT: distended, gua rding, mass, organolmegaly, rebound, tenderness Rectal exam: PRESENT: deferred Extremities exam: PRESENT: full ROM. ABSENT: calf tenderness, clubbing, pedal edema Neurological exam: PRESENT: alert, awake, oriented to person, oriented to place, oriented to time, oriented to situation, CN II-XII grossly intact. ABSENT: lety r sensory deficit Psychiatric exam: PRESENT: appropriate affect, normal mood. ABSENT: homicidal ideation, suicidal ideation Skin exam: PRESENT: dry, intact, warm. ABSENT: cyanosis, rash Results Laboratory Results: 05/05/19 06:12 05/05/19 06:12 Impressions: Chest X-Ray 05/02/19 15:37 IMPRESSION: STABLE APPEARANCE OF THE CHEST. SUPPORT DEVICES UNCHANGED. Head CT 05/02/19 16:28 IMPRESSION: Subacute left temporoparietal infarction. No acute finding. EVIDENCE OF ACUTE STROKE: NO. Paracentesis Ultrasound 05/03/19 00:00 IMPRESSION: SUCCESSFUL ULTRASOUND GUIDED PARACENTESIS. Assessment & Plan - Diagnosis (1) Acute ischemic left MCA stroke Is this a current diagnosis for this admission?: Yes Plan: Patient on comfort care now (2) Ascites Qualifiers: Ascites type: due to alcoholic cirrhosis Qualified Code(s): K70.31 - Alcoholic cirrhosis of liver with ascites Is this a current diagnosis for this admission?: Yes Plan: We will still give drainage every so often (3) Cancer of larynx Is this a current diagnosis for this admission?: Yes Plan: No further treatment planned (4) Cirrhosis Qualifiers: Hepatic cirrhosis type: alcoholic cirrhosis Ascites presence: with ascites Qualified Code(s): K70.31 - Alcoholic cirrhosis of liver with ascites Is this a current diagnosis for this admission?: Yes Plan: No further treatment planned other than drainage of the peritoneal catheter - Time Time Spent with patient: 35 or more minutes
[2019-05-07] MEDS: ZINC SULFATE 220 MG CAPSULE PEG SCH (12:30)
[2019-05-07] MEDS: DOCUSATE SODIUM 100 MG/10 ML UDC PEG SCH ×2 (12:30→19:05)
[2019-05-07] MEDS: SPIRONOLACTONE 25 MG TABLET PEG SCH (12:30)
[2019-05-07] MEDS: CETIRIZINE 10 MG TABLET PEG SCH (12:30)
[2019-05-07] MEDS: VENLAFAXINE HCL 75 MG TABLET JT SCH ×2 (12:30→22:47)
[2019-05-07] MEDS: ASCORBIC ACID 500 MG TABLET PEG SCH ×2 (12:30→19:05)
[2019-05-07] MEDS: SERTRALINE HCL 50 MG TABLET PEG SCH ×2 (12:30→22:48)
[2019-05-07] MEDS: GABAPENTIN 300 MG CAPSULE PEG SCH ×3 (12:30→19:05)
[2019-05-07] MEDS: ASPIRIN 81 MG TABLET, CHEWABLE PEG SCH (12:30)
[2019-05-07] MEDS: FAMOTIDINE INJ/PF 20 MG/2 ML SDV IV SCH ×2 (12:31→22:46)
--- NOTE | 2019-05-07 18:37 | PDOC PROGRESS REPORT ---
Subjective Progress Note for:: 05/07/19 Subjective:: No acute event overnight. No issues with his peritoneal catheter. No recurrence of abdominal distention. Denies abdominal pain chest pain. Anticipating discharge to home hospice in the next 24 hours. Reason For Visit: RECURRENT ABDOMINAL ASCITES Physical Exam Vital Signs: Temp Pulse Resp BP Pulse Ox 97.9 F 75 18 123/66 100 05/07/19 16:00 05/07/19 16:00 05/07/19 16:00 05/07/19 16:00 05/07/19 16:00 Intake & Output 05/06/19 05/07/19 05/08/19 06:59 06:59 06:59 Intake Total 4287 2909 2636 Output Total 275 Balance 4012 2909 2636 Weight 172 lb 9.951 oz 173 lb 8.061 oz General appearance: PRESENT: no acute distress, well-developed, well-nourished Head exam: PRESENT: atraumatic, normocephalic Eye exam: PRESENT: conjunctiva pink, EOMI, PERRLA. ABSENT: scleral icterus Ear exam: PRESENT: normal external ear exam Mouth exam: PRESENT: moist, tongue midline Neck exam: ABSENT: carotid bruit, JVD, lymphadenopathy, thyromegaly Respiratory exam: PRESENT: rhonchi. ABSENT: rales, wheezes Cardiovascular exam: PRESENT: RRR. ABSENT: diastolic murmur, rubs, systolic murmur Pulses: PRESENT: normal dorsalis pedis pul GI/Abdominal exam: PRESENT: ascites, normal bowel sounds, soft. ABSENT: distended, guarding, organolmegaly, rebound, tenderness Rectal exam: PRESENT: deferred Neurological exam: PRESENT: alert, awake, oriented to person, oriented to place, oriented to time, oriented to situation, CN II-XII grossly intact. ABSENT: motor sensory deficit Results Laboratory Results: 05/05/19 06:12 05/05/19 06:12 Impressions: Chest X-Ray 05/02/19 15:37 IMPRESSION: STABLE APPEARANCE OF THE CHEST. SUPPORT DEVICES UNCHANGED. Head CT 05/02/19 16:28 IMPRESSION: Subacute left temporoparietal infarction. No acute finding. EVIDENCE OF ACUTE STROKE: NO. Paracentesis Ultrasound 05/03/19 00:00 IMPRESSION: SUCCESSFUL ULTRASOUND GUIDED PARACENTESIS. Assessment and Plan - Diagnosis (1) Laryngeal cancer Is this a current diagnosis for this admission?: Yes Plan: Now transitioned to home hospice. (2) COPD (chronic obstructive pulmonary disease) Qualifiers: COPD type: unspecified COPD Qualified Code(s): J44.9 - Chronic obstructive pulmonary disease, unspecified Is this a current diagnosis for this admission?: Yes (3) Acute ischemic left MCA stroke Is this a current diagnosis for this admission?: Yes (4) Ascites Qualifiers: Ascites type: due to alcoholic cirrhosis Qualified Code(s): K70.31 - Alcoholic cirrhosis of liver with ascites Is this a current diagnosis for this admission?: Yes Plan: S/P peritoneal catheter placement. - Time Time Spent with patient: 15-24 minutes
[2019-05-08] MEDS: NORMAL SALINE 1000 ML 1,000 ML IV PRN ×2 (00:45→08:53)
[2019-05-08] MEDS: LEVOTHYROXINE SODIUM 0.05 MG TABLET JT SCH (05:17)
--- NOTE | 2019-05-08 07:58 | PDOC PROGRESS REPORT ---
Subjective Progress Note for:: 05/08/19 Subjective:: No acute events overnight but has had discussions with hospice, working on getting him home with hospice. Reason For Visit: RECURRENT ABDOMINAL ASCITES Physical Exam Vital Signs: Temp Pulse Resp BP Pulse Ox 97.9 F 104 H 20 120/71 100 05/07/19 23:36 05/07/19 23:56 05/07/19 23:56 05/07/19 23:36 05/08/19 04:40 Intake & Output 05/07/19 05/08/19 05/09/19 06:59 06:59 06:59 Intake Total 2909 3636 Output Total 2700 Balance 2909 936 Weight 78.7 kg 79.7 kg General appearance: PRESENT: no acute distress, well-developed, well-nourished Head exam: PRESENT: atraumatic, normocephalic Eye exam: PRESENT: conjunctiva pink, EOMI, PERRLA. ABSENT: scleral icterus Ear exam: PRESENT: normal external ear exam Mouth exam: PRESENT: moist, tongue midline Neck exam: ABSENT: carotid bruit, JVD, lymphadenopathy, thyromegaly Respiratory exam: PRESENT: clear to auscultation alana. ABSENT: rales, rhonchi, wheezes Cardiovascular exam: PRESENT: RRR. ABSENT: diastolic murmur, rubs, systolic murmur Pulses: PRESENT: normal dorsalis pedis pul Vascular exam: PRESENT: normal capillary refill GI/Abdominal exam: PRESENT: normal bowel sounds, soft. ABSENT: distended, gu arding, mass, organolmegaly, rebound, tenderness Rectal exam: PRESENT: deferred Extremities exam: PRESENT: full ROM. ABSENT: calf tenderness, clubbing, pedal edema Neurological exam: PRESENT: alert, awake, oriented to person, oriented to place, oriented to time, oriented to situation, CN II-XII grossly intact. ABSENT: mot or sensory deficit Psychiatric exam: PRESENT: appropriate affect, normal mood. ABSENT: homicidal ideation, suicidal ideation Skin exam: PRESENT: dry, intact, warm. ABSENT: cyanosis, rash Results Laboratory Results: 05/05/19 06:12 05/05/19 06:12 Impressions: Chest X-Ray 05/02/19 15:37 IMPRESSION: STABLE APPEARANCE OF THE CHEST. SUPPORT DEVICES UNCHANGED. Head CT 05/02/19 16:28 IMPRESSION: Subacute left temporoparietal infarction. No acute finding. EVIDENCE OF ACUTE STROKE: NO. Paracentesis Ultrasound 05/03/19 00:00 IMPRESSION: SUCCESSFUL ULTRASOUND GUIDED PARACENTESIS. Assessment & Plan - Diagnosis (1) Acute ischemic left MCA stroke Is this a current diagnosis for this admission?: Yes Plan: Working on home hospice (2) Ascites Qualifiers: Ascites type: due to alcoholic cirrhosis Qualified Code(s): K70.31 - Alcoholic cirrhosis of liver with ascites Is this a current diagnosis for this admission?: Yes Plan: Catheter placed, home hospice can handle this, but equipment still getting in the house (3) Cancer of larynx Is this a current diagnosis for this admission?: Yes Plan: No further treatment planned (4) Cirrhosis Qualifiers: Hepatic cirrhosis type: alcoholic cirrhosis Ascites presence: with ascites Qualified Code(s): K70.31 - Alcoholic cirrhosis of liver with ascites Is this a current diagnosis for this admission?: Yes Plan: Comfort measures - Time Time Spent with patient: 15-24 minutes
[2019-05-08] MEDS: IPRATROPIUM BROMIDE 0.02% NEB 0.5 MG/2.5 ML AMPUL NEB SCH (08:33)
[2019-05-08] MEDS: LEVALBUTEROL HCL NEB 1.25 MG/3 ML AMPUL NEB SCH (08:33)
[2019-05-08] MEDS: DOCUSATE SODIUM 100 MG/10 ML UDC PEG SCH (10:06)
[2019-05-08] MEDS: GABAPENTIN 300 MG CAPSULE PEG SCH (10:06)
[2019-05-08] MEDS: ASPIRIN 81 MG TABLET, CHEWABLE PEG SCH (10:06)
[2019-05-08] MEDS: CETIRIZINE 10 MG TABLET PEG SCH (10:06)
[2019-05-08] MEDS: FAMOTIDINE INJ/PF 20 MG/2 ML SDV IV SCH (10:06)
[2019-05-08] MEDS: VENLAFAXINE HCL 75 MG TABLET JT SCH (10:06)
[2019-05-08] MEDS: SPIRONOLACTONE 25 MG TABLET PEG SCH (10:06)
[2019-05-08] MEDS: SERTRALINE HCL 50 MG TABLET PEG SCH (10:07)
[2019-05-08] MEDS: ASCORBIC ACID 500 MG TABLET PEG SCH (10:07)
[2019-05-08] MEDS: ZINC SULFATE 220 MG CAPSULE PEG SCH (10:07)
[2019-05-08 13:48] VITALS: BP 106/66
[2019-05-08] MEDS ORDERED: PNEUMOCOCCAL 23-VAL P-SAC VAC 0.5 ML VIAL IM PRN (14:14)
[2019-05-08] MEDS ORDERED: INFLUENZA QUAD (6MOS+) 2019-20 VAC 0.5 ML SYR IM ONE (14:30)
[2019-05-09] MEDS ORDERED: INFLUENZA QUAD (6MOS+) 2019-20 VAC 0.5 ML SYR IM ONE (08:00)
--- NOTE | 2019-05-09 17:24 | PDOC DISCHARGE SUMMARY ---
Impression - Admit/DC Date/PCP Admission Date/Primary Care Provider: 05/02/19 20:33 CLAUDIO FU MD Discharge Date: 05/08/19 - Discharge Diagnosis (1) Laryngeal cancer Is this a current diagnosis for this admission?: Yes (2) COPD (chronic obstructive pulmonary disease) Is this a current diagnosis for this admission?: Yes (3) Acute ischemic left MCA stroke Is this a current diagnosis for this admission?: Yes (4) Ascites Is this a current diagnosis for this admission?: Yes - Additional Information Resuscitation Status: Do Not Resuscitate Referrals: [facility] [Outside] Home Medications: Cetirizine HCl [Zyrtec 10 mg Tablet] 10 mg PEG DAILY 03/05/19 Levothyroxine Sodium [Synthroid 0.05 mg Tablet] 50 mcg JT Q6AM 03/05/19 Promethazine HCl [Phenergan 25 mg Tablet] 12.5 mg JT Q12HP PRN 03/05/19 Sertraline HCl [Zoloft] 200 mg PEG DAILY 03/05/19 Spironolactone [Aldactone 100 mg Tablet] 100 mg PO QAM 03/05/19 Venlafaxine HCl [Effexor 75 mg Tablet] 75 mg JT QAM 03/05/19 Venlafaxine HCl [Effexor 75 mg Tablet] 150 mg JT QHS 03/05/19 Aspirin [Aspirin 81 mg Chewable Tablet] 81 mg PEG DAILY 03/25/19 Gabapentin [Neurontin 300 mg Capsule] 300 mg PEG TID 03/25/19 Ipratropium/Albuterol Sulfate [Duoneb 3 ml Ampul] 3 ml IH Q6HP PRN 03/25/19 Ascorbic Acid [Vitamin C] 500 mg PO DAILY 05/02/19 Silver Chloride [Silver Gel] 1 applic TP ASDIR PRN 05/02/19 Zinc Sulfate [Zinc-220 Capsule] 220 mg PO DAILY 05/02/19 History of Present Illiness History of Present Illness: Admitting hospitalist's H&P: [facility] is a 73 year old male who presented to the emergency room from the senior living at Dr. Hanson's request for an elective abdominal paracentesis to remove reaccumulated, severe ascites. The patient has known laryngeal carcinoma and is currently under the care of Dr. Hanson. Patient has experienced numerous accumulations of ascites requiring paracentesis over the last several months. The accumulated ascites causes the patient to have dyspnea and abdominal discomfort. Patient is nonverbal and is unable to participate in providing medical history therefore all past medical history, past surgical h istory, social history and family history are obtained from the best available sources and previous medical records. In the emergency room he was found to have no acute stroke and a stable chest x-ray compared to previous evaluations. His laboratory evaluation was at his baseline with the exception of an elevated serum lipase of 3195 and a minimally elevated serum amylase. A modestly elevated TSH was also noted. Patient was subsequently admitted to the hospital for further evaluation and treatment per Dr. Hanson's request. Hospital Course Hospital Course: This is a 73 year old with now a 2-year history of cirrhosis, stage IV head neck cancer, S/P tracheostomy because of recurrence in the neck who was admitted for severe recurrent ascites. He is continued to significantly decline in the past few weeks. Patient underwent peritoneal catheter placement as part of palliative support to relieve his symptoms. His CODE STATUS was changed to DNR/DNI on this admission. Patient will be discharged home under hospice care. Physical Exam Vital Signs: Temp Pulse Resp BP Pulse Ox 97.6 F 106 H 16 106/66 98 05/08/19 11:18 05/08/19 11:18 05/08/19 11:18 05/08/19 11:18 05/08/19 12:00 Intake & Output 05/08/19 05/09/19 05/10/19 06:59 06:59 06:59 Intake Total 3636 1000 Output Total 2700 Balance 936 1000 Weight 175 lb 11.335 oz General appearance: PRESENT: no acute distress, well-developed, well-nourished Head exam: PRESENT: atraumatic, normocephalic Eye exam: PRESENT: conjunctiva pink, EOMI, PERRLA. ABSENT: scleral icterus Ear exam: PRESENT: normal external ear exam Mouth exam: PRESENT: moist, tongue midline Neck exam: ABSENT: carotid bruit, JVD, lymphadenopathy, thyromegaly Respiratory exam: PRESENT: rhonchi. ABSENT: rales, wheezes Cardiovascular exam: PRESENT: RRR. ABSENT: diastolic murmur, rubs, systolic murmur Pulses: PRESENT: normal dorsalis pedis pul GI/Abdominal exam: PRESENT: normal bowel sounds, soft. ABSENT: distended, guarding, mass, organolmegaly, rebound, tenderness Rectal exam: PRESENT: deferred Neurological exam: PRESENT: alert, awake, oriented to person, oriented to place, oriented to time, oriented to situation, CN II-XII grossly intact. ABSENT: motor sensory deficit Results Laboratory Results: WBC 22.9 10^3/uL (4.0-10.5) H 05/05/19 06:12 RBC 3.00 10^6/uL (4.35-5.55) L 05/05/19 06:12 Hgb 8.9 g/dL (13.5-17.0) L 05/05/19 06:12 Hct 27.9 % (37.9-51.0) L 05/05/19 06:12 MCV 93 fl (80-97) 05/05/19 06:12 MCH 29.5 pg (27.0-33.4) 05/05/19 06:12 MCHC 31.7 g/dL (32.0-36.0) L 05/05/19 06:12 RDW 16.1 % (11.5-14.0) H 05/05/19 06:12 Plt Count 373 10^3/uL (150-450) 05/05/19 06:12 Lymph % (Auto) 17.2 % (13-45) 05/02/19 15:07 [place] % (Auto) 9.6 % (3-13) 05/02/19 15:07 Eos % (Auto) 0.0 % (0-6) 05/02/19 15:07 Baso % (Auto) 0.2 % (0-2) 05/02/19 15:07 Absolute Neuts (auto) 10.0 10^3/uL (1.7-8.2) H 05/02/19 15:07 Absolute Lymphs (auto) 2.4 10^3/uL (0.5-4.7) 05/02/19 15:07 Absolute Monos (auto) 1.3 10^3/uL (0.1-1.4) 05/02/19 15:07 Absolute Eos (auto) 0.0 10^3/uL (0.0-0.6) 05/02/19 15:07 Absolute Basos (auto) 0.0 10^3/uL (0.0-0.2) 05/02/19 15:07 Seg Neutrophils % 73.0 % (42-78) 05/02/19 15:07 PT 14.3 SEC (11.4-15.4) 05/02/19 15:07 INR 1.11 05/02/19 15:07 Sodium 136.7 mmol/L (137-145) L 05/05/19 06:12 Potassium 4.2 mmol/L (3.6-5.0) 05/05/19 06:12 Chloride 110 mmol/L (98-107) H 05/05/19 06:12 Carbon Dioxide 22 mmol/L (22-30) 05/05/19 06:12 Anion Gap 5 (5-19) 05/05/19 06:12 BUN 25 mg/dL (7-20) H 05/05/19 06:12 Creatinine 0.63 mg/dL (0.52-1.25) 05/05/19 06:12 Est GFR ( Amer) > 60 (>60) 05/05/19 06:12 Est GFR (MDRD) Non-Af > 60 (>60) 05/05/19 06:12 Glucose 65 mg/dL (75-110) L 05/05/19 06:12 POC Glucose 145 mg/dL (70-110) H 05/08/19 11:59 Lactic Acid 0.8 mmol/L (0.7-2.1) 05/03/19 04:30 Calcium 8.6 mg/dL (8.4-10.2) 05/05/19 06:12 Magnesium 2.1 mg/dL (1.6-2.3) 05/05/19 06:12 Total Bilirubin 0.4 mg/dL (0.2-1.3) 05/05/19 06:12 Direct Bilirubin 0.1 mg/dL (0.0-0.4) 05/05/19 06:12 Neonat Total Bilirubin Not Reportable 05/05/19 06:12 Neonat Direct Bilirubin Not Reportable 05/05/19 06:12 Neonat Indirect Bili Not Reportable 05/05/19 06:12 AST 57 U/L (17-59) 05/05/19 06:12 ALT 98 U/L (<50) 05/05/19 06:12 Alkaline Phosphatase 387 U/L (38-126) H 05/05/19 06:12 Ammonia 13.5 umol/L (9-33) 05/02/19 16:37 Total Protein 4.7 g/dL (6.3-8.2) L 05/05/19 06:12 Albumin 2.1 g/dL (3.5-5.0) L 05/05/19 06:12 Amylase 109 U/L (30-110) 05/05/19 06:12 Lipase 1131.0 U/L (23-300) H 05/05/19 06:12 TSH 5.69 uIU/mL (0.47-4.68) H 05/02/19 15:07 Free T4 1.46 ng/dL (0.78-2.19) 05/02/19 15:07 Free T3 pg/mL 5.09 pg/mL (2.77-5.27) 05/02/19 15:07 Urine Color YELLOW 05/02/19 15:07 Urine Appearance SLIGHTLY-CLOUDY 05/02/19 15:07 Urine pH 7.0 (5.0-9.0) 05/02/19 15:07 Ur Specific [place] 1.016 05/02/19 15:07 Urine Protein NEGATIVE mg/dL (NEGATIVE) 05/02/19 15:07 Urine Glucose (UA) NEGATIVE mg/dL (NEGATIVE) 05/02/19 15:07 Urine Ketones NEGATIVE mg/dL (NEGATIVE) 05/02/19 15:07 Urine Blood NEGATIVE (NEGATIVE) 05/02/19 15:07 Urine Nitrite NEGATIVE (NEGATIVE) 05/02/19 15:07 Urine Bilirubin NEGATIVE (NEGATIVE) 05/02/19 15:07 Urine Urobilinogen NEGATIVE mg/dL (<2.0) 05/02/19 15:07 Ur Leukocyte Esterase NEGATIVE (NEGATIVE) 05/02/19 15:07 Urine WBC (Auto) 1 /HPF 05/02/19 15:07 Urine RBC (Auto) 7 /HPF 05/02/19 15:07 U Hyaline Cast (Auto) 1 /LPF 05/02/19 15:07 Amorphous Sediment Auto TRACE /HPF 05/02/19 15:07 Urine Mucus (Auto) RARE /LPF 05/02/19 15:07 Urine Ascorbic Acid 40 (NEGATIVE) H 05/02/19 15:07 Impressions: Chest X-Ray 05/02/19 15:37 IMPRESSION: STABLE APPEARANCE OF THE CHEST. SUPPORT DEVICES UNCHANGED. Head CT 05/02/19 16:28 IMPRESSION: Subacute left temporoparietal infarction. No acute finding. EVIDENCE OF ACUTE STROKE: NO. Paracentesis Ultrasound 05/03/19 00:00 IMPRESSION: SUCCESSFUL ULTRASOUND GUIDED PARACENTESIS. Stroke Is this a Stroke Patient?: Yes Reason(s) for not prescribing Anti-thrombolytic therapy:: Contraindicated, Hospice Care Reason(s) for not prescribing Anti-coagulation therapy:: Contraindicated, Hospice Care Reason(s) for not prescribing Statins therapy:: Hospice Care Acute Heart Failure - Is this a Heart Failure Patient?: No
== END 2019-05-08 15:05 | disposition hospice, home (50) | DRG 432 ==
LOC: ER 14:35 → EH 20:33 → 4W 22:49
PROVIDERS: ADMIT Emergency Medicine; ATTEND Emergency Medicine
PROC: 0WHG33Z Insertion of Infusion Device into Peritoneal Cavity, Percutaneous Approach (ICD-10-PCS; principal; 2019-05-04 09:00)
PROC: 0HQ7XZZ Repair Abdomen Skin, External Approach (ICD-10-PCS; 2019-05-06)
PROC: 3E0234Z Introduction of Serum, Toxoid and Vaccine into Muscle, Percutaneous Approach (ICD-10-PCS; 2019-05-08)
PROC: 3E0234Z Introduction of Serum, Toxoid and Vaccine into Muscle, Percutaneous Approach (ICD-10-PCS; 2019-05-08)
DX: K70.31 Alcoholic cirrhosis of liver with ascites (principal); L89.153 Pressure ulcer of sacral region, stage 3; I63.412 Cerebral infarction due to embolism of left middle cerebral artery; C34.90 Malignant neoplasm of unspecified part of unspecified bronchus or lung; C32.9 Malignant neoplasm of larynx, unspecified; I10 Essential (primary) hypertension; D72.829 Elevated white blood cell count, unspecified; I69.922 Dysarthria following unspecified cerebrovascular disease; Z23 Encounter for immunization; Z93.0 Tracheostomy status; Z93.1 Gastrostomy status; Z79.82 Long term (current) use of aspirin; Z79.891 Long term (current) use of opiate analgesic; Z79.51 Long term (current) use of inhaled steroids; Z79.899 Other long term (current) drug therapy
CPT/HCPCS: 36415; 49083; 70450; 71045; 80048; 80053; 80076; 81001; 82140; 82150; 82962; 83605; 83690; 83735; 840; 84439; 84443; 84481; 85025; 85027; 85610; 90471; 90686; 90732; 93005; 93010; 94640; C9290; G0009; J0694; J1642; J1644; J2250; J2270; J2370; J2704; J3010; J3490; J7030; J7121; J7620; P9047; S0028